=== PATIENT | female | born 1950 | race Caucasian/White ===

== ENCOUNTER → 2021-01-26 16:16 | Outpatient (CLI) | payer BC, SELFPAY ==
[2021-01-26 17:53] LABS: Anion Gap 6 (5-15); BUN 22 mg/dL (7-18); Calcium,Total 8.7 mg/dL (8.5-10.1); Chloride 110 mmol/L (98-107); Creatinine, Serum 1.05 mg/dL (0.55-1.02); EST Glomerular Filtration Rate 55 mL/min (>60); Est Glom Filt Rate - Afr Amer 66 mL/min (>60); Glucose 95 mg/dL (74-106); Potassium 3.5 mmol/L (3.5-5.1); Sodium Level 143 mmol/L (136-145)
== END ==
DX: I11.0 Hypertensive heart disease with heart failure (principal); F41.3 Other mixed anxiety disorders
CPT/HCPCS: 36415; 80048

== ENCOUNTER 2023-03-02 18:08 | Emergency (ER) | payer MEDICARE, SELFPAY ==
[2023-03-02] VITALS (7 sets, daily range): BP systolic 208–236; BP diastolic 89–117; PULSE 54–80; RESP 15–18; TEMP 36.1; O2SAT 95–97; BMI 28.7
--- NOTE | 2023-03-02 19:00 | EKG12_ITS ---
Test Reason : DYSRHYTHMIA Blood Pressure : / mmHG Vent. Rate : 056 BPM Atrial Rate : 056 BPM P-R Int : 186 ms QRS Dur : 150 ms QT Int : 522 ms P-R-T Axes : 076 095 -13 degrees QTc Int : 503 ms Sinus bradycardia Right bundle branch block T wave abnormality, consider inferior ischemia Abnormal ECG Confirmed by SHANDRA MCGILL, JERE ([id number]), graphics editor RONNA RUBIO ([id number]) on 03/04/2023 9:47:47 AM Referred By: EMMA Confirmed By:JERE DEVI MD
--- NOTE | 2023-03-02 19:01 | EDS_ITS ---
HPI History of Present Illness Chief Complaint: Anxiety Narrative Narrative: 72-year-old female presenting with lightheadedness. Patient states that the day before yesterday she started B12 and her doctor told her to put a sublingual leads absorb faster. She notes that today she woke up with some lightheadedness as well as yesterday. She states when she sits up. Standing up does not make it worse. She denies vertiginous symptoms. No chest pain but does occasionally feel short of breath. Patient states she went to the pharmacist who wrote her medications because there was a piece of paper with side effects on it and said dizziness and lightheadedness could be caused by her Lasix. Patient is on Lasix chronically and she states she also takes Klor-Con. Patient states the pharmacist told her to go to the emergency room. She had been trying to follow- up with cardiology but it is the weekend and the pharmacist wanted her to be evaluated. Patient denies chest pain. No fevers or chills. She is not feeling weak. He does have a little bit of anxiety over her symptoms. States that her blood pressures been running a little bit high but a couple of days ago she had a checked and it was 140/80. PFSH PFSH Allergy/AdvReac Type Severity Reaction Status Date / Time No Known Allergies Allergy Verified 03/02/23 18:14 Social History Smoking Status: Never smoker ROS ROS ED ROS Narrative Lightheadedness Constitutional Constitutional ED: Denies chills, fever(s) or sweats Eyes Eyes: Denies blurry vision or change in vision ENT ENT ED: Denies ear pain or sore throat Cardiovascular Cardiovascular: Denies chest pain, palpitations or racing heartbeat Respiratory/Chest Respiratory/Chest: Denies cough, dyspnea or sputum Gastrointestinal Gastrointestinal: Denies abdominal pain, constipation, diarrhea, nausea or vomiting Genitourinary Genitourinary ED: Denies dysuria, hematuria or urinary frequency Musculoskeletal Musculoskeletal: Denies arthralgias, myalgias or neck pain Integumentary Denies abscess, Abrasions or rash Neurologic Neurologic: Denies headache(s), paresthesias or weakness Psychiatric Psychiatric: Reports anxiety; Denies depression, suicidal ideation or suicidal thoughts Endocrine Endocrinology: Denies polydipsia or polyuria EXAM Physical Exam Const Vital Signs: 12/02/23 18:09 03/02/23 19:15 03/02/23 19:16 Temperature 97.0 F L Temperature Source Temporal Pulse Rate 65 Respiratory Rate 16 Respiratory Effort Normal Respiratory Pattern Normal Blood Pressure 231/115 H Blood Pressure Mean 153 Pulse Ox 95 Oxygen Delivery Method Room Air Room Air 03/02/23 19:23 03/02/23 20:12 03/02/23 21:23 Temperature Temperature Source Pulse Rate 59 L Respiratory Rate 15 Respiratory Effort Respiratory Pattern Blood Pressure 236/117 H 212/89 H 210/109 H Blood Pressure Mean 156 130 142 Pulse Ox 96 Oxygen Delivery Method Room Air 03/02/23 21:26 03/02/23 21:35 Temperature Temperature Source Pulse Rate 54 L Respiratory Rate Respiratory Effort Respiratory Pattern Blood Pressure 208/108 H 220/98 H Blood Pressure Mean 141 138 Pulse Ox Oxygen Delivery Method Positive well nourished General Appearance ED: NAD; Negative for pallor HEENT Reports moist mucous membranes Eyes PERRL and EOMs intact bilaterally Neck no lymphadenopathy Chest Wall inspection of chest normal and palpation of chest normal Resp normal respiratory effort and clear to auscultation bilaterally Auscultation: Negative for rales, rhonchi or wheezes Cardio regular rate and regular rhythm GI normal to inspection, nondistended, normoactive bowel sounds Extremity normal to inspection Neuro oriented x3 and CN's II-XII intact bilaterally Sensorium / Orientation: alert Psych mental status grossly normal Skin no rashes or lesions noted General Skin Exam: Negative for jaundice or pallor MDM MDM MDM Narrative Medical decision making narrative: Presenting with lightheadedness. Negative Eminence-Hallpike on exam. Patient concerned that it is due to her Lasix. She does occasionally feel short of breath. Differential includes pneumonia, ACS, CHF, dehydration, electrolyte abnormalities. CBC to assess white blood cell count, hemoglobin, platelets. BMP to assess renal function electrolytes. High-sensitivity troponin EKG to assess for cardiac ischemia/dysrhythmia. BNP to assess for CHF. Patient's blood pressure will be rechecked as her initial blood pressure was high at 221/115. Chest x-ray will be obtained to rule out pneumonia or CHF. CBC shows normal white blood cell count 6.0. 11.10 hemoglobin. Platelets are normal. BNP slightly elevated at 314. Renal function electrolytes unremarkable. Chest x-ray on my interpretation shows a mild initial prominence however the patient does not have any hypoxia, dyspnea currently. Lungs are clear. High- sensitivity troponin within normal limits. EKG sinus rhythm with a ventricular rate of 56 bpm without sign ischemic change or ectopy on my interpretation. Blood pressure still remained high and she was given 5 hydralazine. I had a discussion with her about what her blood pressure medications are she states she cannot recall them. She remembers all of her medications except for her blood pressure medicines and she states she takes metoprolol and 2 other medications for her blood pressure. I gave a list of blood pressure medicines that did not jog her memory. Given that her work-up is ultimately normal I counseled her that she should go home and take her nightly blood pressure medicines and recheck her blood pressure in the morning. I went over this several times. Patient acknowledges understanding of this. She will be discharged home. Impression: 1. Hypertension 2. Atypical chest pain 3. Dyspnea Lab Data Attestation: I reviewed the patient's lab results. Labs: Laboratory Results - last 24 hr 03/02/23 19:10 WBC 6.0 RBC 3.64 L Hgb 11.1 L Hct 34.0 L MCV 93.4 MCH 30.5 MCHC 32.6 RDW Std Deviation 45.1 H RDW Coeff of Lisa 13.2 Plt Count 106 L MPV 11.2 Immature Gran % (Auto) 0.300 Neut % (Auto) 63.8 Lymph % (Auto) 25.3 Story % (Auto) 7.2 Eos % (Auto) 2.7 Baso % (Auto) 0.7 Absolute Neuts (auto) 3.8 Absolute Lymphs (auto) 1.51 Nucleated RBC % 0 Sodium 144 Potassium 3.4 L Chloride 113 H Carbon Dioxide 28.0 Anion Gap 3 L BUN 24 H Creatinine 0.92 Estim Creat Clear Calc 54.94 Est GFR (MDRD) Af Amer 77 Est GFR (MDRD) Non-Af 63 BUN/Creatinine Ratio 26.1 H Glucose 106 Calcium 9.0 Troponin I High Sens 14 B-Natriuretic Peptide 314.0 H Radiography Diagnostic Testing: Clinical Impression(s) from Imaging Studies Chest X-Ray 03/02/23 19:30 IMPRESSION: Mild interstitial prominence. Consider vascular congestion. Abnormal lobulated appearance of the right hemidiaphragm as above. Lateral view could be useful. Right basilar lung lesion not excluded. Electronically Signed: Robert Morrissey MD at 20:05 EST , Discharge Plan Triage Chief Complaint: Anxiety Other Complaint: General Illness ED Provider: Carlton Cui Dx/Rx/DC Orders Instructions: ED Chest Pain, Uncertain Cause, ED Dyspnea, ED Hypertension, Established Primary Care Provider: Wilfrido Card,Out of Referrals: Wilfrido Card,Out of [Primary Care Provider] - Activity Restrictions/Additional Instructions: Take your blood pressure medicine when you get home. Check your blood pressure in the morning and keep a diary. Take your regularly scheduled blood pressure meds tomorrow morning as well. Follow-up with your PCP or diagnostic radiologic technologist. Disposition Disposition: Home, Self Care
[2023-03-02 19:20] LABS: Absolute Lymphocyte Count 1.51 X10^3/uL (0.83-4.51); Absolute Neutrophil Count 3.8 X10^3/uL (2.0-7.7); Basophil# 0.04 X10^3/uL; Basophil% 0.7 % (0-1); Eosinophil# 0.16 X10^3/uL; Eosinophils% 2.7 % (0-5); Hemoglobin 11.1 g/dL (12.0-15.0); Lymphocyte # 1.51 X10^3/ul (0.83-4.51); Lymphocyte % 25.3 % (19-41); Mean Corp Hgb Conc 32.6 g/dL (32-36); Mean Corpuscular Hgb 30.5 pg (27.0-32.0); Mean Corpuscular Volume 93.4 fL (81-99); Mean Platelet Vol. 11.2 fl (6.2-12.0); Monocyte# 0.43 X10^3/uL; Monocyte% 7.2 % (0-10); NRBC Flagged by Analyzer 0 % (0-5); Neutrophil % 63.8 % (47-70); Platelet Count 106 K/mm3 (150-450); RBC Distribution Width CV 13.2 % (11.6-14.6); RBC Distribution Width SD 45.1 fl (35.1-43.9); Red Blood Count 3.64 M/mm3 (4.2-5.4)
--- NOTE | 2023-03-02 19:30 | RAD_ITS ---
INDICATION: chest pain EXAMINATION/TECHNIQUE: X-RAY - XR Chest 1 View COMPARISON: None. FINDINGS: Cardiac silhouette is within normal limits regarding size. Lung volumes are low. Lobulated appearing right hemidiaphragm noted which could reflect eventration or hernia. The interstitium is mildly prominent however this could reflect low volumes. No pneumothorax. No subdiaphragmatic free air. Degenerative changes of the spine are present. RAD/Chest 1 View (Portable) IMPRESSION: Mild interstitial prominence. Consider vascular congestion. Abnormal lobulated appearance of the right hemidiaphragm as above. Lateral view could be useful. Right basilar lung lesion not excluded. Electronically Signed: Robert Morrissey MD at 20:05 EST ,
[2023-03-02 19:39] LABS: Anion Gap 3 (5-15); BUN 24 mg/dL (7-18); BUN/Creat Ratio 26.1 RATIO (10-20); Chloride 113 mmol/L (98-107); Creatinine, Serum 0.92 mg/dL (0.55-1.02); EST Glomerular Filtration Rate 63 mL/min (>60); Est Glom Filt Rate - Afr Amer 77 mL/min (>60); Estimated Creatinine Clearance 54.94 ml/min; Glucose 106 mg/dL (74-106); Potassium 3.4 mmol/L (3.5-5.1); Sodium Level 144 mmol/L (136-145); Troponin-I HS 14 pg/mL (3.0-54.0)
[2023-03-02] MEDS: hydrALAZINE 20 MG/ML Vial 5 MG IV (20:41)
--- NOTE | 2023-03-02 21:38 | ED.RN ---
Dr. Cui aware of pt bp still running in the 220s. stating he will be in to talk to pt.
== END 2023-03-02 22:09 | disposition home or self-care (01) ==
PROVIDERS: Emergency Provider Student in an Organized Health Care Education/Training Program; Visit Provider Student in an Organized Health Care Education/Training Program
DX: I10 Essential (primary) hypertension (principal); R07.89 Other chest pain; R06.00 Dyspnea, unspecified; F41.9 Anxiety disorder, unspecified
CPT/HCPCS: 71045; 80048; 83880; 84484; 85025; 93005; 96374; 99285; A4216

== ENCOUNTER 2023-04-09 09:03 | Emergency (ER) | payer MEDICARE, SELFPAY ==
[2023-04-09 09:04] VITALS: BP 269/107; PULSE 64; RESP 14; TEMP 36.8; O2SAT 100; BMI 28.5
--- NOTE | 2023-04-09 09:29 | CT_ITS ---
EXAM: CT HEAD WITHOUT INTRAVENOUS CONTRAST CLINICAL INDICATION: head injury TECHNIQUE: Multiple axial images were obtained of the head without intravenous contrast. This CT exam was performed using one or more of the following dose reduction techniques: automated exposure control, adjustment of the mA and/or kV according to patient size, and/or use of iterative reconstruction technique. COMPARISON: No relevant prior studies available. FINDINGS: BRAIN AND EXTRA-AXIAL SPACES: No hemorrhage or mass effect. No acute ischemia. Areas of diminished white matter density noted within both cerebral hemispheres suggestive of chronic microvascular change. Prominence of the cortical sulci and ventricles related to volume loss change. BONES/JOINTS: No suspicious lytic or blastic abnormality. SINUSES: No acute sinusitis. MASTOID AIR CELLS: Normal. Clear. CT/Brain/Head without Contrast IMPRESSION: 1. No acute intracranial abnormality. 2. Senescent changes. Electronically Signed: Paul Sullivan MD at 10:18 EST ,
--- NOTE | 2023-04-09 09:31 | EX.ED.GENINJ ---
HPI History of Present Illness Chief Complaint: Laceration Informant: patient Narrative Narrative: Fall out of bed overnight. Patient reports bleeding to the scalp. No anticoagulants. Tetanus unknown. She had previous falls out of bed prior. She had a hospital bed at 1 time with rails. Currently change beds due to back issues. Denies headache neck pain back pain. Denies chest pains. Denies extremity pain. Presents by private vehicle. She moved back to the area last 2 years, her doctors were over at [place]. Reports issues with blood pressure seen her PCP yesterday states her medications were adjusted. No chest or abdominal pain. No dyspnea. Tetanus Immunization: Unknown Prior similar symptoms: Yes PFSH PFSH Allergy/AdvReac Type Severity Reaction Status Date / Time No Known Allergies Allergy Verified 04/09/23 09:04 Social History Smoking Status: Never smoker ROS ROS ED Constitutional Constitutional ED: Denies chills, fever(s) or sweats Eyes Eyes: Denies change in vision ENT ENT ED: Denies dysphagia or sore throat Cardiovascular Cardiovascular: Denies chest pain, leg edema, palpitations or racing heartbeat Respiratory/Chest Respiratory/Chest: Denies cough, dyspnea or dyspnea on exertion Gastrointestinal Gastrointestinal: Denies abdominal pain, diarrhea, nausea or vomiting Genitourinary Genitourinary ED: Denies dysuria, hematuria or urinary frequency Musculoskeletal Musculoskeletal: Denies back pain, extremity pain or neck pain Integumentary Reports wounds; Denies rash Neurologic Neurologic: Denies headache(s), paresthesias or weakness EXAM Physical Exam Const Vital Signs: 04/09/23 09:04 04/09/23 11:03 04/09/23 12:09 Temperature 98.3 F 97.9 F Temperature Source Temporal Pulse Rate 64 64 Respiratory Rate 14 14 Blood Pressure 269/107 H 192/84 H 189/78 H Blood Pressure Mean 161 120 115 Pulse Ox 100 99 Oxygen Delivery Method Room Air Positive well nourished and well developed Constitutional Narrative: GCS 15. General Appearance ED: well developed and NAD HEENT Reports moist mucous membranes HEENT Narrative: Abrasion upper frontal scalp on the posterior left side with dried blood. There is no lacerations. normocephalic Eyes PERRL, EOMs intact bilaterally and conjunctivae normal General Eye ED: Yes normal appearance of both eyes Neck no lymphadenopathy and supple General: Negative for tenderness Chest Wall inspection of chest normal and palpation of chest normal Chest: Negative for tenderness Resp normal respiratory effort and normal air movement Effort and Inspection: symmetric chest movement; Negative for respiratory distress Cardio regular rate, regular rhythm and no murmurs Peripheral Pulses: pulses 2+ throughout GI normal to inspection, nondistended, normoactive bowel sounds and non-tender Palpation: Negative for guarding or rebound tenderness present Back/Spine no CVA tenderness and no thoracic nor lumbar tenderness Extremity normal to inspection General Extremety ED: Negative for edema or tenderness General Extremity: Negative for edema Neuro oriented x3, CN's II-XII intact bilaterally and no sensory deficits noted Sensorium / Orientation: awake and alert Skin no rashes or lesions noted and no wounds MDM MDM MDM Narrative Medical decision making narrative: Interventions / MDM: Differential diagnosis: Closed head injury, scalp abrasion Diagnosis considered but do not suspect: Intracranial hemorrhage however CT negative. No clinical hypertensive emergency symptoms. My EKG interpretation: N/A Imaging independently reviewed and interpreted by myself: CT brain: No intracranial hemorrhage also read by radiologist. External documents reviewed: N/A Test considered but not ordered:N/A ED course: Patient fall out of bed head injury. Abrasion seen on exam that is currently not actively bleeding. She is concerned therefore Dermabond was placed. CT head ordered for further evaluation. Blood pressure 269/107 on arrival however clinically had no symptoms. She took her home medications provided by her mat maker started yesterday. She was monitored. Tetanus was updated. CT brain negative. Blood pressure rechecked down to 189/78. Still elevated have more reasonable number. She discharged outpatient follow-up with her cardiology team to continue management of her blood pressure. Return precautions. All questions were answered. Re-evaluation: stable Disposition discussed with patient/family/significant other: Patient Case discussed with consulting clinician: N/A This note was generated with [employer] dictation software. It may contain incorrect words, spelling, and punctuation that were not noted in checking the note before signing. Radiography Diagnostic Testing: Clinical Impression(s) from Imaging Studies Brain CT 04/09/23 09:29 IMPRESSION: 1. No acute intracranial abnormality. 2. Senescent changes. Electronically Signed: Paul Sullivan MD at 10:18 EST , Discharge Plan Triage Chief Complaint: Laceration ED Provider: Prabhakar Curtis Dx/Rx/DC Orders Clinical Impression: Abrasion of scalp, CHI (closed head injury), Hypertension Instructions: ED Abrasion, ED Head Injury (Adult), ED High Blood Pressure Hypertension Primary Care Provider: CARLA CABRERA Referrals: [facility] Doctor,Out of [Non-Staff] - 1 Week Activity Restrictions/Additional Instructions: CT brain negative. Abrasion nonbleeding, Dermabond was placed to your scalp. Your blood pressure elevated in the emergency department. You saw your mat maker yesterday for blood pressure medicine adjustment. Follow-up with your mat maker for continued blood pressure treatment and control. Disposition Disposition: Home, Self Care Discharge Date/Time: 04/09/23 12:11
[2023-04-09] MEDS: Diphth,Pertuss(Acell),Tet Vac 0.5 ML Vial IM (09:34)
[2023-04-09 11:03] VITALS: BP 192/84
[2023-04-09 12:09] VITALS: BP 189/78; PULSE 64; RESP 14; TEMP 36.6; O2SAT 99
== END 2023-04-09 12:11 | disposition home or self-care (01) ==
PROVIDERS: Emergency Provider Emergency Medicine; Visit Provider Emergency Medicine
DX: S00.01XA Abrasion of scalp, initial encounter (principal); W06.XXXA Fall from bed, initial encounter; I10 Essential (primary) hypertension; Z79.899 Other long term (current) drug therapy; R29.6 Repeated falls
CPT/HCPCS: 12001; 70450; 90715; 99282

== ENCOUNTER → 2023-05-01 | Outpatient (CLI) | payer MEDICARE, SELFPAY ==
--- OUTSIDE RECORDS SUMMARY | 2023-05-01 07:41 | XMS RPT_ITS | CCD ---
Author Name Unknown Address [address] [place] [address] Organization [facility] Care Team Providers Care Candy Spreader Name Role Phone PROVIDER, UNKNOWN Unavailable Unavailable Sj Sepideh Unavailable Unavailable Alexandra Lenz Unavailable Unavailable PROVIDER, UNKNOWN Unavailable Unavailable Sj, Sepideh Unavailable Unavailable Sj Sepideh Unavailable Unavailable PROVIDER, UNKNOWN Unavailable Unavailable Gustafson, Sepideh Unavailable Unavailable Ace Sepideh Unavailable Unavailable Kristie Romano Unavailable Unavailable PROVIDER, UNKNOWN Unavailable Unavailable Carla Cabrera Unavailable Unavailable Carla Cabrera Primary Care Provider aCrla Cabrera Primary Care Provider Carla Cabrera Primary Care Provider Carla Cabrera MD Primary Care Provider Maicol Riley II, DO Unavailable Unavailable Carla Cabrera Unavailable Unavailable Carla Cabrera MD Primary Care Provider Carla Cabrera MD Primary Care Provider CARLA CABRERA Referring UnavailCARLA Malone Primary Care UnavailCarla Malone MD Primary Care Provider CARLA CABRERA Primary Care Unavailable CARLA CABRERA Attending Unavailable CARLA CABRERA Admitting Unavailable CARLA CABRERA Admitting Unavailable CARLA CABRERA Primary Care Unavailable CARLA CABRERA Attending Unavailable CARLA CABRERA Primary Care Unavailable LEATHA MCGILL~[id number], LEATHA Cainit shannan Unavailable LEATHA MCGILL~[id number], LEATHA Eastman Atten ding Unavailable Yimi, Dr. Carla Kothari Primary Care Matteo labyanni Cabrera, Dr. Carla Kothari Attending Matteo labyanni Cabrera, Dr. Carla Kothari Referring Unavai labyanni Cabrera, Dr. Carla Kothari Primary Care Matteo Cabrera, Dr. Carla Kothari Attending Matteo labyanni Cabrera, Dr. Carla Kothari Referring Tonyai labyanni Cabrera, Dr. Carla Kothari Primary Care Matteo labyanni Cabrera, Dr. Carla Kothari Attending Matteo labyanni Cabrera, Dr. Carla Kothari Referring Sheilavai labyanni Cabrera, Dr. Carla Kothari Attending Matteo labyanni Cabrera, Dr. Carla Kothari Referring Sheilavai labyanni Cabrera, Dr. Carla Kothari Primary Care Matteo Cabrera, Dr. Carla Kothari Attending Matteo labyanni Cabrera, Dr. Carla Kothari Referring Sheilavai labyanni Cabrera, Dr. Carla Kothari Primary Care Sheilaiarosa labyanni Cabrera, Dr. Carla Kothari Attending Sheilaiarosa labyanni Cabrera, Dr. Carla Kothari Referring Sheilavarosa labyanni Cabrera, Dr. Carla Kothari Primary Care SURAJ Belle Referring Unavailable CARLA CABRERA Primary Care Unavailable Carla Cabrera MD Primary Care Provider [phone] Carla Cabrera MD Unavailable [phone] CARLA CABRERA Attending Unavailable CARLA CABRERA Primary Care Unavailable Allergies Allergy Classification Reported Allergen(s) Allergy Type Date of Onset Reaction(s) Facility Latex (1 source) Latex Substance Allergy 04-22-2017 Itching [facility] (14 sources) Latex Propensity to adverse reactions [facility] [place] Medications Current Medications Medication Drug Class(es) Dates Sig (Normalized) Sig (Original) Acetaminophen (1 source) Start: 11-03-2019 acetaminophen (TYLENOL) tablet 650 mg alendronic acid 70 mg oral tablet (3 sources) Bisphosphonate Start: 05-31-2020 take 1 tablet by mouth every week alendronate (Fosamax) 70 mg tablet 1 tab(s) orally once a week 0 05/31/2020 Active Completed/Discontinued Medications Medication Drug Class(es) Dates Sig (Normalized) Sig (Original) acetaminophen 65 mg/ml / oxyCODONE hydrochloride 1 mg/ml oral solution (2 sources) Opioid Agonist End: 11-03-2019 oxyCODONE-acetamino phen (ROXICET) 5-325 MG/5ML solution Take by mouth every 6 hours. 0 11/03/2019 Discontinued (LIST CLEANUP) ascorbic acid 500 mg oral tablet (2 sources) Vitamin C End: 11-03-2019 take 1 tablet by mouth once daily vitamin C (ASCORBIC ACID) 500 MG tablet Take 500 mg by mouth daily 0 11/03/2019 Discontinued (LIST CLEANUP) busPIRone hydrochloride 7.5 mg oral tablet (20 sources) Start: 05-31-2020 take 1 tablet by mouth three times daily busPIRone (BUSPAR) 7.5 mg tablet Take 7.5 mg by mouth three times daily. 0 05/31/2020 Active Problems Active Problems Problem Classification Problem Date Documented Da te Episodic/Chronic Anxiety disorders (2 sources) Other specified anxiety disorders; Translations: [Other specified anxiety disorders] Onset: 06-03-2017 Chronic Cardiac dysrhythmias (4 sources) Paroxysmal atrial fibrillation; Translations: [Paroxysmal atrial fibrillation] Onset: 04-22-2023 04-22-2023 Chronic Chronic obstructive pulmonary disease and bronchiectasis (4 sources) Centriacinar emphysema; Translations: [Centrilobular emphysema] Onset: 04-22-2023 04-22-2023 Chronic Congestive heart failure; nonhypertensive (20 sources) Heart failure, unspecified; Translations: [Heart failure] Onset: 03-07-2017 11-03-2019 Chronic Diabetes mellitus without complication (3 sources) Hyperglycemia; Translations: [Hyperglycemia, unspecified] Onset: 04-22-2023 04-22-2023 Episodic Disorders of lipid metabolism (20 sources) Mixed hyperlipidemia; Translations: [Hyperlipidemia] Onset: 03-10-2017 11-03-2019 Chronic E Codes: Fall (3 sources) Fall; Translations: [Unspecified fall, subsequent encounter] Onset: 04-22-2023 04-22-2023 Episodic Essential hypertension (3 sources) Essential (primary) hypertension; Translations: [Hypertensive disorder] Onset: 03-10-2017 03-10-2017 Chronic Hypertension with complications and secondary hypertension (20 sources) Hypertensive heart disease with congestive heart failure; Translations: [Hypertensive heart disease with heart failure] Onset: 03-10-2017 11-03-2019 Chronic Immunizations and screening for infectious disease (3 sources) Needs influenza immunization; Translations: [Encounter for immunization] Onset: 04-22-2023 04-22-2023 Episodic Menopausal disorders (1 source) Unspecified menopausal and perimenopausal disorder; Translations: [UNS MENOPAUSAL PERIMENOPAUSAL D/O] Onset: 06-05-2022 Chronic Mood disorders (2 sources) Dysthymic disorder; Translations: [Dysthymic disorder] Onset: 01-09-2018 Chronic Nutritional deficiencies (3 sources) Vitamin D deficiency; Translations: [Vitamin D deficiency, unspecified] Onset: 04-22-2023 04-22-2023 Chronic Occlusion or stenosis of precerebral arteries (1 source) Occlusion and stenosis of bilateral carotid arteries; Translations: [OCCLUSION AND STENOS CHARLEY CAROTID ART] Onset: 06-05-2022 Chronic Other and ill-defined heart disease (2 sources) Takotsubo syndrome; Translations: [Takotsubo syndrome] Onset: 07-29-2017 Chronic Other connective tissue disease (1 source) Pain in fingers of bilateral hands; Translations: [Pain in left finger(s)] 04-22-2023 Episodic Other connective tissue disease (2 sources) Pain in left finger(s); Translations: [Pain in left finger(s)] Onset: 04-22-2023 Episodic Other connective tissue disease (2 sources) Pain in right finger(s); Translations: [Pain in right finger(s)] Onset: 04-22-2023 Episodic Other gastrointestinal disorders (2 sources) Irritable bowel syndrome without diarrhea; Translations: [Irritable bowel syndrome without diarrhea] Onset: 07-29-2017 Chronic Other gastrointestinal disorders (19 sources) Irritable bowel syndrome; Translations: [Irritable bowel syndrome without diarrhea] Onset: 03-10-2017 03-10-2017 Chronic Other lower respiratory disease (2 sources) Dyspnea on exertion; Translations: [Dyspnea, unspecified] Episodic Other nervous system disorders (2 sources) Carpal tunnel syndrome; Translations: [Carpal tunnel syndrome] Chronic Other nervous system disorders (2 sources) Other symptoms and signs involving cognitive functions and awareness; Translations: [Oth symptoms and signs w cognitive functions and awareness] Onset: 01-09-2018 Episodic Other nervous system disorders (4 sources) Ataxia; Translations: [Ataxia, unspecified] Onset: 01-01-2023 07-13-2022 Episodic Other nervous system disorders (1 source) Ataxia, unspecified; Translations: [Ataxia, unspecified] Onset: 01-01-2023 Episodic Other nutritional; endocrine; and metabolic disorders (2 sources) Obese class I; Translations: [Obesity, unspecified] Onset: 06-06-2020 06-06-2020 Chronic Other screening for suspected conditions (not mental disorders or infectious disease) (1 source) Encounter for screening mammogram for malignant neoplasm of breast; Translations: [Encounter for screening mammogram for malignant neoplasm of breast] Onset: 04-30-2022 Episodic Residual codes; unclassified (3 sources) Asymptomatic menopausal state; Translations: [ASYMPTOMATIC MENOPAUSAL STATE] Onset: 06-05-2022 Episodic Residual codes; unclassified (1 source) Menopause present; Translations: [Asymptomatic menopausal state] 04-22-2023 Episodic Skin and subcutaneous tissue infections (1 source) Cellulitis of lower leg; Translations: [Cellulitis of right lower limb] Episodic Skin and subcutaneous tissue infections (1 source) Cellulitis of right lower limb; Translations: [Cellulitis of right lower extremity] Thyroid disorders (20 sources) Acquired hypothyroidism; Translations: [Hypothyroidism, unspecified] Onset: 11-05-2019 11-05-2019 Chronic Unclassified (2 sources) Sleep apnea, unspecified; Translations: [Sleep apnea, unspecified] Onset: 06-03-2017 Unclassified (1 source) Wound finding; Translations: [Encounter for wound re-check] Past or Other Problems Problem Classification Problem Date Documented Da te Episodic/Chronic Abdominal hernia (18 sources) Incisional hernia; Translations: [Incisional hernia without obstruction or gangrene] Onset: 08-30-2016 08-30-2016 Episodic Administrative/social admission (2 sources) Dietary counseling and surveillance; Translations: [Dietary counseling and surveillance] Onset: 07-29-2017 Episodic Other aftercare (2 sources) custodial (current) use of systemic steroids; Translations: [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 OF SYSTEMIC STEROIDS] Onset: 06-05-2022 Episodic Other aftercare (1 source) custodial (current) use of bisphosphonates; Translations: [LNG TERM CURRNT USE BISPHOSPHONATES] Onset: 06-05-2022 Episodic Other bone disease and musculoskeletal deformities (1 source) Other specified disorders of bone density and structure, unspecified site; Translations: [OTH D/O BONE DEN STRUCT UNS SITE] Onset: 06-05-2022 Episodic Other bone disease and musculoskeletal deformities (1 source) Other specified disorders of bone density and structure, multiple sites; Translations: [OTH D/O BONE DENSITY STRUCT MX SITE] Onset: 06-05-2022 Episodic Other connective tissue disease (1 source) Repeated falls; Translations: [REPEATED FALLS] Onset: 06-05-2022 Episodic Other nervous system disorders (1 source) Other abnormalities of gait and mobility; Translations: [OTHER ABNORMALITIES GAIT AND MOBILITY] Onset: 06-05-2022 Episodic Superficial injury; contusion (1 source) Abrasion of lower limb; Translations: [Abrasion of right lower extremity, initial encounter] Episodic Thyroid disorders (20 sources) Disorder of thyroid, unspecified; Translations: [Disorder of thyroid gland] Onset: 03-10-2017 11-03-2019 Episodic Unclassified (1 source) Onset: 04-22-2023 04-22-2023 NEGATED: Highlighted row has not occurred!Residual codes; unclassified (1 source) Disease Episodic Results Test Name Value Interpretation Reference Range Facil ity Vital Signs Date Time Vital Sign Value Performing Clinician Facility 04-22-2023 15:40-0500 Body mass index (BMI) [Ratio] 30.51 kg/m2 Carla Cabrera MD Work Phone: [facility] 04-22-2023 15:40-0500 Body temperature 97.11 [degF] Carla Cabrera MD Work Phone: [facility] 04-22-2023 15:40-0500 Body weight 85.73 kg Carla Cabrera MD Work Phone: [facility] 04-22-2023 15:40-0500 Diastolic blood pressure 80 mm[Hg] Carla Cabrera MD Work Phone: [facility] 04-22-2023 15:40-0500 Heart rate 54 /min Carla Cabrera MD Work Phone: [facility] 04-22-2023 15:40-0500 Respiratory rate 16 /min Carla Cabrera MD Work Phone: [facility] 04-22-2023 15:40-0500 Systolic blood pressure 136 mm[Hg] Carla Cabrera MD Work Phone: [facility] 01-20-2021 17:11-0400 SaO2% (BldA) [Mass fraction] 99 % Eladio Beasley MD Work Phone: [facility] Work Phone: 01-20-2021 17:10-0400 Diastolic blood pressure 80 mm[Hg] Eladio Beasley MD Work Phone: [facility] Work Phone: 01-20-2021 17:10-0400 Heart rate 64 /min Eladio Beasley MD Work Phone: [facility] Work Phone: 01-20-2021 17:10-0400 Respiratory rate 18 /min Eladio Beasley MD Work Phone: [facility] Work Phone: 01-20-2021 17:10-0400 Systolic blood pressure 158 mm[Hg] Eladio Beasley MD Work Phone: [facility] Work Phone: 01-20-2021 14:48-0400 Body height 175.3 cm Eladio Beasley MD Work Phone: [facility] Work Phone: 01-20-2021 14:48-0400 Body mass index (BMI) [Ratio] 29.53 kg/m2 Eladio Beasley MD Work Phone: [facility] Work Phone: 01-20-2021 14:48-0400 Body temperature 98.6 [degF] Eladio Beasley MD Work Phone: [facility] Work Phone: 01-20-2021 14:48-0400 Body weight 90.72 kg Eladio Beasley MD Work Phone: [facility] Work Phone: 10-20-2020 00:54-0400 Body temperature 97.11 [degF] Eladio Weaver MD Work Phone: [facility] Work Phone: 10-20-2020 00:54-0400 Diastolic blood pressure 113 mm[Hg] Eladio Weaver MD Work Phone: [facility] Work Phone: Encounters Encounter Date Encounter Type Care Provider Facility Start: 04-22-2023 End: 04-23-2023 ambulatory CARLA CABRERA [facility] Ambulatory Start: 04-22-2023 End: 04-22-2023 Office outpatient visit 25 minutes Carla Cabrera MD Work Phone: [facility] Procedures Date Procedure Procedure Detail Performing Clinician Start: 04-22-2023 INFLUENZA, HIGH-DOSE SEASONAL. QUADRIVALENT, PRESERVATIVE FREE CARLA CABRERA Start: 01-01-2023 ELECTRONYSTAGMOGRAPHY Suraj Moreland Work Phone: Start: 04-30-2022 End: 04-30-2022 Screening mammography bi 2-view breast inc cad Carla Cabrera MD Work Phone: Start: 04-07-2021 Lipid 1996 panel - Serum or Plasma Carla Cabrera MD Work Phone: Start: 04-07-2021 Thyrotropin [Units/volume] in Serum or Plasma Carla Cabrera MD Work Phone: Start: 01-20-2021 Urnls dip stick/tablet rgnt auto w/o microscopy Eladio Beasley MD Work Phone: Start: 01-20-2021 End: 01-20-2021 Basic metabolic panel calcium total Eladio Beasley MD Work Phone: Start: 01-20-2021 Radiologic exam chest single view Eladio Beasley MD Work Phone: Start: 01-20-2021 Ecg routine ecg w/least 12 lds w/i&r Eladio Beasley MD Work Phone: Start: 12-12-2019 Mammography Mammography Coordinator Start: 11-05-2019 Assay of magnesium Hyacinth Cardenas Work Phone: Start: 11-05-2019 Basic metabolic panel calcium total Hyacinth Cardenas Work Phone: Start: 11-05-2019 Blood count complete automated Hyacinth Cardenas Work Phone: Start: 11-04-2019 Echo tthrc r-t 2d w/wom-mode compl spec&colr d Hyacinth Cardenas Work Phone: Start: 11-04-2019 Assay of magnesium Hyacinth Cardenas Work Phone: Start: 11-04-2019 Basic metabolic panel calcium total Hyacinth Cardenas Work Phone: Start: 11-04-2019 Blood count complete automated Hyacinth Cardenas Work Phone: Start: 11-04-2019 Lipid panel Hyacinth Cardenas Work Phone: Start: 11-04-2019 Lipid 1996 panel - Serum or Plasma [facility] 4 Start: 11-03-2019 Assay of ferritin Hyacinth Cardenas Work Phone: Start: 11-03-2019 Assay of thyroid stimulating hormone tsh Hyacinth Cardenas Work Phone: Start: 11-03-2019 Assay of troponin quantitative Hyacinth Cardenas Work Phone: Start: 11-03-2019 Ct angiography chest w/contrast/noncontrast Daphne Motta Work Phone: Start: 11-03-2019 COVID-19 Daphne Motta Work Phone: Start: 11-03-2019 Dup-scan xtr veins unilateral/limited study Daphne Motta Work Phone: Start: 11-03-2019 Assay of lactate Daphne Motta Work Phone: Start: 11-03-2019 Assay of magnesium Daphne Motta Work Phone: Start: 11-03-2019 Assay of troponin quantitative Daphne Greenfield Ma rshall Work Phone: Start: 11-03-2019 Basic metabolic panel calcium total Daphne Motta Work Phone: Start: 11-03-2019 Blood count complete auto&auto difrntl wbc Daphne Motta Work Phone: Start: 11-03-2019 Fibrin dgradj products d-dimer quantitative Malcom Floyd Work Phone: Start: 11-03-2019 Hepatic function panel Daphne Motta Work Phone: Start: 11-03-2019 Natriuretic peptide Daphne Motta Work Phone: Start: 11-03-2019 Radiologic exam chest single view Daphne Motta Work Phone: Start: 11-03-2019 Ecg routine ecg w/least 12 lds w/i&r Daphne Motta Work Phone: Start: 11-10-2018 Mammography Screen Hosp Plan of Treatment Date Care Activity Detail Author Start: 04-09-2033 DTaP/Tdap/Td Vaccines (3 - Td or Tdap) DTaP/Tdap/Td Vaccines (3 - Td or Tdap) [facility] Start: 10-25-2029 DTaP/Tdap/Td vaccine (2 - Td or Tdap) DTaP/Tdap/Td vaccine (2 - Td or Tdap) [facility] Start: 10-25-2029 DTaP/Tdap/Td vaccine (2 - Td) DTaP/Tdap/Td vaccine (2 - Td) [facility] [place] Start: 10-25-2029 DTaP/Tdap/Td Vaccines (2 - Td or Tdap) DTaP/Tdap/Td Vaccines (2 - Td or Tdap) [facility] Start: 10-25-2029 Urine microalbumin profile DTAP,TDAP,TD (2 - Td or Tdap) [facility] Start: 04-07-2026 Lipid panel Lipid Panel [facility] Start: 11-03-2024 Lipid panel Lipid Panel [facility] Start: 06-01-2024 Screening for osteoporosis Bone Density Scan [facility] Start: 05-18-2023 Medicare Annual Wellness Visit Medicare Annual Wellness Visit (AWV) [facility] Start: 04-30-2023 Mammography MAMMOGRAM [facility] Start: 04-30-2023 Screening for malignant neoplasm of breast Mammogram [facility] Start: 04-22-2023 End: 04-22-2024 25-hydroxyvitamin D3 [Mass/volume] in Serum or Plasma Vitamin D 25-Hydroxy,Total (for eval of Vitamin D levels) Lab Routine Fall, subsequent encounter Acquired hypothyroidism Hypertensive heart disease with acute on chronic diastolic congestive heart failure (CMS/HCC) Menopause Vitamin D deficiency Expected: 04/22/2023 (Approximate), Expires: 04/22/2024 [facility] Work Phone: Immunizations Immunization Date Immunization Notes Care Provider Fa ronan 04-22-2023 Flu vaccine, quadrivalent, high-dose, preservative free, age 65y+ (FLUZONE) Carla Cabrera MD Work Phone: [facility] Work Phone: 04-09-2023 tetanus toxoid, redu tomi diphtheria toxoid, and acellular pertussis vaccine, adsorbed Carla Cabrera MD Work Phone: [facility] Work Phone: 03-14-2022 Pfizer COVID-19 vacc ine, bivalent, age 12 years and older (30 mcg/0.3 mL) Carla Cabrera MD Work Phone: [facility] Work Phone: 12-08-2021 Flu vaccine, quadrivalent, high-dose, preservative free, age 65y+ (FLUZONE) Carla Cabrera MD Work Phone: [facility] Work Phone: 12-08-2021 influenza virus vacc ine, unspecified formulation Suraj Moreland III, DO Work Phone: [facility] 02-09-2021 Flu vaccine, quadrivalent, high-dose, preservative free, age 65y+ (FLUZONE) Carla Cabrera MD Work Phone: [facility] Work Phone: 02-09-2021 influenza, high dose seasonal, preservative-free Carla Cabrera MD Work Phone: [facility] Work Phone: 02-29-2020 pneumococcal polysaccharide vaccine, 23 valent Carla Cabrera MD Work Phone: [facility] Work Phone: 12-28-2019 influenza, high-dose , quadrivalent vaccine (FLUZONE HIGH DOSE QUADRIVALENT) Screen [facility] 10-26-2019 diphtheria, tetanus toxoids and acellular pertussis vaccine, unspecified formulation Carla Cabrera [place] 10-26-2019 tetanus toxoid, redu tomi diphtheria toxoid, and acellular pertussis vaccine, adsorbed Carla Cabrera [facility] 12-18-2018 influenza, high dose seasonal, preservative-free Screen [facility] 01-23-2018 Flu vaccine, quadrivalent, high-dose, preservative free, age 65y+ (FLUZONE) Carla Cabrera MD Work Phone: [facility] Work Phone: 12-20-2016 influenza, seasonal, injectable Screen [facility] 12-28-2015 influenza, high dose seasonal, preservative-free Screen [facility] 01-28-2015 pneumococcal conjuga te vaccine, 13 valent Screen [facility] 01-27-2015 influenza, high dose seasonal, preservative-free Screen [facility] 01-06-2015 pneumococcal conjuga te vaccine, 13 valent Screen [facility] 02-08-2009 novel influenza-H1N1 -09, preservative-free, injectable Screen [facility] Payers Date Payer Category Payer Medicare [id number] 2020 Medicare [id number] 2014 Medicare [id number] 2014 Private Health Insurance [id number] 1959 Medicare [id number] 1950 Unknown [id number] 2.16.8 [id number] 1949 Unknown [id number] 2.16.8 [id number] 1949 Unknown [id number] 2.16.8 [id number] 1949 Unknown [id number] 2.16.8 [id number] 1949 Unknown [id number] 2.16.8 [id number] 1949 Unknown [id number] 2.16.8 [id number] 1949 Unknown [id number] 2.16.8 [id number] 1949 Unknown [id number] 2.16. [id number] 1949 Unknown [id number] 2.16. [id number] 1949 Unknown [id number] 2.16. [id number] 1949 Unknown [id number] 2.16. [id number] 1949 Unknown [id number] 2.16. [id number] 1949 Unknown [id number] 2.16. [id number] 1949 Unknown [id number] 2.16.8 [id number] Private Health Insurance Unknown Social History Date Type Detail Facility Start: 11-03-2019 End: 04-22-2023 Tobacco smoking status NHIS Former smoker [facility] Work Phone: Start: 11-03-2019 End: 04-22-2023 Tobacco use and exposure Never used [place], [place] Start: 11-03-2019 End: 03-20-2022 Alcohol intake Current non-drinker of alcohol (finding) [place] Start: 04-22-2017 Tobacco Comment 8-10 YEARS AGO [place], [place] Start: 1950 Sex Assigned At Not on file [place] Start: 04-12-2023 End: 04-22-2023 Exposure to SARS-CoV-2 (event) Not sure [place] Start: 04-22-2017 Tobacco Comment 8-10 YEARS AGO [facility] Work Phone: End: 04-01-2010 History of tobacco use Current smoker [facility] End: 04-01-2010 History of tobacco use Cigarette Smoker [facility] Start: 06-06-2020 End: 03-20-2022 Cigarettes smoked current (pack per day) - Reported 1 [facility] Start: 12-21-2020 Alcohol intake Ex-drinker (finding) [facility] Start: 03-20-2022 Tobacco use panel [facility] Functional Status Date Assessment Result Facility NEGATED: Highlighted row Functional performance Functional status health issues are not documented [facility] Work Phone: Mental Status Date Assessment Result Facility NEGATED: Highlighted row Cognitive function [Interpretation] Cognitive status health issues are not documented Disease [facility] Work Phone: Clinical Notes 04-14-2020 to 04-22-2023 Carla Cabrera MD - 04/22/2023 3:40 PM ESTPatient InstructionsJeana Lam, AuD - 01/01/2023 9:30 AM Florina Lam, AuD - 01/01/2023 9:30 AM Jacob Mancilla, RT(R) - 04/30/2022 9:15 AM EST Note Date & Type Note Facility 04-22-2023 History of Present illness Narrative Subjective Patient ID: Tatum Jaramillo is a 72 y.o. female who presents for Follow-up (4 mon fu), Hospital Follow-up (High blood pressure ), and Fall (Few weeks ago- injury to head ). Fall PT IS WORKING AT [employer]. Head vs nightstand doi: 04/09/2023: no bedrails. 1--fall and head injury 2 weeks ago: crown of head. May massage the site and pick it off. 2--fall wrist ppx: refer to physical therapy. 3--htn: meds and orthostatic hypotension risks. Went to er for fluctuating bp at home. Rx: furosemide prn bid avapro/irbesartan [address] panda; recently changed: metoprolol tartrate 25 bid. Also Isosorbide 60 mg q noon 4--flu shot done today. 5--tetanus was boostered 04/09/23 [facility] EDUC FOR FALL PPX AND ORTHOSTATIC HYPOTENSION AND BP CONTROLS. 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 Get it USE IT BLACK MOLD AIR FILTER AGING PROCESS [place]AC[place]ON or POSSUM IN THE HOUSE? OTHER CAUSE? AWV DUE 05/17/2023 I REMOVED THE WAD OF DRIED SKIN GLUE ATTACHED ONLY BY HAIRS. SKIN IS INTACT. PT ASKS IF SHE REALLY NEEDS TO SEE THE NEUROLOGIST DR MORELAND: YES PLEASE GO. PT COULD NOT TOLERATE THE BRAIN IMAGING STUDY. Review of Systems Objective Physical Exam Vitals and nursing note reviewed. Constitutional: Appearance: Normal appearance. HENT: Head: Normocephalic. Right Ear: Tympanic membrane, ear canal and external ear normal. Left Ear: Tympanic membrane, ear canal and external ear normal. Nose: Nose normal. Mouth/Throat: Mouth: Mucous membranes are moist. Eyes: Extraocular Movements: Extraocular movements intact. Conjunctiva/sclera: Conjunctivae normal. Cardiovascular: Rate and Rhythm: Normal rate and regular rhythm. Pulses: Normal pulses. Heart sounds: Normal heart sounds. Pulmonary: Effort: Pulmonary effort is normal. Breath sounds: Normal breath sounds. Abdominal: General: Bowel sounds are normal. Palpations: Abdomen is soft. Musculoskeletal: General: Normal range of motion. Cervical back: Normal range of motion and neck supple. Skin: General: Skin is warm and dry. Comments: CALLOUSED HANDS; TACO HESTER SHIRT, PAPERBACK BOOK IN HAND. WALKS ACCELERATED GAIT PULLS UP HALTING AND WEAVING GAIT. Neurological: General: No focal deficit present. Comments: SAYS SHE WALKS REAL FAST LIKE THAT RABBIT SPEEDY YAHIR YEAH HIM... Psychiatric: Mood and Affect: Mood normal. Assessment/Plan Diagnoses and all orders for this visit: Fall, subsequent encounter - Follow Up In Primary Care - Medicare Annual; Future - Referral to Neurology; Future - Lipid Panel; Future - Hemoglobin A1C; Future - Vitamin D 25-Hydroxy,Total (for eval of Vitamin D levels); Future - Urinalysis with Reflex Microscopic; Future - TSH with reflex to Free T4 if abnormal; Future - Comprehensive Metabolic Panel; Future - CBC and Auto Differential; Future - Referral to Falls Clinic; Future - Referral to Physical Therapy; Future Needs flu shot - Flu vaccine, quadrivalent, high-dose, preservative free, age 65y+ (FLUZONE) Acquired hypothyroidism - Lipid Panel; Future - Hemoglobin A1C; Future - Vitamin D 25-Hydroxy,Total (for eval of Vitamin D levels); Future - Urinalysis with Reflex Microscopic; Future - TSH with reflex to Free T4 if abnormal; Future - Comprehensive Metabolic Panel; Future - CBC and Auto Differential; Future - Referral to Falls Clinic; Future - Referral to Physical Therapy; Future Hypertensive heart disease with acute on chronic diastolic congestive heart failure (CMS/HCC) - Lipid Panel; Future - Hemoglobin A1C; Future - Vitamin D 25-Hydroxy,Total (for eval of Vitamin D levels); Future - Urinalysis with Reflex Microscopic; Future - TSH with reflex to Free T4 if abnormal; Future - Comprehensive Metabolic Panel; Future - CBC and Auto Differential; Future - Referral to Falls Clinic; Future - Referral to Physical Therapy; Future Menopause - XR DEXA bone density; Future - Lipid Panel; Future - Hemoglobin A1C; Future - Vitamin D 25-Hydroxy,Total (for eval of Vitamin D levels); Future - Urinalysis with Reflex Microscopic; Future - TSH with reflex to Free T4 if abnormal; Future - Comprehensive Metabolic Panel; Future - CBC and Auto Differential; Future Vitamin D deficiency - Vitamin D 25-Hydroxy,Total (for eval of Vitamin D levels); Future Hyperglycemia - Hemoglobin A1C; Future - Referral to Falls Clinic; Future - Referral to Physical Therapy; Future Centrilobular emphysema (CMS/HCC) Paroxysmal atrial fibrillation (CMS/HCC) .VS Patient was identified as a fall risk. Risk prevention instructions provided. documented in this encounter [facility] Work Phone: 04-22-2023 Instructions Carla Cabrera MD - 04/22/2023 3:40 PM EST AWV DUE 05/17/2023 Ways to Help Prevent Falls at Home Quick Tips ? Ask for help if you need it. Most people want to help! ? Get up slowly after sitting or laying down ? Wear a medical alert device or keep cell phone in your pocket ? Use night lights, especially areas near a bathroom ? Keep the items you use often within reach on a small stool or end table ? Use an assistive device such as walker or cane, as directed by provider/physical therapy ? Use a non-slip mat and grab bars in your bathroom. Look for home health sections for best options Other Areas to Focus On ? Exercise and nutrition: Regular exercise or taking a falls prevention class are great ways improve strength and balance. Don t forget to stay hydrated and bring a snack! ? Medicine side effects: Some medicines can make you sleepy or dizzy, which could cause a fall. Ask your healthcare provider about the side effects your medicines could cause. Be sure to let them know if you take any vitamins or supplements as well. ? Tripping hazards: Remove items you could trip on, such as loose mats, rugs, cords, and clutter. Wear closed toe shoes with rubber soles. ? Health and wellness: Get regular checkups with your healthcare provider, plus routine vision and hearing screenings. Talk with your healthcare provider about: o Your medicines and the possible side effects - bring them in a bag if that is easier! o Problems with balance or feeling dizzy o Ways to promote bone health, such as Vitamin D and calcium supplements o Questions or concerns about falling *Ask your healthcare team if you have questions [facility] 2021 documented in this encounter [facility] Work Phone: 01-01-2023 Note [facility] [address] [place] [id number] Audiology Vestibular Testing ENG/VNG Patient Name: Kita Jaramillo Date: 01/01/23 : 1950 Referring Provider: Aniceto Medical Record: [id number] Commercial Crabber: Rafi Lam NORMAL VESTIBULAR STUDY Patient is negative for baseline nystagmus and or provoked nystagmus that would suggest an underlying peripheral vestibular involvement. Rotary chair is WNL. Her ocularmotor battery for central vestibular involvement is WNL. RECOMMENDATIONS: 1. Neuro to review and follow. HISTORY/CHIEF COMPLAINT (per pt report) 72 y.o. c/o of imbalance, frequent falling, and quick vertigo with position changes. Symptoms have been ongoing for several years but the falling has been increasing over the last several months. She admits she fell in the bath tub last night. She is negative for a stroke. She has musculoskeletal, lower back, and neck c/o. She has bilateral hearing loss with a left sided asymmetry. GAZE: NORMAL and negative for nystagmus. SACCADES: NORMAL for random horizontal deviations. TRACKING: NORMAL for smooth pursuit tracking at increasing speeds. OPTOKINETIC (OKN): NORMAL and symmetric for horizontal stimulation. OPTOKINETIC AFTER- NYSTAGMUS (RAMON): NORMAL negative for prolonged afternystagmus. ROTATION (SVAR): NORMAL WNL for gain, phase and symmetry at all frequencies. FixVOR: NORMAL for gain, phase, and symmetry. SPONTANEOUS: NORMAL negative for spontaneous nystagmus (sitting upright head straight) SITTING NECK TORSION: NORMAL negative for nystagmus and or c/o with neck turned right and left. BOW/LEAN: NORMAL negative for provoked nystagmus. SUBOCCIPITAL VIBRATION: NORMAL negative for provoked nystagmus with bilateral stim. HEAD SHAKE: NORMAL negative for provoked after nystagmus. HALLPIKES: NORMAL negative for nystagmus consistent with posterior and or anterior canal BPPV. BACK 30 Deg/ LATERAL: NORMAL negative for nystagmus and or c/o. HEAD ROLL: NORMAL negative for nystagmus for horizontal/anterior canal BPPV. POSITIONS: NORMAL negative for nystagmus and or c/o in the supine and lateral test positions. [facility] 01-01-2023 Procedure note Associated Ord er(s): ELECTRONYSTAGMOGRAPHY Procedure(s): VESTIBULAR TEST; SINUSOIDAL ROTATIONAL TEST Post-Procedure Diagnose(s): Dizziness [place] [id number] Audiology Vestibular Testing ENG/VNG Patient Name: Kita Jaramillo Date: 01/01/23 : 1950 Referring Provider: Aniceto Medical Record: [id number] Commercial Crabber: Rafi Lam NORMAL VESTIBULAR STUDY Patient is negative for baseline nystagmus and or provoked nystagmus that would suggest an underlying peripheral vestibular involvement. Rotary chair is WNL. Her ocularmotor battery for central vestibular involvement is WNL. RECOMMENDATIONS: 1. Neuro to review and follow. HISTORY/CHIEF COMPLAINT (per pt report) 72 y.o. c/o of imbalance, frequent falling, and quick vertigo with position changes. Symptoms have been ongoing for several years but the falling has been increasing over the last several months. She admits she fell in the bath tub last night. She is negative for a stroke. She has musculoskeletal, lower back, and neck c/o. She has bilateral hearing loss with a left sided asymmetry. GAZE: NORMAL and negative for nystagmus. SACCADES: NORMAL for random horizontal deviations. TRACKING: NORMAL for smooth pursuit tracking at increasing speeds. OPTOKINETIC (OKN): NORMAL and symmetric for horizontal stimulation. OPTOKINETIC AFTER- NYSTAGMUS (RAMON): NORMAL negative for prolonged afternystagmus. ROTATION (SVAR): NORMAL WNL for gain, phase and symmetry at all frequencies. FixVOR: NORMAL for gain, phase, and symmetry. SPONTANEOUS: NORMAL negative for spontaneous nystagmus (sitting upright head straight) SITTING NECK TORSION: NORMAL negative for nystagmus and or c/o with neck turned right and left. BOW/LEAN: NORMAL negative for provoked nystagmus. SUBOCCIPITAL VIBRATION: NORMAL negative for provoked nystagmus with bilateral stim. HEAD SHAKE: NORMAL negative for provoked after nystagmus. HALLPIKES: NORMAL negative for nystagmus consistent with posterior and or anterior canal BPPV. BACK 30 Deg/ LATERAL: NORMAL negative for nystagmus and or c/o. HEAD ROLL: NORMAL negative for nystagmus for horizontal/anterior canal BPPV. POSITIONS: NORMAL negative for nystagmus and or c/o in the supine and lateral test positions. [facility] 01-01-2023 Procedure note Associated Ord er(s): ELECTRONYSTAGMOGRAPHY Procedure(s): VESTIBULAR TEST; SINUSOIDAL ROTATIONAL TEST Post-Procedure Diagnose(s): Dizziness [place] [id number] Audiology Vestibular Testing ENG/VNG Patient Name: Kita Jaramillo Date: 01/01/23 : 1950 Referring Provider: Aniceto Medical Record: [id number] Commercial Crabber: Rafi Lam NORMAL VESTIBULAR STUDY Patient is negative for baseline nystagmus and or provoked nystagmus that would suggest an underlying peripheral vestibular involvement. Rotary chair is WNL. Her ocularmotor battery for central vestibular involvement is WNL. RECOMMENDATIONS: 1. Neuro to review and follow. HISTORY/CHIEF COMPLAINT (per pt report) 72 y.o. c/o of imbalance, frequent falling, and quick vertigo with position changes. Symptoms have been ongoing for several years but the falling has been increasing over the last several months. She admits she fell in the bath tub last night. She is negative for a stroke. She has musculoskeletal, lower back, and neck c/o. She has bilateral hearing loss with a left sided asymmetry. GAZE: NORMAL and negative for nystagmus. SACCADES: NORMAL for random horizontal deviations. TRACKING: NORMAL for smooth pursuit tracking at increasing speeds. OPTOKINETIC (OKN): NORMAL and symmetric for horizontal stimulation. OPTOKINETIC AFTER- NYSTAGMUS (RAMON): NORMAL negative for prolonged afternystagmus. ROTATION (SVAR): NORMAL WNL for gain, phase and symmetry at all frequencies. FixVOR: NORMAL for gain, phase, and symmetry. SPONTANEOUS: NORMAL negative for spontaneous nystagmus (sitting upright head straight) SITTING NECK TORSION: NORMAL negative for nystagmus and or c/o with neck turned right and left. BOW/LEAN: NORMAL negative for provoked nystagmus. SUBOCCIPITAL VIBRATION: NORMAL negative for provoked nystagmus with bilateral stim. HEAD SHAKE: NORMAL negative for provoked after nystagmus. HALLPIKES: NORMAL negative for nystagmus consistent with posterior and or anterior canal BPPV. BACK 30 Deg/ LATERAL: NORMAL negative for nystagmus and or c/o. HEAD ROLL: NORMAL negative for nystagmus for horizontal/anterior canal BPPV. POSITIONS: NORMAL negative for nystagmus and or c/o in the supine and lateral test positions. documented in this encounter [facility] 04-30-2022 Miscellaneous Notes [facility] [address] [place] [id number] May 01, 2022 PID: [id number] Kita Jaramillo [address] [place] [address] [address] [place] [address] Dear Ms. Jaramillo, We are pleased to inform you that the results of your recent breast imaging exam on 04/30/2022 are normal. Early detection of cancer is very important. We also understand recommendations regarding breast cancer screening are controversial. Please discuss with your primary care provider which strategy is best for you and whether a mammogram is right for you. Your imaging studies and report will be kept on file at [facility] as part of your permanent medical record and are available for your continuing care. Thank you for allowing us to help in meeting your health care needs. Sincerely, Dr. Walker Interpreting Radiologist [employer] [place] (Normal over 40) documented in this encounter [facility] 04-30-2022 Note HNO ID: [id number] Author: RT Charu(R) Service: ? Author Type: Technologist Type: Progress Notes Filed: 04/30/2022 11:08 AM Note Text: Radiology Service Progress Note PATIENT NAME: Kita Jaramillo DATE OF SERVICE: April 30, 2022 TIME: 11:04 AM PATIENT IDENTITY VERIFICATION COMPLETED USING TWO (2) IDENTIFIERS: Name and Date of confirmed by patient verbally. FALL SCREENING: Has the patient had 2 falls in the last year or 1 fall with injury or currently using an Ambulatory Assistive Device (Walker, Cane, Wheelchair, Crutches, etc.)? No PATIENT GENDER DATA: Female. status: : No status: NO. PATIENT RELEVANT IMPLANT DATA REVIEWED: Not Applicable RADIOLOGY DEPARTMENT: Mammography PERIPHERAL IV DATA: Not applicable SIGNED BY: RT Charu(R) April 30, 2022 11:04 AM [facility] 04-30-2022 History of Present illness Narrative Radiology Service Progress Note PATIENT NAME: Kita Jaramillo DATE OF SERVICE: April 30, 2022 TIME: 11:04 AM PATIENT IDENTITY VERIFICATION COMPLETED USING TWO (2) IDENTIFIERS: Name and Date of confirmed by patient verbally. FALL SCREENING: Has the patient had 2 falls in the last year or 1 fall with injury or currently using an Ambulatory Assistive Device (Walker, Cane, Wheelchair, Crutches, etc.)? No PATIENT GENDER DATA: Female. status: : No status: NO. PATIENT RELEVANT IMPLANT DATA REVIEWED: Not Applicable RADIOLOGY DEPARTMENT: Mammography PERIPHERAL IV DATA: Not applicable SIGNED BY: RT Charu(R) April 30, 2022 11:04 AM documented in this encounter [facility] 01-20-2021 Hospital Discharge instructions Eladio Beasley MD - 01/20/2021 Take your Lasix and potassium 3 times per day through the weekend until cleared by your doctor to go back to twice daily. Call your doctor on Saturday. Return to the Emergency Room immediately if breathing worsens in any way. The following attachments cannot be sent through Care Everywhere.SOB (Shortness of Breath) (Tunisian)documented in this encounter [facility] Work Phone: 12-21-2020 Note HNO ID: [id number] Author: Chencho Porter MD Service: ? Author Type: Physician Type: Progress Notes Filed: 12/21/2020 3:22 PM Note Text: PATIENT NAME: Kita Jaramillo DATE OF SERVICE: June 06, 2020 PRIMARY CARE PHYSICIAN: Carla Cabrera MD Care Team: Patient Care Team: Carla Cabrera as PCP - General (Family Practice) Date of Last Visit: 06/06/20 Interval History: Patient has been doing well on her CPAP for the past year since she was last seen here on 06/06/20. She was originally diagnosed in 2019 with YOSI after having suffered from excessive daytime somnolence with being overweight and having CHF. Last Wt Reading: Date: Wt: 06/06/2020 91.6 kg (202 lb) SLEEP APNEA: Sleep apnea type: YOSI Date of Test: 2018 Treatment: PAP therapy (13 cm H2O) DME: Medical Services Year that the unit was last replaced: 2018 CMS: No PAP History: Uses CPAP for ~6-7 hours per night, 7 nights per week. Current PAP settin cm H2O There is a perceived benefit by the patient. Observers report abolition of snoring with CPAP use. Mask type: nasal pillow interface Mask issues:None Uses chin strap: No Uses ramp function: No Uses humidity: No Difficulties with PAP: None ----- ALLERGIES No Known Allergies SOCIAL HISTORY: Social History Tobacco Use - Smoking status: Former Smoker Packs/day: 1.00 Years: 20.00 Pack years: 20.00 Types: Cigarettes Quit date: 2010 Years since quittin.7 - Smokeless tobacco: Never Used Vaping Use - Vaping Use: Never used Substance Use Topics - Alcohol use: Not Currently - Drug use: Never CURRENT MEDICATIONS: Current Outpatient Medications Medication Sig Dispense Refill - alendronate (FOSAMAX) 70 mg tablet Take 70 mg by mouth one time a week. As Directed. - furosemide (LASIX) 40 mg tablet Take 40 mg by mouth twice daily. - isosorbide mononitrate (MONOKET) 20 mg tablet Take 20 mg by mouth once daily. - atorvastatin (LIPITOR) 10 mg tablet Take 10 mg by mouth once daily. - metoprolol tartrate, short acting, (LOPRESSOR) 25 mg tablet Take 25 mg by mouth twice daily. - sertraline (ZOLOFT) 50 mg tablet Take 50 mg by mouth once daily. - Irbesartan-hydroCHLOROthiazide 150-12.5 mg per tablet Take 1 tablet by mouth once daily. - potassium chloride ER (K-DUR, KLOR-CON) 10 mEq tablet Take 10 mEq by mouth twice daily. - levothyroxine (SYNTHROID) 125 mcg tablet TAKE ONE TABLET BY MOUTH EVERY DAY on an empty stomach 1/2 hour before any other food or medications - omeprazole (PRILOSEC) 40 mg capsule Take 40 mg by mouth once daily. - aspirin, enteric coated (ASPIRIN, ENTERIC COATED) 81 mg EC tablet Take 81 mg by mouth once daily. - cholecalciferol (VITAMIN D) 1,000 unit tab tablet Take 1,000 Units by mouth once daily. - busPIRone (BUSPAR) 7.5 mg tablet Take 7.5 mg by mouth three times daily. (Patient not taking: Reported on 12/21/2020 ) No current facility-administered medications for this visit. I personally reviewed the patient's past medical history, social history, and medications as gathered by my staff. PHYSICAL EXAM: Vital signs: BP 172/92 Pulse 71 Temp 97.4 Resp 16 Ht 5' 8 (1.73m) Wt 208 lb (94.3kg) SpO2 97[RA]% BMI 31.63 kg/(m2). Neck is supple with no thyromegaly or cervical lymphadenopathy. RRR Clear to auscultation bilaterally. Good bowel sounds, soft, nontender, nondistended, mildly obese. No pedal edema bilaterally. Dry, intact skin with good turgor. Alert and oriented x 3. Appropriate mood and affect. IMPRESSION/PLAN: 1. YOSI on CPAP - ICD9: 327.23, V46.8, ICD10: G47.33, Z99.89 Continue CPAP at 13 cm H2O whenever sleeping. - POSITIVE AIRWAY PRESSURE (PAP) USAGE DOWNLOAD I discussed the pathophysiology of obstructive sleep apnea, the risks/consequences of leaving it untreated (including, but not limited to, an increased risk of heart attack, increased risk of stroke, worsening diabetes, worsening hypertension, worsening heart failure, increased risk of heart rhythm problems, and an increased risk of sudden ), and its treatment in detail with the patient. Compliance with PAP therapy was strongly encouraged and the importance of such for the patient's overall health and especially her cardiovascular and pulmonary health was emphasized. 2. Obesity, Class I, BMI 30-34.9 - ICD9: 278.00, ICD10: E66.9 Patient was counseled to lose weight to ideal body weight or at least as much as possible. Return in about 6 months (around 06/20/2021). and as needed. All questions were answered and concerns addressed. Chencho Porter MD [facility] 10-19-2020 History of Present illness Narrative Pt reports she takes BP meds at home at 2100, she did not take meds this PM. documented in this encounter [facility] Work Phone: 06-06-2020 Note HNO ID: [id number] Author: Chencho Porter Service: ? Author Type: Physician Type: Progress Notes Filed: 06/06/2020 9:47 AM Note Text: PATIENT NAME: Kita Jaramillo DATE OF SERVICE: June 06, 2020 PRIMARY CARE PHYSICIAN: Carla Cabrera MD Care Team: Patient Care Team: Carla Cabrera as PCP - General (Family Practice) Interval History: Patient has been doing well on her CPAP for the past year. She was originally diagnosed in 2019 with YOSI after having suffered from excessive daytime somnolence with being overweight and having CHF. Patient's weight is down (10-12 lbs) over the past year. Last Wt Reading: Date: Wt: 06/06/2020 91.6 kg (202 lb) SLEEP APNEA: Sleep apnea type: YOSI Date of Test: 2019 Treatment: PAP therapy (13 cm H2O) DME: Patient is unsure. Year that the unit was last replaced: 2018 CMS: No PAP History: Uses CPAP for ~5-9 hours per night, 7 nights per week. Current PAP settin cm H2O There is a perceived benefit by the patient. Observers report abolition of snoring with CPAP use. Mask type: nasal pillow interface Mask issues:None Uses chin strap: No Uses ramp function: No Uses humidity: No Difficulties with PAP: None ----- ALLERGIES No Known Allergies SOCIAL HISTORY: Social History Tobacco Use - Smoking status: Former Smoker Packs/day: 1.00 Years: 20.00 Pack years: 20.00 Types: Cigarettes Quit date: 2010 Years since quittin. - Smokeless tobacco: Never Used Substance Use Topics - Alcohol use: Not Currently - Drug use: Never CURRENT MEDICATIONS: Current Outpatient Medications Medication Sig Dispense Refill - alendronate (FOSAMAX) 70 mg tablet Take 70 mg by mouth one time a week. As Directed. - furosemide (LASIX) 40 mg tablet Take 40 mg by mouth twice daily. - isosorbide mononitrate (MONOKET) 20 mg tablet Take 20 mg by mouth once daily. - busPIRone (BUSPAR) 7.5 mg tablet Take 7.5 mg by mouth three times daily. - atorvastatin (LIPITOR) 10 mg tablet Take 10 mg by mouth once daily. - metoprolol tartrate, short acting, (LOPRESSOR) 25 mg tablet Take 25 mg by mouth twice daily. - sertraline (ZOLOFT) 50 mg tablet Take 50 mg by mouth once daily. - Irbesartan-hydroCHLOROthiazide 150-12.5 mg per tablet Take 1 tablet by mouth once daily. - potassium chloride ER (K-DUR, KLOR-CON) 10 mEq tablet Take 10 mEq by mouth twice daily. - levothyroxine (SYNTHROID) 125 mcg tablet TAKE ONE TABLET BY MOUTH EVERY DAY on an empty stomach 1/2 hour before any other food or medications - omeprazole (PRILOSEC) 40 mg capsule Take 40 mg by mouth once daily. - aspirin, enteric coated (ASPIRIN, ENTERIC COATED) 81 mg EC tablet Take 81 mg by mouth once daily. - cholecalciferol (VITAMIN D) 1,000 unit tab tablet Take 1,000 Units by mouth once daily. No current facility-administered medications for this visit. I personally reviewed the patient's past medical history, social history, and medications as gathered by my staff. PHYSICAL EXAM: Vital signs: BP 143/70 Pulse 58 Temp 97 Resp 12 Ht 5' 8 (1.73m) Wt 202 lb (91.6kg) SpO2 98[ra]% BMI 30.72 kg/(m2). Neck is supple with no thyromegaly or cervical lymphadenopathy. RRR Clear to auscultation bilaterally. Good bowel sounds, soft, nontender, nondistended, mildly obese. No pedal edema bilaterally. Dry, intact skin with good turgor. Alert and oriented x 3. Appropriate mood and affect. IMPRESSION/PLAN: 1. YOSI on CPAP - ICD9: 327.23, V46.8, ICD10: G47.33, Z99.89 Continue 13 cm H2O I discussed the pathophysiology of obstructive sleep apnea, the risks/consequences of leaving it untreated (including, but not limited to, an increased risk of heart attack, increased risk of stroke, worsening diabetes, worsening hypertension, worsening heart failure, increased risk of heart rhythm problems, and an increased risk of sudden ), and its treatment in detail with the patient. Compliance with PAP therapy was strongly encouraged and the importance of such for the patient's overall health and especially her cardiovascular and pulmonary health was emphasized. Patient was counseled to lose weight to ideal body weight or at least as much as possible. Return in about 6 months (around 12/07/2020). and as needed. All questions were answered and concerns addressed. Chencho Porter MD [facility] 04-14-2020 Note Reference Documentat ion See scanned note Procedure Note: 04/14/20. Results/Data This is an abnormal study with the following findings: 1. 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 There is active denervation present in left APB muscle. 2. Chronic, bilateral lower cervical radiculopathy (left C8>>C7 and right C8), at least moderate in severity. Please see finalized, scanned, uploaded report in aEMR. Dr Pérez Signatures Electronically signed by : Juan Ramon Pérez MD; Apr 14 2020 2:36PM EST (Author) Touchworks documented in this encounter [facility] Work Phone: Evaluation note* Diagnosis Dyspnea on exertion- Primary Other dyspnea and respiratory abnormality documented in this encounter [facility] Work Phone: Evaluation note* Diagnosis Ataxia, unspecified- Primary [facility]* Diagnosis Ataxia, unspecified documented in [facility] encounter [facility]* Diagnosis Fall, subsequent encounter- Primary Needs flu shot Need for prophylactic vaccination and inoculation against influenza Acquired hypothyroidism Unspecified hypothyroidism Hypertensive heart disease with acute on chronic diastolic congestive heart failure (CMS/HCC) Menopause Symptomatic menopausal or female climacteric states Vitamin D deficiency Hyperglycemia Other abnormal glucose Centrilobular emphysema (CMS/HCC) Paroxysmal atrial fibrillation (CMS/HCC) Atrial fibrillation Pain in finger of both hands documented in this encounter [facility] Work Phone: Hospital Discharge instructions* Attachments The following attachments cannot be sent through Care Everywhere. * Cellul[facility] ([place]) [facility]* Name Dates Details Instructions not documented [facility] Work Phone: Reason for referral (narrative)* Consultation (Routine) - Pending Review Specialty Diagnoses / Procedures Referred By Konstantin costa Referred To Contact Physical Therapy Diagnoses Fall, subsequent encounter Acquired hypothyroidism Hypertensive heart disease with acute on chronic diastolic congestive heart failure (CMS/HCC) Hyperglycemia Carla Cabrera MD [facility] [facility] [place] [address] Referral ID Status Reason Start Date Expiration Date Visits Requested Visits Authorized [id number] Pending Review Specialty Services Required 04/22/2023 04/21/2024 1 1 * Consultation (Routine) - Authorized Specialty Diagnoses / Procedures Referred By Contcory t Referred To Contact Multidisciplinary Diagnoses Fall, subsequent encounter Acquired hypothyroidism Hypertensive heart disease with acute on chronic diastolic congestive heart failure ([facility]/HCC) Hyperglycemia Carla Cabrera MD [address] [place] [address] Referral ID Status Reason Start Date Expiration Date Visits Requested Visits Authorized [id number] Authorized Specialty Services Required 04/22/2023 04/21/2024 1 1 * Imaging (Routine) - Pending Review Specialty Diagnoses / Procedures Referred By Contac t Referred To Contact Radiology Diagnoses Menopause Procedures XR DEXA bone density Carla Cabrera MD [address] [place] [address] Referral ID Status Reason Start Date Expiration Date Visits Requested Visits Authorized [id number] Pending Review Perform Procedure 04/22/2023 04/21/2024 1 1 * Consultation (Routine) - Authorized Specialty Diagnoses / Procedures Referred By Contac t Referred To Contact Neurology Diagnoses Fall, subsequent encounter Carla Cabrera MD [address] [place] [address] Suraj Moreland, DO [address] [place] [address] Referral ID Status Reason Start Date Expiration Date Visits Requested Visits Authorized [id number] Authorized Specialty Services Required 04/22/2023 04/21/2024 1 1 * Consultation (Routine) - Authorized Specialty Diagnoses / Procedures Referred By Contac t Referred To Contact Primary Care Diagnoses Fall, subsequent encounter Procedures Follow Up In Primary Care - Medicare Annual Carla Cabrera MD [address] [place] [address] Referral ID Status Reason Start Date Expiration Date V isits Requested Visits Authorized [id number] Authorized 04/22/2023 04/21/2024 1 1 [facility] Work Phone: Summary Purpose Family History No Family History Records FoundNo Family History Records FoundNo Family History Records FoundNo Family History Records FoundNo Family History Records FoundNo Family History Records FoundNo Family History Records FoundNo Family History Records FoundNo Family History Records FoundNo Family History Records FoundNo Family History Records FoundNo Family History Records Found Advance Directives No Advanced Directives Records FoundDocuments on File Type Date Recorded Patient Software Quality Test Engineer Expl anation Advance Directives and Living Will Power of Manager Field Investigations Latest Code Status on File Code Status Date Activated Date Inactivated Comments Full Code 11/03/2019 7:56 PM Full Code 05/01/2017 5:51 AM 05/01/2017 5:56 PM Full Code 03/08/2017 1:17 AM 03/10/2017 5:35 PM Documents on File Type Date Recorded Patient Software Quality Test Engineer Expl anation ACP-Advance Directive ACP-Power of Manager Field Investigations Latest Code Status on File Code Status Date Activated Date Inactivated Comments Full Code 11/03/2019 7:56 PM 11/05/2019 4:39 PM Latest Code Status on File Code Status Date Activated Date Inactivated Comments Full Code 05/01/2017 5:51 AM 05/01/2017 5:56 PM Discharge Instructions * Discharge Instr - Activity* Muriel Hernandez RN - 11/05/2019 2:04 PM EDT As tolerated * Discharge Instr - Diet* Muriel Hernandez RN - 11/05/2019 2:04 PM EDT ? Good nutrition is important when healing from an illness, injury, or surgery. Follow any nutrition recommendations given to you during your hospital stay. ? If you were given an oral nutrition supplement while in the hospital, continue to take this supplement at home. You can take it with meals, in-between meals, and/or before bedtime. These supplements can be purchased at most local grocery stores, pharmacies, and chain [employer]-stores. ? If you have any questions about your diet or nutrition, call the hospital and ask for the dietitian. As tolerated * Attachments The following attachments cannot be sent through Care Everywhere. * Heart Failure (Tunisian) documented in this encounter* Attachments The following attachments cannot be sent through Care Everywhere. * Cellulitis (Tunisian) documented in this encounter History of Present Illness * Eren Panda MD - 11/05/2019 11:21 AM EDT Kita Jaramillo is a 69 y.o. female patient. Current Facility-Administered Medications Medication Dose Route Frequency Provider Last Rate Last Dose sodium chloride flush 0.9 % injection 10 mL 10 mL Intravenous 2 times per day Hyacinth Cardenas MD 10 mL at 11/04/192054 sodium chloride flush 0.9 % injection 10 mL 10 mL Intravenous PRN Hyacinth Cardenas MD acetaminophen (TYLENOL) tablet 650 mg 650 mg Oral Q6H PRN Hyacinth Cardenas MD Or acetaminophen (TYLENOL) suppository 650 mg 650 mg Rectal Q6H PRN Hyacinth Cardenas MD polyethylene glycol (GLYCOLAX) packet 17 g 17 g Oral Daily PRN Hyacinth Cardenas MD promethazine (PHENERGAN) tablet 12.5 mg 12.5 mg Oral Q6H PRN Hyacinth Cardenas MD Or ondansetron (ZOFRAN) injection 4 mg 4 mg Intravenous Q6H PRN Hyacinth Cardenas MD enoxaparin (LOVENOX) injection 40 mg 40 mg Subcutaneous Daily Hyacinth Cardenas MD 40 mg at 11/04/19919 perflutren lipid microspheres (DEFINITY) injection 1.65 mg 1.5 mL Intravenous ONCE PRN Hyacinth Cardenas MD sodium chloride flush 0.9 % injection 10 mL 10 mL Intravenous PRN Hyacinth Cardenas MD famotidine (PEPCID) tablet 20 mg 20 mg Oral BID Hyacinth Cardenas MD 20 mg at 11/04/192054 furosemide (LASIX) injection 40 mg 40 mg Intravenous BID Hyacinth Cardenas MD 40 mg at 11/04/19 1722 nitroGLYCERIN (NITROSTAT) SL tablet 0.4 mg 0.4 mg Sublingual Q5 Min PRN Hyacinth Cardenas MD aspirin chewable tablet 81 mg 81 mg Oral Daily Frederic Mccormack MD 81 mg at 11/04/19 09 busPIRone (BUSPAR) tablet 10 mg 10 mg Oral TID Frederic Mccormack MD 10 mg at 11/04/192054 isosorbide mononitrate (IMDUR) extended release tablet 30 mg 30 mg Oral Daily Frederic Mccormack MD 30 mg at 11/04/19 09 levothyroxine (SYNTHROID) tablet 125 mcg 125 mcg Oral Daily Frederic Mccormack MD 125 mcg at 11/05/19 042 Allergies Allergen Reactions Latex Itching Labs: Lab Results Component Value Date MG 2.0 11/05/2019 CBC: Recent Labs 11/05/19 0428 11/04/19 0402 11/03/19 1542 WBC 6.8 6.7 7.7 HGB 13.3 11.9 11.3* HCT 39.4 35.6 33.8* MCV 91.0 91.5 91.2 PLT 164 153 165 BMP: Recent Labs 11/04/19 0402 11/05/19 0428 NA 141 137 K 3.6 3.6 CO2 26 23 BUN 23* 25* CREATININE 0.97 0.95 GLUCOSE 134* 109* BNP: No results for input(s): BNP in the last 72 hours. PT/INR: No results for input(s): PROTIME, INR in the last 72 hours. APTT:No results for input(s): APTT in the last 72 hours. CARDIAC ENZYMES: Recent Labs 11/03/19 1542 11/03/192015 TROPONINI <0.012 <0.012 FASTING LIPID PANEL: Lab Results Component Value Date HDL 25 11/04/2019 TRIG 372 11/04/2019 LIVER PROFILE: Recent Labs 11/03/19 1542 AST 50* ALT 73* LABALBU 3.9 Lab Results Component Value Date TSH 14.739 (H) 11/03/2019 Subjective: Symptoms: Stable. Diet: Poor intake. Activity level: Impaired due to weakness. Pain: She reports no pain. Objective: General Appearance: Comfortable and well-appearing. Vital signs: (most recent): Blood pressure (!) 144/82, pulse 59, temperature 96.3 F (35.7 C), temperature source Temporal, resp. rate 18, height 5' 8 (1.727 m), weight 200 lb (90.7 kg), SpO2 94 %. Vital signs are normal. Output: Producing urine. HEENT: Normal HEENT exam. Lungs: Normal effort and normal respiratory rate. Breath sounds clear to auscultation. Heart: Normal rate. Regular rhythm. S1 normal and S2 normal. Positive for murmur. No gallop or friction rub. Abdomen: Abdomen is soft. Bowel sounds are normal. There is no abdominal tenderness. There is no mass. Extremities: Decreased range of motion. Pulses: Distal pulses are intact. Neurological: Patient is alert and oriented to person, place and time. Pupils: Pupils are equal, round, and reactive to light. Skin: Warm and dry. Assessment: Condition: In stable condition. Improving. (Active Problems: Hypertensive heart disease with heart failure with preserved left ventricular function (HFpEF) (HCC) >>>Meds Hyperlipidemia>>Stable Thyroid disease>>Stable). Plan: Discharge home. Start/continue incentive spirometry and continue respiratory treatments. Restricteddiet and advance diet as tolerated. X-rays as ordered. Administer medications as ordered. (Specialty Problems Cardiology Problems Hypertensive heart disease with acute on chronic diastolic congestive heart failure (HCC) >>>Meds Reevaluate F/U in office in 2 weeks). I personally obtained the martines and critical portions of the history and physical exam. I reviewed the labs, imaging studies, and electronic medical record. I reviewed the chart documentation, and discussed the patient with treatment team members. I have edited the note to reflect my clinical findings and my assessment and plan. SIGNATURE: Eren Panda MD; FACC; FHRS; FASNC; CCDS. PATIENT NAME: Ktia Jaramillo DATE: 11/05/2019 PAGER: [phone] Katharina Funez 11/05/2019 * Gage Norwood, SAMIR, LD - 11/04/2019 1:43 PM EDT Comprehensive Nutrition Assessment Type and Reason for Visit: Initial, Consult Nutrition Recommendations/Plan: 1. Continue with 2 g Na diet. 2. Provided pt with education/handouts on her low sodium diet. Provided Low Sodium Nutrition therapy handout and handout on sodium content of foods from the Nutrition Care Manual. Pt states that she doesn't add salt to her foods, but admits that she uses condiments that contain sodium such as bbq sauce. Pt is willing to make changes to her diet. Encouraged sodium free seasonings; explained that 1tsp of salt contains about 2300 mg sodium. Her limit for the whole day is 2000 mg. 3. Please document pt's PO intakes via flowsheet to accurately assess PO intake adequacy. 4. Monitor intakes, wts, and labs. RD will follow. Nutrition Assessment: Pt admit with SOB due to HF. Pt was seen laying flat in bed this afternoon. Reports she is feeling better. 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 Strength: Not Performed Estimated Daily Nutrient Needs: Energy (kcal): 9406-6804 kcals; Weight Used for Energy Requirements: [place] Protein (g): 51-64(0.8-1); Weight Used for Protein Requirements: [place] Fluid (ml/day): per MD; Weight Used for Fluid Requirements: Nutrition Related Findings: +1 RLE edema, BUN 23, GFR 59.1, NT pro BNP 5072, Glucose 134, 102, TG 372, HDL 25, ALT 73, AST 50, hgb 11.9, Hct 35.6, TSH 14.739, albumin 3.9 Wounds: (RLE cellulitis) Current Nutrition Therapies: DIET LOW SODIUM 2 GM; Anthropometric Measures: Height: 5' 8 (172.7 cm) Current Body Weight: 200 lb (90.7 kg) Admission Body Weight: 200 lb (90.7 kg) Usual Body Weight: Pt is unsure of her dry weight. States that she knows she needs to lose weight [place] Body Weight: 140 lbs; % [place] Body Weight 142.9 % BMI: 30.4 Adjusted Body Weight: ; No Adjustment BMI Categories: Obese Class 1 (BMI 30.0-34.9) Nutrition Diagnosis: Altered nutrition-related lab values related to cardiac dysfunction as evidenced by lab values Nutrition Interventions: Food and/or Nutrient Delivery: Continue Current Diet Nutrition Education/Counseling: Education completed, Education needed Coordination of Nutrition Care: Continued Inpatient Monitoring Goals: Labs will trend towards baseline for patient Nutrition Monitoring and Evaluation: Behavioral-Environmental Outcomes: Beliefs and Attitutes Food/Nutrient Intake Outcomes: Food and Nutrient Intake Physical Signs/Symptoms Outcomes: Biochemical Data, GI Status, Constipation, Fluid Status or Edema,Meal Time Behavior, Nutrition Focused Physical Findings, Skin, Weight Discharge Planning: Continue current diet Contact: [phone] * Hyacinth Cardenas MD - 11/04/2019 11:54 AM EDT Hospitalist Progress Note 11/04/2019 11:54 AM Throughout the encounter I wore an N95 MASK, FACE SHIELD [id number]: Please page ks @ [phone] for patient care issues. [phone]: Please page [facility] night Hospitalist for any issues. Subjective: Admit Date: 11/03/2019 PCP: CARLA CABRERA MD No overnight issues. Denies chest pain, cough, sob, abdominal pain, nausea, vomiting, diarrhea, constipation, fevers, or chills. DIET LOW SODIUM 2 GM; Patient Vitals for the past 96 hrs (Last 3 readings): Weight 11/04/19 0446 200 lb (90.7 kg) 11/03/19 1423 200 lb (90.7 kg) Medications: sodium chloride flush 10 mL Intravenous 2 times per day enoxaparin 40 mg Subcutaneous Daily famotidine 20 mg Oral BID furosemide 40 mg Intravenous BID aspirin 81 mg Oral Daily busPIRone 10 mg Oral TID isosorbide mononitrate 30 mg Oral Daily levothyroxine 125 mcg Oral Daily LABS: CBC: Recent Labs 11/03/19 1542 11/04/19 0402 WBC 7.7 6.7 RBC 3.71* 3.89 HGB 11.3* 11.9 HCT 33.8* 35.6 MCV 91.2 91.5 RDW 13.8 14.0 PLT 165 153 BMP: Recent Labs 11/03/19 1542 11/04/19 0402 NA 140 141 K 3.6 3.6 CL 109* 107 CO2 26 26 BUN 23* 23* CREATININE 0.88 0.97 GLUCOSE 102* 134* CALCIUM 8.7 8.7 ANIONGAP 6 8 LIVER PROFILE: Recent Labs 11/03/19 1542 AST 50* ALT 73* BILITOT 0.6 ALKPHOS 117 LABALBU 3.9 PROT 6.4 PT/INR: No results for input(s): PROTIME, INR in the last 72 hours. CARDIAC ENZYMES: Recent Labs 11/03/19 1542 11/03/192015 TROPONINI <0.012 <0.012 Procalcitonin: No results found for: PROCAL Objective: Vitals: BP (!) 124/52 Pulse (!) 32 Temp 98.8 F (37.1 C) (Temporal) Resp 16 Ht 5' 8 (1.727 m) Wt 200 lb (90.7 kg) SpO2 98% BMI 30.41 kg/m Pulse Ox: SpO2 Av.8 % Min: 93 % Max: 98 % Supplemental O2: O2 Flow Rate (L/min): 0 L/min General appearance: No apparent distress, appears stated age and cooperative with exam HEENT: Normal cephalic, atraumatic without obvious deformity. Pupils equal, round, and reactive to light. Extra ocular muscles intact. Conjunctivae/corneas clear. Neck: Supple, with full range of motion. No jugular venous distention. Trachea midline. No lymphadenopathy. Respiratory: Normal respiratory effort. IMPROVED AE Cardiovascular: Regular rate and rhythm with normal S1/S2 without murmurs, rubs or gallops. Abdomen: Soft, non-tender, non-distended with normal bowel sounds. No rebound or guarding. Musculoskeletal: No clubbing, cyanosis or edema bilaterally. Full range of motion without deformity. Skin: right leg skin rash - resolving Neurologic: Neurovascularly intact without any focal sensory/motor deficits. Cranial nerves: II-XIIintact, grossly non-focal. Assessment Acute congestive heart failure exacerbation, echo preserved LVEF, no RWMA Right lower activity cellulitis on home antibiotics, improving Hypertension Class I obesity CKD stage 2 Mild elevated liver enzymes Mild normocytic anemia Hypothyroidism - elevated TSH, on levothyroxine Past Medical History: Diagnosis Date Acid reflux Arrhythmia Depression Hyperlipidemia Hypertension IBS (irritable bowel syndrome) Sleep apnea HAS NOT STARTED USING THE C-PAP YET Thyroid disease Ventral hernia SCHEDULED FOR THE SURGERY ON 05/01/2017 Plan : Rpt ECHO, Diuretics, cards on board, I&O and daily weights. All test and lab results reviewed Consult notes reviewed Am labs, replace lytes prn PT/OT -DVT prophylaxis: [x] Lovenox [] Heparin [] SCDs [x] Encourage ambulation [] Already on Anticoagulation Advance Directive: Full Code Discharge planning: TBD HYACINTH CARDENAS MD, MD Division of Hospitalist Medicine Inpatient Medical Services This report was created using the [employer] voice- activated system. Despiteprompt dictation and careful editorial review, there may be subtle contextual errors in this report, due to misrecognition of the spoken word. * Eren Panda MD - 11/04/2019 9:30 AM EDT Kita Jaramillo is a 69 y.o. female patient. Current Facility-Administered Medications Medication Dose Route Frequency Provider Last Rate Last Dose sodium chloride flush 0.9 % injection 10 mL 10 mL Intravenous 2 times per day Hyacinth Cardenas MD 10 mL at 11/03/192123 sodium chloride flush 0.9 % injection 10 mL 10 mL Intravenous PRN Hyacinth Cardenas MD acetaminophen (TYLENOL) tablet 650 mg 650 mg Oral Q6H PRN Hyacinth Cardenas MD Or acetaminophen (TYLENOL) suppository 650 mg 650 mg Rectal Q6H PRN Hyacinth Cardenas MD polyethylene glycol (GLYCOLAX) packet 17 g 17 g Oral Daily PRN Hyacinth Cardenas MD promethazine (PHENERGAN) tablet 12.5 mg 12.5 mg Oral Q6H PRN Hyacinth Cardenas MD Or ondansetron (ZOFRAN) injection 4 mg 4 mg Intravenous Q6H PRN Hyacinth Cardenas MD enoxaparin (LOVENOX) injection 40 mg 40 mg Subcutaneous Daily Hyacinth Cardenas MD 40 mg at 11/03/192124 perflutren lipid microspheres (DEFINITY) injection 1.65 mg 1.5 mL Intravenous ONCE PRN Hyacinth Cardenas MD sodium chloride flush 0.9 % injection 10 mL 10 mL Intravenous PRN Hyacinth Cardenas MD famotidine (PEPCID) tablet 20 mg 20 mg Oral BID Hyacinth Cardenas MD 20 mg at 11/03/192123 furosemide (LASIX) injection 40 mg 40 mg Intravenous BID Hyacinth Cardenas MD nitroGLYCERIN (NITROSTAT) SL tablet 0.4 mg 0.4 mg Sublingual Q5 Min PRN Hyacinth Cardenas MD aspirin chewable tablet 81 mg 81 mg Oral Daily Frederic Mccormack MD busPIRone (BUSPAR) tablet 10 mg 10 mg Oral TID Frederic Mccormack MD 10 mg at 11/03/192123 isosorbide mononitrate (IMDUR) extended release tablet 30 mg 30 mg Oral Daily Frederic Mccormack MD levothyroxine (SYNTHROID) tablet 125 mcg 125 mcg Oral Daily Frederic Mccormack MD 125 mcg at 11/04/19 0627 Allergies Allergen Reactions Latex Itching Date 11/04/19 0000 - 11/04/19 2359 Shift 2183-7260 0265-3151 3276-9225 24 Hour Total INTAKE Shift Total(mL/kg) OUTPUT Urine(mL/kg/hr) 850(1.2) 800 1650 Shift Total(mL/kg) 850(9.4) 800(8.8) 1650(18.2) Weight (kg) 90.7 90.7 90.7 90.7 Labs: Lab Results Component Value Date MG 2.2 11/04/2019 CBC: Recent Labs 11/04/19 0402 11/03/19 1542 WBC 6.7 7.7 HGB 11.9 11.3* HCT 35.6 33.8* MCV 91.5 91.2 PLT 153 165 BMP: Recent Labs 11/03/19 1542 11/04/19 0402 NA 140 141 K 3.6 3.6 CO2 26 26 BUN 23* 23* CREATININE 0.88 0.97 GLUCOSE 102* 134* BNP: No results for input(s): BNP in the last 72 hours. PT/INR: No results for input(s): PROTIME, INR in the last 72 hours. APTT:No results for input(s): APTT in the last 72 hours. CARDIAC ENZYMES: Recent Labs 11/03/19 1542 11/03/192015 TROPONINI <0.012 <0.012 FASTING LIPID PANEL: Lab Results Component Value Date HDL 25 11/04/2019 TRIG 372 11/04/2019 LIVER PROFILE: Recent Labs 11/03/19 154 AST 50* ALT 73* LABALBU 3.9 Lab Results Component Value Date TSH 14.739 (H) 11/03/2019 Subjective: Symptoms: Stable. Diet: Poor intake. Activity level: Impaired due to weakness. Pain: She reports no pain. Objective: General Appearance: Comfortable and well-appearing. Vital signs: (most recent): Blood pressure (!) 162/74, pulse 59, temperature 96.2 F (35.7 C), temperature source Temporal, resp. rate 20, height 5' 8 (1.727 m), weight 200 lb (90.7 kg), SpO2 98 %. Vital signs are normal. Output: Producing urine. HEENT: Normal HEENT exam. Lungs: Normal effort and normal respiratory rate. Breath sounds clear to auscultation. Heart: Normal rate. Regular rhythm. S1 normal and S2 normal. Positive for murmur. No gallop or friction rub. Abdomen: Abdomen is soft. Bowel sounds are normal. There is no abdominal tenderness. There is no mass. Extremities: Decreased range of motion. Pulses: Distal pulses are intact. Neurological: Patient is alert and oriented to person, place and time. Pupils: Pupils are equal, round, and reactive to light. Skin: Warm and dry. Assessment: Condition: In stable condition. Improving. (Active Problems: Hypertensive heart disease with heart failure with preserved left ventricular function (HFpEF) (HCC) >>>Meds Hyperlipidemia>>Stable Thyroid disease>>Stable). Plan: Start/continue incentive spirometry and continue respiratory treatments. Restricted diet and advance diet as tolerated. X-rays as ordered. Administer medications as ordered. (Specialty Problems Cardiology Problems Hypertensive heart disease with acute on chronic diastolic congestive heart failure (HCC) >>>Meds Reevaluate). I personally obtained the martines and critical portions of the history and physical exam. I reviewed the labs, imaging studies, and electronic medical record. I reviewed the chart documentation, and discussed the patient with treatment team members. I have edited the note to reflect my clinical findings and my assessment and plan. SIGNATURE: Eren Panda MD; FACC; FHRS; FASNC; CCDS. PATIENT NAME: Kita Jaramillo DATE: 11/04/2019 PAGER: [phone] Katharina Funez 11/04/2019 documented in this encounter Assessments Diagnosis Dyspnea on exertion Other dyspnea and respiratory abnormality Systolic congestive heart failure, unspecified HF chronicity (HCC) Heart failure with preserved left ventricular function (HFpEF) (HCC) Hypertensive heart disease with acute on chronic diastolic congestive heart failure (HCC) Hyperlipidemia Other and unspecified hyperlipidemia Thyroid disease Unspecified disorder of thyroid Diagnosis Abrasion of right lower extremity, initial encounter Encounter for wound re-check Encounter for other specified aftercare Cellulitis of right lower extremity Cellulitis and abscess of leg, except foot Procedure Findings Note Service: Orthopaedics Subjec tive Data: TATUM JARAMILLO is a 69 year old Female who is Hospital Day # 1. Objective Data: Objective Information: ORTHOPEDIC OPERATIVE NOTE Name: Tatum Jaramillo : 48 Surgeon: Cyrus Riley DO Facility: [facility] Date of Surgery: 05/10/20 SURGEON: Cyrus Riley DO PRE OP DIAGNOSIS: Carpal Tunnel Syndrome right Wrist POST OP DIAGNOSIS: Same PROCEDURE: Endoscopic Carpal Tunnel Release right Wrist ANESTHESIA:Local with sedation [employer] PROJECT MANAGER: LISANDRA Echeverria COMPLICATIONS: None. CONDITION: Satisfactory to PACU. BLOOD LOSS: Minimal INDICATION FOR PROCEDURE: The patient is a 69-year-old female who has failed nonsurgical management for right carpal tunnel syndrome. The patient was seen in the office, fully informed risks and benefits of the procedure, and elected to undergo the procedure. PROCEDURE IN DETAIL: The patient was seen and consented preoperatively with side and site of surgery appropriately marked. The patient was taken back to the operative suite, p (more content not included)... Reason for Referral Specialty Diagnoses / Procedures Referred By Contac t Referred To Contact Diagnoses Ataxia, unspecified Procedures Electronystagmography Suraj Moreland III, DO [address] [place] [address] Referral ID Status Reason Start Date Expiration Date V isits Requested Visits Authorized [id number] Incomplete 07/13/2022 01/09/2023 1 1 Specialty Diagnoses / Procedures Referred By Konstantin t Referred To Contact Neurology Diagnoses Ataxia, unspecified Procedures Electronystagmography Suraj Moreland III, DO [address] [place] [address] [facility] Neuro [address] [place] [address] Referral ID Status Reason Start Date Expiration Date Visits Re quested Visits Authorized [id number] Closed 07/13/2022 01/09/2023 1 1 Additional Source Comments INFORMATION SOURCE (unrecogn ized section and content) DATE CREATED AUTHOR AUTHOR'S ORGANIZ ATION 02/20/2018 [facility] DATE CREATED AUTHOR AUTHOR'S ORGANIZ ATION 12/14/2019 [facility] DATE CREATED AUTHOR AUTHOR'S ORGANIZ ATION 05/20/2020 [facility] DATE CREATED AUTHOR AUTHOR'S ORGANIZ ATION 04/06/2021 [employer] DATE CREATED AUTHOR AUTHOR'S ORGANIZ ATION 04/29/2021 [facility] DATE CREATED AUTHOR AUTHOR'S ORGANIZ ATION 10/26/2021 [facility] DATE CREATED AUTHOR AUTHOR'S ORGANIZ ATION 05/03/2022 [facility] DATE CREATED AUTHOR AUTHOR'S ORGANIZ ATION 11/16/2022 [facility] DATE CREATED AUTHOR AUTHOR'S ORGANIZ ATION 12/14/2022 [facility] DATE CREATED AUTHOR AUTHOR'S ORGANIZ ATION 01/07/2023 [facility] DATE CREATED AUTHOR AUTHOR'S ORGANIZ ATION 04/28/2023 [facility] Reason for Visit (unrecogniz ed section and content) Reason Comments Leg Injury Reason Comments Cellulitis Reason Comments Shortness of Breath ongoing x1 month or so worse 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 Specialty Diagnoses / Procedures Referred By Konstantin t Referred To Contact Neurology Diagnoses Ataxia, unspecified Procedures Electronystagmography Suraj Moreland III, DO [address] [place] [address] [facility] Neuro [address] [place] [address] Referral ID Status Reason Start Date Expiration Date Visits Re quested Visits Authorized [id number] Closed 07/13/2022 01/09/2023 1 1 Reason Comments Follow-up 4 [facility] Follow-up High blood pressure Fall Few weeks ago- injur y to head Source Comments (unrecognize d section and content) In the event this informatio n is protected by the Federal Confidentiality of Alcohol and Drug Abuse Patient Records regulations: The Federal rules restrict any use of the information to criminally investigate or prosecute any alcohol or drug abuse patient.[facility] the event this information is protected by the Federal Confidentiality of Alcohol and Drug Abuse Patient Records regulations: The Federal rules restrict any use of the information to criminally investigate or prosecute any alcohol or drug abuse patient.[facility] the event this information is protected by the Federal Confidentiality of Alcohol and Drug Abuse Patient Records regulations: The Federal rules restrict any use of the information to criminally investigate or prosecute any alcohol or drug abuse patient.[facility] the event this information is protected by the Federal Confidentiality of Alcohol and Drug Abuse Patient Records regulations: The Federal rules restrict any use of the information to criminally investigate or prosecute any alcohol or drug abuse patient.[facility] Letter - Coordinator, Mammography - 12/14/2019 8:00 AM EDT Miscellaneous Notes (unrecog nized section and content) [facility] [address] [place] [id number] December 14, 2019 PID: [id number] Kita Jaramillo [address] [place] [id number] Dear Ms. Jaramillo, We are pleased to inform you that the results of your recent breast imaging exam on 12/12/2019 are normal. Early detection of cancer is very important. We also understand recommendations regarding breast cancer screening are controversial. Please discuss with your primary care provider which strategy is best for you and whether a mammogram is right for you. Your imaging studies and report will be kept on file at [facility] as part of your permanent medical record and are available for your continuing care. Thank you for allowing us to help in meeting your health care needs. Sincerely, Dr. Walker Interpreting Radiologist [facility] (Normal over 40) documented in this encounter Ordered Prescriptions (unrec ognized section and content) Scheduled Active and Recently Administ ered Medications (unrecognized section and content) Scheduled Medication Order 01/18/2021 01/19/2021 01/20/2021 furosemide (LASIX) injection 40 mg (COMPLETED) 40 mg, IntraVENous, ONCE, On Sat01/20/21 at 1639, For 1 dose 1703 (Given - Provid er: Swathi Chavez RN) Care Teams (unrecognized sec tion and content) Candy Spreader Relationship Specialty Start Date End Date Carla Cabrera MD PCP - General Family Medicine 01/09/18 Candy Spreader Relationship Specialty Start Date End Date Carla Cabrera MD [address] [place], [place] [id number] PCP - General Family Medicine 12/12/19 Candy Spreader Relationship Specialty Start Date End Date Carla Cabrera MD [address] [place], [place] [id number] PCP - General Family Medicine 12/12/19 Candy Spreader Relationship Specialty Start Date End Date Carla Cabrera MD PCP - General 01/09/18 Candy Spreader Relationship Specialty Start Date End Date Carla Cabrera MD PCP - General 01/09/18 Candy Spreader Relationship Specialty Start Date End Date Carla Cabrera MD [address] [place] [place] [address] PCP - General 12/23/18 Carla Cabrera MD [address] [facility] [place] [id number] PCP - tna Medicare Advantage PCP 07/30/21 FOR RECORDS PERTAINING TO PATIENTS WHO ARE OR HAVE BEEN ENROLLED IN A CHEMICAL DEPENDENCY/SUBSTANCEABUSE PROGRAM, SOME INFORMATION MAY BE OMITTED. This clinical summary was aggregated from multiple sources. Caution should be exercised in using it in the provision of clinical care. This summary normalizes information from multiple sources, and as a consequence, information in this document may materially change the coding, format and clinical context of patient data. In addition, data may be omitted in some cases. CLINICAL DECISIONS SHOULD BE BASED ON THE PRIMARY CLINICAL RECORDS. [facility] [employer], [facility]. provides no warranty or guarantee of the accuracy or completeness of information in this document.
[2023-05-01 10:08] LABS: Hematocrit 34.3 % (37-47); Hemoglobin 11.3 g/dL (12.0-15.0); Mean Corp Hgb Conc 32.9 g/dL (32-36); Mean Corpuscular Hgb 31.1 pg (27.0-32.0); Mean Corpuscular Volume 94.5 fL (81-99); Platelet Count 127 K/mm3 (150-450); RBC Distribution Width CV 13.7 % (11.6-14.6); RBC Distribution Width SD 47.5 fl (35.1-43.9); Red Blood Count 3.63 M/mm3 (4.2-5.4); White Blood Count 5.5 K/mm3 (4.4-11.0)
[2023-05-01 10:41] LABS: ALB/GLOB Ratio 1.2 RATIO (0.9-2.4); AST(SGOT) 14 U/L (15-37); Alanine Aminotransfer ALT/SGPT 26 U/L (13-56); Albumin, Serum 3.6 g/dL (3.2-5.0); Alkaline Phosphatase 126 U/L (45-117); Anion Gap 2 (5-15); BUN 23 mg/dL (7-18); BUN/Creat Ratio 27.3 RATIO (10-20); Calcium,Total 8.9 mg/dL (8.5-10.1); Chloride 114 mmol/L (98-107); Cholesterol 110 mg/dL (200); Creatinine, Serum 0.84 mg/dL (0.55-1.02); EST Glomerular Filtration Rate 70 mL/min (>60); Est Glom Filt Rate - Afr Amer 85 mL/min (>60); Globulin 3.1 g/dL (2.2-4.2); Glucose 99 mg/dL (74-106); High Density Lipoprotein 31 mg/dL; Potassium 3.9 mmol/L (3.5-5.1); Protein, Total 6.7 g/dL (6.4-8.2); Sodium Level 141 mmol/L (136-145); Thyroid Stim Hormone (TSH) 2.94 uIU/mL (0.358-3.74); Triglycerides 186 mg/dL; Uric Acid 3.6 mg/dL (2.6-6.0); Very Low Density Lipoprotein 37 mg/dL (5-40)
== END | disposition home or self-care (01) ==
DX: I25.10 Atherosclerotic heart disease of native coronary artery without angina pectoris (principal); E03.8 Other specified hypothyroidism; E78.5 Hyperlipidemia, unspecified; M10.9 Gout, unspecified
CPT/HCPCS: 36415; 80053; 80061; 84443; 84550; 85027

== ENCOUNTER 2024-01-27 13:35 | Emergency (ER) | payer OTHER, MEDICARE, SELFPAY ==
[2024-01-27 13:36] VITALS: BP 143/76; PULSE 65; RESP 20; TEMP 36.2; O2SAT 94; BMI 28.0
--- NOTE | 2024-01-27 16:55 | EX.ED.GENINJ ---
HPI History of Present Illness Chief Complaint: Laceration Informant: patient Narrative Narrative: Patient is a 73-year-old female with history of gout and hypertension presenting with left index finger laceration. Patient was at work at [employer] when she was using scissors and actually sliced/cut her left index finger. She had immediate bleeding. She came to the ER for further evaluation. Denies associated numbness or tingling. Does state the finger feels throbbing. Takes 81 mg aspirin daily but denies any use of blood thinners. No other injuries reported. Is not sure when her last tetanus was but chart review shows she had a tetanus in April of this year. No other injuries reported. No other complaints or concerns at this time. Tetanus Immunization: <5 years [facility] Medical History Hypertension Home Medications ?Medication ?Instructions ?Recorded ?Last Taken ?Type allopurinol 300 mg tablet 300 mg PO DAILY 01/27/24 01/27/24 History atorvastatin 10 mg tablet 10 mg PO DAILY 01/27/24 01/27/24 History atorvastatin 40 mg tablet 40 mg PO DAILY 01/27/24 01/27/24 History furosemide 40 mg tablet 40 mg PO BID 01/27/24 01/27/24 History isosorbide mononitrate 60 mg 60 mg PO DAILY 01/27/24 01/27/24 History tablet,extended release 24 hr metoprolol tartrate 25 mg tablet 25 mg PO BID 01/27/24 01/27/24 History Allergy/AdvReac Type Severity Reaction Status Date / Time No Known Allergies Allergy Verified 01/27/24 13:41 Social History Smoking Status: Never smoker ROS ROS ED Constitutional Constitutional ED: Denies chills or fever(s) Musculoskeletal Musculoskeletal: Reports other Details: Left index finger pain Integumentary Reports other Details: Left index finger laceration Neurologic Neurologic: Denies paresthesias or weakness Psychiatric Psychiatric: Denies anxiety Hematologic/Lymphatic Hematologic/Lymphatic: Denies easy bleeding or easy bruising EXAM Physical Exam Const Vital Signs: 01/27/24 13:36 Temperature 97.1 F L Temperature Source Temporal Pulse Rate 65 Respiratory Rate 20 H Blood Pressure 143/76 H Blood Pressure Mean 98 Pulse Ox 94 Positive well nourished and well developed General Appearance ED: well developed and NAD HEENT atraumatic Chest Wall inspection of chest normal Resp normal respiratory effort and clear to auscultation bilaterally Cardio regular rhythm Rate: regular rate Extremity Extremity Narrative: Mild tenderness palpation over the left index finger at the second phalanges where there is associated laceration. Normal range of motion of the finger. Normal extensor and flexor mechanisms General Extremety ED: Negative for deformity General Extremity: Negative for deformity Neuro oriented x3, moves all extremities, no focal motor deficits and no sensory deficits noted Sensorium / Orientation: alert Psych mental status grossly normal and thought process normal Skin Skin Narrative: 1.8 cm full-thickness laceration along the ulnar/palmar aspect of left second phalanges. No active bleeding at this time. PROC Procedures Lacerations left index finger : Length: 0.71 in Depth: Skin Shape: Linear Prep: Radha-Alexi Laceration repair: Nerve block and Skin sutures Irrigated (ml): 999 Number of Sutures/Juliana: 4 Suture Information: Ethilon, Simple and 4-0 Comment: After nerve block performed wound ring under running water for 2 minutes for further irrigation MDM MDM MDM Narrative Medical decision making narrative: Patient is evaluated for finger laceration. Tetanus is already up-to-date. Low concern for foreign body based on mechanism of injury. I do not think imaging is indicated at this time. See procedure note for laceration repair. Is given wound care precautions. Discharged home in stable condition. Workmen's Compensation paperwork is filed. Discharge Plan Triage Chief Complaint: Laceration ED Provider: Shereen Link Dx/Rx/DC Orders Clinical Impression: Laceration of left index finger Instructions: ED Laceration, Hand: All Closures Prescriptions: No Action furosemide 40 mg tablet 40 mg PO BID atorvastatin 40 mg tablet 40 mg PO DAILY atorvastatin 10 mg tablet 10 mg PO DAILY isosorbide mononitrate 60 mg tablet extended release 24 hr 60 mg PO DAILY allopurinol 300 mg tablet 300 mg PO DAILY metoprolol tartrate 25 mg tablet 25 mg PO BID Stand Alone Forms: Work Status Form Primary Care Provider: CARLA CABRERA Referrals: CARLA CABRERA [Other] Corporate,Care [Group of Physicians] - 10-14 Days suture removal Activity Restrictions/Additional Instructions: Keep sutures covered, clean and dry especially at work. If you would like you can apply either Vaseline or bacitracin ointment over the sutures. They should be removed in 10 to 14 days. Follow-up either with Workmen's Compensation provider or corporate care for suture removal and wound check. You may take Tylenol as needed for pain Print Language: Urdu Disposition Disposition: Home, Self Care Discharge Date/Time: 01/27/24 17:57
== END 2024-01-27 17:57 | disposition home or self-care (01) ==
PROVIDERS: Emergency Provider Emergency Medicine; Visit Provider Emergency Medicine
DX: S61.211A Laceration without foreign body of left index finger without damage to nail, initial encounter (principal); Y99.0 Civilian activity done for income or pay; X58.XXXA Exposure to other specified factors, initial encounter
CPT/HCPCS: 12001; 99283

== ENCOUNTER 2024-02-01 17:33 | Inpatient (IN) | payer MEDICARE, SELFPAY ==
[2024-02-01 17:36] VITALS: BP 182/81; PULSE 66; RESP 16; TEMP 36.1; O2SAT 96; BMI 29.6
[2024-02-01 19:55] LABS: Mucous, Urine 0 SEEN /hpf (<or=2+)
[2024-02-01 19:56] LABS: Color, Urine Yellow (Yellow); Glucose, Dipstick Normal (Normal); Ketone-Dipstick Negative (Negative); Leukocyte Esterase-Dipstick 500 /ul (Negative); Nitrite-Dipstick Positive (Negative); Occult Blood-Urine 50 /ul (Negative); Protein-Dipstick 30 mg/dl (Negative); Specific Gravity, Urine 1.025 (1.002-1.030); Urine Bilirubin Dipstick Negative (Negative); Urine Clarity Sl. Cloudy (Clear); Urine Urobilinogen 1 mg/dl (Normal)
[2024-02-01 20:04] LABS: Bacteria 4+ /hpf (None Seen); Calcium Oxalate Crystals Ur RARE /hpf (<or=2+); Red Blood Cells-Urine 0-5 SEEN /hpf (0-5); Renal Epithelial Cells 0-5 SEEN /hpf (0-5); Squamous Epithelial Cells - UA 0-5 SEEN /hpf (5-10); White Blood Cells 10-25 SEEN /hpf (0-5); White Cell Cast 0-5 SEEN /lpf (None Seen)
[2024-02-01 20:07] LABS: Absolute Lymphocyte Count 1.39 X10^3/uL (0.83-4.51); Absolute Neutrophil Count 4.9 X10^3/uL (2.0-7.7); Basophil# 0.03 X10^3/uL; Basophil% 0.4 % (0-1); Eosinophil# 0.21 X10^3/uL; Eosinophils% 2.9 % (0-5); Hematocrit 29.8 % (37-47); Lymphocyte # 1.39 X10^3/ul (0.83-4.51); Lymphocyte % 19.3 % (19-41); Mean Corp Hgb Conc 33.6 g/dL (32-36); Mean Corpuscular Hgb 31.1 pg (27.0-32.0); Mean Corpuscular Volume 92.5 fL (81-99); Mean Platelet Vol. 10.9 fl (6.2-12.0); Monocyte# 0.63 X10^3/uL; Monocyte% 8.7 % (0-10); NRBC Flagged by Analyzer 0 % (0-5); Neutrophil # 4.93 X10^3/uL (2.7-7.7); Neutrophil % 68.3 % (47-70); Platelet Count 143 K/mm3 (150-450); RBC Distribution Width SD 44.3 fl (35.1-43.9); Red Blood Count 3.22 M/mm3 (4.2-5.4); White Blood Count 7.2 K/mm3 (4.4-11.0)
[2024-02-01 20:10] LABS: Amphetamine Urine VISTA NEGATIVE (<1000 ng/mL); Barbiturate Urine VISTA NEGATIVE (< 200 ng/mL); Benzodiazepine Urine VISTA NEGATIVE (< 200 ng/mL); Cocaine Urine VISTA NEGATIVE (< 300 ng/mL); Ecstacy Urine VISTA NEGATIVE (< 500 ng/mL); Methadone Urine VISTA NEGATIVE (< 300 ng/mL); PCP Urine VISTA NEGATIVE (< 25 ng/mL); THC Urine VISTA NEGATIVE (< 50 ng/mL); Vista UDS pH Range 5
[2024-02-01 20:19] LABS: Alcohol, Blood (Medical)-Serum < 3.0 mg/dL
[2024-02-01 20:26] LABS: ALB/GLOB Ratio 0.9 RATIO (0.9-2.4); AST(SGOT) 16 U/L (15-37); Alanine Aminotransfer ALT/SGPT 27 U/L (13-56); Albumin, Serum 3.1 g/dL (3.2-5.0); Alkaline Phosphatase 122 U/L (45-117); Anion Gap 6 (5-15); BUN 16 mg/dL (7-18); BUN/Creat Ratio 17.6 RATIO (10-20); Calcium,Total 8.9 mg/dL (8.5-10.1); Chloride 112 mmol/L (98-107); Creatinine, Serum 0.91 mg/dL (0.55-1.02); EST Glomerular Filtration Rate 64 mL/min (>60); Est Glom Filt Rate - Afr Amer 78 mL/min (>60); Estimated Creatinine Clearance 63.14 ml/min; Globulin 3.3 g/dL (2.2-4.2); Glucose 126 mg/dL (74-106); Potassium 3.3 mmol/L (3.5-5.1); Protein, Total 6.4 g/dL (6.4-8.2); Sodium Level 144 mmol/L (136-145); Troponin-I HS 10 pg/mL (3.0-54.0)
[2024-02-01 21:36] VITALS: BP 183/83; PULSE 65; RESP 20
[2024-02-01 23:14] VITALS: BP 178/82; PULSE 91; RESP 20; TEMP 37; O2SAT 91
[2024-02-01] MEDS: Isosorbide Mononitrate 60 MG Tablet PO (23:29)
[2024-02-01] MEDS: Ceftriaxone 1 GM/50 ML BAG IV (23:31)
[2024-02-02] VITALS (14 sets, daily range): BP systolic 133–193; BP diastolic 69–101; PULSE 58–105; RESP 18–20; TEMP 36.2–37.2; O2SAT 94–97; BMI 28.0
[2024-02-02 01:28] LABS: Hemoglobin A1c 5.2 % (3.8-5.6)
[2024-02-02] MEDS: Azithromycin 500 MG in Dextrose 5%-Water (250mL Bag) 250 ML 250 MG IV ×2 (02:08→22:18)
[2024-02-02 02:43] LABS: T4 Free Direct 0.96 ng/dL (0.76-1.46)
[2024-02-02] MEDS: Potassium Chloride Oral Tablet 20 MEQ 40 MEQ PO (04:08)
[2024-02-02] MEDS: Aspirin E.C. 325 MG Tablet PO (04:09)
[2024-02-02 05:24] LABS: Absolute Lymphocyte Count 1.05 X10^3/uL (0.83-4.51); Absolute Neutrophil Count 4.4 X10^3/uL (2.0-7.7); Basophil# 0.03 X10^3/uL; Basophil% 0.5 % (0-1); Eosinophil# 0.19 X10^3/uL; Hematocrit 27.6 % (37-47); Hemoglobin 9.1 g/dL (12.0-15.0); Lymphocyte # 1.05 X10^3/ul (0.83-4.51); Lymphocyte % 16.7 % (19-41); Mean Corpuscular Hgb 30.6 pg (27.0-32.0); Mean Corpuscular Volume 92.9 fL (81-99); Mean Platelet Vol. 10.3 fl (6.2-12.0); Monocyte# 0.54 X10^3/uL; Monocyte% 8.6 % (0-10); NRBC Flagged by Analyzer 0 % (0-5); Neutrophil # 4.44 X10^3/uL (2.7-7.7); Neutrophil % 70.9 % (47-70); Platelet Count 116 K/mm3 (150-450); RBC Distribution Width CV 13.1 % (11.6-14.6); RBC Distribution Width SD 44.1 fl (35.1-43.9); Red Blood Count 2.97 M/mm3 (4.2-5.4); White Blood Count 6.3 K/mm3 (4.4-11.0)
[2024-02-02 05:45] LABS: ALB/GLOB Ratio 0.9 RATIO (0.9-2.4); AST(SGOT) 12 U/L (15-37); Alanine Aminotransfer ALT/SGPT 20 U/L (13-56); Albumin, Serum 2.9 g/dL (3.2-5.0); Alkaline Phosphatase 111 U/L (45-117); Anion Gap 3 (5-15); BUN 12 mg/dL (7-18); BUN/Creat Ratio 16.2 RATIO (10-20); Calcium,Total 8.5 mg/dL (8.5-10.1); Chloride 113 mmol/L (98-107); Creatinine, Serum 0.74 mg/dL (0.55-1.02); EST Glomerular Filtration Rate 82 mL/min (>60); Est Glom Filt Rate - Afr Amer 99 mL/min (>60); Estimated Creatinine Clearance 69.91 ml/min; Globulin 3.1 g/dL (2.2-4.2); Glucose 111 mg/dL (74-106); Magnesium 2.1 mg/dL (1.6-2.6); Phosphorus 3.1 mg/dL (2.5-4.9); Potassium 3.5 mmol/L (3.5-5.1); Sodium Level 143 mmol/L (136-145)
[2024-02-02] MEDS: busPIRone 15 MG TABLET 7.5 MG PO ×3 (05:58→21:34)
[2024-02-02] MEDS: Levothyroxine 125 MCG Tablet PO (05:58)
[2024-02-02 06:30] LABS: Cholesterol 81 mg/dL (200); High Density Lipoprotein 31 mg/dL; Triglycerides 89 mg/dL; Very Low Density Lipoprotein 18 mg/dL (5-40)
[2024-02-02] MEDS: Ascorbic Acid 500 MG Tablet 1000 MG PO ×2 (07:56→16:40)
[2024-02-02] MEDS: Isosorbide Mononitrate 60 MG Tablet PO (07:56)
[2024-02-02] MEDS: Metoprolol Tartrate 25 MG Tablet PO ×2 (07:57→21:33)
[2024-02-02] MEDS: Zinc Sulfate 50 mg zinc (220 mg) ORAL capsule PO (07:57)
[2024-02-02] MEDS: Cholecalciferol (Vit D3) 125 MCG CAPSULE (5,000 UNITS) PO (07:57)
[2024-02-02] MEDS: Potassium Chloride Oral Tablet 10 MEQ PO ×2 (07:57→21:33)
[2024-02-02] MEDS: guaiFENesin 600 MG Tablet PO ×2 (07:58→21:33)
[2024-02-02] MEDS: Lactobacillis Acidophilus 1 CAP PO ×4 (07:58→21:33)
[2024-02-02] MEDS: Sertraline 100 MG Tablet PO (07:59)
[2024-02-02] MEDS: Allopurinol 300 MG Tablet PO (07:59)
[2024-02-02] MEDS: Aspirin E.C. 81 MG Tablet PO (08:03)
[2024-02-02] MEDS: Enoxaparin 40 MG/0.4 ML Syringe SC (09:59)
[2024-02-02 10:54] LABS: Ferritin 115 ng/mL (8-252); Iron 28 ug/dL (50-170); Iron Binding Capacity,Total 219 ug/dL (250-450); PERCENT IRON SATURATION 12.8 % (15.0-55.0)
[2024-02-02] MEDS: 0.9% Saline Lock 10 ML Syringe IV ×2 (14:14→21:34)
[2024-02-02] MEDS: hydrALAZINE 20 MG/ML Vial 10 MG IV (14:14)
[2024-02-02] MEDS: Ferrous Sulfate 325 MG Tablet PO (16:39)
[2024-02-02] MEDS: Atorvastatin Calcium 40 MG Tablet PO (21:33)
[2024-02-02] MEDS: Ceftriaxone 1 GM/50 ML BAG IV (21:34)
[2024-02-03] VITALS (9 sets, daily range): BP systolic 154–181; BP diastolic 83–98; PULSE 57–72; RESP 16–20; TEMP 36.7–36.9; O2SAT 94–97; BMI 28.2
[2024-02-03] MEDS: hydrALAZINE 20 MG/ML Vial 10 MG IV ×2 (02:43→10:42)
[2024-02-03] MEDS: 0.9% Saline Lock 10 ML Syringe IV ×2 (02:43→10:42)
[2024-02-03] MEDS: Levothyroxine 125 MCG Tablet PO (04:53)
[2024-02-03] MEDS: busPIRone 15 MG TABLET 7.5 MG PO ×2 (04:53→13:28)
[2024-02-03 06:46] LABS: Magnesium 2.3 mg/dL (1.6-2.6); Phosphorus 3.8 mg/dL (2.5-4.9)
[2024-02-03 08:01] LABS: Vitamin B12 523 pg/mL (211-911)
[2024-02-03] MEDS: Isosorbide Mononitrate 60 MG Tablet PO (08:36)
[2024-02-03] MEDS: Cholecalciferol (Vit D3) 125 MCG CAPSULE (5,000 UNITS) PO (08:36)
[2024-02-03] MEDS: Lactobacillis Acidophilus 1 CAP PO (08:36)
[2024-02-03] MEDS: guaiFENesin 600 MG Tablet PO (08:36)
[2024-02-03] MEDS: Ascorbic Acid 500 MG Tablet 1000 MG PO (08:36)
[2024-02-03] MEDS: Potassium Chloride Oral Tablet 10 MEQ PO (08:37)
[2024-02-03] MEDS: Metoprolol Tartrate 25 MG Tablet PO (08:37)
[2024-02-03] MEDS: Sertraline 100 MG Tablet PO (08:37)
[2024-02-03] MEDS: Allopurinol 300 MG Tablet PO (08:38)
[2024-02-03] MEDS: Aspirin E.C. 81 MG Tablet PO (08:38)
[2024-02-03] MEDS: Enoxaparin 40 MG/0.4 ML Syringe SC (08:38)
[2024-02-03] MEDS: Furosemide 40 MG Tablet PO (11:06)
[2024-02-03] MEDS: Ferrous Sulfate 325 MG Tablet PO (11:06)
[2024-02-03] MEDS: Losartan Potassium 50 MG Tablet PO (13:27)
== END 2024-02-03 15:12 | disposition home health service (06) | DRG 689 ==
LOC: ED 20:19 → PCU 02-02 00:02
PROVIDERS: Internal Medicine; Admitting Provider Internal Medicine; Emergency Provider Emergency Medicine; Visit Provider Internal Medicine
DX: N30.00 Acute cystitis without hematuria (principal); J18.9 Pneumonia, unspecified organism; G92.8 Other toxic encephalopathy; G93.41 Metabolic encephalopathy; D69.6 Thrombocytopenia, unspecified; D63.8 Anemia in other chronic diseases classified elsewhere; E86.0 Dehydration; E03.9 Hypothyroidism, unspecified; I10 Essential (primary) hypertension; F32.A Depression, unspecified; E87.6 Hypokalemia; M10.9 Gout, unspecified; E78.5 Hyperlipidemia, unspecified; J01.90 Acute sinusitis, unspecified; G47.33 Obstructive sleep apnea (adult) (pediatric); F41.9 Anxiety disorder, unspecified; Z79.890 Hormone replacement therapy; V47.9XXA Unspecified car occupant injured in collision with fixed or stationary object in traffic accident, initial encounter; B96.20 Unspecified Escherichia coli [E. coli] as the cause of diseases classified elsewhere
CPT/HCPCS: 36415; 70450; 70551; 71046; 71250; 80053; 80061; 80307; 81001; 82077; 82607; 82728; 82746; 83036; 83540; 83550; 83735; 84100; 84439; 84443; 84484; 85025; 87086; 87088; 87186; 87633; 87635; 93005; 93306; 97162; 97166; 97530; 97535; 99285; J7040; Q9957; A4216

== ENCOUNTER 2024-02-05 12:50 | Emergency (ER) | payer MEDICARE, SELFPAY ==
[2024-02-05 12:51] VITALS: BP 131/67; PULSE 67; RESP 16; TEMP 36.7; O2SAT 97; BMI 26.4
[2024-02-05 13:59] LABS: Absolute Lymphocyte Count 1.37 X10^3/uL (0.83-4.51); Absolute Neutrophil Count 5.5 X10^3/uL (2.0-7.7); Basophil# 0.04 X10^3/uL; Basophil% 0.5 % (0-1); Eosinophil# 0.15 X10^3/uL; Hematocrit 32.9 % (37-47); Hemoglobin 10.8 g/dL (12.0-15.0); Lymphocyte # 1.37 X10^3/ul (0.83-4.51); Lymphocyte % 18.2 % (19-41); Mean Corp Hgb Conc 32.8 g/dL (32-36); Mean Corpuscular Hgb 31.1 pg (27.0-32.0); Mean Corpuscular Volume 94.8 fL (81-99); Mean Platelet Vol. 10.6 fl (6.2-12.0); Monocyte# 0.43 X10^3/uL; Monocyte% 5.7 % (0-10); NRBC Flagged by Analyzer 0 % (0-5); Neutrophil # 5.46 X10^3/uL (2.7-7.7); Neutrophil % 72.8 % (47-70); Platelet Count 184 K/mm3 (150-450); RBC Distribution Width CV 13.3 % (11.6-14.6); RBC Distribution Width SD 45.5 fl (35.1-43.9); Red Blood Count 3.47 M/mm3 (4.2-5.4); White Blood Count 7.5 K/mm3 (4.4-11.0)
[2024-02-05 14:17] LABS: ALB/GLOB Ratio 1.1 RATIO (0.9-2.4); AST(SGOT) 17 U/L (15-37); Alanine Aminotransfer ALT/SGPT 24 U/L (13-56); Albumin, Serum 3.5 g/dL (3.2-5.0); Alkaline Phosphatase 126 U/L (45-117); Anion Gap 3 (5-15); BUN 18 mg/dL (7-18); BUN/Creat Ratio 17.6 RATIO (10-20); Chloride 112 mmol/L (98-107); Creatinine, Serum 1.02 mg/dL (0.55-1.02); EST Glomerular Filtration Rate 56 mL/min (>60); Est Glom Filt Rate - Afr Amer 68 mL/min (>60); Globulin 3.3 g/dL (2.2-4.2); Glucose 127 mg/dL (74-106); Potassium 3.7 mmol/L (3.5-5.1); Protein, Total 6.8 g/dL (6.4-8.2); Sodium Level 144 mmol/L (136-145); Troponin-I HS 8 pg/mL (3.0-54.0)
[2024-02-05 14:31] LABS: Red Blood Cells-Urine 0 SEEN /hpf (0-5); Squamous Epithelial Cells - UA 0 SEEN /hpf (5-10)
[2024-02-05 14:35] LABS: Color, Urine Yellow (Yellow); Glucose, Dipstick Normal (Normal); Ketone-Dipstick Negative (Negative); Leukocyte Esterase-Dipstick 25 /ul (Negative); Nitrite-Dipstick Negative (Negative); Occult Blood-Urine Negative /ul (Negative); Protein-Dipstick 15 mg/dl (Negative); Urine Bilirubin Dipstick Negative (Negative); Urine Clarity Sl. Cloudy (Clear); Urine Urobilinogen Normal (Normal)
[2024-02-05 14:42] LABS: Hyaline Cast 0-5 SEEN /lpf (0-5); Mucous, Urine 1+ /hpf (<or=2+); White Blood Cells 0-5 SEEN /hpf (0-5)
[2024-02-05 14:43] LABS: Bacteria 1+ /hpf (None Seen)
[2024-02-05 14:51] VITALS: BP 142/71; PULSE 58; RESP 20; O2SAT 94
[2024-02-05 16:00] VITALS: BP 174/75; PULSE 57; RESP 16; O2SAT 94
[2024-02-05 16:19] VITALS: BP 174/75; PULSE 55; RESP 18; TEMP 36.3; O2SAT 95
== END 2024-02-05 16:24 | disposition home or self-care (01) ==
PROVIDERS: Emergency Provider Emergency Medicine; Visit Provider Emergency Medicine
DX: Z00.00 Encounter for general adult medical examination without abnormal findings (principal); G47.33 Obstructive sleep apnea (adult) (pediatric)
CPT/HCPCS: 70450; 80053; 81001; 84484; 85025; 87086; 93005; 99285; A4216

== ENCOUNTER 2024-06-13 09:58 | Emergency (ER) | payer MEDICARE, SELFPAY ==
[2024-06-13 10:02] VITALS: BP 138/87; PULSE 72; RESP 18; TEMP 36.7; O2SAT 92; BMI 28.1
--- NOTE | 2024-06-13 10:08 | CT_ITS ---
EXAM: BRAIN/HEAD WITHOUT CONTRAST CLINICAL HISTORY: MENTAL STATUS CHANGE COMPARISON: 02/05/2024 TECHNIQUE: Multiple contiguous axial images of the brain were obtained without the administration of intravenous contrast. Two-dimensional coronal and sagittal reformatted images were reconstructed. Low-dose imaging technique was utilized. FINDINGS: No evidence of acute intracranial hemorrhage, midline shift or mass effect. No definite CT evidence of acute territorial cortical infarction. No hydrocephalus. Generalized cerebral atrophy and chronic small-vessel ischemic changes. No depressed calvarial fracture. Paranasal sinuses and mastoid air cells are clear. CT/Brain/Head without Contrast IMPRESSION: No acute intracranial abnormality. Mild atrophy and chronic small-vessel ische adriana changes. Reading Location: [facility]
--- NOTE | 2024-06-13 10:10 | RAD_ITS ---
PROCEDURE: Chest radiograph REASON FOR EXAM: Chest pain TECHNIQUE: Frontal view of the chest. COMPARISON: 02/01/2024 FINDINGS: Mild cardiomegaly. No focal consolidation, sizeable pleural effusion or pneumothorax. RAD/Chest 1 View (Portable) IMPRESSION: Cardiomegaly without focal airspace consolidation. Reading Location: [facility]
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
[2024-06-13] MEDS: 0.9% Normal Saline (1000mL) 1,000 ML 1000 ML IV (10:19)
[2024-06-13 10:28] LABS: Absolute Lymphocyte Count 0.62 X10^3/uL (0.83-4.51); Absolute Neutrophil Count 2.2 X10^3/uL (2.0-7.7); Basophil# 0.02 X10^3/uL; Basophil% 0.6 % (0-1); Hematocrit 34.4 % (37-47); Hemoglobin 11.3 g/dL (12.0-15.0); Lymphocyte # 0.62 X10^3/ul (0.83-4.51); Lymphocyte % 19.9 % (19-41); Mean Corp Hgb Conc 32.8 g/dL (32-36); Mean Corpuscular Hgb 31.3 pg (27.0-32.0); Mean Corpuscular Volume 95.3 fL (81-99); Mean Platelet Vol. 12.2 fl (6.2-12.0); Monocyte# 0.28 X10^3/uL; NRBC Flagged by Analyzer 0 % (0-5); Neutrophil # 2.18 X10^3/uL (2.7-7.7); Neutrophil % 70.2 % (47-70); POSITIVE COUNT YES; Platelet Count 75 K/mm3 (150-450); RBC Distribution Width CV 13.8 % (11.6-14.6); RBC Distribution Width SD 48.8 fl (35.1-43.9); Red Blood Count 3.61 M/mm3 (4.2-5.4); White Blood Count 3.1 K/mm3 (4.4-11.0)
[2024-06-13 10:33] LABS: Differential Indicated SCAN CRITERIA MET
[2024-06-13 10:41] LABS: Mucous, Urine 0 SEEN /hpf (<or=2+)
[2024-06-13 10:43] LABS: Color, Urine Yellow (Yellow); Glucose, Dipstick Normal (Normal); Ketone-Dipstick Negative (Negative); Leukocyte Esterase-Dipstick 25 /ul (Negative); Nitrite-Dipstick Positive (Negative); Occult Blood-Urine 25 /ul (Negative); Protein-Dipstick 30 mg/dl (Negative); Specific Gravity, Urine 1.025 (1.002-1.030); Urine Bilirubin Dipstick Negative (Negative); Urine Clarity Clear (Clear); Urine Urobilinogen Normal (Normal)
[2024-06-13 10:57] LABS: White Blood Cells 5-10 SEEN /hpf (0-5)
[2024-06-13 10:58] LABS: Red Blood Cells-Urine 0-5 SEEN /hpf (0-5)
[2024-06-13 10:58] LABS: ALB/GLOB Ratio 1.5 RATIO (0.9-2.4); AST(SGOT) 33 U/L (<=31); Alanine Aminotransfer ALT/SGPT 19 U/L (<=34); Albumin, Serum 4.2 g/dL (3.4-4.8); Alkaline Phosphatase 88 U/L (35-104); Anion Gap 14 (5-15); BUN 23 mg/dL (4-19); BUN/Creat Ratio 20.6 RATIO (10-20); Calcium,Total 8.8 mg/dL (7.6-11.0); Carbon Dioxide 19.7 mmol/L (21.0-32.0); Chloride 104 mmol/L (98-108); Creatinine, Serum 1.13 mg/dL (0.70-1.20); EST Glomerular Filtration Rate 51 (>60); Globulin 2.8 g/dL (2.2-4.2); Glucose 97 mg/dL (70-99); Potassium 4.2 mmol/L (3.3-5.1); Sodium Level 137 mmol/L (133-145); Total Bilirubin 0.65 mg/dL (0.00-1.30)
[2024-06-13 10:59] VITALS: O2SAT 88
[2024-06-13 10:59] LABS: Transitional Epithelial - Ur 0-5 SEEN /hpf (0-5)
[2024-06-13 11:00] VITALS: O2SAT 95
[2024-06-13 11:00] LABS: Bacteria 4+ /hpf (None Seen); Renal Epithelial Cells 0-5 SEEN /hpf (0-5); Squamous Epithelial Cells - UA 0-5 SEEN /hpf (5-10)
[2024-06-13 11:02] LABS: Fine Granular Cast- Urine 0-5 SEEN /lpf (0-5); Hyaline Cast 10-25 SEEN /lpf (0-5)
[2024-06-13 11:03] LABS: White Cell Cast 0-5 SEEN /lpf (None Seen)
[2024-06-13 11:11] LABS: Waxy Cast-Urine 0-5 SEEN /lpf (None Seen)
[2024-06-13 11:17] LABS: Ammonia < 10.0 umol/L (11-51)
[2024-06-13 11:20] LABS: Platelet Estimate MOD DEC (ADEQ)
[2024-06-13] MEDS: Cephalexin 250 MG Capsule 500 MG PO (11:36)
[2024-06-13 12:45] VITALS: BP 141/62; PULSE 64; RESP 19
[2024-06-13 13:45] VITALS: BP 154/87; O2SAT 94
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
--- NOTE | 2024-06-13 16:11 | ED.RN ---
This RN went into room to get pt ready for discharge as her brother had arrived to transport her. Pt found sitting in chair in which she believed was the toilet. Pt had stool on her hands and down her legs. Pt was unsteady on her feet and unable to ambulate without 2 person assist. Pt states she has been having having difficulty with her balance. Pt admitted to living alone and without any in home care or visits from care givers. JL Lebron notified of concerns for pt safety to discharge home alone.
--- NOTE | 2024-06-13 16:20 | ED.RN ---
Pt opens the door frequently with odd questions including are you making Zoey cookies and when do we get paid? as well as asking for someone by the name of Kelly. SW informed.
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
--- NOTE | 2024-06-14 11:19 | CM.ED ---
[employer] made a referral to APS in order to ensure that patient is safe to be living on her own. APS to follow up accordingly. Tavia Amaya, DRUM OPERATOR, PRESSROOM SUPERVISOR
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
== END 2024-06-13 16:49 | disposition home or self-care (01) ==
PROVIDERS: Emergency Provider Emergency Medicine; Visit Provider Emergency Medicine
DX: R41.0 Disorientation, unspecified (principal); N39.0 Urinary tract infection, site not specified; D70.9 Neutropenia, unspecified; G47.30 Sleep apnea, unspecified
CPT/HCPCS: 70450; 71045; 80053; 81001; 82140; 85025; 87086; 87088; 87186; 87631; 96360; 96361; 99285; A4216

== ENCOUNTER 2024-06-14 17:40 | Observation (INO) | payer MEDICARE, SELFPAY ==
[2024-06-14] VITALS (9 sets, daily range): BP systolic 137–161; BP diastolic 78–92; PULSE 62–94; RESP 17–26; TEMP 36.8–37.2; O2SAT 87–97; BMI 27.5; BMI 26.4
--- NOTE | 2024-06-14 17:59 | ED.RN ---
Pt has multiple areas of bruising in different stages of healing. Pt states that she falls alot. Both buttocks are red and excoriated. There is a long abrasion/red indra going up her back. Pt was covered in stool from her hands down to her feet. Pt was in the same clothes on that she had on yesterday.
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
[2024-06-14] MEDS: Ceftriaxone 1 GM/50 ML BAG IV (18:19)
--- NOTE | 2024-06-14 18:21 | ED.RN ---
EMS brought in pts car keys and martines ring, keys placed in a biohazard bag labeled and placed in pts personal belonging bag
[2024-06-14 18:22] LABS: Absolute Lymphocyte Count 0.68 X10^3/uL (0.83-4.51); Absolute Neutrophil Count 3.7 X10^3/uL (2.0-7.7); Hematocrit 33.1 % (37-47); Hemoglobin 11.3 g/dL (12.0-15.0); Lymphocyte # 0.68 X10^3/ul (0.83-4.51); Lymphocyte % 14.4 % (19-41); Mean Corp Hgb Conc 34.1 g/dL (32-36); Mean Corpuscular Hgb 31.7 pg (27.0-32.0); Mean Platelet Vol. 11.4 fl (6.2-12.0); Monocyte# 0.31 X10^3/uL; Monocyte% 6.6 % (0-10); NRBC Flagged by Analyzer 0 % (0-5); Neutrophil # 3.71 X10^3/uL (2.7-7.7); Neutrophil % 78.8 % (47-70); POSITIVE COUNT YES; Platelet Count 87 K/mm3 (150-450); RBC Distribution Width CV 13.6 % (11.6-14.6); RBC Distribution Width SD 46.8 fl (35.1-43.9); Red Blood Count 3.56 M/mm3 (4.2-5.4); White Blood Count 4.7 K/mm3 (4.4-11.0)
[2024-06-14 19:02] LABS: ALB/GLOB Ratio 1.5 RATIO (0.9-2.4); AST(SGOT) 53 U/L (<=31); Alanine Aminotransfer ALT/SGPT 24 U/L (<=34); Albumin, Serum 3.9 g/dL (3.4-4.8); Alkaline Phosphatase 77 U/L (35-104); Anion Gap 13 (5-15); BUN 22 mg/dL (4-19); BUN/Creat Ratio 21.1 RATIO (10-20); Calcium,Total 8.6 mg/dL (7.6-11.0); Carbon Dioxide 19.7 mmol/L (21.0-32.0); Chloride 107 mmol/L (98-108); Creatinine, Serum 1.04 mg/dL (0.70-1.20); EST Glomerular Filtration Rate 56 (>60); Estimated Creatinine Clearance 54.09 ml/min (50-250); Globulin 2.6 g/dL (2.2-4.2); Glucose 112 mg/dL (70-99); Potassium 3.8 mmol/L (3.3-5.1); Protein, Total 6.4 g/dL (5.9-8.4); Sodium Level 140 mmol/L (133-145)
[2024-06-14 19:13] LABS: Differential Indicated SCAN CRITERIA MET
[2024-06-14 19:15] LABS: Anisocytosis RARE; Differential Comment SEECOMMENT; Macrocytosis RARE; Platelet Estimate MOD DEC (ADEQ)
[2024-06-14] MEDS: Ipratropium/Albuterol Sulfate 3 ML AMPUL.NEB INHALATION (20:35)
[2024-06-14] MEDS: Menthol/Lanolin/Calamine/Znox 113 GM Tube 1 APPLIC TOPICAL (23:30)
[2024-06-14] MEDS: Potassium Chloride Oral Tablet 10 MEQ PO (23:31)
[2024-06-14] MEDS: busPIRone 15 MG TABLET 7.5 MG PO (23:31)
[2024-06-14] MEDS: Metoprolol Tartrate 25 MG Tablet PO (23:31)
[2024-06-15] VITALS (9 sets, daily range): BP systolic 109–147; BP diastolic 49–81; PULSE 59–78; RESP 18–20; TEMP 36.5–36.9; O2SAT 91–98
[2024-06-15] MEDS: Menthol/Lanolin/Calamine/Znox 113 GM Tube 1 APPLIC TOPICAL ×3 (06:25→22:37)
[2024-06-15 06:35] LABS: Absolute Lymphocyte Count 0.87 X10^3/uL (0.83-4.51); Absolute Neutrophil Count 2.8 X10^3/uL (2.0-7.7); Basophil# 0.01 X10^3/uL; Basophil% 0.3 % (0-1); Hematocrit 32.2 % (37-47); Hemoglobin 10.8 g/dL (12.0-15.0); Lymphocyte # 0.87 X10^3/ul (0.83-4.51); Mean Corp Hgb Conc 33.5 g/dL (32-36); Mean Corpuscular Hgb 31.1 pg (27.0-32.0); Mean Corpuscular Volume 92.8 fL (81-99); Mean Platelet Vol. 11.9 fl (6.2-12.0); Monocyte# 0.25 X10^3/uL; Monocyte% 6.3 % (0-10); NRBC Flagged by Analyzer 0 % (0-5); Neutrophil # 2.81 X10^3/uL (2.7-7.7); Neutrophil % 71.1 % (47-70); POSITIVE COUNT YES; Platelet Count 84 K/mm3 (150-450); RBC Distribution Width CV 13.7 % (11.6-14.6); RBC Distribution Width SD 46.6 fl (35.1-43.9); Red Blood Count 3.47 M/mm3 (4.2-5.4)
[2024-06-15] MEDS: Ipratropium/Albuterol Sulfate 3 ML AMPUL.NEB INHALATION ×3 (07:58→19:15)
[2024-06-15] MEDS: Ensure Plus High Protein 120 ML LIQUID PO ×3 (09:17→17:41)
[2024-06-15] MEDS: Enoxaparin 40 MG/0.4 ML Syringe SC (09:20)
[2024-06-15] MEDS: Metoprolol Tartrate 25 MG Tablet PO ×2 (09:21→22:38)
[2024-06-15] MEDS: Isosorbide Mononitrate 60 MG Tablet PO (09:22)
[2024-06-15] MEDS: Sertraline 100 MG Tablet PO (09:22)
[2024-06-15] MEDS: Allopurinol 300 MG Tablet PO (09:23)
[2024-06-15] MEDS: Atorvastatin Calcium 40 MG Tablet PO (09:23)
[2024-06-15] MEDS: Furosemide 40 MG Tablet PO ×2 (09:23→17:41)
[2024-06-15] MEDS: Potassium Chloride Oral Tablet 10 MEQ PO ×2 (09:23→22:38)
[2024-06-15] MEDS: Losartan Potassium 100 MG Tablet PO (09:23)
--- NOTE | 2024-06-15 11:11 | CASEMGMT ---
Discharge Planning A list of?SNF providers including quality and resource use data and consistent with the patient's preferred geographic region, medical needs, and insurance network was created in [facility] Guide.? This list was provided to the SW. Jeana Weir Discharge Planning Asst.
[2024-06-15] MEDS: Acetaminophen 325 MG Tablet 650 MG PO (12:24)
--- NOTE | 2024-06-15 12:44 | CM.ED ---
Social Work This technical report writer, along with DAVID Ashley, spoke with Enrique from [facility]PS today. Chart reviewed. Enrique updated to patient's admission. Enrique asks to be contacted when patient is released [phone]. Patient was initially seen in the ED on 06.13.2024 by social work ([phone] for details of interactions). Family was to assist patient to home, as well as help to facilitate patient getting to PCP follow up. On 06.14.2024 ED JL Squires did make follow up calls for well check of patient by the police and there was difficulty in reaching the patient at home. Noted in record patient was sent in by crisis on 06.14.2024, with collateral information from [facility] staff, patient's family and landlord. From Crisis assessment it is shared that patient has been exhibiting psychosis symptoms for the last 4-6 months. Crisis was unable to seek merline-psych placement due to patient needing medically treated for UTI and a Respiratory decline. [facility] recommends a crisis re-eval once medically stable, to determine if need is still present for an inpatinet merline-psychiatric admission. Handoff to MON[facility] Young on [facility], where patient is admitted observation status, to follow for discharge planning needs including consideration of crisis re-eval and notification to APS at discharge. -QUANG Murray
[2024-06-15 13:32] LABS: Anion Gap 10 (5-15); BUN 21 mg/dL (4-19); Calcium,Total 8.4 mg/dL (7.6-11.0); Carbon Dioxide 19.7 mmol/L (21.0-32.0); Chloride 111 mmol/L (98-108); Creatinine, Serum 1.02 mg/dL (0.70-1.20); EST Glomerular Filtration Rate 58 (>60); Estimated Creatinine Clearance 55.15 ml/min (50-250); Glucose 94 mg/dL (70-99); Potassium 3.9 mmol/L (3.3-5.1); Sodium Level 140 mmol/L (133-145)
--- NOTE | 2024-06-15 13:56 | PCM.PROGNOTE ---
Subjective Subjective Patient seen and examined. She had no active complaints. She denied any fever, chills, cough, chest pain, palpitations, dizziness, nausea, vomiting or any other symptoms. She is confused adn thinks she is [place]. She is alert and oriented to self and time. Objective Data Objective Data Vital Signs: Vital Signs Temp Pulse Resp BP Pulse Ox O2 Del Method O2 Flow Rate 98.1 F 68 18 134/64 H 94 Nasal Cannula 2 06/15/24 09:28 06/15/24 09:28 06/15/24 09:28 06/15/24 09:28 06/15/24 09:28 06/15/24 09:29 06/15/24 12:02 Oxygen Flow Rate (L/min) 2 Oxygen Delivery Method Nasal Cannula Weight: 179 lb Body Mass Index (BMI) 26.4 Intake & Output: Intake and Output for Last 24 Hours 06/13/24 06/14/24 06/15/24 23:59 23:59 23:59 Intake Total 50 / 200 750 / 750 Output Total 250 / 250 Balance 50 / 200 500 / 500 Lab / Micro Data 06/15/24 06:21 06/15/24 06:21 Labs: Laboratory Results - last 24 hr 06/14/24 18:10: WBC 4.7, RBC 3.56 L, Hgb 11.3 L, Hct 33.1 L, MCV 93.0, MCH 31.7, MCHC 34.1, RDW Std Deviation 46.8 H, RDW Coeff of Lisa 13.6, Plt Count 87 L, MPV 11.4, Immature Gran % (Auto) 0.200, Neut % (Auto) 78.8 H, Lymph % (Auto) 14.4 L, [place] % (Auto) 6.6, Eos % (Auto) 0.0, Baso % (Auto) 0.0, Absolute Neuts (auto) 3.7, Absolute Lymphs (auto) 0.68 L, Nucleated RBC % 0, Differential Comment SEECOMMENT, Platelet Estimate MOD DEC, Anisocytosis RARE, Macrocytosis RARE, Sodium 140, Potassium 3.8, Chloride 107, Carbon Dioxide 19.7 L, Anion Gap 13, BUN 22 H, Creatinine 1.04, Estim Creat Clear Calc 54.09, Est GFR (MDRD) Non-Af 56 L, BUN/Creatinine Ratio 21.1 H, Glucose 112 H, Calcium 8.6, Total Bilirubin 0.60, AST 53 H, ALT 24, Alkaline Phosphatase 77, Total Protein 6.4, Albumin 3.9, Globulin 2.6, Albumin/Globulin Ratio 1.5, TSH 4.300 H 06/15/24 06:21: WBC 4.0 L, RBC 3.47 L, Hgb 10.8 L, Hct 32.2 L, MCV 92.8, MCH 31.1, MCHC 33.5, RDW Std Deviation 46.6 H, RDW Coeff of Lisa 13.7, Plt Count 84 L, MPV 11.9, Immature Gran % (Auto) 0.300, Neut % (Auto) 71.1 H, Lymph % (Auto) 22.0, [place] % (Auto) 6.3, Eos % (Auto) 0.0, Baso % (Auto) 0.3, Absolute Neuts (auto) 2.8, Absolute Lymphs (auto) 0.87, Nucleated RBC % 0, Sodium 140, Potassium 3.9, Chloride 111 H, Carbon Dioxide 19.7 L, Anion Gap 10, BUN 21 H, Creatinine 1.02, Estim Creat Clear Calc 55.15, Est GFR (MDRD) Non-Af 58 L, BUN/Creatinine Ratio 21.0 H, Glucose 94, Calcium 8.4 Physical Exam Const alert, no apparent distress and well nourished Constitutional Narrative: oriented to self and time, not place General Appearance: cooperative HEENT normocephalic, head/scalp atraumatic and moist oral mucous membranes Eyes PERRL and EOMs intact bilaterally Neck no lymphadenopathy and supple Lymph Lymphatic: no lymphadenopathy noted and no lymphedema noted Resp normal respiratory effort, normal air movement and clear to auscultation bilaterally Cardio regular rate, regular rhythm, S1 normal heart sound, S2 normal heart sound and no murmurs GI normal to inspection, nondistended, normoactive bowel sounds, soft to palpation, non-tender and non-distended Extremity normal capillary refill, no clubbing, cyanosis or edema and no calf tenderness General Extremity: no tenderness to palpation of joints or extremities Skin General Skin Exam: no breakdown Neuro CN's II-XII intact bilaterally, no focal motor deficits and no sensory deficits noted Coordination / Balance: [id number] test normal Motor Exam: strength 5/5 throughout and general weakness Psych Appearance: appropriate Assessment & Plan Assessment/Plan (1) Acute UTI: (2) Adult failure to thrive: PLAN: Plan #Acute encephalopathy due to UTI urinalysis showed evidence of UTI urine culture growing E coli. Speciation pending. on IV ceftriaxone. #Hypothyroidism: on synthroid #Hypertension: on metoprolol and irbesartan. #Depression: on sertraline and buspirone #Hyperlipidemia: on statin DVT prophylaxis: lovenox Charges/Coding Visit Charges Inpatient E&M: 42462 Subs Hosp L2
[2024-06-15] MEDS: busPIRone 15 MG TABLET 7.5 MG PO ×2 (14:19→22:36)
--- NOTE | 2024-06-15 16:21 | CASEMGMT ---
Met with patient to complete ANDREWS form. ANDREWS form explained to patient who voiced understanding and signed form. Original form placed in pt?s chart and copy provided to patient. Jeana Weir, Discharge Planning Asst
--- NOTE | 2024-06-15 16:24 | CHAPLAIN ---
Type of Pastoral Visit _x__ Initial Visit ___ Follow-up Visit ___ On-call Visit ___ General Patient Visit ___ Spiritual Assessment ___ Family Conference ___ Bereavement ___ Rapid Response ___ Code Blue ___ Other (describe below) Pastoral Care Referral From _x__ Patient ___ Family ___ Nurse ___ Physician ___ Paint Formulator ___ Marketing Project Coordinator ___ Other (describe below) Sacrament/Intervention _x__ Active listening ___ Anointing ___ Restorationism ___ Bereavement ___ Communion ___ Malena exploration ___ ___ Life review _x__ Prayer ___ Reconciliation ___ Sacrament of Sick _x__ Supportive presence ___ Wedding ___ Other (describe below) Pastoral Comments patient is welcoming and appreciative about the visit but has some difficulty knowing details about why she is in the hospital and what her situation is at this time; pt identifies self as a Religious and welcomes a prayer to be said; pt appears to be content with watching TV and says she has no worries; pt has limited family in the area if her answers are correct on that question
[2024-06-15] MEDS: Ceftriaxone 1 GM/50 ML BAG IV (22:30)
[2024-06-16] VITALS (12 sets, daily range): BP systolic 107–151; BP diastolic 60–76; PULSE 59–69; RESP 16–20; TEMP 36.5–36.7; O2SAT 90–94
[2024-06-16] MEDS: 0.9% Saline Lock 10 ML Syringe IV (05:48)
[2024-06-16] MEDS: busPIRone 15 MG TABLET 7.5 MG PO ×3 (05:48→21:51)
[2024-06-16] MEDS: Levothyroxine 125 MCG Tablet PO (05:48)
[2024-06-16] MEDS: Menthol/Lanolin/Calamine/Znox 113 GM Tube 1 APPLIC TOPICAL ×3 (05:51→21:55)
[2024-06-16 06:30] LABS: Absolute Lymphocyte Count 1.02 X10^3/uL (0.83-4.51); Absolute Neutrophil Count 2.3 X10^3/uL (2.0-7.7); Basophil# 0.01 X10^3/uL; Basophil% 0.3 % (0-1); Eosinophil# 0.03 X10^3/uL; Eosinophils% 0.8 % (0-5); Hematocrit 30.1 % (37-47); Lymphocyte # 1.02 X10^3/ul (0.83-4.51); Lymphocyte % 28.3 % (19-41); Mean Corp Hgb Conc 33.2 g/dL (32-36); Mean Corpuscular Volume 93.2 fL (81-99); Mean Platelet Vol. 11.4 fl (6.2-12.0); Monocyte# 0.23 X10^3/uL; Monocyte% 6.4 % (0-10); NRBC Flagged by Analyzer 0 % (0-5); Neutrophil % 63.6 % (47-70); POSITIVE COUNT YES; Platelet Count 80 K/mm3 (150-450); RBC Distribution Width CV 13.5 % (11.6-14.6); RBC Distribution Width SD 46.6 fl (35.1-43.9); Red Blood Count 3.23 M/mm3 (4.2-5.4); White Blood Count 3.6 K/mm3 (4.4-11.0)
[2024-06-16 06:54] LABS: Anion Gap 11 (5-15); BUN 26 mg/dL (4-19); BUN/Creat Ratio 26.5 RATIO (10-20); Calcium,Total 8.6 mg/dL (7.6-11.0); Chloride 109 mmol/L (98-108); Creatinine, Serum 0.98 mg/dL (0.70-1.20); EST Glomerular Filtration Rate 60 (>60); Glucose 104 mg/dL (70-99); Potassium 3.8 mmol/L (3.3-5.1); Sodium Level 139 mmol/L (133-145)
[2024-06-16] MEDS: Ipratropium/Albuterol Sulfate 3 ML AMPUL.NEB INHALATION ×4 (07:44→19:27)
[2024-06-16] MEDS: Ensure Plus High Protein 120 ML LIQUID PO ×3 (08:28→17:34)
[2024-06-16] MEDS: Metoprolol Tartrate 25 MG Tablet PO ×2 (08:29→22:00)
[2024-06-16] MEDS: Allopurinol 300 MG Tablet PO (08:29)
[2024-06-16] MEDS: Isosorbide Mononitrate 60 MG Tablet PO (08:29)
[2024-06-16] MEDS: Sertraline 100 MG Tablet PO (08:31)
[2024-06-16] MEDS: Atorvastatin Calcium 40 MG Tablet PO (08:31)
[2024-06-16] MEDS: Losartan Potassium 100 MG Tablet PO (08:31)
[2024-06-16] MEDS: Potassium Chloride Oral Tablet 10 MEQ PO ×2 (08:31→21:54)
[2024-06-16] MEDS: Furosemide 40 MG Tablet PO ×2 (08:31→17:29)
--- NOTE | 2024-06-16 10:20 | PN_ITS ---
Subjective Subjective Patient seen and examined. She has no active complaints. She is alert and oriented x 3. Review of systems is otherwise negative. Objective Data Objective Data Vital Signs: Vital Signs Temp Pulse Resp BP Pulse Ox O2 Del Method O2 Flow Rate 97.8 F 66 18 147/71 H 92 Room Air 2 06/16/24 08:13 06/16/24 08:29 06/16/24 08:13 06/16/24 08:29 06/16/24 08:13 06/16/24 08:17 06/16/24 07:55 Oxygen Flow Rate (L/min) 2 Oxygen Delivery Method Room Air Weight: 179 lb Body Mass Index (BMI) 26.4 Intake & Output: Intake and Output for Last 24 Hours 06/14/24 06/15/24 06/16/24 23:59 23:59 23:59 Intake Total 50 / 200 1750 / 1750 Output Total 250 / 250 Balance 50 / 200 1500 / 1500 Lab / Micro Data 06/16/24 06:08 06/16/24 06:08 Labs: Laboratory Results - last 24 hr 06/15/24 06:21: Sodium 140, Potassium 3.9, Chloride 111 H, Carbon Dioxide 19.7 L , Anion Gap 10, BUN 21 H, Creatinine 1.02, Estim Creat Clear Calc 55.15, Est GFR (MDRD) Non-Af 58 L, BUN/Creatinine Ratio 21.0 H, Glucose 94, Calcium 8.4 06/16/24 06:08: WBC 3.6 L, RBC 3.23 L, Hgb 10.0 L, Hct 30.1 L, MCV 93.2, MCH 31.0, MCHC 33.2, RDW Std Deviation 46.6 H, RDW Coeff of Lisa 13.5, Plt Count 80 L , MPV 11.4, Immature Gran % (Auto) 0.600, Neut % (Auto) 63.6, Lymph % (Auto) 28.3, [place] % (Auto) 6.4, Eos % (Auto) 0.8, Baso % (Auto) 0.3, Absolute Neuts (auto) 2.3, Absolute Lymphs (auto) 1.02, Nucleated RBC % 0, Sodium 139, Potassium 3.8, Chloride 109 H, Carbon Dioxide 19.0 L, Anion Gap 11, BUN 26 H, Creatinine 0.98, Estim Creat Clear Calc 57.40, Est GFR (MDRD) Non-Af 60, B UN/Creatinine Ratio 26.5 H, Glucose 104 H, Calcium 8.6 Physical Exam Const alert, oriented x3, no apparent distress and well nourished General Appearance: cooperative HEENT normocephalic, head/scalp atraumatic and moist oral mucous membranes Eyes PERRL and EOMs intact bilaterally Neck no lymphadenopathy and supple Lymph Lymphatic: no lymphadenopathy noted and no lymphedema noted Resp normal respiratory effort, normal air movement and clear to auscultation bilaterally Cardio regular rate, regular rhythm, S1 normal heart sound, S2 normal heart sound and no murmurs GI normal to inspection, nondistended, normoactive bowel sounds, soft to palpation, non-tender and non-distended Extremity normal capillary refill, no clubbing, cyanosis or edema and no calf tenderness General Extremity: no tenderness to palpation of joints or extremities Skin General Skin Exam: no breakdown Neuro CN's II-XII intact bilaterally, no focal motor deficits and no sensory deficits noted Coordination / Balance: [id number] test normal Motor Exam: strength 5/5 throughout and general weakness Psych thought process normal and cooperative Appearance: appropriate Assessment & Plan Assessment/Plan (1) Acute UTI: (2) Adult failure to thrive: PLAN: Plan #Acute encephalopathy due to UTI * urinalysis showed evidence of UTI * urine culture growing E coli which is pansensitive * on IV ceftriaxone. WIll switch to PO cefdinir. * patient to be evaluated by mental health crises today. * #Hypothyroidism: on synthroid #Hypertension: on metoprolol and irbesartan. #Depression: on sertraline and buspirone #Hyperlipidemia: on statin DVT prophylaxis: lovenox Charges/Coding Visit Charges Inpatient E&M: 02532 Subs Hosp L2
--- NOTE | 2024-06-16 11:11 | CASEMGMT ---
Addendum entered by Hannah Pardo 06/16/24 17:31: JL received notice that referrals sent to [place] by crisis. Referrals pending. MONICA Braswell Addendum entered by Hannah Pardo 06/16/24 15:47: Social Work- JL spoke with Bettie, [facility] crisis, who reports that she feels [facility] due to neuro-cognitive state. Bettie will begin referral process. JL updated physician. JL remains available to follow. MONICA Braswell Original Note: Social Work- JL faxed clinical documentation to [facility], as physician feels that pt is medically stable for re-evaluation. JL called and spoke with Nina who reports that she will reach out to Bettie who did previous evaluation. JL remains available to follow. MONICA Braswell
--- NOTE | 2024-06-16 16:14 | NURSING ---
D[facility] from [facility] called and spoke with this RN and notified that there are two places that she made referrals to one being [facility] and 2nd one being [facility].
--- NOTE | 2024-06-16 16:38 | NURSING ---
This RN called Officer Giovanni Sexton to see if he could locate the patients car since Ms. Jaramillo's brother Jarad is unaware of where the car is and pt is confused. Officer Darshan will attempt to locate and call this RN back.
--- NOTE | 2024-06-16 17:23 | NURSING ---
Bed Exit alarm alarming. Pt confused. Wants to go to the bathroom. This RN assisted pt to bathroom and waited for pt to get down. New attends on. Pt started walking fast without her walker. Instructed pt to slow down and grab and use her walker. Pt followed directions. She took a few steps and stopped in front of the sink facing the door. Pt looked toward the door. This RN asked pt if she wanted to go for a walk. No I dont want to do that. pt then turned toward sink and started to wash hands. This RN standing next to pt while washing hands. PT getting agitated. This RN asked if she wanted to go back to bed, or sit in the chair for dinner. PT did not want to do anything. When pt turned around fast and started walking without her walker, this RN told her to slow down. Pt raised her voice and took a few steps without walking hurridely and lost her balance. This RN attempted to catch her but was unable to and pt fell on her butt facing up. C/o that her arm hurt. Pt stated she did not want to see this RN anymore. Ijeoma, Primary RN came into room and assisted this RN to assist pt to sitting position and stand up. Ijeoma Perla RN in with pt talking softly and slowly to pt and pt responding. This RN left the room.
--- NOTE | 2024-06-16 17:53 | NURSING ---
pt fell while she was trying to be helped from bathroom- Sonali Rn was in the room and tring to redirect pt to the bed or chair and pt jerked her walker away as I walked in the room and Sonali actually was helping to lower pt to the floor and Sonali also lost her balance and they both went down. talked with Dr Ellington and let her know and talk to her about Pt's aggravation and ordered Serquel for hs. no other new orders a pt deneis pain and didn't hit her head. fall occurred at 1710
[2024-06-16] MEDS: Cefdinir 300 MG Capsule PO (21:51)
[2024-06-16] MEDS: QUEtiapine 25 MG Tablet PO (21:52)
--- NOTE | 2024-06-16 22:35 | EKG12_ITS ---
[place] Reason : [facility] [place] Pressure : */* mmHG Vent. Rate : 69 BPM Atrial Rate : 69 BPM P-R Int : 166 ms QRS Dur : 136 ms QT Int : 494 ms P-R-T Axes : 70 89 4 degrees QTcB Int : 529 ms Normal sinus rhythm Right bundle branch block T wave abnormality, consider lateral ischemia Abnormal ECG When compared with ECG of 05-Feb-2024 13:56, No significant change was found Confirmed by SHANDRA MCGILL, JERE ([id number]), scientific editor RENE VELAZQUEZ ([id number]) on 06/17/2024 9:04:08 AM Referred By: QING Confirmed By: JERE DEVI MD
[2024-06-17] VITALS (7 sets, daily range): BP systolic 111–121; BP diastolic 63–70; PULSE 54–62; RESP 16–17; TEMP 36.5–36.7; O2SAT 92–94
[2024-06-17] MEDS: Menthol/Lanolin/Calamine/Znox 113 GM Tube 1 APPLIC TOPICAL ×2 (06:30→13:16)
[2024-06-17] MEDS: Levothyroxine 125 MCG Tablet PO (06:31)
[2024-06-17] MEDS: busPIRone 15 MG TABLET 7.5 MG PO ×2 (06:34→13:15)
[2024-06-17 07:22] LABS: Absolute Lymphocyte Count 1.19 X10^3/uL (0.83-4.51); Absolute Neutrophil Count 1.8 X10^3/uL (2.0-7.7); Basophil# 0.01 X10^3/uL; Basophil% 0.3 % (0-1); Eosinophil# 0.06 X10^3/uL; Eosinophils% 1.8 % (0-5); Hemoglobin 9.8 g/dL (12.0-15.0); Lymphocyte # 1.19 X10^3/ul (0.83-4.51); Lymphocyte % 35.8 % (19-41); Mean Corp Hgb Conc 33.8 g/dL (32-36); Mean Corpuscular Hgb 31.1 pg (27.0-32.0); Mean Corpuscular Volume 92.1 fL (81-99); Mean Platelet Vol. 11.6 fl (6.2-12.0); Monocyte# 0.26 X10^3/uL; Monocyte% 7.8 % (0-10); NRBC Flagged by Analyzer 0 % (0-5); Neutrophil % 54.3 % (47-70); Platelet Count 112 K/mm3 (150-450); RBC Distribution Width CV 13.6 % (11.6-14.6); RBC Distribution Width SD 46.2 fl (35.1-43.9); Red Blood Count 3.15 M/mm3 (4.2-5.4); White Blood Count 3.3 K/mm3 (4.4-11.0)
[2024-06-17 07:33] LABS: Anion Gap 12 (5-15); BUN 23 mg/dL (4-19); BUN/Creat Ratio 27.2 RATIO (10-20); Calcium,Total 8.6 mg/dL (7.6-11.0); Carbon Dioxide 18.8 mmol/L (21.0-32.0); Chloride 110 mmol/L (98-108); Creatinine, Serum 0.85 mg/dL (0.70-1.20); EST Glomerular Filtration Rate 72 (>60); Estimated Creatinine Clearance 66.18 ml/min (50-250); Glucose 91 mg/dL (70-99); Potassium 3.9 mmol/L (3.3-5.1); Sodium Level 141 mmol/L (133-145)
[2024-06-17] MEDS: Furosemide 40 MG Tablet PO (09:07)
[2024-06-17] MEDS: Ensure Plus High Protein 120 ML LIQUID PO ×2 (09:07→12:19)
[2024-06-17] MEDS: Cefdinir 300 MG Capsule PO (09:07)
[2024-06-17] MEDS: Sertraline 100 MG Tablet PO (09:08)
[2024-06-17] MEDS: Potassium Chloride Oral Tablet 10 MEQ PO (09:08)
[2024-06-17] MEDS: Allopurinol 300 MG Tablet PO (09:08)
[2024-06-17] MEDS: Metoprolol Tartrate 25 MG Tablet PO (09:08)
[2024-06-17] MEDS: Losartan Potassium 100 MG Tablet PO (09:08)
[2024-06-17] MEDS: Isosorbide Mononitrate 60 MG Tablet PO (09:09)
[2024-06-17] MEDS: Atorvastatin Calcium 40 MG Tablet PO (09:09)
[2024-06-17] MEDS: Enoxaparin 40 MG/0.4 ML Syringe SC (09:11)
[2024-06-17] MEDS: Ipratropium/Albuterol Sulfate 3 ML AMPUL.NEB INHALATION (10:18)
--- NOTE | 2024-06-17 10:49 | PCM.PROGNOTE ---
Subjective Subjective Patient seen and examined. She had no complaints. Review of systems otherwise negative. She is awaiting placement in a [facility] facility. Objective Data Objective Data Vital Signs: Vital Signs Temp Pulse Resp BP Pulse Ox O2 Del Method O2 Flow Rate 97.7 F L 62 17 121/70 H 94 Nasal Cannula 3 06/17/24 08:19 06/17/24 10:34 06/17/24 10:34 06/17/24 08:19 06/17/24 08:19 06/17/24 08:19 06/17/24 08:19 Oxygen Flow Rate (L/min) 3 Oxygen Delivery Method Nasal Cannula Weight: 179 lb Body Mass Index (BMI) 26.4 Intake & Output: Intake and Output for Last 24 Hours 06/15/24 06/16/24 06/17/24 23:59 23:59 23:59 Intake Total 1750 / 1750 800 / 800 Output Total 250 / 250 Balance 1500 / 1500 800 / 800 Lab / Micro Data 06/17/24 06:50 06/17/24 06:50 Labs: Laboratory Results - last 24 hr 06/17/24 06:50: WBC 3.3 L, RBC 3.15 L, Hgb 9.8 L, Hct 29.0 L, MCV 92.1, MCH 31.1, MCHC 33.8, RDW Std Deviation 46.2 H, RDW Coeff of Lisa 13.6, Plt Count 112 L, MPV 11.6, Immature Gran % (Auto) 0.000, Neut % (Auto) 54.3, Lymph % (Auto) 35.8, [facility] % (Auto) 7.8, Eos % (Auto) 1.8, Baso % (Auto) 0.3, Absolute Neuts (auto) 1.8 L, Absolute Lymphs (auto) 1.19, Nucleated RBC % 0, Sodium 141, Potassium 3.9, Chloride 110 H, Carbon Dioxide 18.8 L, Anion Gap 12, BUN 23 H, Creatinine 0.85, Estim Creat Clear Calc 66.18, Est GFR (MDRD) Non-Af 72, BUN/Creatinine Ratio 27.2 H, Glucose 91, Calcium 8.6 Physical Exam Const alert, no apparent distress and well nourished Constitutional Narrative: oriented to self and time, not place General Appearance: cooperative HEENT normocephalic, head/scalp atraumatic and moist oral mucous membranes Eyes PERRL and EOMs intact bilaterally Neck no lymphadenopathy and supple Lymph Lymphatic: no lymphadenopathy noted and no lymphedema noted Resp normal respiratory effort, normal air movement and clear to auscultation bilaterally Cardio regular rate, regular rhythm, S1 normal heart sound, S2 normal heart sound and no murmurs GI normal to inspection, nondistended, normoactive bowel sounds, soft to palpation, non-tender and non-distended Extremity normal capillary refill, no clubbing, cyanosis or edema and no calf tenderness General Extremity: no tenderness to palpation of joints or extremities Skin General Skin Exam: no breakdown Neuro CN's II-XII intact bilaterally, no focal motor deficits and no sensory deficits noted Coordination / Balance: [id number] test normal Motor Exam: strength 5/5 throughout and general weakness Psych thought process normal and cooperative Appearance: appropriate Assessment & Plan Assessment/Plan (1) Acute UTI: (2) Adult failure to thrive: PLAN: Plan #Acute encephalopathy due to UTI urinalysis showed evidence of UTI urine culture growing E coli which is pansensitive On PO cefdinir now. #Hypothyroidism: on synthroid #Hypertension: on metoprolol and irbesartan. #Depression: on sertraline and buspirone #Hyperlipidemia: on statin DVT prophylaxis: lovenox Disposition: awaiting dc to [facility] pending acceptance. Charges/Coding Visit Charges Inpatient E&M: 67443 Subs Hosp L2
--- NOTE | 2024-06-17 11:26 | CASEMGMT ---
Social Work Per nursing, counseling center called and pt has been accepted for merline psych placement at [facility] with Dr. Hubbard accepting. Report is to be called by RN to facility. SW notified physician of acceptance. MONICA Musa
--- NOTE | 2024-06-17 11:30 | DCINST_ITS ---
Discharge Instructions Diet Discharge Diet: Low fat / Low cholesterol DC O2, CPAP, BIPAP needs Home O2 Discharge instructions: No Dressing / Incision Discharge Activity: Return to Normal Activity Weight Bearing Status: Weight bearing as tolerated Dressing / Incision Call your doctor if you observe: Fever of 101 or Higher, Shortness of breath, Dizziness, Swelling in the ankles and Chest pain Follow Up Care Test Results: Test results from this visit will be discussed in further detail at your follow- up appointment, if applicable. Discharge Plan Admission Admit Date/Time: 06/14/24 18:13 Primary Reason for Your Visit: acute encephalopathy, UTI Attending Provider: Bhumika Ellington Primary Care Provider: Justyna Sexton Primary Consulting Providers: Pb Haq Instructions Patient Instructions: ED UTI Fem Ch Discharge Orders/Prescriptions Prescriptions: New cefdinir 300 mg Capsule 300 mg PO Q12 Qty: 8 0RF Continued levothyroxine 125 mcg tablet 125 mcg PO DAILY buspirone 7.5 mg tablet 7.5 mg PO TID sertraline 50 mg tablet 100 mg PO DAILY potassium chloride [Klor-Con M10] 10 mEq tablet,ER particles/crystals 10 meq PO BID ferrous sulfate [FeroSul] 325 mg (65 mg iron) Tablet 325 mg PO 1200,1700 Qty: 60 0RF Rx Instructions: Take with orange juice irbesartan 300 mg tablet 300 mg PO DAILY furosemide 40 mg tablet 40 mg PO BID atorvastatin 40 mg tablet 40 mg PO DAILY isosorbide mononitrate 60 mg tablet extended release 24 hr 60 mg PO DAILY allopurinol 300 mg tablet 300 mg PO DAILY metoprolol tartrate 25 mg tablet 25 mg PO BID Referrals / Follow Up: Care Physician,No Primary [Primary Care Provider] - Disposition Disposition (needs filled in before D/C Order can be placed): Psychiatric Hospital or Unit
--- NOTE | 2024-06-17 11:44 | DS.PCM_ITS ---
Providers Date of Admission: 06/14/24 Date of Discharge: 06/17/24 Primary Care Physician: No Primary Care Phys Reason For Visit: CONFUSION WITH UTI Diagnosis Discharge Diagnosis (1) Acute UTI: Status: Acute Code(s): N39.0 - Urinary tract infection, site not specified (2) Adult failure to thrive: Status: Acute Code(s): R62.7 - Adult failure to thrive Plan #Acute encephalopathy due to UTI * urinalysis showed evidence of UTI * urine culture growing E coli which is pansensitive * On PO cefdinir now. * #Hypothyroidism: on synthroid #Hypertension: on metoprolol and irbesartan. #Depression: on sertraline and buspirone #Hyperlipidemia: on statin DVT prophylaxis: lovenox Disposition: awaiting dc to [facility] pending acceptance. Medications at Discharge Home Medications allopurinol 300 mg tablet 300 mg PO DAILY gout 01/27/24 atorvastatin 40 mg tablet 40 mg PO DAILY cholesterol 01/27/24 furosemide 40 mg tablet 40 mg PO BID diuretic 01/27/24 isosorbide mononitrate 60 mg tablet,extended release 24 hr 60 mg PO DAILY heart 01/27/24 metoprolol tartrate 25 mg tablet 25 mg PO BID blood pressure 01/27/24 buspirone 7.5 mg tablet 7.5 mg PO TID mental health 02/01/24 levothyroxine 125 mcg tablet 125 mcg PO DAILY thyroid 02/01/24 potassium chloride 10 mEq tablet,extended release(part/cryst) (Klor-Con M) 10 meq PO BID supplement 02/01/24 sertraline 50 mg tablet 100 mg PO DAILY mental health 02/01/24 ferrous sulfate 325 mg (65 mg iron) tablet (FeroSul) 325 mg PO 1200,1700 #60 tabs 02/03/24 irbesartan 300 mg tablet 300 mg PO DAILY HTN 02/03/24 cefdinir 300 mg capsule 300 mg PO Q12 #8 caps 06/17/24 Hospital Course Operations None Procedures None Summary of Care Provided Minutes Spent on Discharge: 47 Hospital Course: Patient is a 73-year-old female with past medical history as outlined was admitted through the ED on 06/14/2024 with a complaint of confusion. She was found confused and defecated on her self in the side of her bed. She had been in the ED the day before admission but was subsequently sent home. Urinalysis at that time showed no evidence of UTI. Patient was still confused at home so she was brought into the ED which could not contribute much to the history due to her confusion. Urinalysis showed evidence of UTI so she was started on IV ceftriaxone. Urine cultures grew E coli which was pansensitive. She was switched to PO cefdinir. She was evaluated by crisis team and was deemed as needing [facility] placement. She was pink slipped and [facility]24. She was discharged on a 4 day course of PO cefdinir 300mg bid to complete a 5 day course of oral antibiotics. She is to follow up with her PCP within 1-2 weeks. Patient was seen and examined prior to discharge. She had no active complaints. She does still remain confused. Review of systems otherwise negative. Labs and vitals reviewed. Home meds reviewed and reconciled. Physical Exam Const alert, no apparent distress and well nourished Constitutional Narrative: oriented to self and time, not place General Appearance: cooperative and comfortable Orientation / Consciousness: awake Exam Limitations: no limitations HEENT normocephalic, head/scalp atraumatic, hearing grossly normal bilaterally, moist oral mucous membranes and oropharynx normal Mouth: oral and palatal mucosa normal Eyes PERRL, EOMs intact bilaterally and conjunctivae normal Neck no lymphadenopathy and supple Lymph Lymphatic: no lymphadenopathy noted and no lymphedema noted Resp normal respiratory effort, normal air movement and clear to auscultation bilaterally Cardio regular rate, regular rhythm, S1 normal heart sound, S2 normal heart sound and no murmurs GI normal to inspection, nondistended, normoactive bowel sounds, soft to palpation, non-tender and non-distended Extremity normal to inspection, full ROM, normal capillary refill, no clubbing, cyanosis or edema and no calf tenderness General Extremity: no tenderness to palpation of joints or extremities Skin no rashes or lesions noted General Skin Exam: no breakdown Neuro CN's II-XII intact bilaterally, moves all extremities, no focal motor deficits and no sensory deficits noted Coordination / Balance: [id number] test normal Motor Exam: strength 5/5 throughout and general weakness Psych thought process normal and cooperative Appearance: appropriate Weight / BMI Weight Weight: 179 lb Body Mass Index (BMI) 26.4 ABG / Lab / Microbiology Data 06/17/24 06:50 06/17/24 06:50 Laboratory: Laboratory Results - last 24 hr 06/17/24 06:50: WBC 3.3 L, RBC 3.15 L, Hgb 9.8 L, Hct 29.0 L, MCV 92.1, MCH 31.1, MCHC 33.8, RDW Std Deviation 46.2 H, RDW Coeff of Lisa 13.6, Plt Count 112 L, MPV 11.6, Immature Gran % (Auto) 0.000, Neut % (Auto) 54.3, Lymph % (Auto) 35.8, [place] % (Auto) 7.8, Eos % (Auto) 1.8, Baso % (Auto) 0.3, Absolute Neuts (auto) 1.8 L, Absolute Lymphs (auto) 1.19, Nucleated RBC % 0, Sodium 141, Potassium 3.9, Chloride 110 H, Carbon Dioxide 18.8 L, Anion Gap 12, BUN 23 H, Creatinine 0.85, Estim Creat Clear Calc 66.18, Est GFR (MDRD) Non-Af 72, B UN/Creatinine Ratio 27.2 H, Glucose 91, Calcium 8.6 D/C Instructions Discharge Diet: Low fat / Low cholesterol Discharge Activity: Return to Normal Activity Weight Bearing Status: Weight bearing as tolerated Call your doctor if you observe: Fever of 101 or Higher, Shortness of breath, Dizziness, Swelling in the ankles and Chest pain DC O2, CPAP, BIPAP Needs Home O2 Discharge instructions: No DC home with Oxygen: No Meaningful Use Info Meaningful Use Meaningful Use Diagnoses (Choose all that apply): None applicable Ischemic Stroke Statin Dosing Therapy Reference: STATIN DOSE THERAPY REFERENCE: * Patients > 75 years receive moderate or high dose statin therapy. * Patients 75 years or YOUNGER should receive HIGH intensity statin dose unless contraindicated. You will be required to document reason for non-treatment if statin daily dose does not meet guidelines. HIGH DOSE STATIN THERAPY DAILY Atorvastatin > than or = to 40 mg Rosuvastatin > than or = to 20 mg Amlodipine + Atorvastatin > than or = to 2.5/40 mg Ezetimibe + Simvastatin 10/80 mg Simvastatin 80mg Discharge Plan Admission Admit Date/Time: 06/14/24 18:13 Primary Reason for Your Visit: acute encephalopathy, UTI Attending Provider: Bhumika Ellington Primary Care Provider: Care Physician,No Primary Consulting Providers: Pb Haq Instructions Patient Instructions: ED UTI Fem Ch Discharge Orders/Prescriptions Prescriptions: New cefdinir 300 mg Capsule 300 mg PO Q12 Qty: 8 0RF Continued levothyroxine 125 mcg tablet 125 mcg PO DAILY buspirone 7.5 mg tablet 7.5 mg PO TID sertraline 50 mg tablet 100 mg PO DAILY potassium chloride [Klor-Con M10] 10 mEq tablet,ER particles/crystals 10 meq PO BID ferrous sulfate [FeroSul] 325 mg (65 mg iron) Tablet 325 mg PO 1200,1700 Qty: 60 0RF Rx Instructions: Take with orange juice irbesartan 300 mg tablet 300 mg PO DAILY furosemide 40 mg tablet 40 mg PO BID atorvastatin 40 mg tablet 40 mg PO DAILY isosorbide mononitrate 60 mg tablet extended release 24 hr 60 mg PO DAILY allopurinol 300 mg tablet 300 mg PO DAILY metoprolol tartrate 25 mg tablet 25 mg PO BID Referrals / Follow Up: Care Physician,No Primary [Primary Care Provider] - Disposition Disposition (needs filled in before D/C Order can be placed): Psychiatric Hospital or Unit Charges/Coding Visit Charges Inpatient E&M: 92833 Disch Hosp >30min
--- NOTE | 2024-06-17 11:48 | PHA.DC.MR.R ---
Pharmacy [place] Med Reconciliation Pharmacy Service has performed discharge medication reconciliation for this patient. The patient's discharge medication list was reviewed for discrepancies and discrepancies were resolved. Medications at Discharge Home Medications allopurinol 300 mg tablet 300 mg PO DAILY gout 01/27/24 atorvastatin 40 mg tablet 40 mg PO DAILY cholesterol 01/27/24 furosemide 40 mg tablet 40 mg PO BID diuretic 01/27/24 isosorbide mononitrate 60 mg tablet,extended release 24 hr 60 mg PO DAILY heart 01/27/24 metoprolol tartrate 25 mg tablet 25 mg PO BID blood pressure 01/27/24 buspirone 7.5 mg tablet 7.5 mg PO TID mental health 02/01/24 levothyroxine 125 mcg tablet 125 mcg PO DAILY thyroid 02/01/24 potassium chloride 10 mEq tablet,extended release(part/cryst) (Klor-Con M) 10 meq PO BID supplement 02/01/24 sertraline 50 mg tablet 100 mg PO DAILY mental health 02/01/24 ferrous sulfate 325 mg (65 mg iron) tablet (FeroSul) 325 mg PO 1200,1700 #60 tabs 02/03/24 irbesartan 300 mg tablet 300 mg PO DAILY HTN 02/03/24 cefdinir 300 mg capsule 300 mg PO Q12 #8 caps 06/17/24
[2024-06-17] MEDS: Ferrous Sulfate 325 MG Tablet PO (12:19)
--- NOTE | 2024-06-17 12:41 | NURSING ---
left message with brother to bring cpap to pt.
--- NOTE | 2024-06-17 15:28 | CASEMGMT ---
Social Work SW spoke with pt's brother Jarad Jaramillo and provided update on pt and that pt will be transferred to [facility] today. Jarad in understanding and agreeable to this. Jarad is inquiring about pt's car. When pt left the ED on Saturday night, pt car was in the [facility] parking lot. Pt was agreeable to give her car keys to her brother Jarad. Pt did give Jarad keys, but Jarad now states it was a house martines, not a car martines. Per nursing, car keys are with pt's belongings. Jarad is requesting to obtain keys but cannot come and pick them up. Jarad states nijavi Pastora Grimes may be able to get car keys. Phone call to Pastora and she is agreeable to come to the hospital and pear picker car keys. Pastora to bring in photo ID to collect pt keys. JL did collaborate with SW director Huong regarding this issue. MONICA Musa
--- NOTE | 2024-06-17 16:31 | NURSING ---
All documentation by nursing unit manager Fannie Angel reviewed by nursing unit manager Tavia LANGFORD, RN.
== END 2024-06-17 15:19 ==
LOC: ED 18:16 → MS3 18:24
PROVIDERS: Admitting Provider Family Medicine; Emergency Provider Emergency Medicine; Visit Provider Student in an Organized Health Care Education/Training Program
DX: G93.49 Other encephalopathy (principal); I48.91 Unspecified atrial fibrillation; N39.0 Urinary tract infection, site not specified; I10 Essential (primary) hypertension; R09.02 Hypoxemia; R62.7 Adult failure to thrive; B96.20 Unspecified Escherichia coli [E. coli] as the cause of diseases classified elsewhere; E78.5 Hyperlipidemia, unspecified; E03.9 Hypothyroidism, unspecified; M10.9 Gout, unspecified; F41.0 Panic disorder [episodic paroxysmal anxiety]; F32.A Depression, unspecified; D50.9 Iron deficiency anemia, unspecified; G47.30 Sleep apnea, unspecified; Z79.899 Other long term (current) drug therapy; Z79.890 Hormone replacement therapy
CPT/HCPCS: 36415; 80048; 80053; 84443; 85025; 93005; 94640; 96365; 96366; 96372; 97162; 97166; 97530; 97535; 97802; 99221; 99285; A4216; G0378

== ENCOUNTER 2024-09-05 19:53 | Inpatient (IN) | payer MEDICARE, SELFPAY ==
[2024-09-05] VITALS (7 sets, daily range): BP systolic 182–218; BP diastolic 87–97; PULSE 53–62; RESP 16–18; TEMP 36.9–37.2; O2SAT 96–98; BMI 26.7
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
--- NOTE | 2024-09-05 20:20 | CT_ITS ---
EXAM: BRAIN/HEAD WITHOUT CONTRAST CLINICAL HISTORY: 73 y/o F with AMS. COMPARISON: CT head 06/13/2024. TECHNIQUE: Routine CT imaging of the head without IV contrast. Additional multiplanar reformats were obtained. Dose reduction techniques were used including intermediate exposure control (AEC),iterative reconstruction technique, and/or mA and/or KV dose adjustments based on patient's size. FINDINGS: Mild generalized cerebral and cerebellar volume loss with concordant prominence of the ventricles and subarachnoid spaces. Mild patchy supratentorial white matter hypodensities. Tiny lacunar type infarct within the right basal ganglia. Small chronic infarcts within the left centrum semiovale. The zavala-white matter interfaces are otherwise maintained. No acute intracranial hemorrhage or herniation. Prior ocular lens replacements. The visualized paranasal sinuses and mastoids are unremarkable. No acute calvarial fracture or scalp hematoma. CT/Brain/Head without Contrast IMPRESSION: No acute intracranial finding. Findings of chronic microvascular ischemic murphy ges and age-related changes. Reading Location: [id number]
--- NOTE | 2024-09-05 20:20 | RAD_ITS ---
PROCEDURE: CHEST 1 VIEW (PORTABLE) 09/05/2024 REASON FOR EXAM: COUGH TECHNIQUE: Frontal view of the chest. COMPARISON: Chest radiograph 06/13/2024. FINDINGS: Hardware: None. Heart: Stable mild cardiomegaly and pulmonary vascular congestion. Lungs: No focal consolidation, pleural effusion or pneumothorax. Bibasilar atelectasis. Bones: Degenerative changes are identified within the thoracic spine. RAD/Chest 1 View (Portable) IMPRESSION: No Acute Findings. Stable mild cardiomegaly. Reading Location: [id number]
--- NOTE | 2024-09-05 20:21 | EKG12_ITS ---
Test Reason : Blood Pressure : */* mmHG Vent. Rate : 58 BPM Atrial Rate : 58 BPM P-R Int : 194 ms QRS Dur : 148 ms QT Int : 500 ms P-R-T Axes : 81 96 -9 degrees QTcB Int : 490 ms Sinus bradycardia with frequent Premature ventricular complexes Right bundle branch block T wave abnormality, consider inferior ischemia Abnormal ECG Confirmed by Zion Ibrahim ([id number]), food editor RONNA RUBIO ([id number]) on 09/07/2024 9:34:31 AM Referred By: Confirmed By: Zion Ibrahim
[2024-09-05 21:02] LABS: Absolute Lymphocyte Count 1.64 X10^3/uL (0.83-4.51); Absolute Neutrophil Count 2.9 X10^3/uL (2.0-7.7); Basophil# 0.03 X10^3/uL; Basophil% 0.6 % (0-1); Eosinophil# 0.14 X10^3/uL; Eosinophils% 2.8 % (0-5); Hematocrit 31.8 % (37-47); Hemoglobin 10.7 g/dL (12.0-15.0); Lymphocyte # 1.64 X10^3/ul (0.83-4.51); Lymphocyte % 32.2 % (19-41); Mean Corp Hgb Conc 33.6 g/dL (32-36); Mean Corpuscular Hgb 31.8 pg (27.0-32.0); Mean Corpuscular Volume 94.4 fL (81-99); Mean Platelet Vol. 11.3 fl (6.2-12.0); Monocyte# 0.42 X10^3/uL; Monocyte% 8.3 % (0-10); NRBC Flagged by Analyzer 0 % (0-5); Neutrophil # 2.85 X10^3/uL (2.7-7.7); Neutrophil % 55.9 % (47-70); Platelet Count 101 K/mm3 (150-450); RBC Distribution Width CV 13.7 % (11.6-14.6); RBC Distribution Width SD 47.1 fl (35.1-43.9); Red Blood Count 3.37 M/mm3 (4.2-5.4); White Blood Count 5.1 K/mm3 (4.4-11.0)
[2024-09-05 21:19] LABS: Amphetamine Urine NEGATIVE (<1000 ng/mL); Barbiturate Urine NEGATIVE (< 200 ng/mL); Benzodiazepine Urine NEGATIVE (< 200 ng/mL); Buprenorphine Urine NEGATIVE (< 200 ng/mL); Cocaine Urine NEGATIVE (< 300 ng/mL); Fentanyl, Urine NEGATIVE; Methadone Urine NEGATIVE (< 300 ng/mL); Opiates Urine NEGATIVE (< 300 ng/mL); Oxycodone, Urine NEGATIVE (< 100 ng/mL); PCP Urine NEGATIVE (< 25 ng/mL); THC Urine NEGATIVE (< 50 ng/mL)
[2024-09-05 21:20] LABS: ALB/GLOB Ratio 1.7 RATIO (0.9-2.4); AST(SGOT) 17 U/L (<=31); Alanine Aminotransfer ALT/SGPT 10 U/L (<=34); Albumin, Serum 4.2 g/dL (3.4-4.8); Alkaline Phosphatase 90 U/L (35-104); Anion Gap 10 (5-15); BUN 14 mg/dL (4-19); BUN/Creat Ratio 18.7 RATIO (10-20); Calcium,Total 9.5 mg/dL (7.6-11.0); Carbon Dioxide 23.8 mmol/L (21.0-32.0); Chloride 108 mmol/L (98-108); Creatinine, Serum 0.76 mg/dL (0.70-1.20); EST Glomerular Filtration Rate 83 (>60); Estimated Creatinine Clearance 70.67 ml/min (50-250); Globulin 2.4 g/dL (2.2-4.2); Glucose 110 mg/dL (70-99); Potassium 3.9 mmol/L (3.3-5.1); Protein, Total 6.7 g/dL (5.9-8.4); Sodium Level 141 mmol/L (133-145); Total Bilirubin 0.58 mg/dL (0.00-1.30)
[2024-09-05 21:25] LABS: Troponin T High Sensitivity 24 ng/L (<=14)
[2024-09-05 21:29] LABS: Mucous, Urine 0 SEEN /hpf (<or=2+)
[2024-09-05 21:30] LABS: Color, Urine Straw (Yellow); Glucose, Dipstick Normal (Normal); Ketone-Dipstick Negative (Negative); Leukocyte Esterase-Dipstick 100 /ul (Negative); Nitrite-Dipstick Positive (Negative); Occult Blood-Urine 25 /ul (Negative); Protein-Dipstick 30 mg/dl (Negative); Urine Bilirubin Dipstick Negative (Negative); Urine Clarity Cloudy (Clear); Urine Urobilinogen Normal (Normal)
[2024-09-05 21:32] LABS: White Blood Cells 10-25 SEEN /hpf (0-5)
[2024-09-05 21:33] LABS: Bacteria 4+ /hpf (None Seen); Red Blood Cells-Urine 0-5 SEEN /hpf (0-5); Squamous Epithelial Cells - UA 0-5 SEEN /hpf (5-10)
[2024-09-05 21:35] LABS: Alcohol, Blood (Medical)-Serum < 10.1 mg/dL (<=10.0)
[2024-09-05 21:37] LABS: ERROR FUNCTION FLAG YES; ERROR RESULT FLAG YES
[2024-09-05 21:38] LABS: Anisocytosis 1+; Platelet Estimate MOD DEC (ADEQ); Red Cell Morphology N CHROM NORMAL (NORM C&C)
[2024-09-05] MEDS: Ceftriaxone 1 GM/50 ML BAG IV (21:51)
[2024-09-05] MEDS: Isosorbide Mononitrate 60 MG Tablet PO (21:51)
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
[2024-09-05] MEDS: hydrALAZINE 20 MG/ML Vial 10 MG IV (23:08)
[2024-09-06] VITALS (15 sets, daily range): BP systolic 151–182; BP diastolic 81–98; PULSE 51–66; RESP 16–20; TEMP 36.2–36.9; O2SAT 95–99; BMI 27.6
[2024-09-06] MEDS: 0.9% Saline Lock 10 ML Syringe IV (00:53)
[2024-09-06] MEDS: Metoprolol Tartrate 25 MG Tablet PO ×3 (00:53→22:34)
[2024-09-06] MEDS: 0.9% Normal Saline (1000mL) 1,000 ML 100 ML IV (00:53)
[2024-09-06 05:43] LABS: Absolute Lymphocyte Count 1.53 X10^3/uL (0.83-4.51); Absolute Neutrophil Count 2.9 X10^3/uL (2.0-7.7); Basophil# 0.03 X10^3/uL; Basophil% 0.6 % (0-1); Eosinophil# 0.16 X10^3/uL; Eosinophils% 3.1 % (0-5); Hematocrit 27.7 % (37-47); Hemoglobin 9.7 g/dL (12.0-15.0); Lymphocyte # 1.53 X10^3/ul (0.83-4.51); Lymphocyte % 30.1 % (19-41); Mean Corpuscular Hgb 32.8 pg (27.0-32.0); Mean Corpuscular Volume 93.6 fL (81-99); Mean Platelet Vol. 11.7 fl (6.2-12.0); Monocyte# 0.49 X10^3/uL; Monocyte% 9.6 % (0-10); NRBC Flagged by Analyzer 0 % (0-5); Neutrophil # 2.86 X10^3/uL (2.7-7.7); Neutrophil % 56.4 % (47-70); POSITIVE COUNT YES; Platelet Count 99 K/mm3 (150-450); RBC Distribution Width CV 13.6 % (11.6-14.6); RBC Distribution Width SD 46.4 fl (35.1-43.9); Red Blood Count 2.96 M/mm3 (4.2-5.4); White Blood Count 5.1 K/mm3 (4.4-11.0)
[2024-09-06 05:49] LABS: Differential Indicated SCAN CRITERIA MET
[2024-09-06] MEDS: Levothyroxine 125 MCG Tablet PO (06:02)
[2024-09-06] MEDS: busPIRone 15 MG TABLET 7.5 MG PO ×3 (06:02→22:33)
[2024-09-06 06:11] LABS: ALB/GLOB Ratio 1.8 RATIO (0.9-2.4); AST(SGOT) 14 U/L (<=31); Alanine Aminotransfer ALT/SGPT 8 U/L (<=34); Albumin, Serum 3.7 g/dL (3.4-4.8); Alkaline Phosphatase 79 U/L (35-104); Anion Gap 9 (5-15); BUN 13 mg/dL (4-19); BUN/Creat Ratio 19.9 RATIO (10-20); Chloride 110 mmol/L (98-108); Creatinine, Serum 0.66 mg/dL (0.70-1.20); EST Glomerular Filtration Rate 92 (>60); Estimated Creatinine Clearance 67.13 ml/min (50-250); Globulin 2.1 g/dL (2.2-4.2); Glucose 93 mg/dL (70-99); Potassium 3.5 mmol/L (3.3-5.1); Protein, Total 5.8 g/dL (5.9-8.4); Sodium Level 142 mmol/L (133-145); Total Bilirubin 0.44 mg/dL (0.00-1.30)
[2024-09-06 06:27] LABS: Platelet Estimate SLT DEC (ADEQ)
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
[2024-09-06] MEDS: Enoxaparin 40 MG/0.4 ML Syringe SC (08:41)
[2024-09-06] MEDS: Allopurinol 300 MG Tablet PO (08:42)
[2024-09-06] MEDS: Isosorbide Mononitrate 60 MG Tablet PO (08:43)
[2024-09-06] MEDS: Sertraline 100 MG Tablet PO (08:43)
[2024-09-06] MEDS: Losartan Potassium 100 MG Tablet PO (08:43)
[2024-09-06] MEDS: Furosemide 40 MG Tablet PO ×2 (08:44→17:02)
[2024-09-06] MEDS: Ferrous Sulfate 325 MG Tablet PO ×2 (11:00→17:02)
[2024-09-06] MEDS: hydrALAZINE 20 MG/ML Vial 10 MG IV (15:05)
[2024-09-06] MEDS: Ceftriaxone 1 GM/50 ML BAG IV (22:31)
[2024-09-06] MEDS: Atorvastatin Calcium 40 MG Tablet PO (22:33)
[2024-09-06] MEDS: MELATONIN 3 MG TABLET PO (22:39)
[2024-09-07] VITALS (11 sets, daily range): BP systolic 136–169; BP diastolic 75–89; PULSE 50–65; RESP 16–18; TEMP 36.8–37.1; O2SAT 93–99; BMI 27.6
--- NOTE | 2024-09-07 01:16 | PCM.HOSP.N ---
Hospitalist Note Patient significantly agitated, yelling and hitting at staff, will administer Haldol and reassess.
[2024-09-07] MEDS: Haloperidol Lactate 5 MG/ML Vial 2 MG IV (01:29)
--- NOTE | 2024-09-07 01:37 | NURSING ---
Pt was trying to get out of bed and set off bed exit. Nurse went in to room and assisted patient to the bathroom. When patient returned from bathroom, she didn't want to get back into bed. Patient got agitated and wanted to go on a walk. Patient walked into the hallway with assistance. Came back and was agitated about finding her underwear. Wanted to be left alone but patient was unsteady and nurses reminded patient that it wasn't safe for her to be alone standing up. Patient got aggressive and more agitated. Walked in hallway with patient and then reached out to the MD. Ordered haldol for patient.
[2024-09-07] MEDS: hydrALAZINE 20 MG/ML Vial 10 MG IV (04:00)
[2024-09-07] MEDS: Levothyroxine 125 MCG Tablet PO (06:44)
[2024-09-07] MEDS: busPIRone 15 MG TABLET 7.5 MG PO ×3 (06:44→21:04)
[2024-09-07] MEDS: Losartan Potassium 100 MG Tablet PO (08:57)
[2024-09-07] MEDS: Furosemide 40 MG Tablet PO ×2 (08:57→17:06)
[2024-09-07] MEDS: Isosorbide Mononitrate 60 MG Tablet PO (08:57)
[2024-09-07] MEDS: Allopurinol 300 MG Tablet PO (08:57)
[2024-09-07] MEDS: Sertraline 100 MG Tablet PO (08:58)
[2024-09-07] MEDS: Enoxaparin 40 MG/0.4 ML Syringe SC (08:58)
[2024-09-07] MEDS: Metoprolol Tartrate 25 MG Tablet PO ×2 (08:58→21:04)
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
[2024-09-07] MEDS: Ferrous Sulfate 325 MG Tablet PO ×2 (12:13→17:06)
--- NOTE | 2024-09-07 12:50 | CASEMGMT ---
Addendum entered by Jeana Weir 09/07/24 14:07: Note sent to [facility] via [employer] requesting that precert be submitted. Jeana Weir DC Planning Asst. Original Note: Discharge Planning Referral sent to [facility] for snf with possible transition to AL. CC has accepted. SW updated. Jeana Weir DC Planning Asst.
--- NOTE | 2024-09-07 13:11 | PN.HOSP_ITS ---
Reason for Visit Reason for Visit: Diagnoses Hypothyroidism, unspecified (09/05/24) Encephalopathy, unspecified (09/05/24) Essential (primary) hypertension (09/05/24) Acute cystitis without hematuria (09/05/24) Urinary tract infection, site not specified (09/05/24) Subjective Subjective Agitation overnight requiring haloperidol. Objective Data Objective Data Vital Signs: Vital Signs Temp Pulse Resp BP Pulse Ox O2 Del Method 36.8 C 65 16 136/75 H 97 Room Air 09/07/24 09:12 09/07/24 09:12 09/07/24 09:12 09/07/24 09:12 09/07/24 09:12 09/07/24 09:12 Oxygen Delivery Method Room Air Weight: 79.9 kg Body Mass Index (BMI) 27.6 Intake & Output: Intake and Output for Last 24 Hours 09/05/24 09/06/24 09/07/24 23:59 23:59 23:59 Intake Total 50 / 50 1900 / 2100 200 / 200 Balance 50 / 50 1900 / 2100 200 / 200 Lab / Micro Data 09/06/24 05:00 09/06/24 05:00 Micro: Microbiology 09/05/24 20:40 Urine, Clean Catch Urine Culture - Preliminary GNR lactose metal sprayer production Physical Exam Const alert and no apparent distress HEENT head/scalp atraumatic and moist oral mucous membranes Resp normal respiratory effort, no retractions, no use of accessory muscles and clear to auscultation bilaterally Cardio regular rate, regular rhythm, S1 normal heart sound and S2 normal heart sound Assessment & Plan Assessment/Plan (1) Encephalopathy: PLAN: metabolic. possible UTI. Hypothyroidism Avoid potentiating medications. Concern for underlying dementia. Will require formal geriatric testing as outpt. (2) Acute UTI: PLAN: UCx showing GNR. Further ID and sensitivities pending. Continue CTX. (3) Hypothyroidism: PLAN: Elevated TSH and low FT4. Noncompliant w levothyroxine, since restarted at 125 mcg/d PLAN: Plan Chronic conditions: * gout: allopurinol * HLP: atorvastatin VTE prophylaxis: LMWH. Charges/Coding Visit Charges Inpatient E&M: 50044 Subs Hosp L2
--- NOTE | 2024-09-07 15:49 | CHAPLAIN ---
Type of Pastoral Visit _x__ Initial Visit ___ Follow-up Visit ___ On-call Visit ___ General Patient Visit ___ Spiritual Assessment ___ Family Conference ___ Bereavement ___ Rapid Response ___ Code Blue ___ Other (describe below) Pastoral Care Referral From _x__ Patient ___ Family ___ Nurse ___ Physician _x__ Gummed Tape Press Operator ___ Criminalist Technician ___ Other (describe below) Sacrament/Intervention _x__ Active listening ___ Anointing ___ Denominational ___ Bereavement ___ Communion _x__ Malena exploration ___ ___ Life review _x__ Prayer ___ Reconciliation ___ Sacrament of Sick _x__ Supportive presence ___ Wedding ___ Other (describe below) Pastoral Comments patient had requested a visit from the hims manager; pt was asking some questions about decisions she is facing; pt has talked with the SW and found that helpful as well; 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
[2024-09-07] MEDS: Ceftriaxone 1 GM/50 ML BAG IV (21:03)
[2024-09-07] MEDS: 0.9% Saline Lock 10 ML Syringe IV (21:04)
[2024-09-07] MEDS: Atorvastatin Calcium 40 MG Tablet PO (21:04)
[2024-09-08] VITALS (8 sets, daily range): BP systolic 148–165; BP diastolic 77–89; PULSE 47–58; RESP 16–17; TEMP 36.4–36.8; O2SAT 94–98; BMI 27.7
[2024-09-08] MEDS: Levothyroxine 125 MCG Tablet PO (05:36)
[2024-09-08] MEDS: busPIRone 15 MG TABLET 7.5 MG PO ×3 (05:36→21:56)
--- NOTE | 2024-09-08 07:34 | PCM.PN.HOSP ---
Reason for Visit Reason for Visit: Diagnoses Hypothyroidism, unspecified (09/05/24) Encephalopathy, unspecified (09/05/24) Essential (primary) hypertension (09/05/24) Acute cystitis without hematuria (09/05/24) Urinary tract infection, site not specified (09/05/24) Subjective Subjective Talking about a doctor's appointment she has . 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 interactive with good eye contact. HEENT head/scalp atraumatic and moist oral mucous membranes Neuro Sensorium / Orientation: awake and alert Assessment & Plan Assessment/Plan (1) Encephalopathy: PLAN: metabolic. possible UTI. Hypothyroidism Avoid potentiating medications. Concern for underlying dementia. Will require formal geriatric testing as outpt. (2) Acute UTI: PLAN: UCx showing E. coli. Currently on CTX, change to nitrofurantoin upon discharge and treat through 09/11 (3) Hypothyroidism: PLAN: Elevated TSH and low FT4. Noncompliant w levothyroxine, since restarted at 125 mcg/d PLAN: Plan Chronic conditions: gout: allopurinol HLP: atorvastatin VTE prophylaxis: LMWH. Debility: will require SNF. Charges/Coding Visit Charges Inpatient E&M: 22273 Subs Hosp L1
--- NOTE | 2024-09-08 08:07 | CASEMGMT ---
Discharge Planning Updates sent to [facility]. Jeana Weir DC Planning Asst.
[2024-09-08] MEDS: Allopurinol 300 MG Tablet PO (08:28)
[2024-09-08] MEDS: Enoxaparin 40 MG/0.4 ML Syringe SC (10:07)
[2024-09-08] MEDS: Losartan Potassium 100 MG Tablet PO (10:08)
[2024-09-08] MEDS: Furosemide 40 MG Tablet PO ×2 (10:09→17:32)
[2024-09-08] MEDS: Sertraline 100 MG Tablet PO (10:09)
[2024-09-08] MEDS: Isosorbide Mononitrate 60 MG Tablet PO (10:09)
[2024-09-08] MEDS: Ferrous Sulfate 325 MG Tablet PO ×2 (11:56→17:32)
--- NOTE | 2024-09-08 12:07 | CASEMGMT ---
Social Work- SW met with pt to discuss discharge planning and complete calls pt requested. SW attempted to call [facility] with pt. No accounts could be found for pt using address, name, or phone number. Pt does not have account information. SW inquired as to if family could bring a bill in. Pt reports that an aide called pt brother to feed cat, but pt does not believe that brother would bring a bill in or call with an account number. Pt preoccupied with cardiology appointment 09/10. SW provided education that pt could not discharge for appointment then return to hospital or to SNF. SW provided encouragement that if pt discharges to SNF that staff can assist with appointment scheduling/transportation. Pt expressed difficulty with understanding; SW continued to provide reassurance. Hopsitalist arrived to round with pt; SW will follow up with SNF approval determination when available. Plan: JL; skilled level of care pending precert MONICA Braswell
--- NOTE | 2024-09-08 15:27 | CASEMGMT ---
Discharge Planning [facility] has obtained auth to admit. Auth is good for today only (09/08/24). SW updated. Jeana Weir DC Planning Asst.
--- NOTE | 2024-09-08 15:51 | PCM.TXEXTCAR ---
Diet Diet Order/Speech Therapy: INPATIENT Hospital Diet / Speech Therapy Order(s) 09/06/24 00:19 Diet: Cardiac - Heart Healthy Food consistency:: Regular Liquid Consistency:: Regular/Thin DC O2, CPAP, BIPAP needs Home O2 Discharge instructions: No Therapies Weight Bearing: Full weight bearing Physical Therapy: Eval and Treat Occupational Therapy: Eval and Treat Problem/Diagnosis (1) Encephalopathy: Status: Acute Code(s): G93.40 - Encephalopathy, unspecified Plan: metabolic. possible UTI. Hypothyroidism Avoid potentiating medications. Concern for underlying dementia. Will require formal geriatric testing as outpt. (2) Acute UTI: Status: Inactive Code(s): N39.0 - Urinary tract infection, site not specified Plan: UCx showing E. coli. Currently on CTX, change to nitrofurantoin upon discharge and treat through 09/11 (3) Hypothyroidism: Status: Acute Code(s): E03.9 - Hypothyroidism, unspecified Plan: Elevated TSH and low FT4. Noncompliant w levothyroxine, since restarted at 125 mcg/d Plan Chronic conditions: gout: allopurinol HLP: atorvastatin VTE prophylaxis: LMWH. Debility: will require SNF. Allergies/Procedures Done in Hospital Allergies No Known Allergies Allergy (Verified 09/05/24 19:54) Procedures: None Type of Care/Length of Stay Estimated LOS: Convalescent Care Less Than 30 days Type of Care Needed: Skilled Rehab Potential: Fair Prognosis: Good Additional Orders/Day of Discharge Day of Discharge: 09/08/24 Discharge Plan Admission Admit Date/Time: 09/05/24 22:56 Primary Reason for Your Visit: UTI. Attending Provider: Cornelius Farr Primary Care Provider: Kristi Fontenot Consulting Providers: Cathleen Vernon Discharge Orders/Prescriptions Prescriptions: New ferrous sulfate [FeroSul] 325 mg (65 mg iron) Tablet 325 mg PO 1200,1700 Qty: 0 0RF furosemide 40 mg Tablet 40 mg PO BIDLX Qty: 0 0RF nitrofurantoin macrocrystal 100 mg capsule 100 mg PO BID 3 Days Qty: 6 0RF Rx Instructions: must administer with a meal/food Continued levothyroxine 125 mcg tablet 125 mcg PO DAILY buspirone 7.5 mg tablet 7.5 mg PO TID sertraline 50 mg tablet 50 mg PO DAILY potassium chloride [Klor-Con M10] 10 mEq tablet,ER particles/crystals 10 meq PO BID irbesartan 300 mg tablet 300 mg PO DAILY atorvastatin 40 mg tablet 40 mg PO DAILY isosorbide mononitrate 60 mg tablet extended release 24 hr 60 mg PO DAILY allopurinol 300 mg tablet 300 mg PO DAILY metoprolol tartrate 25 mg tablet 25 mg PO BID Referrals / Follow Up: Kristi Fontenot MD [Primary Care Provider] - Care Physician,No Primary [Non-Staff] - Disposition Disposition (needs filled in before D/C Order can be placed): Home, Self Care
--- NOTE | 2024-09-08 15:57 | DS.PCM_ITS ---
Providers Date of Admission: 09/05/24 Primary Care Physician: Dr. Kristi Fontenot MD Reason For Visit: ECEPHALOPATHY, UTI Diagnosis Discharge Diagnosis (1) Encephalopathy: Status: Acute Code(s): G93.40 - Encephalopathy, unspecified Plan: metabolic. possible UTI. Hypothyroidism Avoid potentiating medications. Concern for underlying dementia. Will require formal geriatric testing as outpt. (2) Acute UTI: Status: Inactive Code(s): N39.0 - Urinary tract infection, site not specified Plan: UCx showing E. coli. Currently on CTX, change to nitrofurantoin upon discharge and treat through 09/11 (3) Hypothyroidism: Status: Acute Code(s): E03.9 - Hypothyroidism, unspecified Plan: Elevated TSH and low FT4. Noncompliant w levothyroxine, since restarted at 125 mcg/d Plan Chronic conditions: * gout: allopurinol * HLP: atorvastatin VTE prophylaxis: LMWH. Debility: will require SNF. Medications at Discharge Home Medications allopurinol 300 mg tablet 300 mg PO DAILY gout 01/27/24 atorvastatin 40 mg tablet 40 mg PO DAILY cholesterol 01/27/24 isosorbide mononitrate 60 mg tablet,extended release 24 hr 60 mg PO DAILY heart 01/27/24 metoprolol tartrate 25 mg tablet 25 mg PO BID blood pressure 01/27/24 buspirone 7.5 mg tablet 7.5 mg PO TID mental health 02/01/24 levothyroxine 125 mcg tablet 125 mcg PO DAILY thyroid 02/01/24 potassium chloride 10 mEq tablet,extended release(part/cryst) (Klor-Con M) 10 meq PO BID supplement 02/01/24 sertraline 50 mg tablet 50 mg PO DAILY mental health 02/01/24 irbesartan 300 mg tablet 300 mg PO DAILY HTN 02/03/24 ferrous sulfate 325 mg (65 mg iron) tablet (FeroSul) 325 mg PO 1200,1700 #0 tabs 09/08/24 furosemide 40 mg tablet 40 mg PO BIDLX #0 tabs 09/08/24 nitrofurantoin macrocrystal 100 mg capsule 100 mg PO BID 3 days #6 caps 09/08/24 Hospital Course Operations None Procedures None Summary of Care Provided Minutes Spent on Discharge: 35 Hospital Course: 73-year-old female that was hallucinating home brought into the hospital and was found to have UTI. Started on ceftriaxone. Patient remained confused and did have some agitation overnight but overall has remained pleasantly confused during the remainder of her hospitalization. Urine culture grew out E. coli sensitive to nitrofurantoin which she will be discharged with. Patient has not been formally diagnosed with dementia but is very concerned that she does so and should follow-up with a technical illustrations map inker or neurology for a formal dementia evaluation. Weight / BMI Weight Weight: 80.3 kg Body Mass Index (BMI) 27.7 ABG / Lab / Microbiology Data 09/06/24 05:00 09/06/24 05:00 Microbiology: Microbiology 09/05/24 20:40 Urine, Clean Catch Urine Culture - Final Escherichia coli D/C Instructions Discharge Diet: No restrictions DC O2, CPAP, BIPAP Needs Home O2 Discharge instructions: No Meaningful Use Info Meaningful Use Meaningful Use Diagnoses (Choose all that apply): None applicable Ischemic Stroke Statin Dosing Therapy Reference: STATIN DOSE THERAPY REFERENCE: * Patients > 75 years receive moderate or high dose statin therapy. * Patients 75 years or YOUNGER should receive HIGH intensity statin dose unless contraindicated. You will be required to document reason for non-treatment if statin daily dose does not meet guidelines. HIGH DOSE STATIN THERAPY DAILY Atorvastatin > than or = to 40 mg Rosuvastatin > than or = to 20 mg Amlodipine + Atorvastatin > than or = to 2.5/40 mg Ezetimibe + Simvastatin 10/80 mg Simvastatin 80mg Discharge Plan Admission Admit Date/Time: 09/05/24 22:56 Primary Reason for Your Visit: UTI. Attending Provider: Cornelius Farr Primary Care Provider: Kristi Fontenot Consulting Providers: Cathleen Vernon Discharge Orders/Prescriptions Prescriptions: New ferrous sulfate [FeroSul] 325 mg (65 mg iron) Tablet 325 mg PO 1200,1700 Qty: 0 0RF furosemide 40 mg Tablet 40 mg PO BIDLX Qty: 0 0RF nitrofurantoin macrocrystal 100 mg capsule 100 mg PO BID 3 Days Qty: 6 0RF Rx Instructions: must administer with a meal/food Continued levothyroxine 125 mcg tablet 125 mcg PO DAILY buspirone 7.5 mg tablet 7.5 mg PO TID sertraline 50 mg tablet 50 mg PO DAILY potassium chloride [Klor-Con M10] 10 mEq tablet,ER particles/crystals 10 meq PO BID irbesartan 300 mg tablet 300 mg PO DAILY atorvastatin 40 mg tablet 40 mg PO DAILY isosorbide mononitrate 60 mg tablet extended release 24 hr 60 mg PO DAILY allopurinol 300 mg tablet 300 mg PO DAILY metoprolol tartrate 25 mg tablet 25 mg PO BID Referrals / Follow Up: Kristi Fontenot MD [Primary Care Provider] - Within 2 Weeks Care Physician,No Primary [Non-Staff] - Disposition Disposition (needs filled in before D/C Order can be placed): Home, Self Care Charges/Coding Visit Charges Inpatient E&M: 22984 Disch Hosp >30min
--- NOTE | 2024-09-08 16:05 | CASEMGMT ---
Social Work- Precert has been obtained.? Physician updated and pt is ready for discharge today.? 7000 convalescent form completed in [facility]. SW met with pt and they are agreeable to discharge plan as stated above.? DCA and bedside nurse notified of discharge. DCA notified to make all final arrangements and notifications. Plan: [facility]; skilled level of care MONICA Braswell
--- NOTE | 2024-09-08 16:14 | CASEMGMT ---
Discharge Planning Discharge orders, signed med list, and transport time sent to [facility]. Physicians will transport pt by wheelchair at 5:30. Nursing, SW, pt, and her brother (Jarad) updated. Jeana Weir DC Planning Asst
--- NOTE | 2024-09-08 16:50 | CASEMGMT ---
Discharge Planning Notified by [facility] that [employer] issued auth in error. SW updated. Transport cancelled. Jeana Weir DC Planning Asst.
[2024-09-08] MEDS: Atorvastatin Calcium 40 MG Tablet PO (21:57)
[2024-09-08] MEDS: 0.9% Saline Lock 10 ML Syringe IV (22:01)
[2024-09-08] MEDS: Ceftriaxone 1 GM/50 ML BAG IV (22:01)
[2024-09-09 02:00] VITALS: PULSE 52
[2024-09-09 03:25] VITALS: BP 144/81; PULSE 53; RESP 16; TEMP 36.9; O2SAT 96
[2024-09-09 04:05] VITALS: BMI 27.6
[2024-09-09] MEDS: Levothyroxine 125 MCG Tablet PO (05:12)
[2024-09-09] MEDS: busPIRone 15 MG TABLET 7.5 MG PO ×2 (05:12→14:41)
--- NOTE | 2024-09-09 07:57 | PN.HOSP_ITS ---
Reason for Visit Reason for Visit: Diagnoses Hypothyroidism, unspecified (09/05/24) Encephalopathy, unspecified (09/05/24) Essential (primary) hypertension (09/05/24) Acute cystitis without hematuria (09/05/24) Urinary tract infection, site not specified (09/05/24) Subjective Subjective Feeling well. Ready to be discharged. Objective Data Objective Data Vital Signs: Vital Signs Temp Pulse Resp BP Pulse Ox O2 Del Method 36.9 C 53 L 16 144/81 H 96 Room Air 09/09/24 03:25 09/09/24 03:25 09/09/24 03:25 09/09/24 03:25 09/09/24 03:25 09/09/24 03:25 Oxygen Delivery Method Room Air Weight: 79.9 kg Body Mass Index (BMI) 27.6 Intake & Output: Intake and Output for Last 24 Hours 09/07/24 09/08/24 09/09/24 23:59 23:59 23:59 Intake Total 590 / 590 110 / 110 Balance 590 / 590 110 / 110 Lab / Micro Data 09/06/24 05:00 09/06/24 05:00 Micro: Microbiology 09/05/24 20:40 Urine, Clean Catch Urine Culture - Final Escherichia coli Physical Exam Const alert and no apparent distress Constitutional Narrative: Lying in bed. Nontoxic. No respiratory distress. No conversational dyspnea. HEENT head/scalp atraumatic and moist oral mucous membranes Assessment & Plan Assessment/Plan (1) Encephalopathy: PLAN: metabolic. possible UTI. Hypothyroidism Avoid potentiating medications. Concern for underlying dementia. Will require formal geriatric testing as outpt. (2) Acute UTI: PLAN: UCx showing E. coli. Currently on CTX, change to nitrofurantoin upon discharge and treat through 09/11 (3) Hypothyroidism: PLAN: Elevated TSH and low FT4. Noncompliant w levothyroxine, since restarted at 125 mcg/d PLAN: Plan Chronic conditions: * gout: allopurinol * HLP: atorvastatin VTE prophylaxis: LMWH. Debility: will require SNF. Informed by social work that patient could be discharged within the very near window on the but that was an accurate and was not informed shortly thereafter completing the discharge paperwork that the patient would not be able to go on the . Charges/Coding Visit Charges Inpatient E&M: 17337 Subs Hosp L1
[2024-09-09 08:37] VITALS: BP 159/83; PULSE 63; RESP 16; TEMP 36.8; O2SAT 97
[2024-09-09] MEDS: Allopurinol 300 MG Tablet PO (08:51)
[2024-09-09 09:33] VITALS: PULSE 63
[2024-09-09] MEDS: Losartan Potassium 100 MG Tablet PO (09:33)
[2024-09-09] MEDS: Isosorbide Mononitrate 60 MG Tablet PO (09:33)
[2024-09-09] MEDS: Metoprolol Tartrate 25 MG Tablet PO (09:33)
[2024-09-09] MEDS: Furosemide 40 MG Tablet PO (09:33)
[2024-09-09] MEDS: Sertraline 100 MG Tablet PO (09:34)
[2024-09-09] MEDS: Enoxaparin 40 MG/0.4 ML Syringe SC (09:34)
[2024-09-09] MEDS: Ferrous Sulfate 325 MG Tablet PO (11:54)
--- NOTE | 2024-09-09 13:15 | CASEMGMT ---
Addendum entered by Marielos Mccallum 09/09/24 15:25: Social Work BIMS cognitive assessment completed during SW meeting with pt. Pt score of 15/15. MONICA Musa Original Note: Social Work Pt requesting to speak with SW. JL met with pt and introduced self. Pt is aware that plan is for pt to go to [facility]. SW explained that insurance precert is still pending. Pt then asking if she can take her cat to [facility] with her. JL clarified with [facility], and at the SNF and AL, pt's pet can visit but cannot reside with pt. JL updated pt of this. Pt states she will not go anywhere without her cat. Extensive conversation with pt discussing discharge plan. Options of going to SNF for short time without cat, going to AL, and returning home with home health discussed. Pt is agreeable that she would benefit from assisted living, however she wants to be able to take her cat. JL educated pt that [facility] does allow pets and pt is agreeable to go to this facility. Pt also wants to take her car. Phone call to [facility] and spoke with Mick. There are no available rooms at this time and 7 people on the waiting list. Pt would be able to bring her cat and her car. Pricing provided to this SW and if pt cannot afford to pay for AL, she would need to be established with the Assisted Living Waiver Program through [facility] prior to admitting into the AL. JL informed pt of this information. Pt states she cannot afford to pay for AL. Pt states that [facility] had made a referral to [facility] but pt has not connected with them yet. Pt does not want to go to SNF without her cat and SW is unaware of any SNF that will allow a pet to reside with pt. After much discussion about options. Pt choosing to return home and is agreeable to home health services. Pt utilized [facility] in the past states she would like to use them again and does not need a list of providers. Referral made to [facility] for nursing home, PT and social work. Phone call placed to [facility] who confirms that a referral was made to for pt, but the Agency was unable to make contact and therefore referral was cancelled. JL made a new referral and requested pt be assessed for the Assisted Living Waiver program. JL completed assessment at this time as pt is now planning to return home. PCP: Concepción Fontenot, Pt states that she has an appointment for a new pt visit at the end of August. Old PCP was in [place] Specialists: Dr. sHieh body straightener, Dr. Shyam SYKES Preferred Pharmacy: [facility] Lorenza Insurance: [employer] Medicare Prescription Benefit:?yes Living Will/HPOA:? No, pt would like to complete but does not know who she would like to appoint LNOK: brother Jarad Jaramillo Living Arrangements: Pt lives alone in a one story apartment with 7 steps in. Pt states she is independent with ADLs and IADLs. But does admit to having difficulty with medication management and handling finances Transportation: Pt states she drives self and is aware that she has to be very careful.? DME: ? cantiffanie peng, cpap HHC/SNF: [facility] previous PLAN: Pt plans to return home with home health services and referral to [facility] for the Medicaid Assisted Living Waiver program or home services through [employer]. MONICA Musa
[2024-09-09 14:36] VITALS: BP 140/75; PULSE 61; RESP 16; TEMP 36.6; O2SAT 94
--- NOTE | 2024-09-09 14:55 | CASEMGMT ---
Social Work Pt was denied authorization for SNF placement by insurance. Pt was accepted by [facility] for PT/SN/SW with start of care on . This SW provided warm handoff to [facility] SW. VM left with [facility] to update on pt discharge plan. SW met with pt and confirmed final discharge plan. Pt is agreeable with plan for return home with home health. Pt states she does not have a ride home. RNCM called hospital van and they do not have availability. SW called pt's brother Jarad and VM left. With pt permission, phone call to pt joel Guillory who states she will try to find someone to come and pick the pt up. Physician notified of discharge plan. MONICA Musa
--- NOTE | 2024-09-09 14:56 | CASEMGMT ---
TC to [facility] van to check availability for pt for transport home, they do not have availability.
--- NOTE | 2024-09-09 16:15 | CASEMGMT ---
Social Work Return call from pt's brother Jarad who states that he has his own problems and is not able to assist pt in any way. Pt niece is working. Phone call to [employer] for transport and company closes at 4pm and cannot transport. RN states pt is now stating she has a ride home with her cash manager. MONICA Musa
--- NOTE | 2024-09-11 12:19 | CASEMGMT ---
TC to [facility], spoke with Jason, they are not accepting pts for 2wks. No referral made as pt will have PCP appt by this time.
--- NOTE | 2024-09-11 17:05 | CASEMGMT ---
Social Work [id number] JL spoke with Kelly at [facility] stating that Dr. Fontenot has established with pt for new pt start of care. Appt is 09/24 therefore C cannot see pt. Kelly will reach out to pt's basketball assembler to see if he can follow. Kelly provided SW with an updated phone number for pt. JL updated number in [employer]. [id number] JL spoke with Nasreen at [facility] and Nasreen suggesting referral be made for [facility] while we wait for [facility] to start. RNCM made referral to [facility] and they are unable to accept new pts. 1300 phone call pt's previous PCP Hunter Geller, Internal Medicine [phone] and VM left requesting they follow pt until pt sees new PCP on 09/24. No return call from this physicians office. MONICA Chacko
--- NOTE | 2024-09-18 09:45 | CASEMGMT ---
Social Work- SW received a phone call from pt regarding assisted living. Pt reports that she is interested in assisted living still and was wondering what the status of her assisted living arrangements are. Pt reports that it remains difficult for her to manage medication and pt does feel due to her forgetfulness that she would benefit from AL. Pt reports that Enrique from [facility] has not visited. Pt does report that Lauryn from [facility] visited, but that she did not have a contact to follow up with Lauryn. SW provided contact. Pt gave permission for SW to follow up with Lauryn. Pt reports that she has not received a call from [facility]. SW offered to reach out to place referral; pt agreeable. Pt reports that she has an appointment with new PCP A Corie Thursday 09/21. SW encouraged pt to discuss AL desire with PCP as well. Pt appreciative of help; repeatedly asking SW if SW could help pt ongoing. SW explained parameters of ability to assist now that pt is discharged, but offered to make calls to [facility], [facility], and [facility] to follow-up. Pt agreeable and will also make calls for connection to community supports. MONICA Braswell
--- NOTE | 2024-09-22 10:11 | CASEMGMT ---
Social Work- SW called Enrique at [facility] and left a voicemail updating Enrique stone and concrete washer from pt and requesting that Enrique call and/or visit pt to follow-up. JL called [facility] and completed an on-line referral to follow-up on AL waiver program. JL called Lauryn at [facility] and left a voicemail requesting follow-up with pt. MONICA Braswell
--- NOTE | 2024-09-25 14:33 | CASEMGMT ---
Social Work- SW spoke with pt to follow up on dr stewart that was scheduled for 09/24. Pt reports that she was [address] Fontenot refused to see her and pt was not able to be rescheduled until 03/22. SW shared that [facility] often has more immediate availability. Pt confused and began talking about a $25 application fee and housing. SW explained that it is a PCP office; pt agreeable to taking contact and calling. Pt reports that she is eating; pt confirmed two or more times per day. Pt reports that she had pot pies for lunch, then reports that it was [employer] steak and mashed potatoes that she thought was a pot pie. Pt reports that she is taking her medications, but then reports that she has not been taking the medication that the nurse gave me for her heart. Pt reports she had a cardiology appointment last week, but did not mention it. SW encouraged pt to call and follow up with pole tester. Pt reports that Enrique/[facility], Lauryn/Jacob Corley, and [facility] have not called pt. Pt confirmed that she does have the numbers and read them back to SW; SW encouraged pt to call agencies. Pt requesting SW call next week. SW agreeable to follow up on dr stewart scheduling. MONICA Braswell
== END 2024-09-09 16:41 | disposition home or self-care (01) | DRG 689 ==
LOC: ED 20:26 → MS3 23:02
PROVIDERS: Admitting Provider Family Medicine; Emergency Provider Emergency Medicine; PCP Internal Medicine
DX: N39.0 Urinary tract infection, site not specified (principal); G93.41 Metabolic encephalopathy; R44.3 Hallucinations, unspecified; D50.9 Iron deficiency anemia, unspecified; I12.9 Hypertensive chronic kidney disease with stage 1 through stage 4 chronic kidney disease, or unspecified chronic kidney disease; E03.9 Hypothyroidism, unspecified; F32.A Depression, unspecified; D69.6 Thrombocytopenia, unspecified; I48.0 Paroxysmal atrial fibrillation; E78.5 Hyperlipidemia, unspecified; N18.2 Chronic kidney disease, stage 2 (mild); G47.33 Obstructive sleep apnea (adult) (pediatric); M10.9 Gout, unspecified; F41.9 Anxiety disorder, unspecified; R00.1 Bradycardia, unspecified; Z87.891 Personal history of nicotine dependence; Z79.890 Hormone replacement therapy; B96.20 Unspecified Escherichia coli [E. coli] as the cause of diseases classified elsewhere; R53.81 Other malaise; Z79.899 Other long term (current) drug therapy; Z79.02 Long term (current) use of antithrombotics/antiplatelets
CPT/HCPCS: 36415; 70450; 71045; 80053; 80307; 81001; 82077; 84439; 84443; 84484; 85025; 87077; 87086; 87088; 87186; 93005; 94668; 97116; 97161; 97165; 97530; 97535; 99285; A4216

== ENCOUNTER 2024-09-26 17:57 | Inpatient (IN) | payer MEDICARE, SELFPAY ==
[2024-09-26] VITALS (7 sets, daily range): BP systolic 155–163; BP diastolic 71–83; PULSE 51–78; RESP 16–18; TEMP 36.6–37.5; O2SAT 95–100; BMI 26.7; BMI 26.8
--- NOTE | 2024-09-26 18:52 | RAD_ITS ---
PROCEDURE: HIP, UNI W/ PELVIS 2-3 VIEWS 09/26/2024 REASON FOR EXAM: FALL TECHNIQUE: HIP, UNI W/ PELVIS 2-3 VIEWS COMPARISON: None. FINDINGS: Bones: Acute comminuted and impacted intertrochanteric fracture of the left femur, with foreshortening. Diffuse bone demineralization. Joints: No obvious intra-articular extension of the fracture. Normal alignment. Mild degenerative changes. Soft tissues: Soft tissue swelling. RAD/HIP, UNI W/ Pelvis 2-3 Views IMPRESSION: Acute intertrochanteric fracture of the left femur. Reading Location: [id number]
--- NOTE | 2024-09-26 18:52 | RAD_ITS ---
PROCEDURE: HIP, UNI W/ PELVIS 2-3 VIEWS 09/26/2024 REASON FOR EXAM: FALL TECHNIQUE: HIP, UNI W/ PELVIS 2-3 VIEWS COMPARISON: None. FINDINGS: Bones: Acute comminuted and impacted intertrochanteric fracture of the left femur, with foreshortening. Diffuse bone demineralization. Joints: No obvious intra-articular extension of the fracture. Normal alignment. Mild degenerative changes. Soft tissues: Soft tissue swelling. RAD/HIP, UNI W/ Pelvis 2-3 Views IMPRESSION: Acute intertrochanteric fracture of the left femur. Reading Location: [id number]
--- NOTE | 2024-09-26 19:18 | EKG12_ITS ---
Test Reason : DYSRHYTHMIA Blood Pressure : */* mmHG Vent. Rate : 55 BPM Atrial Rate : 55 BPM P-R Int : 192 ms QRS Dur : 128 ms QT Int : 516 ms P-R-T Axes : 83 91 1 degrees QTcB Int : 493 ms Sinus bradycardia Right bundle branch block Abnormal ECG Confirmed by JERE DEVI MD ([id number]), supervising editor news reel RONNA RUBIO ([id number]) on 09/29/2024 6:41:36 AM Referred By: Confirmed By: JERE DEVI MD
--- NOTE | 2024-09-26 19:18 | EKG12_ITS ---
Test Reason : DYSRHYTHMIA Blood Pressure : */* mmHG Vent. Rate : 55 BPM Atrial Rate : 55 BPM P-R Int : 192 ms QRS Dur : 128 ms QT Int : 516 ms P-R-T Axes : 83 91 1 degrees QTcB Int : 493 ms Sinus bradycardia Right bundle branch block Abnormal ECG Confirmed by JERE DEVI MD ([id number]), website/blog editor RONNA RUBIO ([id number]) on 09/29/2024 6:41:36 AM Referred By: Confirmed By: JERE DEVI MD
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
[2024-09-26] MEDS: 0.9% Normal Saline (1000mL) 1,000 ML 999 ML IV (19:45)
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
[2024-09-26 20:19] LABS: Hematocrit 33.2 % (37-47); Hemoglobin 11.4 g/dL (12.0-15.0); Immature Granulocytes Count 0.030 X10^3/uL (0.0-0.0); Mean Corp Hgb Conc 34.3 g/dL (32-36); Mean Corpuscular Volume 92.5 fL (81-99); Mean Platelet Vol. 11.4 fl (6.2-12.0); NRBC Flagged by Analyzer 0 % (0-5); Platelet Count 112 K/mm3 (150-450); RBC Distribution Width CV 13.2 % (11.6-14.6); RBC Distribution Width SD 45.1 fl (35.1-43.9); Red Blood Count 3.59 M/mm3 (4.2-5.4); White Blood Count 7.5 K/mm3 (4.4-11.0)
--- NOTE | 2024-09-26 20:41 | CM.ED ---
Social Work Date of referral: 09/26/24 Reason for referral: Discharge Planning Referred by: ED Physician Patient provided consent to Social Work visit. Patient worried about her cat, asked Lead Web Application Developer to call Pastora and ask Pastora to open her kitchen window and to take care of cat while she is in the hospital. Lead Web Application Developer agreed to call Pastora. (20:17 cafe worker made phone contact with Pastora who stated both she and Jarad are already aware of what is going on with patient and assured social work administrator that she will open window for cat and make sure patient's cat has water and food and will take care of patient's cat while patient is in the hospital. Tavia Amaya, SPORTS MEDIA, NURSING EDUCATION SPECIALIST (end: 20:42)
--- NOTE | 2024-09-26 20:41 | CM.ED ---
Social Work Date of referral: 09/26/24 Reason for referral: Discharge Planning Referred by: ED Physician Patient provided consent to Social Work visit. Patient worried about her cat, asked Boom Stick Man to call Pastora and ask Pastora to open her kitchen window and to take care of cat while she is in the hospital. Boom Stick Man agreed to call Pastora. (20:17 glass processing worker made phone contact with Pastora who stated both she and Jarad are already aware of what is going on with patient and assured social service assistant that she will open window for cat and make sure patient's cat has water and food and will take care of patient's cat while patient is in the hospital. Tavia Amaya, MARKETING COMMUNICATIONS ASSISTANT, WOOL BRUSHER (end: 20:42)
[2024-09-26 20:43] LABS: AST(SGOT) 18 U/L (<=31); Alanine Aminotransfer ALT/SGPT 9 U/L (<=34); Albumin, Serum 4.1 g/dL (3.4-4.8); Alkaline Phosphatase 88 U/L (35-104); Anion Gap 14 (5-15); BUN 22 mg/dL (4-19); BUN/Creat Ratio 24.7 RATIO (10-20); Calcium,Total 9.0 mg/dL (7.6-11.0); Carbon Dioxide 21.9 mmol/L (21.0-32.0); Chloride 105 mmol/L (98-108); Estimated Creatinine Clearance 58.18 ml/min (50-250); Globulin 2.5 g/dL (2.2-4.2); Glucose 128 mg/dL (70-99); Potassium 3.2 mmol/L (3.3-5.1)
[2024-09-26 20:56] LABS: Magnesium 2.2 mg/dL (1.5-2.2)
[2024-09-26 21:09] LABS: Pro- Brain NATRIURETIC PEPTIDE 245 pg/mL (<=900)
[2024-09-26] MEDS: Senna/Docusate Sodium 1 Tablet 2 TABLET PO (22:17)
[2024-09-26] MEDS: Potassium Chloride Oral Tablet 10 MEQ PO (22:17)
[2024-09-26] MEDS: Potassium Chloride Oral Tablet 20 MEQ 40 MEQ PO (22:25)
--- NOTE | 2024-09-26 22:44 | CPS ---
discussed with pt about home cpap machine-has not been using hers at home. pt states not working right. does not know settings. is fine with 2 l/m via nc for callieight
[2024-09-27] VITALS (9 sets, daily range): BP systolic 136–157; BP diastolic 68–100; PULSE 58–75; RESP 16; TEMP 36.4–37.1; O2SAT 93–97; BMI 26.9
[2024-09-27] MEDS: 0.9% Normal Saline (1000mL) 1,000 ML 100 ML IV (00:02)
[2024-09-27] MEDS: 0.9% Saline Lock 10 ML Syringe IV (00:07)
[2024-09-27 04:56] LABS: Hematocrit 29.5 % (37-47); Hemoglobin 9.9 g/dL (12.0-15.0); Immature Granulocytes Count 0.040 X10^3/uL (0.0-0.0); Mean Corp Hgb Conc 33.6 g/dL (32-36); Mean Corpuscular Volume 94.2 fL (81-99); Mean Platelet Vol. 11.8 fl (6.2-12.0); NRBC Flagged by Analyzer 0 % (0-5); Platelet Count 106 K/mm3 (150-450); RBC Distribution Width CV 13.4 % (11.6-14.6); RBC Distribution Width SD 45.5 fl (35.1-43.9); Red Blood Count 3.13 M/mm3 (4.2-5.4); White Blood Count 8.7 K/mm3 (4.4-11.0)
[2024-09-27 05:02] LABS: Prothrombin Time (Protime)PT. 15.6 SECONDS (11.7-14.9)
[2024-09-27 05:03] LABS: Partial Thromboplast Time 27.4 Seconds (24.1-36.2)
[2024-09-27 05:38] LABS: AST(SGOT) 17 U/L (<=31); Alanine Aminotransfer ALT/SGPT 10 U/L (<=34); Albumin, Serum 3.9 g/dL (3.4-4.8); Alkaline Phosphatase 77 U/L (35-104); Anion Gap 10 (5-15); BUN 21 mg/dL (4-19); BUN/Creat Ratio 22.8 RATIO (10-20); Calcium,Total 8.6 mg/dL (7.6-11.0); Carbon Dioxide 23.7 mmol/L (21.0-32.0); Chloride 110 mmol/L (98-108); Estimated Creatinine Clearance 56.40 ml/min (50-250); Globulin 2.2 g/dL (2.2-4.2); Glucose 149 mg/dL (70-99); Potassium 3.6 mmol/L (3.3-5.1)
--- NOTE | 2024-09-27 08:38 | NURSING ---
TEXT MESSAGE SENT TO DR DAVIES LETTING HIM KNOW, PT IS CONFUSED AND CANNOT SIGN CONSENT. NIECE IS UNWILLING TO GIVE CONSENT AND MESSAGE HAS BEEN LEFT W/PTS BROTHER TO CALL US BACK BUT WE HAVE NOT HEARD FROM HIM YET
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
[2024-09-27] MEDS: Potassium Chloride Oral Tablet 10 MEQ PO ×2 (11:12→20:09)
[2024-09-27] MEDS: Senna/Docusate Sodium 1 Tablet 2 TABLET PO ×2 (11:12→20:10)
--- NOTE | 2024-09-27 13:15 | CPS ---
Pt says she wears a CPAP at home but doesn't know settings so she declined our machine.
--- NOTE | 2024-09-27 13:15 | CPS ---
Pt says she wears a CPAP at home but doesn't know settings so she declined our machine.
--- NOTE | 2024-09-27 16:51 | PCM.PN.HOSP ---
Reason for Visit Reason for Visit: Diagnoses Hyperlipidemia, unspecified (09/26/24) Essential (primary) hypertension (09/26/24) Disorientation, unspecified (09/26/24) Abnormal electrocardiogram [ECG] [EKG] (09/26/24) Fracture of unspecified part of neck of left femur, initial encounter for closed fracture (09/26/24) Encounter for preprocedural cardiovascular examination (09/26/24) Subjective Subjective Patient was seen and examined today, she is confused and I believe she has dementia. At times she is lucid, but most the time she is confused. I tried contacting her brother and her niece whose numbers were in her medical record but there was no answer at either number. She went down for repair of her hip fracture today and anesthesia declined to do the case due to concerns of a possible cardiac issue. I had cardiology see the patient and they said that they were unable to assess the patient for risk stratification for surgery due to the fact she was confused and they were unable to obtain any information from the patient. I think it is likely that the patient is on no medications at this time. Her primary care physician is in [place]. Patient's hemoglobin today was 9.9. Objective Data Objective Data Vital Signs: Vital Signs Temp Pulse Resp BP Pulse Ox O2 Del Method 97.6 F L 75 16 147/100 H 97 Room Air 09/27/24 15:52 09/27/24 15:52 09/27/24 15:52 09/27/24 15:52 09/27/24 15:52 09/27/24 15:52 Oxygen Delivery Method Room Air Weight: 77.7 kg Body Mass Index (BMI) 26.9 Intake & Output: Intake and Output for Last 24 Hours 09/25/24 09/26/24 09/27/24 23:59 23:59 23:59 Intake Total 1100 / 1100 1750 / 1750 Output Total 150 / 150 935 / 935 Balance 950 / 950 815 / 815 Lab / Micro Data 09/27/24 04:36 09/27/24 04:36 Labs: Laboratory Results - last 24 hr 09/26/24 19:42: WBC 7.5, RBC 3.59 L, Hgb 11.4 L, Hct 33.2 L, MCV 92.5, MCH 31.8, MCHC 34.3, RDW Std Deviation 45.1 H, RDW Coeff of Lisa 13.2, Plt Count 112 L, MPV 11.4, Immature Gran % (Auto) 0.400, Neut % (Auto) 77.3 H, Lymph % (Auto) 15.4 L, [place] % (Auto) 4.8, Eos % (Auto) 1.6, Baso % (Auto) 0.5, Absolute Neuts (auto) 5.8, Absolute Lymphs (auto) 1.15, Nucleated RBC % 0, Sodium 141, Potassium 3.2 L, Chloride 105, Carbon Dioxide 21.9, Anion Gap 14, BUN 22 H, Creatinine 0.91, Estim Creat Clear Calc 58.18, Est GFR (MDRD) Non-Af 66, BUN/Creatinine Ratio 24.7 H, Glucose 128 H, Calcium 9.0, Magnesium 2.2, Total Bilirubin 0.58, AST 18, ALT 9, Alkaline Phosphatase 88, NT pro BNP II 245, Total Protein 6.6, Albumin 4.1, Globulin 2.5, Albumin/Globulin Ratio 1.6 09/27/24 04:36: WBC 8.7, RBC 3.13 L, Hgb 9.9 L, Hct 29.5 L, MCV 94.2, MCH 31.6, MCHC 33.6, RDW Std Deviation 45.5 H, RDW Coeff of Lisa 13.4, Plt Count 106 L, MPV 11.8, Immature Gran % (Auto) 0.500, Neut % (Auto) 82.8 H, Lymph % (Auto) 11.4 L, [place] % (Auto) 5.0, Eos % (Auto) 0.1, Baso % (Auto) 0.2, Absolute Neuts (auto) 7.2, Absolute Lymphs (auto) 0.99, Nucleated RBC % 0, PT 15.6 H, INR 1.2, APTT 27.4, Sodium 144, Potassium 3.6, Chloride 110 H, Carbon Dioxide 23.7, Anion Gap 10, BUN 21 H, Creatinine 0.94, Estim Creat Clear Calc 56.40, Est GFR (MDRD) Non-Af 64, BUN/Creatinine Ratio 22.8 H, Glucose 149 H, Calcium 8.6, Total Bilirubin 0.60, AST 17, ALT 10, Alkaline Phosphatase 77, Total Protein 6.1, Albumin 3.9, Globulin 2.2, Albumin/Globulin Ratio 1.8, Blood Type A POSITIVE, Antibody Screen NEGATIVE Radiography Diagnostic Testing: Radiology Impression Hip/Pelvis X-Ray 09/26/24 18:52 IMPRESSION: Acute intertrochanteric fracture of the left femur. Reading Location: [facility] Rhythm Strip Rhythm Strip: Sinus Rhythm Physical Exam Const alert and no apparent distress Constitutional Narrative: Patient is confused General Appearance: cooperative, well kempt and well developed Orientation / Consciousness: awake and oriented to person HEENT normocephalic, head/scalp atraumatic and moist oral mucous membranes Eyes PERRL, EOMs intact bilaterally and conjunctivae normal Neck supple, no JVD, thyroid normal and no carotid bruits General: trachea midline Resp normal respiratory effort, no retractions, no use of accessory muscles and clear to auscultation bilaterally Auscultation: Negative for rales, rhonchi or wheezes Cardio regular rate, regular rhythm, S1 normal heart sound, S2 normal heart sound, no murmurs, no rub and no gallops GI normal to inspection, nondistended, normoactive bowel sounds, soft to palpation, non-tender and non-distended Extremity no clubbing, cyanosis or edema Skin no rashes or lesions noted General Skin Exam: no breakdown Neuro oriented x3, CN's II-XII intact bilaterally, moves all extremities, no focal motor deficits and no sensory deficits noted Sensorium / Orientation: awake and alert Speech: speech normal Psych affect normal Assessment & Plan Assessment/Plan (1) Closed left hip fracture: PLAN: Plan 1. Intertrochanteric left hip fracture secondary to osteoporosis-I will have cardiology see the patient tomorrow for a consultation again, I will obtain an echocardiogram, hopefully she will be cleared for surgery here #2 essential hypertension-patient remains on what we think is her home medications, blood pressure medications may need to be adjusted. #3 dementia-this examiner feels the patient has dementia, she has been in the hospital multiple times here with encephalopathy-I think it is likely she has dementia. #4 acute blood loss anemia secondary to left hip fracture-CBC will be monitored Patient appears medically stable at this time. Total clinical time spent by myself addressing patient's medical issues, reviewing all of her data, and collaborating with patient's care team: 35-minutes Charges/Coding Visit Charges Inpatient E&M: 89484 Subs Hosp L2
--- NOTE | 2024-09-27 17:12 | ECHOD_ITS ---
Reason For Study Reason For Study: Pre OP Procedure This was a 2D Doppler, Color Flow transthoracic echocardiogram. Patient scanned supine due to left hip fracture. Exam performed portable in patient room. Left Ventricle Mild concentric left ventricular hypertrophy. The global longitudinal strain = - 19.9 % (normal). The estimated ejection fraction is 65-70 %. Right Ventricle Normal right ventricle. Normal systolic function. Atria The left atrium is severely enlarged. Mitral Valve There is mild mitral annular calcification. Trivial mitral valve insufficiency. Tricuspid Valve Normal tricuspid valve. No tricuspid valve insufficiency. Aortic Valve Trisinus/trileaflet aortic valve. Pulmonic Valve The pulmonic valve is not well visualized. Great Vessels The aortic root is not well visualized. Pericardium/Pleural No pericardial effusion. MMode/2D Measurements & Calculations LVIDd: 5.8 cm IVSd: 1.1 cm Ao root diam: 4.0 cm LVIDs: 2.8 cm LVPWd: 1.0 cm RVDd: 4.6 cm FS: 51.3 % LAV(MOD-bp): 211.3 ml LVAd ap4: 27.3 cm2 SV(MOD-sp4): 61.4 ml LAV(MOD-bp) Indexed: 111.7 ml/m2 LVLd ap4: 7.3 cm SI(MOD-sp4): 32.4 ml/m2 LAV(MOD-sp2): 205.7 ml EDV(MOD-sp4): 87.0 ml LAV(MOD-sp4): 219.7 ml EDV(sp4-el): 86.5 ml LVAs ap4: 12.0 cm2 LVLs ap4: 5.7 cm ESV(MOD-sp4): 25.7 ml ESV(sp4-el): 21.4 ml EF(MOD-sp4): 70.5 % EF(sp4-el): 75.2 % SV(sp4-el): 65.0 ml LA A4 area: 47.6 cm2 LA dimension(2D): 5.5 cm RA A4 area: 20.2 cm2 TAPSE: 1.9 cm Time Measurements MV dec time: 0.24 sec Doppler Measurements & Calculations MV E max aníbal: 82.8 cm/sec Lat Peak E' Aníbal: 14.5 cm/sec Med Peak E' Aníbal: 8.7 cm/sec MV A max aníbal: 70.7 cm/sec E/E' lat: 5.7 E/E' med: 9.5 MV E/A: 1.2 MV V2 max: 87.4 cm/sec MV P1/2t max aníbal: 90.6 cm/sec Ao V2 max: 190.0 cm/sec MV max P.1 mmHg MV P1/2t: 76.9 msec Ao max P.4 mmHg MV V2 mean: 47.6 cm/sec Ao V2 mean: 125.9 cm/sec MV mean P.1 mmHg MV dec slope: 345.2 cm/sec2 Ao mean P.3 mmHg MV V2 VTI: 26.9 cm MVA(P1/2t): 2.9 cm2 Ao V2 VTI: 38.5 cm AV (velocity ratio): 0.85 LV V1 max: 171.1 cm/sec PA V2 max: 126.4 cm/sec LV V1 max P.7 mmHg PA V2 mean: 86.9 cm/sec LV V1 mean P.5 mmHg LV V1 mean: 109.6 cm/sec LV V1 VTI: 32.7 cm ECHO/Echo Complete Interpretation Summary The estimated ejection fraction is 65-70 %. Normal LV systolic function Mild concentric left ventricular hypertrophy Comparison to previous echocardiogram no significant change noted. Ordering Physician: Demond Sutherland Performed By: Demetrius Harding RCS
[2024-09-28] VITALS (17 sets, daily range): BP systolic 122–155; BP diastolic 47–93; PULSE 58–75; RESP 14–18; TEMP 36.1–37.3; O2SAT 88–99
--- NOTE | 2024-09-28 00:53 | CPS ---
Patient declines cpap need during her stay
--- NOTE | 2024-09-28 00:53 | CPS ---
Patient declines cpap need during her stay
[2024-09-28 06:04] LABS: Hematocrit 27.8 % (37-47); Hemoglobin 9.3 g/dL (12.0-15.0); Immature Granulocytes Count 0.020 X10^3/uL (0.0-0.0); Mean Corp Hgb Conc 33.5 g/dL (32-36); Mean Corpuscular Volume 95.5 fL (81-99); Mean Platelet Vol. 11.8 fl (6.2-12.0); NRBC Flagged by Analyzer 0 % (0-5); POSITIVE COUNT YES; Platelet Count 84 K/mm3 (150-450); RBC Distribution Width CV 13.3 % (11.6-14.6); RBC Distribution Width SD 46.6 fl (35.1-43.9); Red Blood Count 2.91 M/mm3 (4.2-5.4); White Blood Count 8.5 K/mm3 (4.4-11.0)
[2024-09-28 06:15] LABS: Differential Indicated SCAN CRITERIA MET
[2024-09-28 06:42] LABS: Differential Comment SCANNED
--- NOTE | 2024-09-28 11:16 | NURSING ---
call placed to Dr Hunter Geller pcp in [facility] [phone] requested home med list
--- NOTE | 2024-09-28 11:16 | NURSING ---
call placed to Dr Hunter Geller pcp in [facility] [phone] requested home med list
[2024-09-28] MEDS: Cefazolin 2 GM in 0.9% Normal Saline (100mL Bag) 100 ML IV (12:15)
[2024-09-28] MEDS: Lactated Ringers 1,000 ML 15 ML IV (12:47)
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
--- NOTE | 2024-09-28 14:30 | RAD_ITS ---
PROCEDURE: HIP MIN 2 VIEWS (PORTABLE); O.R. FLUORO FOR C-ARM 09/28/2024 REASON FOR EXAM: FX; HIP FX TECHNIQUE: HIP MIN 2 VIEWS (PORTABLE); O.R. FLUORO FOR C-ARM Fluoroscopy time: 59.9 seconds. Dose: 15.18 mGy. RAD/O.R. Fluoro for C-Arm IMPRESSION: Intraoperative fluoroscopy was performed 4 fracture fixation of the proximal le ft femoral fracture site. 6 fluoroscopic images were obtained. Reading Location: [place] [id number]
--- NOTE | 2024-09-28 14:30 | RAD_ITS ---
PROCEDURE: HIP MIN 2 VIEWS (PORTABLE); O.R. FLUORO FOR C-ARM 09/28/2024 REASON FOR EXAM: FX; HIP FX TECHNIQUE: HIP MIN 2 VIEWS (PORTABLE); O.R. FLUORO FOR C-ARM Fluoroscopy time: 59.9 seconds. Dose: 15.18 mGy. RAD/O.R. Fluoro for C-Arm IMPRESSION: Intraoperative fluoroscopy was performed 4 fracture fixation of the proximal le ft femoral fracture site. 6 fluoroscopic images were obtained. Reading Location: [place] [address]
--- NOTE | 2024-09-28 14:30 | RAD_ITS ---
PROCEDURE: HIP MIN 2 VIEWS (PORTABLE); O.R. FLUORO FOR C-ARM 09/28/2024 REASON FOR EXAM: FX; HIP FX TECHNIQUE: HIP MIN 2 VIEWS (PORTABLE); O.R. FLUORO FOR C-ARM Fluoroscopy time: 59.9 seconds. Dose: 15.18 mGy. RAD/Hip Min 2 Views (Portable) IMPRESSION: Intraoperative fluoroscopy was performed 4 fracture fixation of the proximal le ft femoral fracture site. 6 fluoroscopic images were obtained. Reading Location: [place] [address]
--- NOTE | 2024-09-28 14:30 | RAD_ITS ---
PROCEDURE: HIP MIN 2 VIEWS (PORTABLE); O.R. FLUORO FOR C-ARM 09/28/2024 REASON FOR EXAM: FX; HIP FX TECHNIQUE: HIP MIN 2 VIEWS (PORTABLE); O.R. FLUORO FOR C-ARM Fluoroscopy time: 59.9 seconds. Dose: 15.18 mGy. RAD/Hip Min 2 Views (Portable) IMPRESSION: Intraoperative fluoroscopy was performed 4 fracture fixation of the proximal le ft femoral fracture site. 6 fluoroscopic images were obtained. Reading Location: [place] [address]
[2024-09-28] MEDS: Bupiv/Epi 0.25% 30 ML Vial (14:56)
--- NOTE | 2024-09-28 15:19 | PCM.POST.ANE ---
Anesthesia: Postop Eval I Current Vital Signs Temperature: 99.2 F Pulse Rate: 72 Blood Pressure: 143/63 Respiratory Rate: 18 Pulse Ox: 93 Assessment Airway patent: Yes Spontaneous unlabored respirations: No nausea: No Vomiting: No Anesthesia Complication: No Fluid Hydration Crystalloid volume administer (ml): 1,000 Total IV fluid infused: 1,000 Progress Note Anesthesia document: Postop Eval 1 completed: Yes
--- NOTE | 2024-09-28 15:33 | OP.PCM_ITS ---
Operative Report (Standard) Operative Information Date of Procedure: 09/28/24 Pre-Operative Diagnosis: Left intertrochanteric femur fracture Post-Operative Diagnosis: Left intertrochanteric femur fracture Surgery/Procedure Performed: Left femur cephalomedullary nailing shotblaster: Yes Security Officer: Devika Gaffney Tasks completed by respiratory care assistant: Opening & closing, Implanting device and Hemostasis: Electrocautery Additional child welfare assistant?: No Type of Anesthesia: General RN Documented Start/Stop Times: Operation Date: 09/28/24 13:45 Case Time Into Pre-Op 09/28/24 12:30 Out of Pre-Op 09/28/24 14:07 Anesthesia Start 09/28/24 14:11 Into Room 09/28/24 14:11 Procedure Start 09/28/24 14:36 Procedure End 09/28/24 15:11 Anesthesia End 09/28/24 15:15 Out of Room 09/28/24 15:15 Into Recovery 09/28/24 15:18 Procedure Start Time: 14:36 Procedure Stop Time: 15:11 Select all DRAINS/GRAFTS/IMPLANTS that apply: Implanted device Implanted device details: [employer] gamma 3 left cephalomedullary nail 180 mm x 11 mm 125 degrees, lag screw 10.5 x 95 mm, interlocking screw 5 x 35 mm Estimated Blood Loss: 150 cc Specimen collected: No Description of surgery: Patient was seen in preoperative holding area. She was identified by name, medical record number, date of . The operative extremity was marked with a surgical marker. We confirmed informed consent with the patient and questions were answered to her satisfaction. Patient was brought to the operative suite, and general anesthesia was induced on her hospital bed. Endotracheal tube was secured. After adequate anesthesia, patient was transferred to a fracture table with all bony prominences being well-padded. A perineal post was placed to secure the patient on the table. We then applied a ski boot which was well-padded to the operative extremity. The well leg was dropped into extension and secured to the axial post of the fracture table with a pillow and Coban. The left arm was brought across patient's chest with a blanket on her chest. We then performed a closed reduction maneuver with external rotation, traction, internal rotation and adduction. Fluoroscopic images were obtained. Fracture appeared to be acceptably reduced following closed reduction. We then prepped and draped the left lower extremity in normal, sterile orthopedic fashion. A timeout was performed with all parties in attendance in agreement with the side, site, and operation be performed. 2 g Ancef was administered prior to incision. No concerns were voiced and we elected to proceed. I first used fluoroscopy to indra the level of the fracture and planned incision for insertion of the cephalomedullary nail device. In line with the long axis of the femur, 4 fingerbreadths proximal to the tip of the greater trochanter, a full-thickness skin incision was planned.. Skin was sharply incised with 10 blade scalpel, carried into the subcutaneous tissues. The IT band was encountered and split and planned trajectory of the nail placement. The greater trochanter was then able to be palpated digitally. I then placed a guidewire just medial to the tip of the greater trochanter and in the anterior third of it on the lateral. Opening reamer was then placed over top of the guidewire after placement was confirmed on C arm. A ball-tipped guidewire then was passed into the intramedullary canal after reamer was removed. We used C arm to confirm our placement within the bone. We selected her nail to be 18 cm x 11 mm diameter. Reamers were removed. Nail was assembled on the back table. We placed it over the ball-tipped guidewire and impacted to an appropriate depth. Rotation was confirmed on the lateral. Drill sleeve was placed through the targeting guide. We drilled the pin for the lag screw at an appropriate position and depth, tip to apex distance less than 25 mm on AP and lateral combined. Depth gauge was used to measure the length of the screw, 95 mm. We then used the cannulated drill to drill to an appropriate depth. Drill was removed, drill pin left in place. Lag screw was placed over top of the drill pin and tightened to an appropriate depth. Setscrew was then placed and tightened, and then turned back a quarter turn to allow the lag screw to slide. I then drilled for a static interlocking screw in the distal portion of the screw utilizing the outrigger. Skin was incised full-thickness down the level of the IT band which was also split in line with the skin incision. I drilled bicortically through the distal interlocking slot of the nail. I measured for a 35 mm interlocking screw which was placed by hand with excellent purchase. Instruments were removed as well as the outrigger for the nail. Final fluoroscopic images were obtained at the hip. Final fluoroscopic images were obtained. We irrigated the wounds copiously with normal saline solution. Hemostasis was excellent at this point. We then closed the deeper layers, IT band with 0 Vicryl. Intradermal buried stitches of 2-0 Vicryl were utilized and skin finally reapproximated with skin silvia. Sterile compression dressing of Xeroform, 4 x 4's, and Tegaderm was applied. Patient tolerated procedure well without complication. She was transferred back to her hospital bed and subsequently to PACU in stable condition. Need for skilled child welfare assistant: Devika Gaffney PA-C was critical to the outcome of the case. During the course of the procedure the physician child welfare assistant played a vital role. Her intimate knowledge of my steps in the procedure aided in safe and expedient completion of the procedure. The PA played a vital role in positioning particularly in obtaining the appropriate positioning. The PA was also vital in the retraction of soft tissues during the exposure and protecting vital structures. The PA was also vital and obtaining fracture reduction and assisting with hardware placement. She also played a vital role in closure and dressing application with my direct supervision. Intraoperative medications: 2 g Ancef IV Post Operative Plan: Weightbearing: Weightbearing as tolerated left lower extremity with a walker Antibiotics: Ancef 2 g x 3 doses postoperatively, 1 dose given preoperatively DVT Prophylaxis: Lovenox to start tomorrow morning Trevino: None Dressing: Dry sterile dressing changes daily and as needed for saturation X-Rays: 2 weeks postop in the office Follow-up: 2 weeks post-operatively at [facility] Surgical Findings: Left comminuted intertrochanteric femur fracture. Stable following fixation. Complications Complications: No Admit VTE Documentation VTE Present on Admission: No VTE Mechan Device Prophylaxis: SCD's and Knee High NATHAN Hose VTE Pharm Prophylaxis ordered?: Yes
--- NOTE | 2024-09-28 15:33 | OP.PCM_ITS ---
Operative Report (Standard) Operative Information Date of Procedure: 09/28/24 Pre-Operative Diagnosis: Left intertrochanteric femur fracture Post-Operative Diagnosis: Left intertrochanteric femur fracture Surgery/Procedure Performed: Left femur cephalomedullary nailing lithographic photographer: Yes Heel Compressor: Devika Gaffney Tasks completed by first aid trainer: Opening & closing, Implanting device and Hemostasis: Electrocautery Additional tiler's assistant?: No Type of Anesthesia: General RN Documented Start/Stop Times: Operation Date: 09/28/24 13:45 Case Time Into Pre-Op 09/28/24 12:30 Out of Pre-Op 09/28/24 14:07 Anesthesia Start 09/28/24 14:11 Into Room 09/28/24 14:11 Procedure Start 09/28/24 14:36 Procedure End 09/28/24 15:11 Anesthesia End 09/28/24 15:15 Out of Room 09/28/24 15:15 Into Recovery 09/28/24 15:18 Procedure Start Time: 14:36 Procedure Stop Time: 15:11 Select all DRAINS/GRAFTS/IMPLANTS that apply: Implanted device Implanted device details: [employer] gamma 3 left cephalomedullary nail 180 mm x 11 mm 125 degrees, lag screw 10.5 x 95 mm, interlocking screw 5 x 35 mm Estimated Blood Loss: 150 cc Specimen collected: No Description of surgery: Patient was seen in preoperative holding area. She was identified by name, medical record number, date of . The operative extremity was marked with a surgical marker. We confirmed informed consent with the patient and questions were answered to her satisfaction. Patient was brought to the operative suite, and general anesthesia was induced on her hospital bed. Endotracheal tube was secured. After adequate anesthesia, patient was transferred to a fracture table with all bony prominences being well-padded. A perineal post was placed to secure the patient on the table. We then applied a ski boot which was well-padded to the operative extremity. The well leg was dropped into extension and secured to the axial post of the fracture table with a pillow and Coban. The left arm was brought across patient's chest with a blanket on her chest. We then performed a closed reduction maneuver with external rotation, traction, internal rotation and adduction. Fluoroscopic images were obtained. Fracture appeared to be acceptably reduced following closed reduction. We then prepped and draped the left lower extremity in normal, sterile orthopedic fashion. A timeout was performed with all parties in attendance in agreement with the side, site, and operation be performed. 2 g Ancef was administered prior to incision. No concerns were voiced and we elected to proceed. I first used fluoroscopy to indra the level of the fracture and planned incision for insertion of the cephalomedullary nail device. In line with the long axis of the femur, 4 fingerbreadths proximal to the tip of the greater trochanter, a full-thickness skin incision was planned.. Skin was sharply incised with 10 blade scalpel, carried into the subcutaneous tissues. The IT band was encountered and split and planned trajectory of the nail placement. The greater trochanter was then able to be palpated digitally. I then placed a guidewire just medial to the tip of the greater trochanter and in the anterior third of it on the lateral. Opening reamer was then placed over top of the guidewire after placement was confirmed on C arm. A ball-tipped guidewire then was passed into the intramedullary canal after reamer was removed. We used C arm to confirm our placement within the bone. We selected her nail to be 18 cm x 11 mm diameter. Reamers were removed. Nail was assembled on the back table. We placed it over the ball-tipped guidewire and impacted to an appropriate depth. Rotation was confirmed on the lateral. Drill sleeve was placed through the targeting guide. We drilled the pin for the lag screw at an appropriate position and depth, tip to apex distance less than 25 mm on AP and lateral combined. Depth gauge was used to measure the length of the screw, 95 mm. We then used the cannulated drill to drill to an appropriate depth. Drill was removed, drill pin left in place. Lag screw was placed over top of the drill pin and tightened to an appropriate depth. Setscrew was then placed and tightened, and then turned back a quarter turn to allow the lag screw to slide. I then drilled for a static interlocking screw in the distal portion of the screw utilizing the outrigger. Skin was incised full-thickness down the level of the IT band which was also split in line with the skin incision. I drilled bicortically through the distal interlocking slot of the nail. I measured for a 35 mm interlocking screw which was placed by hand with excellent purchase. Instruments were removed as well as the outrigger for the nail. Final fluoroscopic images were obtained at the hip. Final fluoroscopic images were obtained. We irrigated the wounds copiously with normal saline solution. Hemostasis was excellent at this point. We then closed the deeper layers, IT band with 0 Vicryl. Intradermal buried stitches of 2-0 Vicryl were utilized and skin finally reapproximated with skin silvia. Sterile compression dressing of Xeroform, 4 x 4's, and Tegaderm was applied. Patient tolerated procedure well without complication. She was transferred back to her hospital bed and subsequently to PACU in stable condition. Need for skilled tiler's assistant: Devika Gaffney PA-C was critical to the outcome of the case. During the course of the procedure the physician tiler's assistant played a vital role. Her intimate knowledge of my steps in the procedure aided in safe and expedient completion of the procedure. The PA played a vital role in positioning particularly in obtaining the appropriate positioning. The PA was also vital in the retraction of soft tissues during the exposure and protecting vital structures. The PA was also vital and obtaining fracture reduction and assisting with hardware placement. She also played a vital role in closure and dressing application with my direct supervision. Intraoperative medications: 2 g Ancef IV Post Operative Plan: Weightbearing: Weightbearing as tolerated left lower extremity with a walker Antibiotics: Ancef 2 g x 3 doses postoperatively, 1 dose given preoperatively DVT Prophylaxis: Lovenox to start tomorrow morning Trevino: None Dressing: Dry sterile dressing changes daily and as needed for saturation X-Rays: 2 weeks postop in the office Follow-up: 2 weeks post-operatively at [facility] Surgical Findings: Left comminuted intertrochanteric femur fracture. Stable following fixation. Complications Complications: No Admit VTE Documentation VTE Present on Admission: No VTE Mechan Device Prophylaxis: SCD's and Knee High NATHAN Hose VTE Pharm Prophylaxis ordered?: Yes
--- NOTE | 2024-09-28 16:42 | PN.CARD_ITS ---
Subjective Subjective Patient has echocardiogram and is scheduled for left comminuted intertrochanteric femur fracture surgery. Objective Data Vital Signs: Vital Signs Temp Pulse Resp BP Pulse Ox O2 Del Method O2 Flow Rate 98.6 F 71 16 131/77 H 99 Nasal Cannula 2 09/28/24 16:30 09/28/24 16:30 09/28/24 16:30 09/28/24 16:30 09/28/24 16:30 09/28/24 16:30 09/28/24 16:30 Oxygen Flow Rate (L/min) 2 Oxygen Delivery Method Nasal Cannula Weight: 171 lb 4.787 oz Body Mass Index (BMI) 26.9 Intake & Output: Intake and Output for Last 24 Hours 09/26/24 09/27/24 09/28/24 23:59 23:59 23:59 Intake Total 1100 / 1100 2350 / 2350 1155.25 / 1155.25 Output Total 150 / 150 1635 / 1885 650 / 650 Balance 950 / 950 715 / 465 505.25 / 505.25 Lab / Micro Data 09/28/24 05:36 09/27/24 04:36 Labs: Laboratory Results - last 24 hr 09/28/24 05:36: WBC 8.5, RBC 2.91 L, Hgb 9.3 L, Hct 27.8 L, MCV 95.5, MCH 32.0, MCHC 33.5, RDW Std Deviation 46.6 H, RDW Coeff of Lisa 13.3, Plt Count 84 L, MPV 11.8, Immature Gran % (Auto) 0.200, Neut % (Auto) 73.3 H, Lymph % (Auto) 16.5 L, [place] % (Auto) 9.2, Eos % (Auto) 0.6, Baso % (Auto) 0.2, Absolute Neuts (auto) 6.2, Absolute Lymphs (auto) 1.41, Nucleated RBC % 0, Differential Comment SCANNED, Platelet Estimate MOD DEC Rhythm Strip Rhythm Strip: Sinus Rhythm Cardiology Labs/Tests 09/28/24 05:36: WBC 8.5, RBC 2.91 L, Hgb 9.3 L, Hct 27.8 L, MCV 95.5, MCH 32.0, MCHC 33.5, Plt Count 84 L, MPV 11.8, Immature Gran % (Auto) 0.200, Neut % (Auto) 73.3 H, Lymph % (Auto) 16.5 L, [place] % (Auto) 9.2, Eos % (Auto) 0.6, Baso % (Auto) 0.2, Absolute Neuts (auto) 6.2, Nucleated RBC % 0 Rhythm: EKG: ECHO: Stress Test: Cardiac Cath: PCI: CT Surgery: Holter monitor: EPS: PPM: CXR: Chest CT Scan: Radiography Diagnostic Testing: Radiology Impression Echocardiogram 09/27/24 17:12 Interpretation Summary The estimated ejection fraction is 65-70 %. Normal LV systolic function Mild concentric left ventricular hypertrophy Comparison to previous echocardiogram no significant change noted. Ordering Physician: Demond Sutherland Performed By: Demetrius Harding [facility] C-Arm Fluoroscopy 09/28/24 14:30 IMPRESSION: Intraoperative fluoroscopy was performed 4 fracture fixation of the proximal left femoral fracture site. 6 fluoroscopic images were obtained. Reading Location: [place] [address] Hip X-Ray 09/28/24 14:30 IMPRESSION: Intraoperative fluoroscopy was performed 4 fracture fixation of the proximal left femoral fracture site. 6 fluoroscopic images were obtained. Reading Location: [place] [address] Assessment & Plan Assessment/Plan (1) Preoperative cardiovascular examination: (2) Closed left hip fracture: (3) Hypertension: (4) HLD (hyperlipidemia): PLAN: Cardiac care plan recommendation 73-year-old patient with history of a fall and sustained left comminuted intertrochanteric femur fracture Patient had a history of hypertension Hyperlipidemia And has an EKG which showed PVCs with some T wave inversion in the anterior lateral. Patient was confused which make it difficult to proper assess For preop evaluation and risk stratification I reviewed all the current evaluation here including the EKG current lab result as well as the recent echocardiogram Which showed LV function preserved with no wall motion abnormality and no significant valve abnormality Further I discussed with the anesthesiologist From cardiac standpoint send moderate risk for left intertrochanteric comminuted femur fracture surgery Patient is cleared From cardiac standpoint we will be available if further cardiac needs arise Beny Napoles MD,[facility]
--- NOTE | 2024-09-28 16:42 | PN.CARD_ITS ---
Subjective Subjective Patient has echocardiogram and is scheduled for left comminuted intertrochanteric femur fracture surgery. Objective Data Vital Signs: Vital Signs Temp Pulse Resp BP Pulse Ox O2 Del Method O2 Flow Rate 98.6 F 71 16 131/77 H 99 Nasal Cannula 2 09/28/24 16:30 09/28/24 16:30 09/28/24 16:30 09/28/24 16:30 09/28/24 16:30 09/28/24 16:30 09/28/24 16:30 Oxygen Flow Rate (L/min) 2 Oxygen Delivery Method Nasal Cannula Weight: 171 lb 4.787 oz Body Mass Index (BMI) 26.9 Intake & Output: Intake and Output for Last 24 Hours 09/26/24 09/27/24 09/28/24 23:59 23:59 23:59 Intake Total 1100 / 1100 2350 / 2350 1155.25 / 1155.25 Output Total 150 / 150 1635 / 1885 650 / 650 Balance 950 / 950 715 / 465 505.25 / 505.25 Lab / Micro Data 09/28/24 05:36 09/27/24 04:36 Labs: Laboratory Results - last 24 hr 09/28/24 05:36: WBC 8.5, RBC 2.91 L, Hgb 9.3 L, Hct 27.8 L, MCV 95.5, MCH 32.0, MCHC 33.5, RDW Std Deviation 46.6 H, RDW Coeff of Lisa 13.3, Plt Count 84 L, MPV 11.8, Immature Gran % (Auto) 0.200, Neut % (Auto) 73.3 H, Lymph % (Auto) 16.5 L, [place] % (Auto) 9.2, Eos % (Auto) 0.6, Baso % (Auto) 0.2, Absolute Neuts (auto) 6.2, Absolute Lymphs (auto) 1.41, Nucleated RBC % 0, Differential Comment SCANNED, Platelet Estimate MOD DEC Rhythm Strip Rhythm Strip: Sinus Rhythm Cardiology Labs/Tests 09/28/24 05:36: WBC 8.5, RBC 2.91 L, Hgb 9.3 L, Hct 27.8 L, MCV 95.5, MCH 32.0, MCHC 33.5, Plt Count 84 L, MPV 11.8, Immature Gran % (Auto) 0.200, Neut % (Auto) 73.3 H, Lymph % (Auto) 16.5 L, [place] % (Auto) 9.2, Eos % (Auto) 0.6, Baso % (Auto) 0.2, Absolute Neuts (auto) 6.2, Nucleated RBC % 0 Rhythm: EKG: ECHO: Stress Test: Cardiac Cath: PCI: CT Surgery: Holter monitor: EPS: PPM: CXR: Chest CT Scan: Radiography Diagnostic Testing: Radiology Impression Echocardiogram 09/27/24 17:12 Interpretation Summary The estimated ejection fraction is 65-70 %. Normal LV systolic function Mild concentric left ventricular hypertrophy Comparison to previous echocardiogram no significant change noted. Ordering Physician: Demond Sutherland Performed By: Demetrius Harding [facility] C-Arm Fluoroscopy 09/28/24 14:30 IMPRESSION: Intraoperative fluoroscopy was performed 4 fracture fixation of the proximal left femoral fracture site. 6 fluoroscopic images were obtained. Reading Location: [place] [address] Hip X-Ray 09/28/24 14:30 IMPRESSION: Intraoperative fluoroscopy was performed 4 fracture fixation of the proximal left femoral fracture site. 6 fluoroscopic images were obtained. Reading Location: [place] [address] Assessment & Plan Assessment/Plan (1) Preoperative cardiovascular examination: (2) Closed left hip fracture: (3) Hypertension: (4) HLD (hyperlipidemia): PLAN: Cardiac care plan recommendation 73-year-old patient with history of a fall and sustained left comminuted intertrochanteric femur fracture Patient had a history of hypertension Hyperlipidemia And has an EKG which showed PVCs with some T wave inversion in the anterior lateral. Patient was confused which make it difficult to proper assess For preop evaluation and risk stratification I reviewed all the current evaluation here including the EKG current lab result as well as the recent echocardiogram Which showed LV function preserved with no wall motion abnormality and no significant valve abnormality Further I discussed with the anesthesiologist From cardiac standpoint send moderate risk for left intertrochanteric comminuted femur fracture surgery Patient is cleared From cardiac standpoint we will be available if further cardiac needs arise Beny Napoles MD,[facility]
--- NOTE | 2024-09-28 16:48 | POSTOPAN2_ITS ---
Anesthesia Postop Eval I Sum Postop Eval Completion status Anesthesia document: Postop Eval 1 completed: Yes Anesthesia Postop Eval I Summary Anesthesia Postop Eval I Summary: Anesthesia Postop Eval I: Assessment Summary Airway patent Yes 09/28/24 15:19 GASKET WINDER.CSIR Spontaneous unlabored No 09/28/24 15:19 GASKET WINDER.CSIR respirations Mental status nausea No 09/28/24 15:19 GASKET WINDER.CSIR Vomiting No 09/28/24 15:19 GASKET WINDER.CSIR Anesthesia Postop Eval I: Fluid Summary Crystalloid volume administer 1,000 09/28/24 15:19 GASKET WINDER.CSIR (ml) Colloids volume administered ( ml) Blood Product volume administered (ml) Total IV fluid infused 1,000 09/28/24 15:19 GASKET WINDER.CSIR Anesthesia Postop Eval I: Summary Notes Anesthesia Complication No 09/28/24 15:19 GASKET WINDER.CSIR Anesthesia Complication Comment: Post-operative progress note Anesthesia: Postop Eval II Evaluation Mental status: Awake Pain Level: 2 nausea: No Vomiting: No
--- NOTE | 2024-09-28 16:48 | POSTOPAN2_ITS ---
Anesthesia Postop Eval I Sum Postop Eval Completion status Anesthesia document: Postop Eval 1 completed: Yes Anesthesia Postop Eval I Summary Anesthesia Postop Eval I Summary: Anesthesia Postop Eval I: Assessment Summary Airway patent Yes 09/28/24 15:19 EDUCATIONAL PROGRAM DIRECTOR.CSIR Spontaneous unlabored No 09/28/24 15:19 EDUCATIONAL PROGRAM DIRECTOR.CSIR respirations Mental status nausea No 09/28/24 15:19 EDUCATIONAL PROGRAM DIRECTOR.CSIR Vomiting No 09/28/24 15:19 EDUCATIONAL PROGRAM DIRECTOR.CSIR Anesthesia Postop Eval I: Fluid Summary Crystalloid volume administer 1,000 09/28/24 15:19 EDUCATIONAL PROGRAM DIRECTOR.CSIR (ml) Colloids volume administered ( ml) Blood Product volume administered (ml) Total IV fluid infused 1,000 09/28/24 15:19 EDUCATIONAL PROGRAM DIRECTOR.CSIR Anesthesia Postop Eval I: Summary Notes Anesthesia Complication No 09/28/24 15:19 EDUCATIONAL PROGRAM DIRECTOR.CSIR Anesthesia Complication Comment: Post-operative progress note Anesthesia: Postop Eval II Evaluation Mental status: Awake Pain Level: 2 nausea: No Vomiting: No
--- NOTE | 2024-09-28 16:48 | PCM.POSTANE2 ---
Anesthesia Postop Eval I Sum Postop Eval Completion status Anesthesia document: Postop Eval 1 completed: Yes Anesthesia Postop Eval I Summary Anesthesia Postop Eval I Summary: Anesthesia Postop Eval I: Assessment Summary Airway patent Yes 09/28/24 15:19 PROPERTY CUSTODIAN.CSIR Spontaneous unlabored No 09/28/24 15:19 PROPERTY CUSTODIAN.CSIR respirations Mental status nausea No 09/28/24 15:19 PROPERTY CUSTODIAN.CSIR Vomiting No 09/28/24 15:19 PROPERTY CUSTODIAN.CSIR Anesthesia Postop Eval I: Fluid Summary Crystalloid volume administer 1,000 09/28/24 15:19 PROPERTY CUSTODIAN.CSIR (ml) Colloids volume administered ( ml) Blood Product volume administered (ml) Total IV fluid infused 1,000 09/28/24 15:19 PROPERTY CUSTODIAN.CSIR Anesthesia Postop Eval I: Summary Notes Anesthesia Complication No 09/28/24 15:19 PROPERTY CUSTODIAN.CSIR Anesthesia Complication Comment: Post-operative progress note Anesthesia: Postop Eval II Evaluation Mental status: Awake Pain Level: 2 nausea: No Vomiting: No
--- NOTE | 2024-09-28 16:48 | PCM.POSTANE2 ---
Anesthesia Postop Eval I Sum Postop Eval Completion status Anesthesia document: Postop Eval 1 completed: Yes Anesthesia Postop Eval I Summary Anesthesia Postop Eval I Summary: Anesthesia Postop Eval I: Assessment Summary Airway patent Yes 09/28/24 15:19 INDUSTRIAL ELECTRICAL TECHNICIAN.CSIR Spontaneous unlabored No 09/28/24 15:19 INDUSTRIAL ELECTRICAL TECHNICIAN.CSIR respirations Mental status nausea No 09/28/24 15:19 INDUSTRIAL ELECTRICAL TECHNICIAN.CSIR Vomiting No 09/28/24 15:19 INDUSTRIAL ELECTRICAL TECHNICIAN.CSIR Anesthesia Postop Eval I: Fluid Summary Crystalloid volume administer 1,000 09/28/24 15:19 INDUSTRIAL ELECTRICAL TECHNICIAN.CSIR (ml) Colloids volume administered ( ml) Blood Product volume administered (ml) Total IV fluid infused 1,000 09/28/24 15:19 INDUSTRIAL ELECTRICAL TECHNICIAN.CSIR Anesthesia Postop Eval I: Summary Notes Anesthesia Complication No 09/28/24 15:19 INDUSTRIAL ELECTRICAL TECHNICIAN.CSIR Anesthesia Complication Comment: Post-operative progress note Anesthesia: Postop Eval II Evaluation Mental status: Awake Pain Level: 2 nausea: No Vomiting: No
--- NOTE | 2024-09-28 17:15 | PN.HOSP_ITS ---
Reason for Visit Reason for Visit: Diagnoses Hyperlipidemia, unspecified (09/26/24) Essential (primary) hypertension (09/26/24) Disorientation, unspecified (09/26/24) Abnormal electrocardiogram [ECG] [EKG] (09/26/24) Fracture of unspecified part of neck of left femur, initial encounter for closed fracture (09/26/24) Encounter for preprocedural cardiovascular examination (09/26/24) Subjective Subjective Patient was seen and examined today she still exhibits some confusion, cardiology saw her today and stated she was stable to undergo left hip fracture repair. Objective Data Objective Data Vital Signs: Vital Signs Temp Pulse Resp BP Pulse Ox O2 Del Method O2 Flow Rate 97.7 F L 70 18 131/62 H 95 Room Air 2 09/28/24 16:53 09/28/24 16:53 09/28/24 16:53 09/28/24 16:53 09/28/24 16:53 09/28/24 16:53 09/28/24 16:30 Oxygen Flow Rate (L/min) 2 Oxygen Delivery Method Room Air Weight: 77.7 kg Body Mass Index (BMI) 26.9 Intake & Output: Intake and Output for Last 24 Hours 09/26/24 09/27/24 09/28/24 23:59 23:59 23:59 Intake Total 1100 / 1100 2350 / 2350 1155.25 / 1155.25 Output Total 150 / 150 1635 / 1885 650 / 650 Balance 950 / 950 715 / 465 505.25 / 505.25 Lab / Micro Data 09/28/24 05:36 09/27/24 04:36 Labs: Laboratory Results - last 24 hr 09/28/24 05:36: WBC 8.5, RBC 2.91 L, Hgb 9.3 L, Hct 27.8 L, MCV 95.5, MCH 32.0, MCHC 33.5, RDW Std Deviation 46.6 H, RDW Coeff of Lisa 13.3, Plt Count 84 L, MPV 11.8, Immature Gran % (Auto) 0.200, Neut % (Auto) 73.3 H, Lymph % (Auto) 16.5 L, [place] % (Auto) 9.2, Eos % (Auto) 0.6, Baso % (Auto) 0.2, Absolute Neuts (auto) 6.2, Absolute Lymphs (auto) 1.41, Nucleated RBC % 0, Differential Comment SCANNED, Platelet Estimate MOD DEC Radiography Diagnostic Testing: Radiology Impression Echocardiogram 09/27/24 17:12 Interpretation Summary The estimated ejection fraction is 65-70 %. Normal LV systolic function Mild concentric left ventricular hypertrophy Comparison to previous echocardiogram no significant change noted. Ordering Physician: Demond Sutherland Performed By: Demetrius Harding RCS C-Arm Fluoroscopy 09/28/24 14:30 IMPRESSION: Intraoperative fluoroscopy was performed 4 fracture fixation of the proximal left femoral fracture site. 6 fluoroscopic images were obtained. Reading Location: [place] [address] Hip X-Ray 09/28/24 14:30 IMPRESSION: Intraoperative fluoroscopy was performed 4 fracture fixation of the proximal left femoral fracture site. 6 fluoroscopic images were obtained. Reading Location: [place] [address] Rhythm Strip Rhythm Strip: Sinus Rhythm Physical Exam Narrative alert and no apparent distress Constitutional Narrative: Patient is confused General Appearance: cooperative, well kempt and well developed Orientation / Consciousness: awake and oriented to person HEENT normocephalic, head/scalp atraumatic and moist oral mucous membranes Eyes PERRL, EOMs intact bilaterally and conjunctivae normal Neck supple, no JVD, thyroid normal and no carotid bruits General: trachea midline Resp normal respiratory effort, no retractions, no use of accessory muscles and clear to auscultation bilaterally Auscultation: Negative for rales, rhonchi or wheezes Cardio regular rate, regular rhythm, S1 normal heart sound, S2 normal heart sound, no murmurs, no rub and no gallops GI normal to inspection, nondistended, normoactive bowel sounds, soft to palpation, non-tender and non-distended Extremity no clubbing, cyanosis or edema Skin no rashes or lesions noted General Skin Exam: no breakdown Neuro oriented x3, CN's II-XII intact bilaterally, moves all extremities, no focal motor deficits and no sensory deficits noted Sensorium / Orientation: awake and alert Speech: speech normal Psych affect normal Assessment & Plan Assessment/Plan (1) Closed left hip fracture: PLAN: Plan 1. Intertrochanteric left hip fracture secondary to osteoporosis-status post left femur cephalomedullary nailing postop day 0-patient will be seen by PT and OT, she will need to go to a detention facility for skilled services when she is discharged from hospital #2 essential hypertension-patient remains on what we think is her home medications, blood pressure medications may need to be adjusted. #3 dementia-this examiner feels the patient has dementia, she has been in the hospital multiple times here with encephalopathy-I think it is likely she has dementia. #4 acute blood loss anemia secondary to left hip fracture-CBC will be monitored Patient appears medically stable at this time. Total clinical time spent by myself addressing patient's medical issues, reviewing all of her data, and collaborating with patient's care team: 35- minutes Charges/Coding Visit Charges Inpatient E&M: 39737 Subs Hosp L2
[2024-09-28] MEDS: 0.9% Saline Lock 10 ML Syringe IV (19:47)
[2024-09-28] MEDS: Cefazolin 1 GM/50 ML BAG IV (19:48)
[2024-09-29] VITALS (8 sets, daily range): BP systolic 111–139; BP diastolic 56–88; PULSE 69–89; RESP 16–18; TEMP 36.4–37.2; O2SAT 93–96; BMI 25.8
[2024-09-29] MEDS: MELATONIN 3 MG TABLET PO ×2 (00:02→22:16)
[2024-09-29] MEDS: Potassium Chloride Oral Tablet 10 MEQ PO ×3 (00:02→21:32)
[2024-09-29] MEDS: Senna/Docusate Sodium 1 Tablet 2 TABLET PO ×3 (00:02→21:33)
[2024-09-29] MEDS: Cefazolin 1 GM/50 ML BAG IV ×2 (05:12→11:41)
[2024-09-29 07:18] LABS: Hematocrit 25.4 % (37-47); Hemoglobin 8.4 g/dL (12.0-15.0); Mean Corp Hgb Conc 33.1 g/dL (32-36); Mean Corpuscular Volume 96.2 fL (81-99); Mean Platelet Vol. 11.9 fl (6.2-12.0); POSITIVE COUNT YES; Platelet Count 91 K/mm3 (150-450); RBC Distribution Width CV 13.5 % (11.6-14.6); RBC Distribution Width SD 47.7 fl (35.1-43.9); Red Blood Count 2.64 M/mm3 (4.2-5.4); White Blood Count 11.8 K/mm3 (4.4-11.0)
[2024-09-29 07:51] LABS: Anion Gap 10 (5-15); BUN 18 mg/dL (4-19); BUN/Creat Ratio 18.4 RATIO (10-20); Calcium,Total 8.6 mg/dL (7.6-11.0); Carbon Dioxide 24.4 mmol/L (21.0-32.0); Chloride 106 mmol/L (98-108); Estimated Creatinine Clearance 54.22 ml/min (50-250); Glucose 156 mg/dL (70-99); Potassium 3.5 mmol/L (3.3-5.1)
--- NOTE | 2024-09-29 08:37 | PCM.PN.ORT ---
Subjective Subjective Patient seen and examined. Reports soreness in her left hip. Denies fevers, chills, nausea vomiting, chest pain or shortness of breath. Objective Data Objective Data Vital Signs: Vital Signs Temp Pulse Resp BP Pulse Ox O2 Del Method O2 Flow Rate 98 F 89 16 111/57 L 95 Nasal Cannula 2 09/29/24 04:53 09/29/24 07:47 09/29/24 04:53 09/29/24 04:53 09/29/24 04:53 09/29/24 07:48 09/29/24 07:48 Oxygen Flow Rate (L/min) 2 Oxygen Delivery Method Nasal Cannula Weight: 164 lb 7.437 oz Body Mass Index (BMI) 25.8 Intake & Output: Intake and Output for Last 24 Hours 09/27/24 09/28/24 09/29/24 23:59 23:59 23:59 Intake Total 2350 / 2350 1205.25 / 1205.25 50 / 50 Output Total 1635 / 1885 850 / 850 250 / 250 Balance 715 / 465 355.25 / 355.25 -200 / -200 Lab / Micro Data 09/29/24 07:05 09/29/24 06:00 Labs: Laboratory Results - last 24 hr 09/29/24 06:00: Sodium 140, Potassium 3.5, Chloride 106, Carbon Dioxide 24.4, Anion Gap 10, BUN 18, Creatinine 0.96, Estim Creat Clear Calc 54.22, Est GFR (MDRD) Non-Af 62, BUN/Creatinine Ratio 18.4, Glucose 156 H, Calcium 8.6 09/29/24 07:05: WBC 11.8 H, RBC 2.64 L, Hgb 8.4 L, Hct 25.4 L, MCV 96.2, MCH 31.8, MCHC 33.1, RDW Std Deviation 47.7 H, RDW Coeff of Lisa 13.5, Plt Count 91 L, MPV 11.9 Radiography Diagnostic Testing: Radiology Impression Echocardiogram 09/27/24 17:12 Interpretation Summary The estimated ejection fraction is 65-70 %. Normal LV systolic function Mild concentric left ventricular hypertrophy Comparison to previous echocardiogram no significant change noted. Ordering Physician: Demond Sutherland Performed By: Demetrius Harding RCS C-Arm Fluoroscopy 09/28/24 14:30 IMPRESSION: Intraoperative fluoroscopy was performed 4 fracture fixation of the proximal left femoral fracture site. 6 fluoroscopic images were obtained. Reading Location: [facility]- Hip X-Ray 09/28/24 14:30 IMPRESSION: Intraoperative fluoroscopy was performed 4 fracture fixation of the proximal left femoral fracture site. 6 fluoroscopic images were obtained. Reading Location: [place] [address] Rhythm Strip Rhythm Strip: Sinus Rhythm Physical Exam Narrative General - A&Ox3, NAD. VSS/AF Left lower extremity -incisional dressings C/D/I. SILT Sural, Saphenous, SPN, DPN, Tibial N. distributions. DP, PT 2+. BCR. DF, PF, EHL 5/5. No calf TTP. Assessment & Plan Assessment/Plan (1) Closed left hip fracture: QUALIFIERS: Encounter type: initial encounter Qualified Code(s): S72.002A - Fracture of unspecified part of neck of left femur, initial encounter for closed fracture PLAN: POD# 1 s/p left femur CMN -Patient doing well from my standpoint today. Expected decrease in hemoglobin from 9.3 to 8.4 likely multifactorial secondary to acute blood loss from surgery, dilution in the setting of chronic anemia. Hemodynamically stable. No indication for transfusion from my standpoint. Recommend repeat H&H tomorrow. - Pain control - Medicine following for medical management - PT/OT -weightbearing as tolerated left lower extremity - DVT PPX -Multimodal with SCDs, NATHAN anguiano, early mobilization, Lovenox x 20 days postoperatively - Case management - D/C planning. Anticipate need for halfway. Patient doing well from my standpoint. I will sign off today. Please do not hesitate to call if any questions or concerns arise. Discharge instructions: Weightbearing as tolerated left lower extremity. Continue PT/OT upon discharge. Maintain surgical dressings until postoperative day #5 then okay to leave open to air. She may shower if no drainage after that time. Dry sterile dressing changes as needed if saturation occurs. Continue dry sterile dressing changes if drainage persists. Follow-up at [facility] in 2 weeks. We will obtain x-rays at that time and remove surgical silvia. Continue anticoagulant for 28 days postoperatively.
--- NOTE | 2024-09-29 08:37 | PCM.PN.ORT ---
Subjective Subjective Patient seen and examined. Reports soreness in her left hip. Denies fevers, chills, nausea vomiting, chest pain or shortness of breath. Objective Data Objective Data Vital Signs: Vital Signs Temp Pulse Resp BP Pulse Ox O2 Del Method O2 Flow Rate 98 F 89 16 111/57 L 95 Nasal Cannula 2 09/29/24 04:53 09/29/24 07:47 09/29/24 04:53 09/29/24 04:53 09/29/24 04:53 09/29/24 07:48 09/29/24 07:48 Oxygen Flow Rate (L/min) 2 Oxygen Delivery Method Nasal Cannula Weight: 164 lb 7.437 oz Body Mass Index (BMI) 25.8 Intake & Output: Intake and Output for Last 24 Hours 09/27/24 09/28/24 09/29/24 23:59 23:59 23:59 Intake Total 2350 / 2350 1205.25 / 1205.25 50 / 50 Output Total 1635 / 1885 850 / 850 250 / 250 Balance 715 / 465 355.25 / 355.25 -200 / -200 Lab / Micro Data 09/29/24 07:05 09/29/24 06:00 Labs: Laboratory Results - last 24 hr 09/29/24 06:00: Sodium 140, Potassium 3.5, Chloride 106, Carbon Dioxide 24.4, Anion Gap 10, BUN 18, Creatinine 0.96, Estim Creat Clear Calc 54.22, Est GFR (MDRD) Non-Af 62, BUN/Creatinine Ratio 18.4, Glucose 156 H, Calcium 8.6 09/29/24 07:05: WBC 11.8 H, RBC 2.64 L, Hgb 8.4 L, Hct 25.4 L, MCV 96.2, MCH 31.8, MCHC 33.1, RDW Std Deviation 47.7 H, RDW Coeff of Lisa 13.5, Plt Count 91 L, MPV 11.9 Radiography Diagnostic Testing: Radiology Impression Echocardiogram 09/27/24 17:12 Interpretation Summary The estimated ejection fraction is 65-70 %. Normal LV systolic function Mild concentric left ventricular hypertrophy Comparison to previous echocardiogram no significant change noted. Ordering Physician: Demond Sutherland Performed By: Demetrius Harding RCS C-Arm Fluoroscopy 09/28/24 14:30 IMPRESSION: Intraoperative fluoroscopy was performed 4 fracture fixation of the proximal left femoral fracture site. 6 fluoroscopic images were obtained. Reading Location: [facility]- Hip X-Ray 09/28/24 14:30 IMPRESSION: Intraoperative fluoroscopy was performed 4 fracture fixation of the proximal left femoral fracture site. 6 fluoroscopic images were obtained. Reading Location: [place] [address] Rhythm Strip Rhythm Strip: Sinus Rhythm Physical Exam Narrative General - A&Ox3, NAD. VSS/AF Left lower extremity -incisional dressings C/D/I. SILT Sural, Saphenous, SPN, DPN, Tibial N. distributions. DP, PT 2+. BCR. DF, PF, EHL 5/5. No calf TTP. Assessment & Plan Assessment/Plan (1) Closed left hip fracture: QUALIFIERS: Encounter type: initial encounter Qualified Code(s): S72.002A - Fracture of unspecified part of neck of left femur, initial encounter for closed fracture PLAN: POD# 1 s/p left femur CMN -Patient doing well from my standpoint today. Expected decrease in hemoglobin from 9.3 to 8.4 likely multifactorial secondary to acute blood loss from surgery, dilution in the setting of chronic anemia. Hemodynamically stable. No indication for transfusion from my standpoint. Recommend repeat H&H tomorrow. - Pain control - Medicine following for medical management - PT/OT -weightbearing as tolerated left lower extremity - DVT PPX -Multimodal with SCDs, NATHAN anguiano, early mobilization, Lovenox x 20 days postoperatively - Case management - D/C planning. Anticipate need for nursing home. Patient doing well from my standpoint. I will sign off today. Please do not hesitate to call if any questions or concerns arise. Discharge instructions: Weightbearing as tolerated left lower extremity. Continue PT/OT upon discharge. Maintain surgical dressings until postoperative day #5 then okay to leave open to air. She may shower if no drainage after that time. Dry sterile dressing changes as needed if saturation occurs. Continue dry sterile dressing changes if drainage persists. Follow-up at [facility] in 2 weeks. We will obtain x-rays at that time and remove surgical silvia. Continue anticoagulant for 28 days postoperatively.
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
--- NOTE | 2024-09-29 12:04 | PN.HOSP_ITS ---
Reason for Visit Reason for Visit: Diagnoses Hyperlipidemia, unspecified (09/26/24) Essential (primary) hypertension (09/26/24) Disorientation, unspecified (09/26/24) Abnormal electrocardiogram [ECG] [EKG] (09/26/24) Fracture of unspecified part of neck of left femur, initial encounter for closed fracture (09/26/24) Encounter for preprocedural cardiovascular examination (09/26/24) Subjective Subjective Patient is a 73-year-old lady who presented with left hip pain following a fall, imaging studies on admission demonstrated acute intertrochanteric fracture involving the left femur. Admitted to regular nursing floor for further management Objective Data Objective Data Vital Signs: Vital Signs Temp Pulse Resp BP Pulse Ox O2 Del Method O2 Flow Rate 99 F 69 18 125/67 H 94 Room Air 2 09/29/24 08:56 09/29/24 08:56 09/29/24 08:56 09/29/24 08:56 09/29/24 08:56 09/29/24 08:56 09/29/24 07:48 Oxygen Flow Rate (L/min) 2 Oxygen Delivery Method Room Air Weight: 74.6 kg Body Mass Index (BMI) 25.8 Intake & Output: Intake and Output for Last 24 Hours 09/27/24 09/28/24 09/29/24 23:59 23:59 23:59 Intake Total 2350 / 2350 1205.25 / 1205.25 50 / 50 Output Total 1635 / 1885 850 / 850 250 / 250 Balance 715 / 465 355.25 / 355.25 -200 / -200 Lab / Micro Data 09/29/24 07:05 09/29/24 06:00 Labs: Laboratory Results - last 24 hr 09/29/24 06:00: Sodium 140, Potassium 3.5, Chloride 106, Carbon Dioxide 24.4, Anion Gap 10, BUN 18, Creatinine 0.96, Estim Creat Clear Calc 54.22, Est GFR (MDRD) Non-Af 62, BUN/Creatinine Ratio 18.4, Glucose 156 H, Calcium 8.6 09/29/24 07:05: WBC 11.8 H, RBC 2.64 L, Hgb 8.4 L, Hct 25.4 L, MCV 96.2, MCH 31.8, MCHC 33.1, RDW Std Deviation 47.7 H, RDW Coeff of Lisa 13.5, Plt Count 91 L , MPV 11.9 Radiography Diagnostic Testing: Radiology Impression Echocardiogram 09/27/24 17:12 Interpretation Summary The estimated ejection fraction is 65-70 %. Normal LV systolic function Mild concentric left ventricular hypertrophy Comparison to previous echocardiogram no significant change noted. Ordering Physician: Demond Sutherland Performed By: Demetrius Harding RCS C-Arm Fluoroscopy 09/28/24 14:30 IMPRESSION: Intraoperative fluoroscopy was performed 4 fracture fixation of the proximal left femoral fracture site. 6 fluoroscopic images were obtained. Reading Location: [facility]- Hip X-Ray 09/28/24 14:30 IMPRESSION: Intraoperative fluoroscopy was performed 4 fracture fixation of the proximal left femoral fracture site. 6 fluoroscopic images were obtained. Reading Location: [facility]- Rhythm Strip Rhythm Strip: Sinus Rhythm Physical Exam Narrative GENERAL: cooperative HEENT: Atraumatic; normocephalic EYES; Anicteric, Normal Conjunctiva NECK; supple, normal thyroid, RESPIRATORY: Diminished to auscultation CARDIOVASCULAR: Regular S1 S2, GI: soft, normoactive bowel sounds, : No Renal angle tenderness; EXTREMITIES: Incision site CDI MUSCULOSKELETAL: no muscle wasting NEURO: Awake; no lateralizing signs. SKIN: No Rash PSYCH; Flat affect Assessment & Plan Assessment/Plan (1) Closed left hip fracture: QUALIFIERS: Encounter type: initial encounter Qualified Code(s): S72.002A - Fracture of unspecified part of neck of left femur, initial encounter for closed fracture PLAN: Plan Patient is a 73-year-old lady who presented with left hip pain following a fall, imaging studies on admission demonstrated acute intertrochanteric fracture involving the left femur. Admitted to regular nursing floor for further management 1. Acute intertrochanteric fracture involving the left femur following a fall ? Patient underwent Left femur cephalomedullary nailing by Dr. Jacobs on 09/28/2024. Subsequently ordered PT/OT in addition to pain management 2. Physical deconditioning secondary to above ? Requested for PT OT eval and social services counselor to assist with discharge planning 3. Anemia ? Secondary to acute blood loss anemia superimposed chronic disorder monitoring H&H and transfuse if patient becomes symptomatic or hemoglobin falls below 7. Patient was started on iron supplement 4. Hypertension ? Blood pressure controlled, home medications continued with dose adjustment as needed 5. Gout ? Patient is on allopurinol 6. Dyslipidemia ?Patient is on statin therapy, continued at home dose 7. Hypothyroidism ? Patient is on levothyroxine home dose continued 8. GERD ? Patient was on propranolol 9. Depression with anxiety ? Patient is on sertraline No. 10. Osteoporosis ? Patient is on alendronate 70 mg q. weekly plan is to resume on discharge 11. DVT prophylaxis ? On enoxaparin Time spent in the patient's overall evaluation,decision-making process, review of diagnostic data, adjustment of management, discussion with other providers, nursing nursing and ancillary staff involved in patient's care documentation, 50 Minutes Charges/Coding Visit Charges Inpatient E&M: 70176 [place] [id number]
--- NOTE | 2024-09-29 12:13 | CASEMGMT ---
Addendum entered by Jeana Weir 09/29/24 13:27: [facility] has accepted and will submit for precert. Jeana Weir DC Planning Asst. Original Note: Discharge Planning Referral sent to [facility]. Jeana Weir DC Planning Asst.
--- NOTE | 2024-09-29 12:13 | CASEMGMT ---
Addendum entered by Jeana Weir 09/29/24 13:27: [facility] has accepted and will submit for precert. Jeana Weir DC Planning Asst. Original Note: Discharge Planning Referral sent to [facility]. Jeana Weir DC Planning Asst.
--- NOTE | 2024-09-29 17:13 | NURSING ---
Noticed when pt tries to walk she has been unable to move the rt side and her leg is rotated inward and she drags it. Talked with Dr. Goldsmith to see if he has noticed this prior to pt lt hip sx yesterday. Also noticed that pt has not had a head CT and was wondering if we should get one? His response was that he did not and we should ask Dr. Saldana and see if he wants this. Dr. Saldana called and said yes order a CT of brain without contrast and also order a CT of the Rt hip to make sure that she did not fracture this one as well when she had her fall. Scans ordered await results.
--- NOTE | 2024-09-29 17:45 | CT_ITS ---
PROCEDURE: EXTREMITY LOWER WITHOUT CONTRA 09/29/2024 REASON FOR EXAM: WEAKNESS/ FALL TECHNIQUE: EXTREMITY LOWER WITHOUT CONTRA Coronal and Sagittal reconstruction series were provided. One or more dose reduction techniques were used (e.g., Automated exposure control, adjustment of the mA and/or kV according to patient size, use of iterative reconstruction technique. RADIATION DOSE SUMMARY: CTDlvol: 45 mGy DLP: 1840 mGycm COMPARISON: Pelvic radiographs 09/26/2024 FINDINGS: Postoperative changes from open reduction internal fixation of the left proximal femur and right forearm on the state inspector view. No displaced fracture of the right hip or right hemipelvis. Sclerotic foci in the right iliac wing and right sacrum, likely bone islands. Xuqy-st-viztlzwg joint space narrowing and osteophyte formation in the right hip. Degenerative changes of the lower lumbar spine and sacroiliac joints are partially imaged. There is a trace amount of air present within the urinary bladder. Prominent loops of air-filled small bowel measuring up to 3.5 cm in diameter. Visualized pelvic contents are otherwise unremarkable. There is a focus of subcutaneous emphysema in the lower right abdominal wall. CT/Extremity Lower without Contra IMPRESSION: 1. No displaced fracture of the right hip or hemipelvis. Consider MRI if ther e is persistent clinical concern for nondisplaced fracture. 2. Trace intraluminal air in the urinary bladder. Correlate for recent instru mentation, otherwise consider emphysematous cystitis. 3. Mildly dilated loops of small bowel in the pelvis, possibly the result of i leus. Consider dedicated imaging if there is concern for bowel obstruction. 4. Focus of subcutaneous emphysema in the right lower abdominal wall. Correla te for history of subcutaneous injection in this location. Reading Location: [id number]
--- NOTE | 2024-09-29 17:45 | CT_ITS ---
PROCEDURE: BRAIN/HEAD WITHOUT CONTRAST 09/29/2024 REASON FOR EXAM: RT LOWER SIDE WEAKNESS TECHNIQUE: BRAIN/HEAD WITHOUT CONTRAST Coronal and Sagittal reconstruction series were provided. One or more dose reduction techniques were used (e.g., Automated exposure control, adjustment of the mA and/or kV according to patient size, use of iterative reconstruction technique. RADIATION DOSE SUMMARY: CTDlvol: 44.99+ 27.07 mGy DLP: 1840.23 mGycm COMPARISON: None. FINDINGS: Mild global parenchymal atrophy. Periventricular white matter hypodensity likely representing chronic microvascular ischemia. No evidence of acute hemorrhage or infarction. No extra-axial blood or fluid collections. The paranasal sinuses and mastoid air cells are clear. The calvarial vault and skull base are intact. CT/Brain/Head without Contrast IMPRESSION: No acute intracranial abnormality. Reading Location: [place] [id number]
--- NOTE | 2024-09-29 17:45 | CT_ITS ---
PROCEDURE: EXTREMITY LOWER WITHOUT CONTRA 09/29/2024 REASON FOR EXAM: WEAKNESS/ FALL TECHNIQUE: EXTREMITY LOWER WITHOUT CONTRA Coronal and Sagittal reconstruction series were provided. One or more dose reduction techniques were used (e.g., Automated exposure control, adjustment of the mA and/or kV according to patient size, use of iterative reconstruction technique. RADIATION DOSE SUMMARY: CTDlvol: 45 mGy DLP: 1840 mGycm COMPARISON: Pelvic radiographs 09/26/2024 FINDINGS: Postoperative changes from open reduction internal fixation of the left proximal femur and right forearm on the inspector quality assurance view. No displaced fracture of the right hip or right hemipelvis. Sclerotic foci in the right iliac wing and right sacrum, likely bone islands. Gfhw-my-styyndgw joint space narrowing and osteophyte formation in the right hip. Degenerative changes of the lower lumbar spine and sacroiliac joints are partially imaged. There is a trace amount of air present within the urinary bladder. Prominent loops of air-filled small bowel measuring up to 3.5 cm in diameter. Visualized pelvic contents are otherwise unremarkable. There is a focus of subcutaneous emphysema in the lower right abdominal wall. CT/Extremity Lower without Contra IMPRESSION: 1. No displaced fracture of the right hip or hemipelvis. Consider MRI if ther e is persistent clinical concern for nondisplaced fracture. 2. Trace intraluminal air in the urinary bladder. Correlate for recent instru mentation, otherwise consider emphysematous cystitis. 3. Mildly dilated loops of small bowel in the pelvis, possibly the result of i leus. Consider dedicated imaging if there is concern for bowel obstruction. 4. Focus of subcutaneous emphysema in the right lower abdominal wall. Correla te for history of subcutaneous injection in this location. Reading Location: [id number]
--- NOTE | 2024-09-29 17:45 | CT_ITS ---
PROCEDURE: BRAIN/HEAD WITHOUT CONTRAST 09/29/2024 REASON FOR EXAM: RT LOWER SIDE WEAKNESS TECHNIQUE: BRAIN/HEAD WITHOUT CONTRAST Coronal and Sagittal reconstruction series were provided. One or more dose reduction techniques were used (e.g., Automated exposure control, adjustment of the mA and/or kV according to patient size, use of iterative reconstruction technique. RADIATION DOSE SUMMARY: CTDlvol: 44.99+ 27.07 mGy DLP: 1840.23 mGycm COMPARISON: None. FINDINGS: Mild global parenchymal atrophy. Periventricular white matter hypodensity likely representing chronic microvascular ischemia. No evidence of acute hemorrhage or infarction. No extra-axial blood or fluid collections. The paranasal sinuses and mastoid air cells are clear. The calvarial vault and skull base are intact. CT/Brain/Head without Contrast IMPRESSION: No acute intracranial abnormality. Reading Location: [place] [id number]
[2024-09-30] VITALS (9 sets, daily range): BP systolic 81–110; BP diastolic 42–70; PULSE 65–95; RESP 16–18; TEMP 36.2–36.8; O2SAT 93–97; BMI 26.6
[2024-09-30 06:18] LABS: Hematocrit 25.2 % (37-47); Hemoglobin 8.4 g/dL (12.0-15.0); Mean Corp Hgb Conc 33.3 g/dL (32-36); Mean Corpuscular Volume 94.4 fL (81-99); Mean Platelet Vol. 12.4 fl (6.2-12.0); Platelet Count 113 K/mm3 (150-450); RBC Distribution Width CV 13.6 % (11.6-14.6); RBC Distribution Width SD 46.5 fl (35.1-43.9); Red Blood Count 2.67 M/mm3 (4.2-5.4); White Blood Count 11.4 K/mm3 (4.4-11.0)
--- NOTE | 2024-09-30 07:24 | PCM.PN.HOSP ---
Reason for Visit Reason for Visit: Diagnoses Hyperlipidemia, unspecified (09/26/24) Essential (primary) hypertension (09/26/24) Disorientation, unspecified (09/26/24) Abnormal electrocardiogram [ECG] [EKG] (09/26/24) Fracture of unspecified part of neck of left femur, initial encounter for closed fracture (09/26/24) Encounter for preprocedural cardiovascular examination (09/26/24) Subjective Subjective Patient was noted to have subjective weakness involving the right lower extremity the day prior. Subsequent imaging studies with head CT and CT of the pelvis did not reveal any acute stroke nor fracture. Plan is to continue with therapy Objective Data Objective Data Vital Signs: Vital Signs Temp Pulse Resp BP Pulse Ox O2 Del Method O2 Flow Rate 97.8 F 74 18 128/88 H 96 Nasal Cannula 2 09/29/24 21:31 09/29/24 21:32 09/29/24 21:31 09/29/24 21:32 09/30/24 07:08 09/30/24 07:08 09/30/24 07:08 Oxygen Flow Rate (L/min) 2 Oxygen Delivery Method Nasal Cannula Weight: 76.9 kg Body Mass Index (BMI) 26.6 Intake & Output: Intake and Output for Last 24 Hours 09/28/24 09/29/24 09/30/24 23:59 23:59 23:59 Intake Total 1205.25 / 1205.25 150 / 150 Output Total 850 / 850 550 / 550 Balance 355.25 / 355.25 -400 / -400 Lab / Micro Data 09/30/24 05:35 09/30/24 05:35 Labs: Laboratory Results - last 24 hr 09/29/24 06:00: Sodium 140, Potassium 3.5, Chloride 106, Carbon Dioxide 24.4, Anion Gap 10, BUN 18, Creatinine 0.96, Estim Creat Clear Calc 54.22, Est GFR (MDRD) Non-Af 62, BUN/Creatinine Ratio 18.4, Glucose 156 H, Calcium 8.6 09/29/24 07:05: WBC 11.8 H, RBC 2.64 L, Hgb 8.4 L, Hct 25.4 L, MCV 96.2, MCH 31.8, MCHC 33.1, RDW Std Deviation 47.7 H, RDW Coeff of Lisa 13.5, Plt Count 91 L, MPV 11.9 09/30/24 05:35: WBC 11.4 H, RBC 2.67 L, Hgb 8.4 L, Hct 25.2 L, MCV 94.4, MCH 31.5, MCHC 33.3, RDW Std Deviation 46.5 H, RDW Coeff of Lisa 13.6, Plt Count 113 L, MPV 12.4 H Radiography Diagnostic Testing: Radiology Impression Brain CT 09/29/24 17:45 IMPRESSION: No acute intracranial abnormality. Reading Location: [id number] Lower Extremity CT 09/29/24 17:45 IMPRESSION: 1. No displaced fracture of the right hip or hemipelvis. Consider MRI if there is persistent clinical concern for nondisplaced fracture. 2. Trace intraluminal air in the urinary bladder. Correlate for recent instrumentation, otherwise consider emphysematous cystitis. 3. Mildly dilated loops of small bowel in the pelvis, possibly the result of ileus. Consider dedicated imaging if there is concern for bowel obstruction. 4. Focus of subcutaneous emphysema in the right lower abdominal wall. Correlate for history of subcutaneous injection in this location. Reading Location: [id number] Rhythm Strip Rhythm Strip: Sinus Rhythm Physical Exam Narrative GENERAL: cooperative HEENT: Atraumatic; normocephalic EYES; Anicteric, Normal Conjunctiva NECK; supple, normal thyroid, RESPIRATORY: Diminished to auscultation CARDIOVASCULAR: Regular S1 S2, GI: soft, normoactive bowel sounds, : No Renal angle tenderness; EXTREMITIES: Incision site CDI MUSCULOSKELETAL: no muscle wasting NEURO: Awake; no lateralizing signs. SKIN: No Rash PSYCH; Flat affect Assessment & Plan Assessment/Plan (1) Closed left hip fracture: QUALIFIERS: Encounter type: initial encounter Qualified Code(s): S72.002A - Fracture of unspecified part of neck of left femur, initial encounter for closed fracture PLAN: Plan Patient is a 73-year-old lady who presented with left hip pain following a fall, imaging studies on admission demonstrated acute intertrochanteric fracture involving the left femur. Admitted to regular nursing floor for further management 1. Acute intertrochanteric fracture involving the left femur following a fall ? Patient underwent Left femur cephalomedullary nailing by Dr. Jacobs on 09/28/2024. Subsequently ordered PT/OT in addition to pain management ? 09/30/2024;Patient was noted to have subjective weakness involving the right lower extremity the day prior. Subsequent imaging studies with head CT and CT of the pelvis did not reveal any acute stroke nor fracture. Plan is to continue with therapy 2. Physical deconditioning secondary to above ? Requested for PT OT eval and psychiatric social worker supervisor to assist with discharge planning 3. Anemia ? Secondary to acute blood loss anemia superimposed chronic disorder monitoring H&H and transfuse if patient becomes symptomatic or hemoglobin falls below 7. Patient was started on iron supplement ? 09/30/2024; patient hemoglobin still remains low at 8.4. Had been started on p.o. iron the day prior. Will continue with monitoring 4. Hypertension ? Blood pressure controlled, home medications continued with dose adjustment as needed 5. Gout ? Patient is on allopurinol 6. Dyslipidemia ?Patient is on statin therapy, continued at home dose 7. Hypothyroidism ? Patient is on levothyroxine home dose continued 8. GERD ? Patient was on propranolol 9. Depression with anxiety ? Patient is on sertraline No. 10. Osteoporosis ? Patient is on alendronate 70 mg q. weekly plan is to resume on discharge 11. DVT prophylaxis ? On enoxaparin Time spent in the patient's overall evaluation,decision-making process, review of diagnostic data, adjustment of management, discussion with other providers, nursing nursing and ancillary staff involved in patient's care documentation, 36 minutes Charges/Coding Visit Charges Inpatient E&M: 38986 Subs Hosp L2
[2024-09-30 08:15] LABS: Anion Gap 11 (5-15); BUN 23 mg/dL (4-19); BUN/Creat Ratio 22.0 RATIO (10-20); Calcium,Total 9.0 mg/dL (7.6-11.0); Carbon Dioxide 23.8 mmol/L (21.0-32.0); Chloride 106 mmol/L (98-108); Estimated Creatinine Clearance 51.23 ml/min (50-250); Glucose 138 mg/dL (70-99); Magnesium 2.1 mg/dL (1.5-2.2); Potassium 3.2 mmol/L (3.3-5.1)
[2024-09-30] MEDS: Potassium Chloride Oral Tablet 10 MEQ PO ×2 (10:08→21:29)
[2024-09-30] MEDS: Senna/Docusate Sodium 1 Tablet 2 TABLET PO ×2 (10:08→21:29)
[2024-09-30 11:33] LABS: Color, Urine Yellow (Yellow); Glucose, Dipstick Normal (Normal); Ketone-Dipstick Negative (Negative); Leukocyte Esterase-Dipstick 25 /ul (Negative); Nitrite-Dipstick Negative (Negative); Occult Blood-Urine Negative /ul (Negative); Protein-Dipstick 15 mg/dl (Negative); Specific Gravity, Urine 1.015 (1.002-1.030); Urine Bilirubin Dipstick Negative (Negative)
[2024-09-30 11:46] LABS: Red Blood Cells-Urine 0-5 SEEN /hpf (0-5)
[2024-09-30 11:48] LABS: Mucous, Urine 1+ /hpf (<or=2+)
[2024-09-30 11:50] LABS: Squamous Epithelial Cells - UA 0-5 SEEN /hpf (5-10)
[2024-09-30] MEDS: Potassium Chloride Oral Tablet 20 MEQ 40 MEQ PO (11:56)
[2024-09-30] MEDS: 0.9% Normal Saline (500mL Bag) 500 ML 999 ML IV ×2 (13:06→13:40)
[2024-09-30] MEDS: 0.9% Saline Lock 10 ML Syringe IV (13:07)
[2024-09-30] MEDS: MELATONIN 3 MG TABLET PO (21:29)
[2024-10-01] VITALS (10 sets, daily range): BP systolic 94–132; BP diastolic 61–96; PULSE 72–148; RESP 16–20; TEMP 36.6–36.7; O2SAT 93–98; BMI 29.1
[2024-10-01 05:36] LABS: Hematocrit 25.6 % (37-47); Hemoglobin 8.4 g/dL (12.0-15.0); Mean Corp Hgb Conc 32.8 g/dL (32-36); Mean Corpuscular Volume 96.6 fL (81-99); Mean Platelet Vol. 12.1 fl (6.2-12.0); Platelet Count 129 K/mm3 (150-450); RBC Distribution Width CV 13.3 % (11.6-14.6); RBC Distribution Width SD 46.8 fl (35.1-43.9); Red Blood Count 2.65 M/mm3 (4.2-5.4); White Blood Count 9.3 K/mm3 (4.4-11.0)
[2024-10-01 06:07] LABS: Anion Gap 9 (5-15); BUN 26 mg/dL (4-19); BUN/Creat Ratio 26.6 RATIO (10-20); Calcium,Total 8.9 mg/dL (7.6-11.0); Carbon Dioxide 21.8 mmol/L (21.0-32.0); Chloride 108 mmol/L (98-108); Estimated Creatinine Clearance 56.53 ml/min (50-250); Glucose 139 mg/dL (70-99); Potassium 3.6 mmol/L (3.3-5.1)
--- NOTE | 2024-10-01 08:13 | CASEMGMT ---
Discharge Planning [facility] has obtained auth to admit. SW updated. Jeana Weir DC Planning Asst.
--- NOTE | 2024-10-01 08:13 | CASEMGMT ---
Discharge Planning [facility] obtained auth to admit. SW updated. Jeana Weir DC Planning Asst.
[2024-10-01] MEDS: Potassium Chloride Oral Tablet 10 MEQ PO ×2 (08:59→20:00)
[2024-10-01] MEDS: Senna/Docusate Sodium 1 Tablet 2 TABLET PO (08:59)
--- NOTE | 2024-10-01 09:20 | DS.PCM_ITS ---
Providers Date of Admission: 09/26/24 Date of Discharge: 10/01/24 Primary Care Physician: Justyna Primary Care Phys Consultations 09/27/24 07:20 Consult: Orthopedics Routine Consulting Provider: [facility] Reason for Consult: hip fx EMERGENT Consult: No Notified: Yes Date Notified: 09/27/24 Time Notified: 07:21 Method of Notification: Verbal 09/27/24 09:00 Consult: Cardiology Routine Consulting Provider: Kathrin Lynn Reason for Consult: surgical clearance EMERGENT Consult: No Notified: Yes Date Notified: 09/27/24 Time Notified: 09:00 Method of Notification: Verbal Reason For Visit: FALL, L HIP FRACTURE Diagnosis Discharge Diagnosis (1) Closed left hip fracture: Status: Acute Code(s): S72.002A - Fracture of unspecified part of neck of left femur, initial encounter for closed fracture Qualifiers: Encounter type: initial encounter Qualified Code(s): S72.002A - Fracture of unspecified part of neck of left femur, initial encounter for closed fracture Plan Patient is a 73-year-old lady who presented with left hip pain following a fall, imaging studies on admission demonstrated acute intertrochanteric fracture involving the left femur. Admitted to regular nursing floor for further management 1. Acute intertrochanteric fracture involving the left femur following a fall ? Patient underwent Left femur cephalomedullary nailing by Dr. Jacobs on 09/28/2024. Subsequently ordered PT/OT in addition to pain management ? 09/30/2024;Patient was noted to have subjective weakness involving the right lower extremity the day prior. Subsequent imaging studies with head CT and CT of the pelvis did not reveal any acute stroke nor fracture. Plan is to continue with therapy 2. Physical deconditioning secondary to above ? Requested for PT OT eval and social work manager to assist with discharge planning 3. Anemia ? Secondary to acute blood loss anemia superimposed chronic disorder monitoring H&H and transfuse if patient becomes symptomatic or hemoglobin falls below 7. Patient was started on iron supplement ? 09/30/2024; patient hemoglobin still remains low at 8.4. Had been started on p.o. iron the day prior. Will continue with monitoring 4. Hypertension ? Blood pressure controlled, home medications continued with dose adjustment as needed ? 10/28/2024; patient blood pressure has remained relatively low adjustment were made to her antihypertensive regimen with discontinuation of irbesartan. Did decrease dose of metoprolol furosemide and Imdur. 5. Gout ? Patient is on allopurinol 6. Dyslipidemia ?Patient is on statin therapy, continued at home dose 7. Hypothyroidism ? Patient is on levothyroxine home dose continued 8. GERD ? Patient was on propranolol 9. Depression with anxiety ? Patient is on sertraline No. 10. Osteoporosis ? Patient is on alendronate 70 mg q. weekly plan is to resume on discharge 11. DVT prophylaxis ? On enoxaparin Time spent in the patient's overall evaluation,decision-making process, review of diagnostic data, adjustment of management, discussion with other providers, nursing nursing and ancillary staff involved in patient's care documentation, 35 minutes Medications at Discharge Home Medications allopurinol 300 mg tablet 300 mg PO DAILY gout 01/27/24 atorvastatin 40 mg tablet 40 mg PO DAILY cholesterol 01/27/24 buspirone 7.5 mg tablet 7.5 mg PO TID mental health 02/01/24 levothyroxine 125 mcg tablet 125 mcg PO DAILY thyroid 02/01/24 potassium chloride 10 mEq tablet,extended release(part/cryst) (Klor-Con M) 10 meq PO BID supplement 02/01/24 sertraline 50 mg tablet 50 mg PO DAILY mental health 02/01/24 ferrous sulfate 325 mg (65 mg iron) tablet (FeroSul) 325 mg PO 1200,1700 #0 tabs 09/08/24 alendronate 70 mg tablet 70 mg PO .Q week osteoprosis 09/28/24 omeprazole 40 mg capsule,delayed release 40 mg PO DAILY gerd 09/28/24 acetaminophen 325 mg tablet 650 mg (2 x 325 mg) PO Q4H PRN PRN Fever, pain - 01/08 #0 tabs 10/01/24 enoxaparin 40 mg/0.4 mL subcutaneous syringe 40 mg (0.4 mL) subcut DAILY@0600 30 days #12 mL 10/01/24 furosemide 40 mg tablet 20 mg (1/2 x 40 mg) PO DAILY #30 tabs 10/01/24 isosorbide mononitrate 60 mg tablet,extended release 24 hr 30 mg (1/2 x 60 mg) PO DAILY heart #30 tabs 10/01/24 melatonin 3 mg tablet 3 mg PO QHS PRN PRN Insomnia #0 tabs 10/01/24 metoprolol tartrate 25 mg tablet 12.5 mg (1/2 x 25 mg) PO BID blood pressure #30 tabs 10/01/24 oxycodone 5 mg tablet 5 mg PO Q4H PRN PRN Pain Score 4-10 3 days #14 tabs 10/01/24 Physical Exam Narrative GENERAL: cooperative HEENT: Atraumatic; normocephalic EYES; Anicteric, Normal Conjunctiva NECK; supple, normal thyroid, RESPIRATORY: Diminished to auscultation CARDIOVASCULAR: Regular S1 S2, GI: soft, normoactive bowel sounds, : No Renal angle tenderness; EXTREMITIES: Incision site CDI MUSCULOSKELETAL: no muscle wasting NEURO: Awake; no lateralizing signs. SKIN: No Rash PSYCH; Flat affect Weight / BMI Weight Weight: 84.4 kg Body Mass Index (BMI) 29.1 ABG / Lab / Microbiology Data 10/01/24 05:21 10/01/24 05:21 Laboratory: Laboratory Results - last 24 hr 09/26/24 11:08: Urine Color Yellow, Urine Clarity Clear, Urine pH 6.0, Ur Specific [place] 1.015, Urine Protein 15 H, Urine Glucose (UA) Normal, Urine Ketones Negative, Urine Occult Blood Negative, Urine Nitrite Negative, Urine Bilirubin Negative, Urine Urobilinogen Normal, Ur Leukocyte Esterase 25 H, Urine RBC 0-5 SEEN, Urine WBC 0-5 SEEN, Ur Squamous Epith Cells 0-5 SEEN, Urine Bacteria RARE, Hyaline Casts >100 SEEN, Urine Mucus 1+ 10/01/24 05:21: WBC 9.3, RBC 2.65 L, Hgb 8.4 L, Hct 25.6 L, MCV 96.6, MCH 31.7, MCHC 32.8, RDW Std Deviation 46.8 H, RDW Coeff of Lisa 13.3, Plt Count 129 L, MPV 12.1 H, Sodium 139, Potassium 3.6, Chloride 108, Carbon Dioxide 21.8, Anion Gap 9, BUN 26 H, Creatinine 0.96, Estim Creat Clear Calc 56.53, Est GFR (MDRD) Non- Af 62, BUN/Creatinine Ratio 26.6 H, Glucose 139 H, Calcium 8.9 D/C Instructions Discharge Diet: No restrictions Discharge Activity: Return to Normal Activity Call your doctor if you observe: Fever of 101 or Higher, Shortness of breath, Fainting spells and Chest pain DC O2, CPAP, BIPAP Needs Home O2 Discharge instructions: No Meaningful Use Info Meaningful Use Meaningful Use Diagnoses (Choose all that apply): None applicable Ischemic Stroke Statin Dosing Therapy Reference: STATIN DOSE THERAPY REFERENCE: * Patients > 75 years receive moderate or high dose statin therapy. * Patients 75 years or YOUNGER should receive HIGH intensity statin dose unless contraindicated. You will be required to document reason for non-treatment if statin daily dose does not meet guidelines. HIGH DOSE STATIN THERAPY DAILY Atorvastatin > than or = to 40 mg Rosuvastatin > than or = to 20 mg Amlodipine + Atorvastatin > than or = to 2.5/40 mg Ezetimibe + Simvastatin 10/80 mg Simvastatin 80mg Discharge Plan Admission Admit Date/Time: 09/26/24 20:05 Attending Provider: Ealdio Danielle Primary Care Provider: Care Physician,No Primary Consulting Providers: Cathleen Vernon; Kathrin Lynn; Demond Sutherland Discharge Orders/Prescriptions Prescriptions: New acetaminophen 325 mg Tablet 650 mg PO Q4H PRN PRN (Reason: Fever, pain 1-10/10) Qty: 0 0RF enoxaparin 40 mg/0.4 mL Syringe 40 mg subcut DAILY@0600 30 Days Qty: 12 0RF melatonin 3 mg Tablet 3 mg PO QHS PRN PRN (Reason: Insomnia) Qty: 0 0RF oxycodone 5 mg Tablet 5 mg PO Q4H PRN PRN (Reason: Pain Score 4-10) 3 Days Qty: 14 0RF Continued levothyroxine 125 mcg tablet 125 mcg PO DAILY buspirone 7.5 mg tablet 7.5 mg PO TID sertraline 50 mg tablet 50 mg PO DAILY potassium chloride [Klor-Con M10] 10 mEq tablet,ER particles/crystals 10 meq PO BID atorvastatin 40 mg tablet 40 mg PO DAILY allopurinol 300 mg tablet 300 mg PO DAILY ferrous sulfate [FeroSul] 325 mg (65 mg iron) Tablet 325 mg PO 1200,1700 Qty: 0 0RF alendronate 70 mg tablet 70 mg PO .Q week omeprazole 40 mg capsule,delayed release(DR/EC) 40 mg PO DAILY Changed furosemide 40 mg Tablet 20 mg PO DAILY Qty: 30 0RF isosorbide mononitrate 60 mg tablet extended release 24 hr 30 mg PO DAILY Qty: 30 0RF metoprolol tartrate 25 mg tablet 12.5 mg PO BID Qty: 30 0RF Discontinued irbesartan 300 mg tablet 300 mg PO DAILY Referrals / Follow Up: Care Physician,No Primary [Primary Care Provider] - Disposition Disposition (needs filled in before D/C Order can be placed): [facility] Facility Charges/Coding Visit Charges Inpatient E&M: 59325 Disch Hosp >30min
--- NOTE | 2024-10-01 09:32 | TREXTCAR_ITS ---
Diet Diet Order/Speech Therapy: INPATIENT Hospital Diet / Speech Therapy Order(s) 09/30/24 15:17 Diet: Cardiac - Heart Healthy Food consistency:: Regular Liquid Consistency:: Regular/Thin Routine Orders/Code Status Code Status: Full Code DC O2, CPAP, BIPAP needs Home O2 Discharge instructions: No Wound(s) left hip: Wound Type: Surgical Incision Therapies Physical Therapy: Eval and Treat Occupational Therapy: Eval and Treat Problem/Diagnosis (1) Closed left hip fracture: Status: Acute Code(s): S72.002A - Fracture of unspecified part of neck of left femur, initial encounter for closed fracture Plan Patient is a 73-year-old lady who presented with left hip pain following a fall, imaging studies on admission demonstrated acute intertrochanteric fracture involving the left femur. Admitted to regular nursing floor for further management 1. Acute intertrochanteric fracture involving the left femur following a fall ? Patient underwent Left femur cephalomedullary nailing by Dr. Jacobs on 09/28/2024. Subsequently ordered PT/OT in addition to pain management ? 09/30/2024;Patient was noted to have subjective weakness involving the right lower extremity the day prior. Subsequent imaging studies with head CT and CT of the pelvis did not reveal any acute stroke nor fracture. Plan is to continue with therapy 2. Physical deconditioning secondary to above ? Requested for PT OT eval and social work program coordinator to assist with discharge planning 3. Anemia ? Secondary to acute blood loss anemia superimposed chronic disorder monitoring H&H and transfuse if patient becomes symptomatic or hemoglobin falls below 7. Patient was started on iron supplement ? 09/30/2024; patient hemoglobin still remains low at 8.4. Had been started on p.o. iron the day prior. Will continue with monitoring 4. Hypertension ? Blood pressure controlled, home medications continued with dose adjustment as needed ? 10/28/2024; patient blood pressure has remained relatively low adjustment were made to her antihypertensive regimen with discontinuation of irbesartan. Did decrease dose of metoprolol furosemide and Imdur. 5. Gout ? Patient is on allopurinol 6. Dyslipidemia ?Patient is on statin therapy, continued at home dose 7. Hypothyroidism ? Patient is on levothyroxine home dose continued 8. GERD ? Patient was on propranolol 9. Depression with anxiety ? Patient is on sertraline No. 10. Osteoporosis ? Patient is on alendronate 70 mg q. weekly plan is to resume on discharge 11. DVT prophylaxis ? On enoxaparin Time spent in the patient's overall evaluation,decision-making process, review of diagnostic data, adjustment of management, discussion with other providers, nursing nursing and ancillary staff involved in patient's care documentation, 35 minutes Allergies/Procedures Done in Hospital Allergies No Known Allergies Allergy (Verified 09/05/24 19:54) Type of Care/Length of Stay Estimated LOS: Convalescent Care Less Than 30 days Type of Care Needed: Skilled Rehab Potential: Good Prognosis: Good Additional Orders/Day of Discharge Day of Discharge: 10/01/24 Discharge Plan Admission Admit Date/Time: 09/26/24 20:05 Attending Provider: Eladio Danielle Primary Care Provider: Care Physician,Justyna Primary Consulting Providers: Cathleen Vernon; Kathrin Lynn; Demond Sutherland Discharge Orders/Prescriptions Prescriptions: New acetaminophen 325 mg Tablet 650 mg PO Q4H PRN PRN (Reason: Fever, pain 1-10/10) Qty: 0 0RF enoxaparin 40 mg/0.4 mL Syringe 40 mg subcut DAILY@0600 30 Days Qty: 12 0RF melatonin 3 mg Tablet 3 mg PO QHS PRN PRN (Reason: Insomnia) Qty: 0 0RF oxycodone 5 mg Tablet 5 mg PO Q4H PRN PRN (Reason: Pain Score 4-10) 3 Days Qty: 14 0RF Continued levothyroxine 125 mcg tablet 125 mcg PO DAILY buspirone 7.5 mg tablet 7.5 mg PO TID sertraline 50 mg tablet 50 mg PO DAILY potassium chloride [Klor-Con M10] 10 mEq tablet,ER particles/crystals 10 meq PO BID atorvastatin 40 mg tablet 40 mg PO DAILY allopurinol 300 mg tablet 300 mg PO DAILY ferrous sulfate [FeroSul] 325 mg (65 mg iron) Tablet 325 mg PO 1200,1700 Qty: 0 0RF alendronate 70 mg tablet 70 mg PO .Q week omeprazole 40 mg capsule,delayed release(DR/EC) 40 mg PO DAILY Changed furosemide 40 mg Tablet 20 mg PO DAILY Qty: 30 0RF isosorbide mononitrate 60 mg tablet extended release 24 hr 30 mg PO DAILY Qty: 30 0RF metoprolol tartrate 25 mg tablet 12.5 mg PO BID Qty: 30 0RF Discontinued irbesartan 300 mg tablet 300 mg PO DAILY Referrals / Follow Up: Care Physician,No Primary [Primary Care Provider] - Pb Goldsmith DO [Med Staff - Active Staff] - Within 2 Weeks Disposition Disposition (needs filled in before D/C Order can be placed): [facility] (1) Closed left hip fracture Qualifiers: Encounter type: initial encounter Qualified Code(s): S72.002A - Fracture of unspecified part of neck of left femur, initial encounter for closed fracture
--- NOTE | 2024-10-01 10:12 | RAD.NOTE ---
Trevino removed per Dr Danielle's verbal order.
--- NOTE | 2024-10-01 10:12 | RAD.NOTE ---
Trevino removed per Dr Danielle's verbal order.
--- NOTE | 2024-10-01 10:12 | CASEMGMT ---
Social Work- Precert has been obtained.? Physician updated and pt is ready for discharge today.? 7000 convalescent form completed in [facility]ENS. SW met with pt and they are agreeable to discharge plan as stated above.? DCA and bedside nurse notified of discharge; DCA to complete all final arrangements and notifications.. Disposition:[facility], skilled level of care MONICA Braswell
--- NOTE | 2024-10-01 11:34 | CASEMGMT ---
Discharge Planning Discharge orders, signed med list, and transport time sent to [facility]. Physicians will transport pt by wheelchair at 1p. Nursing, SW, and pt updated. left for pt niece (Pastora). Jeana Weir DC Planning Asst.
--- NOTE | 2024-10-01 11:34 | CASEMGMT ---
Discharge Planning Discharge orders, signed med list, and transport time sent to [facility]. Physicians will transport pt by wheelchair at 1p. Nursing, SW, and pt updated. left for pt niece (Pastora). Jeana Weir DC Planning Asst.
--- NOTE | 2024-10-01 15:21 | PN.HOSP_ITS ---
Reason for Visit Reason for Visit: Diagnoses Hyperlipidemia, unspecified (09/26/24) Essential (primary) hypertension (09/26/24) Disorientation, unspecified (09/26/24) Abnormal electrocardiogram [ECG] [EKG] (09/26/24) Fracture of unspecified part of neck of left femur, initial encounter for closed fracture (09/26/24) Encounter for preprocedural cardiovascular examination (09/26/24) Subjective Subjective Plan was for patient to have been discharged to [facility]. Patient however was noted to be tachycardic prior to being picked up by the squad. Monitoring demonstrated A-fib with RVR with heart rate in the 130s. Patient is on metoprolol which had been held earlier given her relatively low blood pressure. Patient discharge plans subsequently discontinue Objective Data Objective Data Vital Signs: Vital Signs Temp Pulse Resp BP Pulse Ox O2 Del Method O2 Flow Rate 98 F 88 18 132/94 H 95 Room Air 2 10/01/24 10:43 10/01/24 10:43 10/01/24 10:43 10/01/24 10:43 10/01/24 10:43 10/01/24 10:43 10/01/24 03:00 Oxygen Flow Rate (L/min) 2 Oxygen Delivery Method Room Air Weight: 84.4 kg Body Mass Index (BMI) 29.1 Intake & Output: Intake and Output for Last 24 Hours 09/29/24 09/30/24 10/01/24 23:59 23:59 23:59 Intake Total 150 / 150 1120 / 1120 Output Total 550 / 550 1050 / 1050 400 / 400 Balance -400 / -400 70 / 70 -400 / -400 Lab / Micro Data 10/01/24 05:21 10/01/24 05:21 Labs: Laboratory Results - last 24 hr 10/01/24 05:21: WBC 9.3, RBC 2.65 L, Hgb 8.4 L, Hct 25.6 L, MCV 96.6, MCH 31.7, MCHC 32.8, RDW Std Deviation 46.8 H, RDW Coeff of Lisa 13.3, Plt Count 129 L, MPV 12.1 H, Sodium 139, Potassium 3.6, Chloride 108, Carbon Dioxide 21.8, Anion Gap 9, BUN 26 H, Creatinine 0.96, Estim Creat Clear Calc 56.53, Est GFR (MDRD) Non- Af 62, BUN/Creatinine Ratio 26.6 H, Glucose 139 H, Calcium 8.9 Rhythm Strip Rhythm Strip: Sinus Rhythm Physical Exam Narrative GENERAL: cooperative HEENT: Atraumatic; normocephalic EYES; Anicteric, Normal Conjunctiva NECK; supple, normal thyroid, RESPIRATORY: Diminished to auscultation CARDIOVASCULAR: Regular S1 S2, GI: soft, normoactive bowel sounds, : No Renal angle tenderness; EXTREMITIES: Incision site CDI MUSCULOSKELETAL: no muscle wasting NEURO: Awake; no lateralizing signs. SKIN: No Rash PSYCH; Flat affect Const alert and no apparent distress Constitutional Narrative: Patient is confused General Appearance: cooperative, well kempt and well developed Orientation / Consciousness: awake and oriented to person HEENT normocephalic, head/scalp atraumatic and moist oral mucous membranes Eyes PERRL, EOMs intact bilaterally and conjunctivae normal Neck supple, no JVD, thyroid normal and no carotid bruits General: trachea midline Resp normal respiratory effort, no retractions, no use of accessory muscles and clear to auscultation bilaterally Auscultation: Negative for rales, rhonchi or wheezes Cardio regular rate, regular rhythm, S1 normal heart sound, S2 normal heart sound, no murmurs, no rub and no gallops GI normal to inspection, nondistended, normoactive bowel sounds, soft to palpation, non-tender and non-distended Extremity no clubbing, cyanosis or edema Skin no rashes or lesions noted General Skin Exam: no breakdown Neuro oriented x3, CN's II-XII intact bilaterally, moves all extremities, no focal motor deficits and no sensory deficits noted Sensorium / Orientation: awake and alert Speech: speech normal Psych affect normal Assessment & Plan Assessment/Plan (1) Closed left hip fracture: QUALIFIERS: Encounter type: initial encounter Qualified Code(s): S72.002A - Fracture of unspecified part of neck of left femur, initial encounter for closed fracture PLAN: Plan Patient is a 73-year-old lady who presented with left hip pain following a fall, imaging studies on admission demonstrated acute intertrochanteric fracture involving the left femur. Admitted to regular nursing floor for further management 1. Acute intertrochanteric fracture involving the left femur following a fall ? Patient underwent Left femur cephalomedullary nailing by Dr. Jacobs on 09/28/2024. Subsequently ordered PT/OT in addition to pain management ? 09/30/2024;Patient was noted to have subjective weakness involving the right lower extremity the day prior. Subsequent imaging studies with head CT and CT of the pelvis did not reveal any acute stroke nor fracture. Plan is to continue with therapy 2. Physical deconditioning secondary to above ? Requested for PT OT eval and nephrology social worker to assist with discharge planning 3. Anemia ? Secondary to acute blood loss anemia superimposed chronic disorder monitoring H&H and transfuse if patient becomes symptomatic or hemoglobin falls below 7. Patient was started on iron supplement ? 09/30/2024; patient hemoglobin still remains low at 8.4. Had been started on p.o. iron the day prior. Will continue with monitoring 4. Hypertension ? Blood pressure controlled, home medications continued with dose adjustment as needed ? 10/28/2024; patient blood pressure has remained relatively low adjustment were made to her antihypertensive regimen with discontinuation of irbesartan. Did decrease dose of metoprolol furosemide and Imdur. 5. Gout ? Patient is on allopurinol 6. Dyslipidemia ?Patient is on statin therapy, continued at home dose 7. Hypothyroidism ? Patient is on levothyroxine home dose continued 8. GERD ? Patient was on propranolol 9. Depression with anxiety ? Patient is on sertraline No. 10. Osteoporosis ? Patient is on alendronate 70 mg q. weekly plan is to resume on discharge 11. DVT prophylaxis ? On enoxaparin 11. New onset A-fib ? Patient does not have any any previous history of A-fib. Was noted to be in A-fib with RVR prior to being discharged. Patient discharged subsequently discontinued placed on continuous telemetry monitoring. As part of her evaluation ordered 2D echo as well as TSH. Patient beta-blockers resumed. Time spent in the patient's overall evaluation,decision-making process, review of diagnostic data, adjustment of management, discussion with other providers, nursing nursing and ancillary staff involved in patient's care documentation, 40 minutes Charges/Coding Visit Charges Inpatient E&M: 13665 Subs Hosp L2
--- NOTE | 2024-10-01 15:56 | NURSING ---
When physicians ambulance arrived to take pt to [facility], pt's heart rate was noted to be elevated in the 150s. Dr Danielle was notified and ordered cancellation of transfer. MS(tele) status ordered. Pt transferred back to MS bed. PO metoprolol ordered by Dr Danielle- metoprolol given. EKG ordered. Pt resting in bed. Will continue to monitor.
--- NOTE | 2024-10-01 15:56 | NURSING ---
When physicians ambulance arrived to take pt to [facility], pt's heart rate was noted to be elevated in the 150s. Dr Danielle was notified and ordered cancellation of transfer. MS(tele) status ordered. Pt transferred back to MS bed. PO metoprolol ordered by Dr Danielle- metoprolol given. EKG ordered. Pt resting in bed. Will continue to monitor.
--- NOTE | 2024-10-01 17:36 | RAD_ITS ---
PROCEDURE: CHEST PA AND LATERAL 10/01/2024 REASON FOR EXAM: ELEVATED HEART RATE TECHNIQUE: CHEST PA AND LATERAL COMPARISON: 10/01/2049 FINDINGS: Normal mediastinum. Lungs and pleural spaces are clear. RAD/Chest PA and Lateral IMPRESSION: No acute abnormality Reading [facility]
--- NOTE | 2024-10-01 17:36 | RAD_ITS ---
PROCEDURE: CHEST PA AND LATERAL 10/01/2024 REASON FOR EXAM: ELEVATED HEART RATE TECHNIQUE: CHEST PA AND LATERAL COMPARISON: 10/01/2049 FINDINGS: Normal mediastinum. Lungs and pleural spaces are clear. RAD/Chest PA and Lateral IMPRESSION: No acute abnormality Reading Location[facility]
[2024-10-01 17:44] LABS: Pro- Brain NATRIURETIC PEPTIDE 10095 pg/mL (<=1800)
[2024-10-01] MEDS: 0.9% Saline Lock 10 ML Syringe IV ×2 (19:05→22:42)
[2024-10-01] MEDS: 0.9% Normal Saline (500mL Bag) 500 ML 999 ML IV (19:05)
[2024-10-01] MEDS: MELATONIN 3 MG TABLET PO (20:00)
[2024-10-01 21:30] LABS: D-Dimer Quantitative (DVT/PE) 4.24 FEU/ug/m (0.27-0.49)
--- NOTE | 2024-10-01 22:07 | CT_ITS ---
PROCEDURE: CTA CHEST W/WO CONTRAST 10/01/2024 REASON FOR EXAM: ELEVATED D DIMER TECHNIQUE: CTA CHEST W/WO CONTRAST Multiplanar Sagittal and Coronal images were obtained. CONTRAST: Isovue 370 VOLUME: 100 mL One or more dose reduction techniques were used (e.g., Automated exposure control, adjustment of the mA and/or kV according to patient size, use of iterative reconstruction technique). RADIATION DOSE SUMMARY: CTDlvol: 25 mGy DLP: 496 mGycm COMPARISON: CT 02/01/2024 FINDINGS: Mildly enlarged thyroid gland. Unremarkable axilla. Thoracic spine degeneration. Normal esophagus. Mildly enlarged heart. Small pericardial effusion. No aortic dissection. No pulmonary embolism. Central airways are patent. Small left and tiny right-sided effusions. Bibasilar airspace disease favoring atelectasis. No consolidation, or pneumothorax. No acute upper abdominal findings. CT/CTA Chest W/WO Contrast IMPRESSION: No embolism, dissection, or pneumonia. Reading Location: [place] [address]
--- NOTE | 2024-10-01 22:07 | CT_ITS ---
PROCEDURE: CTA CHEST W/WO CONTRAST 10/01/2024 REASON FOR EXAM: ELEVATED D DIMER TECHNIQUE: CTA CHEST W/WO CONTRAST Multiplanar Sagittal and Coronal images were obtained. CONTRAST: Isovue 370 VOLUME: 100 mL One or more dose reduction techniques were used (e.g., Automated exposure control, adjustment of the mA and/or kV according to patient size, use of iterative reconstruction technique). RADIATION DOSE SUMMARY: CTDlvol: 25 mGy DLP: 496 mGycm COMPARISON: CT 02/01/2024 FINDINGS: Mildly enlarged thyroid gland. Unremarkable axilla. Thoracic spine degeneration. Normal esophagus. Mildly enlarged heart. Small pericardial effusion. No aortic dissection. No pulmonary embolism. Central airways are patent. Small left and tiny right-sided effusions. Bibasilar airspace disease favoring atelectasis. No consolidation, or pneumothorax. No acute upper abdominal findings. CT/CTA Chest W/WO Contrast IMPRESSION: No embolism, dissection, or pneumonia. Reading Location: [place] [address]
[2024-10-01] MEDS: Digoxin 250 MCG/ML Ampul 125 MCG IV (22:30)
[2024-10-02] VITALS (26 sets, daily range): BP systolic 91–142; BP diastolic 55–95; PULSE 72–143; RESP 16–23; TEMP 36.6–37.1; O2SAT 93–97; BMI 28.8
--- NOTE | 2024-10-02 01:46 | NURSING ---
Pt had to be transfered to PCU stepdown for a cardizem drip. I tried to call her brother Jarad brown and tell him about the transfer but could not reach him.
[2024-10-02] MEDS: Diltiazem 125 MG in Dextrose 5%-Water (100mL Bag) 100 ML IV (02:55)
[2024-10-02] MEDS: 0.9% Saline Lock 10 ML Syringe IV ×2 (02:58→21:34)
--- NOTE | 2024-10-02 03:37 | PN.HOSP_ITS ---
Hospitalist Note I was called by medical-surgical elastic knitter and informed patient was in atrial fibrillation with rapid ventricular response at ~140 bpm. She was initially treated with digoxin 0.25 mg IV once which transiently slowed her rate but then her RVR returned. She was then transferred to the PCU so she could be started on IV diltiazem in an effort to keep her heart rate less than 100 bpm. Patient was also noted to have an elevated D-dimer of 4.24 with subsequent negative CTA of the chest with IV contrast as noted below. Patient was noted to have an jacqueline vated TSH of 18.2 in spite of being on levothyroxine with free T3 and free T4 pending at this time. Finally, patient was noted to have a significant elevated NT pro-BNP of 10,095 pg/mL consistent with AE CHF with oral furosemide changed to IV with her previous dose of furosemide held due to low blood pressure with no dose given since since September 30, 2024 with recent echocardiogram done on September 27, 2024 which revealed LVEF of ~65-70% with normal RV, normal systolic function and severe enlargement of the Left atrium noted. [facility] [place] Imaging Services [address] [place] [id number] CTA Chest W/WO Contrast MR#: [id number] Acct: [id number] Name: PATO SANCHEZ Rep #: [id number] : 1950 F 74 From: Pelon Nam MD PCP: Care Physician,No Primary Status: ADM IN Study: CTA Chest W/WO Contrast Date of Exam: 10/01/24 Exam# [id number] Ordering Dr: Eladio Moore DO PROCEDURE: CTA CHEST W/WO CONTRAST 10/01/2024 REASON FOR EXAM: ELEVATED D DIMER TECHNIQUE: CTA CHEST W/WO CONTRAST Multiplanar Sagittal and Coronal images were obtained. CONTRAST: Isovue 370 VOLUME: 100 mL One or more dose reduction techniques were used (e.g., Automated exposure control, adjustment of the mA and/or kV according to patient size, use of iterative reconstruction technique). RADIATION DOSE SUMMARY: CTDlvol: 25 mGy DLP: 496 mGycm COMPARISON: CT 02/01/2024 FINDINGS: Mildly enlarged thyroid gland. Unremarkable axilla. Thoracic spine degeneration. Normal esophagus. Mildly enlarged heart. Small pericardial effusion. No aortic dissection. No pulmonary embolism. Central airways are patent. Small left and tiny right-sided effusions. Bibasilar airspace disease favoring atelectasis. No consolidation, or pneumothorax. No acute upper abdominal findings. CT/CTA Chest W/WO Contrast IMPRESSION: No embolism, dissection, or pneumonia. Reading Location: [place] [address] CC: Dr. Eladio Moore DO; No Primary Care Physician ~ Md Ophthalmologist: Signed
--- NOTE | 2024-10-02 03:37 | PN.HOSP_ITS ---
Hospitalist Note I was called by medical-surgical nurse and informed patient was in atrial fibrillation with rapid ventricular response at ~140 bpm. She was initially treated with digoxin 0.25 mg IV once which transiently slowed her rate but then her RVR returned. She was then transferred to the PCU so she could be started on IV diltiazem in an effort to keep her heart rate less than 100 bpm. Patient was also noted to have an elevated D-dimer of 4.24 with subsequent negative CTA of the chest with IV contrast as noted below. Patient was noted to have an jacqueline vated TSH of 18.2 in spite of being on levothyroxine with free T3 and free T4 pending at this time. Finally, patient was noted to have a significant elevated NT pro-BNP of 10,095 pg/mL consistent with AE CHF with oral furosemide changed to IV with her previous dose of furosemide held due to low blood pressure with no dose given since since September 30, 2024 with recent echocardiogram done on September 27, 2024 which revealed LVEF of ~65-70% with normal RV, normal systolic function and severe enlargement of the Left atrium noted. [facility] Imaging Services [address] [place] [id number] CTA Chest W/WO Contrast MR#: [id number] Acct: [id number] Name: PATO SANCHEZ Rep #: [id number] : 1950 F 74 From: Pelon Nam MD PCP: Care Physician,No Primary Status: ADM IN Study: CTA Chest W/WO Contrast Date of Exam: 10/01/24 Exam# [id number] Ordering Dr: Eladio Moore DO PROCEDURE: CTA CHEST W/WO CONTRAST 10/01/2024 REASON FOR EXAM: ELEVATED D DIMER TECHNIQUE: CTA CHEST W/WO CONTRAST Multiplanar Sagittal and Coronal images were obtained. CONTRAST: Isovue 370 VOLUME: 100 mL One or more dose reduction techniques were used (e.g., Automated exposure control, adjustment of the mA and/or kV according to patient size, use of iterative reconstruction technique). RADIATION DOSE SUMMARY: CTDlvol: 25 mGy DLP: 496 mGycm COMPARISON: CT 02/01/2024 FINDINGS: Mildly enlarged thyroid gland. Unremarkable axilla. Thoracic spine degeneration. Normal esophagus. Mildly enlarged heart. Small pericardial effusion. No aortic dissection. No pulmonary embolism. Central airways are patent. Small left and tiny right-sided effusions. Bibasilar airspace disease favoring atelectasis. No consolidation, or pneumothorax. No acute upper abdominal findings. CT/CTA Chest W/WO Contrast IMPRESSION: No embolism, dissection, or pneumonia. Reading Location: [place] [address] CC: Dr. Eladio Moore DO; No Primary Care Physician ~ Tag Marker: Signed
--- NOTE | 2024-10-02 05:55 | EKG12_ITS ---
Test Reason : AFIB RVR Blood Pressure : */* mmHG Vent. Rate : 119 BPM Atrial Rate : * BPM P-R Int : * ms QRS Dur : 146 ms QT Int : 368 ms P-R-T Axes : * 95 -66 degrees QTcB Int : 517 ms Atrial fibrillation with rapid ventricular response Right bundle branch block Cannot rule out Inferior infarct , age undetermined T wave abnormality, consider lateral ischemia Abnormal ECG Confirmed by JERE DEVI MD ([id number]), publishing editor RONNA RUBIO ([id number]) on 10/05/2024 1:20:45 PM Referred By: Confirmed By: JERE DEVI MD
--- NOTE | 2024-10-02 05:55 | EKG12_ITS ---
Test Reason : AFIB RVR Blood Pressure : */* mmHG Vent. Rate : 119 BPM Atrial Rate : * BPM P-R Int : * ms QRS Dur : 146 ms QT Int : 368 ms P-R-T Axes : * 95 -66 degrees QTcB Int : 517 ms Atrial fibrillation with rapid ventricular response Right bundle branch block Cannot rule out Inferior infarct , age undetermined T wave abnormality, consider lateral ischemia Abnormal ECG Confirmed by JERE DEVI MD ([id number]), news video editor RONNA RUBIO ([id number]) on 10/05/2024 1:20:45 PM Referred By: Confirmed By: JERE DEVI MD
[2024-10-02 06:27] LABS: Mucous, Urine 0 SEEN /hpf (<or=2+); Red Blood Cells-Urine 0 SEEN /hpf (0-5)
[2024-10-02 06:30] LABS: Color, Urine Yellow (Yellow); Glucose, Dipstick Normal (Normal); Ketone-Dipstick Negative (Negative); Leukocyte Esterase-Dipstick 25 /ul (Negative); Nitrite-Dipstick Negative (Negative); Occult Blood-Urine 10 /ul (Negative); Protein-Dipstick 30 mg/dl (Negative); Specific Gravity, Urine 1.010 (1.002-1.030); Urine Bilirubin Dipstick Negative (Negative)
[2024-10-02 06:48] LABS: Anion Gap 9 (5-15); BUN 23 mg/dL (4-19); BUN/Creat Ratio 25.6 RATIO (10-20); Calcium,Total 9.0 mg/dL (7.6-11.0); Carbon Dioxide 22.6 mmol/L (21.0-32.0); Chloride 110 mmol/L (98-108); Estimated Creatinine Clearance 61.28 ml/min (50-250); Free T3 1.8 pg/mL (2.18-3.98); Glucose 132 mg/dL (70-99); Potassium 3.8 mmol/L (3.3-5.1)
[2024-10-02 06:50] LABS: Pro- Brain NATRIURETIC PEPTIDE 8660 pg/mL (<=1800); Troponin T High Sensitivity 212 ng/L (<=14)
[2024-10-02 07:40] LABS: Squamous Epithelial Cells - UA 0-5 SEEN /hpf (5-10)
--- NOTE | 2024-10-02 07:40 | PN.HOSP_ITS ---
Reason for Visit Reason for Visit: Diagnoses Hyperlipidemia, unspecified (09/26/24) Essential (primary) hypertension (09/26/24) Disorientation, unspecified (09/26/24) Abnormal electrocardiogram [ECG] [EKG] (09/26/24) Fracture of unspecified part of neck of left femur, initial encounter for closed fracture (09/26/24) Encounter for preprocedural cardiovascular examination (09/26/24) Subjective Subjective Plan was for patient to have been discharged to a assisted facility she was however noted to be tachycardic with heart rates in the 130s prior to being picked up her discharge was subsequently discontinued. Patient was given metoprolol ordered checks x-ray CTA as well as D-dimer. D-dimer came back elevated CTA was negative for PE patient had to be transferred to the progressive care unit due to persistent elevated heart rate?A-fib with RVR. Patient subsequently started on diltiazem drip. Objective Data Objective Data Vital Signs: Vital Signs Temp Pulse Resp BP Pulse Ox O2 Del Method O2 Flow Rate 98.8 F 83 20 H 116/95 H 97 Room Air 2 10/02/24 02:00 10/02/24 06:30 10/02/24 06:30 10/02/24 06:30 10/02/24 06:30 10/02/24 06:30 10/01/24 21:00 Oxygen Flow Rate (L/min) 2 Oxygen Delivery Method Room Air Weight: 83.3 kg Body Mass Index (BMI) 28.8 Intake & Output: Intake and Output for Last 24 Hours 09/30/24 10/01/24 10/02/24 23:59 23:59 23:59 Intake Total 1120 / 1120 500 / 500 230.42 / 230.42 Output Total 1050 / 1050 400 / 400 600 / 600 Balance 70 / 70 100 / 100 -369.58 / -369.58 Lab / Micro Data 10/01/24 05:21 10/02/24 05:40 Labs: Laboratory Results - last 24 hr 10/01/24 16:08: D-Dimer Quant (PE/DVT) 4.24 H*, [place] [address] H, TSH 18.200 H 10/02/24 05:40: Sodium 141, Potassium 3.8, Chloride 110 H, Carbon Dioxide 22.6, Anion Gap 9, BUN 23 H, Creatinine 0.88, Estim Creat Clear Calc 61.28, Est GFR (MDRD) Non-Af 68, BUN/Creatinine Ratio 25.6 H, Glucose 132 H, Calcium 9.0, T roponin T High Sens 212 H* D, NT pro BNP II 8660 H, Free T4 0.80, Free T3 pg/dL 1.8 L 10/02/24 06:15: Urine Color Yellow, Urine Clarity Clear, Urine pH 6.0, Ur Specific [place] 1.010, Urine Protein 30 H, Urine Glucose (UA) Normal, Urine Ketones Negative, Urine Occult Blood 10 H, Urine Nitrite Negative, Urine Bilirubin Negative, Urine Urobilinogen Normal, Ur Leukocyte Esterase 25 H Radiography Diagnostic Testing: Radiology Impression Chest X-Ray 10/01/24 17:36 IMPRESSION: No acute abnormality Reading Location: [facility] Chest CTA 10/01/24 22:07 IMPRESSION: No embolism, dissection, or pneumonia. Reading Location: [place] [address] Rhythm Strip Rhythm Strip: Sinus Rhythm Physical Exam Narrative GENERAL: cooperative HEENT: Atraumatic; normocephalic EYES; Anicteric, Normal Conjunctiva NECK; supple, normal thyroid, RESPIRATORY: Diminished to auscultation CARDIOVASCULAR: Regular S1 S2, GI: soft, normoactive bowel sounds, : No Renal angle tenderness; EXTREMITIES: Incision site CDI MUSCULOSKELETAL: no muscle wasting NEURO: Awake; no lateralizing signs. SKIN: No Rash PSYCH; Flat affect Assessment & Plan Assessment/Plan (1) Closed left hip fracture: QUALIFIERS: Encounter type: initial encounter Qualified Code(s): S72.002A - Fracture of unspecified part of neck of left femur, initial encounter for closed fracture PLAN: Plan Patient is a 73-year-old lady who presented with left hip pain following a fall, imaging studies on admission demonstrated acute intertrochanteric fracture involving the left femur. Admitted to regular nursing floor for further management 1. Acute intertrochanteric fracture involving the left femur following a fall ? Patient underwent Left femur cephalomedullary nailing by Dr. Jacobs on 09/28/2024. Subsequently ordered PT/OT in addition to pain management ? 09/30/2024;Patient was noted to have subjective weakness involving the right lower extremity the day prior. Subsequent imaging studies with head CT and CT of the pelvis did not reveal any acute stroke nor fracture. Plan is to continue with therapy 2. Physical deconditioning secondary to above ? Requested for PT OT eval and social problems specialist to assist with discharge planning 3. Anemia ? Secondary to acute blood loss anemia superimposed chronic disorder monitoring H&H and transfuse if patient becomes symptomatic or hemoglobin falls below 7. Patient was started on iron supplement ? 09/30/2024; patient hemoglobin still remains low at 8.4. Had been started on p.o. iron the day prior. Will continue with monitoring 4. Hypertension ? Blood pressure controlled, home medications continued with dose adjustment as needed ? 10/28/2024; patient blood pressure has remained relatively low adjustment were made to her antihypertensive regimen with discontinuation of irbesartan. Did decrease dose of metoprolol furosemide and Imdur. 5. Gout ? Patient is on allopurinol 6. Dyslipidemia ?Patient is on statin therapy, continued at home dose 7. Hypothyroidism ? Patient is on levothyroxine home dose continued 8. GERD ? Patient was on propranolol 9. Depression with anxiety ? Patient is on sertraline No. 10. Osteoporosis ? Patient is on alendronate 70 mg q. weekly plan is to resume on discharge 11. DVT prophylaxis ? On enoxaparin ? 10/02/2024; now on apixaban 11. New onset A-fib ? Patient does not have any any previous history of A-fib. Was noted to be in A-fib with RVR prior to being discharged. Patient discharged subsequently discontinued placed on continuous telemetry monitoring. As part of her evaluation ordered 2D echo as well as TSH. Patient beta-blockers resumed. ? 10/02/2024; patient had to be transferred to the stepdown unit and subsequently started on Cardizem drip which is currently being titrated to keep heart rate less than 100. 2D echo obtained demonstrated LVEF of 65% with severely enlarged left atrium. Patient was on enoxaparin for DVT prophylaxis this has been discontinued switch to apixaban Time spent in the patient's overall evaluation,decision-making process, review of diagnostic data, adjustment of management, discussion with other providers, nursing nursing and ancillary staff involved in patient's care [id number] minutes Charges/Coding Visit Charges Inpatient E&M: 14377 Subs Hosp L3
--- NOTE | 2024-10-02 07:40 | PN.HOSP_ITS ---
Reason for Visit Reason for Visit: Diagnoses Hyperlipidemia, unspecified (09/26/24) Essential (primary) hypertension (09/26/24) Disorientation, unspecified (09/26/24) Abnormal electrocardiogram [ECG] [EKG] (09/26/24) Fracture of unspecified part of neck of left femur, initial encounter for closed fracture (09/26/24) Encounter for preprocedural cardiovascular examination (09/26/24) Subjective Subjective Plan was for patient to have been discharged to a fdc facility she was however noted to be tachycardic with heart rates in the 130s prior to being picked up her discharge was subsequently discontinued. Patient was given metoprolol ordered checks x-ray CTA as well as D-dimer. D-dimer came back elevated CTA was negative for PE patient had to be transferred to the progressive care unit due to persistent elevated heart rate?A-fib with RVR. Patient subsequently started on diltiazem drip. Objective Data Objective Data Vital Signs: Vital Signs Temp Pulse Resp BP Pulse Ox O2 Del Method O2 Flow Rate 98.8 F 83 20 H 116/95 H 97 Room Air 2 10/02/24 02:00 10/02/24 06:30 10/02/24 06:30 10/02/24 06:30 10/02/24 06:30 10/02/24 06:30 10/01/24 21:00 Oxygen Flow Rate (L/min) 2 Oxygen Delivery Method Room Air Weight: 83.3 kg Body Mass Index (BMI) 28.8 Intake & Output: Intake and Output for Last 24 Hours 09/30/24 10/01/24 10/02/24 23:59 23:59 23:59 Intake Total 1120 / 1120 500 / 500 230.42 / 230.42 Output Total 1050 / 1050 400 / 400 600 / 600 Balance 70 / 70 100 / 100 -369.58 / -369.58 Lab / Micro Data 10/01/24 05:21 10/02/24 05:40 Labs: Laboratory Results - last 24 hr 10/01/24 16:08: D-Dimer Quant (PE/DVT) 4.24 H*, [place] [address] H, TSH 18.200 H 10/02/24 05:40: Sodium 141, Potassium 3.8, Chloride 110 H, Carbon Dioxide 22.6, Anion Gap 9, BUN 23 H, Creatinine 0.88, Estim Creat Clear Calc 61.28, Est GFR (MDRD) Non-Af 68, BUN/Creatinine Ratio 25.6 H, Glucose 132 H, Calcium 9.0, T roponin T High Sens 212 H* D, [place] 8660 H, Free T4 0.80, Free T3 pg/dL 1.8 L 10/02/24 06:15: Urine Color Yellow, Urine Clarity Clear, Urine pH 6.0, Ur Specific [place] 1.010, Urine Protein 30 H, Urine Glucose (UA) Normal, Urine Ketones Negative, Urine Occult Blood 10 H, Urine Nitrite Negative, Urine Bilirubin Negative, Urine Urobilinogen Normal, Ur Leukocyte Esterase 25 H Radiography Diagnostic Testing: Radiology Impression Chest X-Ray 10/01/24 17:36 IMPRESSION: No acute abnormality Reading Location: [facility] Chest CTA 10/01/24 22:07 IMPRESSION: No embolism, dissection, or pneumonia. Reading Location: [place] [address] Rhythm Strip Rhythm Strip: Sinus Rhythm Physical Exam Narrative GENERAL: cooperative HEENT: Atraumatic; normocephalic EYES; Anicteric, Normal Conjunctiva NECK; supple, normal thyroid, RESPIRATORY: Diminished to auscultation CARDIOVASCULAR: Regular S1 S2, GI: soft, normoactive bowel sounds, : No Renal angle tenderness; EXTREMITIES: Incision site CDI MUSCULOSKELETAL: no muscle wasting NEURO: Awake; no lateralizing signs. SKIN: No Rash PSYCH; Flat affect Assessment & Plan Assessment/Plan (1) Closed left hip fracture: QUALIFIERS: Encounter type: initial encounter Qualified Code(s): S72.002A - Fracture of unspecified part of neck of left femur, initial encounter for closed fracture PLAN: Plan Patient is a 73-year-old lady who presented with left hip pain following a fall, imaging studies on admission demonstrated acute intertrochanteric fracture involving the left femur. Admitted to regular nursing floor for further management 1. Acute intertrochanteric fracture involving the left femur following a fall ? Patient underwent Left femur cephalomedullary nailing by Dr. Jacobs on 09/28/2024. Subsequently ordered PT/OT in addition to pain management ? 09/30/2024;Patient was noted to have subjective weakness involving the right lower extremity the day prior. Subsequent imaging studies with head CT and CT of the pelvis did not reveal any acute stroke nor fracture. Plan is to continue with therapy 2. Physical deconditioning secondary to above ? Requested for PT OT eval and social and human services assistant to assist with discharge planning 3. Anemia ? Secondary to acute blood loss anemia superimposed chronic disorder monitoring H&H and transfuse if patient becomes symptomatic or hemoglobin falls below 7. Patient was started on iron supplement ? 09/30/2024; patient hemoglobin still remains low at 8.4. Had been started on p.o. iron the day prior. Will continue with monitoring 4. Hypertension ? Blood pressure controlled, home medications continued with dose adjustment as needed ? 10/28/2024; patient blood pressure has remained relatively low adjustment were made to her antihypertensive regimen with discontinuation of irbesartan. Did decrease dose of metoprolol furosemide and Imdur. 5. Gout ? Patient is on allopurinol 6. Dyslipidemia ?Patient is on statin therapy, continued at home dose 7. Hypothyroidism ? Patient is on levothyroxine home dose continued 8. GERD ? Patient was on propranolol 9. Depression with anxiety ? Patient is on sertraline No. 10. Osteoporosis ? Patient is on alendronate 70 mg q. weekly plan is to resume on discharge 11. DVT prophylaxis ? On enoxaparin ? 10/02/2024; now on apixaban 11. New onset A-fib ? Patient does not have any any previous history of A-fib. Was noted to be in A-fib with RVR prior to being discharged. Patient discharged subsequently discontinued placed on continuous telemetry monitoring. As part of her evaluation ordered 2D echo as well as TSH. Patient beta-blockers resumed. ? 10/02/2024; patient had to be transferred to the stepdown unit and subsequently started on Cardizem drip which is currently being titrated to keep heart rate less than 100. 2D echo obtained demonstrated LVEF of 65% with severely enlarged left atrium. Patient was on enoxaparin for DVT prophylaxis this has been discontinued switch to apixaban Time spent in the patient's overall evaluation,decision-making process, review of diagnostic data, adjustment of management, discussion with other providers, nursing nursing and ancillary staff involved in patient's care [id number] minutes Charges/Coding Visit Charges Inpatient E&M: 24992 Subs Hosp L3
[2024-10-02 07:57] LABS: Troponin T High Sens 2 HR 228 ng/L (<=14)
[2024-10-02] MEDS: Potassium Chloride Oral Tablet 10 MEQ PO ×2 (08:13→21:29)
[2024-10-02] MEDS: Senna/Docusate Sodium 1 Tablet 2 TABLET PO ×2 (08:15→21:28)
[2024-10-02] MEDS: APIXABAN 5 MG TABLET PO (21:33)
[2024-10-02] MEDS: MELATONIN 3 MG TABLET PO (21:38)
[2024-10-03 03:00] VITALS: PULSE 88
[2024-10-03 05:18] VITALS: BP 106/71; PULSE 80; RESP 17; TEMP 36.4; O2SAT 92
--- NOTE | 2024-10-03 07:43 | PN.HOSP_ITS ---
Reason for Visit Reason for Visit: Diagnoses Hyperlipidemia, unspecified (09/26/24) Essential (primary) hypertension (09/26/24) Disorientation, unspecified (09/26/24) Abnormal electrocardiogram [ECG] [EKG] (09/26/24) Fracture of unspecified part of neck of left femur, initial encounter for closed fracture (09/26/24) Encounter for preprocedural cardiovascular examination (09/26/24) Subjective Subjective Patient blood pressure and heart rate stabilized. Plan will be for patient to be discharged to [facility]. The only change made to patient discharge medication is discontinuation of Lovenox and initiation of apixaban given her diagnosis of A- fib and findings of large left atrial enlargement Objective Data Objective Data Vital Signs: Vital Signs Temp Pulse Resp BP Pulse Ox O2 Del Method O2 Flow Rate 97.5 F L 80 17 106/71 92 Nasal Cannula 2 10/03/24 05:18 10/03/24 05:18 10/03/24 05:18 10/03/24 05:18 10/03/24 05:18 10/03/24 05:28 10/03/24 05:28 Oxygen Flow Rate (L/min) 2 Oxygen Delivery Method Nasal Cannula Weight: 83.3 kg Body Mass Index (BMI) 28.8 Intake & Output: Intake and Output for Last 24 Hours 10/01/24 10/02/24 10/03/24 23:59 23:59 23:59 Intake Total 500 / 500 851.67 / 851.67 Output Total 400 / 400 2200 / 2200 475 / 475 Balance 100 / 100 -1348.33 / -1348.33 -475 / -475 Lab / Micro Data 10/01/24 05:21 10/02/24 05:40 Labs: Laboratory Results - last 24 hr 10/02/24 06:15: Urine RBC 0 SEEN, Urine WBC 0 SEEN, Ur Squamous Epith Cells 0-5 SEEN, Urine Bacteria 0 SEEN, Urine Mucus 0 SEEN 10/02/24 07:27: Troponin T Hi Sens 2 Hr 228 H* Micro: Microbiology 09/30/24 11:08 Urine Catheter - Trevino Urine Culture - Final Culture exhibits no growth. Rhythm Strip Rhythm Strip: Sinus Rhythm Physical Exam Narrative GENERAL: cooperative HEENT: Atraumatic; normocephalic EYES; Anicteric, Normal Conjunctiva NECK; supple, normal thyroid, RESPIRATORY: Diminished to auscultation CARDIOVASCULAR: Regular S1 S2, GI: soft, normoactive bowel sounds, : No Renal angle tenderness; EXTREMITIES: Incision site CDI MUSCULOSKELETAL: no muscle wasting NEURO: Awake; no lateralizing signs. SKIN: No Rash PSYCH; Flat affect Assessment & Plan Assessment/Plan (1) Closed left hip fracture: QUALIFIERS: Encounter type: initial encounter Qualified Code(s): S72.002A - Fracture of unspecified part of neck of left femur, initial encounter for closed fracture PLAN: Plan Patient is a 73-year-old lady who presented with left hip pain following a fall, imaging studies on admission demonstrated acute intertrochanteric fracture involving the left femur. Admitted to regular nursing floor for further management 1. Acute intertrochanteric fracture involving the left femur following a fall ? Patient underwent Left femur cephalomedullary nailing by Dr. Jacobs on 09/28/2024. Subsequently ordered PT/OT in addition to pain management ? 09/30/2024;Patient was noted to have subjective weakness involving the right lower extremity the day prior. Subsequent imaging studies with head CT and CT of the pelvis did not reveal any acute stroke nor fracture. Plan is to continue with therapy ? 10/03/2024; Plan will be for patient to be discharged to ECF. The only change made to patient discharge medication is discontinuation of Lovenox and initiation of apixaban given her diagnosis of A-fib 2. Physical deconditioning secondary to above ? Requested for PT OT eval and sexual assault social worker to assist with discharge planning 3. Anemia ? Secondary to acute blood loss anemia superimposed chronic disorder monitoring H&H and transfuse if patient becomes symptomatic or hemoglobin falls below 7. Patient was started on iron supplement ? 09/30/2024; patient hemoglobin still remains low at 8.4. Had been started on p.o. iron the day prior. Will continue with monitoring 4. Hypertension ? Blood pressure controlled, home medications continued with dose adjustment as needed ? 10/28/2024; patient blood pressure has remained relatively low adjustment were made to her antihypertensive regimen with discontinuation of irbesartan. Did decrease dose of metoprolol furosemide and Imdur. 5. Gout ? Patient is on allopurinol 6. Dyslipidemia ?Patient is on statin therapy, continued at home dose 7. Hypothyroidism ? Patient is on levothyroxine home dose continued 8. GERD ? Patient was on propranolol 9. Depression with anxiety ? Patient is on sertraline No. 10. Osteoporosis ? Patient is on alendronate 70 mg q. weekly plan is to resume on discharge 11. DVT prophylaxis ? On enoxaparin ? 10/02/2024; now on apixaban 11. New onset A-fib ? Patient does not have any any previous history of A-fib. Was noted to be in A-fib with RVR prior to being discharged. Patient discharged subsequently discontinued placed on continuous telemetry monitoring. As part of her evaluation ordered 2D echo as well as TSH. Patient beta-blockers resumed. ? 10/02/2024; patient had to be transferred to the stepdown unit and subsequently started on Cardizem drip which is currently being titrated to keep heart rate less than 100. 2D echo obtained demonstrated LVEF of 65% with severely enlarged left atrium. Patient was on enoxaparin for DVT prophylaxis this has been discontinued switch to apixaban
--- NOTE | 2024-10-03 09:24 | PCM.DC.SUM ---
Providers Date of Admission: 09/26/24 Date of Discharge: 10/03/24 Primary Care Physician: Justyna Primary [facility] Phys Consultations 09/27/24 07:20 Consult: Orthopedics Routine Consulting Provider: [facility] Reason for Consult: hip fx EMERGENT Consult: No Notified: Yes Date Notified: 09/27/24 Time Notified: 07:21 Method of Notification: Verbal 09/27/24 09:00 Consult: Cardiology Routine Consulting Provider: Kathrin Lynn Reason for Consult: surgical clearance EMERGENT Consult: No Notified: Yes Date Notified: 09/27/24 Time Notified: 09:00 Method of Notification: Verbal Reason For Visit: FALL, L HIP FRACTURE Diagnosis Discharge Diagnosis (1) Closed left hip fracture: Status: Acute Code(s): S72.002A - Fracture of unspecified part of neck of left femur, initial encounter for closed fracture Qualifiers: Encounter type: initial encounter Qualified Code(s): S72.002A - Fracture of unspecified part of neck of left femur, initial encounter for closed fracture Plan Patient is a 73-year-old lady who presented with left hip pain following a fall, imaging studies on admission demonstrated acute intertrochanteric fracture involving the left femur. Admitted to regular nursing floor for further management 1. Acute intertrochanteric fracture involving the left femur following a fall ? Patient underwent Left femur cephalomedullary nailing by Dr. Jacobs on 09/28/2024. Subsequently ordered PT/OT in addition to pain management ? 09/30/2024;Patient was noted to have subjective weakness involving the right lower extremity the day prior. Subsequent imaging studies with head CT and CT of the pelvis did not reveal any acute stroke nor fracture. Plan is to continue with therapy ? 10/03/2024; Plan will be for patient to be discharged to [facility]. The only change made to patient discharge medication is discontinuation of Lovenox and initiation of apixaban given her diagnosis of A-fib 2. Physical deconditioning secondary to above ? Requested for PT OT eval and social science professor to assist with discharge planning 3. Anemia ? Secondary to acute blood loss anemia superimposed chronic disorder monitoring H&H and transfuse if patient becomes symptomatic or hemoglobin falls below 7. Patient was started on iron supplement ? 09/30/2024; patient hemoglobin still remains low at 8.4. Had been started on p.o. iron the day prior. Will continue with monitoring 4. Hypertension ? Blood pressure controlled, home medications continued with dose adjustment as needed ? 10/28/2024; patient blood pressure has remained relatively low adjustment were made to her antihypertensive regimen with discontinuation of irbesartan. Did decrease dose of metoprolol furosemide and Imdur. 5. Gout ? Patient is on allopurinol 6. Dyslipidemia ?Patient is on statin therapy, continued at home dose 7. Hypothyroidism ? Patient is on levothyroxine home dose continued 8. GERD ? Patient was on propranolol 9. Depression with anxiety ? Patient is on sertraline No. 10. Osteoporosis ? Patient is on alendronate 70 mg q. weekly plan is to resume on discharge 11. DVT prophylaxis ? On enoxaparin ? 10/02/2024; now on apixaban 11. New onset A-fib ? Patient does not have any any previous history of A-fib. Was noted to be in A-fib with RVR prior to being discharged. Patient discharged subsequently discontinued placed on continuous telemetry monitoring. As part of her evaluation ordered 2D echo as well as TSH. Patient beta-blockers resumed. ? 10/02/2024; patient had to be transferred to the stepdown unit and subsequently started on Cardizem drip which is currently being titrated to keep heart rate less than 100. 2D echo obtained demonstrated LVEF of 65% with severely enlarged left atrium. Patient was on enoxaparin for DVT prophylaxis this has been discontinued switch to apixaban Medications at Discharge Home Medications allopurinol 300 mg tablet 300 mg PO DAILY gout 01/27/24 atorvastatin 40 mg tablet 40 mg PO DAILY cholesterol 01/27/24 buspirone 7.5 mg tablet 7.5 mg PO TID mental health 02/01/24 levothyroxine 125 mcg tablet 125 mcg PO DAILY thyroid 02/01/24 potassium chloride 10 mEq tablet,extended release(part/cryst) (Klor-Con M) 10 meq PO BID supplement 02/01/24 sertraline 50 mg tablet 50 mg PO DAILY mental health 02/01/24 ferrous sulfate 325 mg (65 mg iron) tablet (FeroSul) 325 mg PO 1200,1700 #0 tabs 09/08/24 alendronate 70 mg tablet 70 mg PO .Q week osteoprosis 09/28/24 omeprazole 40 mg capsule,delayed release 40 mg PO DAILY gerd 09/28/24 acetaminophen 325 mg tablet 650 mg (2 x 325 mg) PO Q4H PRN PRN Fever, pain 1-01/08 #0 tabs 10/01/24 melatonin 3 mg tablet 3 mg PO QHS PRN PRN Insomnia #0 tabs 10/01/24 metoprolol tartrate 25 mg tablet 12.5 mg (1/2 x 25 mg) PO BID blood pressure #30 tabs 10/01/24 oxycodone 5 mg tablet 5 mg PO Q4H PRN PRN Pain Score 4-10 1 week #40 tabs 10/01/24 apixaban 5 mg tablet (Eliquis) 5 mg PO BID 30 days #60 tabs 10/03/24 calcium carbonate 500 mg (2.5 x 200 mg calcium (500 mg)) PO TIDCM #0 tabs 10/03/24 diltiazem HCl 120 mg capsule,extended release 24 hr 120 mg PO Q12 #0 caps 10/03/24 Hospital Course Summary of Care Provided Minutes Spent on Discharge: 35 Weight / BMI Weight Weight: 83.3 kg Body Mass Index (BMI) 28.8 ABG / Lab / Microbiology Data 10/01/24 05:21 10/02/24 05:40 Microbiology: Microbiology 09/30/24 11:08 Urine Catheter - Trevino Urine Culture - Final Culture exhibits no growth. D/C Instructions Discharge Diet: No restrictions Call your doctor if you observe: Fever of 101 or Higher, Shortness of breath, Fainting spells and Chest pain DC O2, CPAP, BIPAP Needs Home O2 Discharge instructions: No Meaningful Use Info Meaningful Use Meaningful Use Diagnoses (Choose all that apply): None applicable Ischemic Stroke Statin Dosing Therapy Reference: STATIN DOSE THERAPY REFERENCE: * Patients > 75 years receive moderate or high dose statin therapy. * Patients 75 years or YOUNGER should receive HIGH intensity statin dose unless contraindicated. You will be required to document reason for non-treatment if statin daily dose does not meet guidelines. HIGH DOSE STATIN THERAPY DAILY Atorvastatin > than or = to 40 mg Rosuvastatin > than or = to 20 mg Amlodipine + Atorvastatin > than or = to 2.5/40 mg Ezetimibe + Simvastatin 10/80 mg Simvastatin 80mg Discharge Plan Admission Admit Date/Time: 09/26/24 20:05 Attending Provider: Eladio Danielle Primary Care Provider: Care Physician,No Primary Consulting Providers: Cathleen Vernon; Kathrin Lynn; Demond Sutherland Discharge Orders/Prescriptions Prescriptions: New acetaminophen 325 mg Tablet 650 mg PO Q4H PRN PRN (Reason: Fever, pain 1-01/08) Qty: 0 0RF melatonin 3 mg Tablet 3 mg PO QHS PRN PRN (Reason: Insomnia) Qty: 0 0RF Eliquis 5 mg Tablet 5 mg PO BID 30 Days Qty: 60 0RF calcium carbonate 200 mg calcium (500 mg) Tablet,Chewable 500 mg PO TIDCM Qty: 0 0RF diltiazem HCl 120 mg Capsule,Extended Release 24hr 120 mg PO Q12 Qty: 0 0RF Continued levothyroxine 125 mcg tablet 125 mcg PO DAILY buspirone 7.5 mg tablet 7.5 mg PO TID sertraline 50 mg tablet 50 mg PO DAILY potassium chloride [Klor-Con M10] 10 mEq tablet,ER particles/crystals 10 meq PO BID atorvastatin 40 mg tablet 40 mg PO DAILY allopurinol 300 mg tablet 300 mg PO DAILY ferrous sulfate [FeroSul] 325 mg (65 mg iron) Tablet 325 mg PO 1200,1700 Qty: 0 0RF alendronate 70 mg tablet 70 mg PO .Q week omeprazole 40 mg capsule,delayed release(DR/EC) 40 mg PO DAILY Changed metoprolol tartrate 25 mg tablet 12.5 mg PO BID Qty: 30 0RF Discontinued irbesartan 300 mg tablet 300 mg PO DAILY isosorbide mononitrate 60 mg tablet extended release 24 hr 60 mg PO DAILY furosemide 40 mg Tablet 40 mg PO BIDLX Qty: 0 0RF No Action oxycodone 5 mg tablet 5 mg PO Q4H PRN PRN (Reason: Pain Score 4-10) 7 Days Qty: 40 0RF Referrals / Follow Up: Pb Goldsmith DO [Med Staff - Active Staff] - Within 2 Weeks Care Physician,No Primary [Primary Care Provider] - Disposition Disposition (needs filled in before D/C Order can be placed): Shelter Facility Charges/Coding Visit Charges Inpatient E&M: 26618 Disch Hosp >30min
[2024-10-03 09:50] VITALS: BP 119/82; PULSE 73; RESP 16; TEMP 36.8; O2SAT 98
--- NOTE | 2024-10-03 09:54 | CASEMGMT ---
Social Work- Pt did not discharge 10/01 due to medical instability. Pt is now medically stable and physician plans to discharge. SW sent documents via [employer]. manager transplant faxed documents and verified that she will arrange transport and complete final arrangements and notifications. Pt updated on discharge status. Plan: [facility]; skilled level of care [facility] Braswell
--- NOTE | 2024-10-03 09:54 | CASEMGMT ---
Social Work- Pt did not discharge 10/01 due to medical instability. Pt is now medically stable and physician plans to discharge. SW sent documents via [employer]. litigation legal secretary faxed documents and verified that she will arrange transport and complete final arrangements and notifications. Pt updated on discharge status. Plan: [facility]; skilled level of care [facility] Braswell
[2024-10-03 09:55] VITALS: PULSE 73
[2024-10-03] MEDS: Potassium Chloride Oral Tablet 10 MEQ PO (09:55)
[2024-10-03] MEDS: Senna/Docusate Sodium 1 Tablet 2 TABLET PO (09:55)
[2024-10-03] MEDS: APIXABAN 5 MG TABLET PO (09:55)
--- NOTE | 2024-10-03 09:56 | PCA ---
Attempted to call [facility] multiple times this morning to inform them the pt is discharging and there was no answer or voicemail available.
--- NOTE | 2024-10-03 09:56 | PCA ---
Attempted to call [facility] multiple times this morning to inform them the pt is discharging and there was no answer or voicemail available.
--- NOTE | 2024-10-03 11:31 | NURSING ---
Report called to JULI Cody at [facility]. Transport to pick patient up around 1200.
--- NOTE | 2024-10-03 11:31 | NURSING ---
Report called to JULI Cody at [facility]. Transport to pick patient up around 1200.
== END 2024-10-03 12:08 | disposition skilled nursing facility (03) | DRG 481 ==
LOC: ED 20:07 → MS3 20:16 → PCU 10-03 11:57
PROVIDERS: Internal Medicine; Orthopaedic Surgery; Student in an Organized Health Care Education/Training Program; Admitting Provider Family Medicine; Emergency Provider Emergency Medicine; Visit Provider Internal Medicine
PROC: 0QS706Z Reposition Left Upper Femur with Intramedullary Internal Fixation Device, Open Approach (ICD-10-PCS; CPT 27245; principal; 2024-09-28 13:15)
DX: S72.142A Displaced intertrochanteric fracture of left femur, initial encounter for closed fracture (principal); D62 Acute posthemorrhagic anemia; M80.052A Age-related osteoporosis with current pathological fracture, left femur, initial encounter for fracture; F03.90 Unspecified dementia, unspecified severity, without behavioral disturbance, psychotic disturbance, mood disturbance, and anxiety; I12.9 Hypertensive chronic kidney disease with stage 1 through stage 4 chronic kidney disease, or unspecified chronic kidney disease; E03.9 Hypothyroidism, unspecified; F32.A Depression, unspecified; D50.9 Iron deficiency anemia, unspecified; I48.91 Unspecified atrial fibrillation; E78.5 Hyperlipidemia, unspecified; N18.2 Chronic kidney disease, stage 2 (mild); G47.33 Obstructive sleep apnea (adult) (pediatric); M10.9 Gout, unspecified; K21.9 Gastro-esophageal reflux disease without esophagitis; F41.9 Anxiety disorder, unspecified; W19.XXXA Unspecified fall, initial encounter; Z87.891 Personal history of nicotine dependence; Z79.899 Other long term (current) drug therapy
CPT/HCPCS: 36415; 70450; 71046; 71275; 73502; 73700; 76000; 80048; 80053; 81001; 83735; 83880; 84100; 84439; 84443; 84481; 84484; 85025; 85027; 85379; 85610; 85730; 86850; 86900; 86901; 87086; 93005; 93306; 94668; 97110; 97116; 97162; 97167; 97530; 97535; 99285; C1713; C1776; Q9967; A4216; J1938; J2405

== ENCOUNTER 2024-10-07 08:24 | Outpatient (CLI) | payer MEDICARE, SELFPAY ==
[2024-10-07 09:02] VITALS: BP 131/86; PULSE 64; RESP 16; TEMP 36.8; O2SAT 97
[2024-10-07 09:32] VITALS: BP 124/73; PULSE 72; RESP 16; TEMP 36.7; O2SAT 97
[2024-10-07 10:37] VITALS: BP 104/54; PULSE 65; RESP 16; TEMP 36.4; O2SAT 96
[2024-10-07 11:25] VITALS: BP 125/70; PULSE 66; RESP 16; TEMP 36.4; O2SAT 97
== END 2024-10-07 23:59 | disposition home or self-care (01) ==
PROVIDERS: PCP Internal Medicine; Referring Provider Nurse Practitioner Adult Health; Visit Provider Nurse Practitioner Adult Health
DX: D64.9 Anemia, unspecified (principal)
CPT/HCPCS: 36430; 86850; 86900; 86901; P9016; A4216

== ENCOUNTER → 2024-10-26 04:00 | Outpatient (REF) | payer MEDICARE, SELFPAY ==
[2024-10-26 08:24] LABS: Hematocrit 26.5 % (37-47); Hemoglobin 8.3 g/dL (12.0-15.0); Immature Granulocytes Count 0.020 X10^3/uL (0.0-0.0); Mean Corp Hgb Conc 31.3 g/dL (32-36); Mean Corpuscular Volume 102.3 fL (81-99); Mean Platelet Vol. 11.4 fl (6.2-12.0); NRBC Flagged by Analyzer 0 % (0-5); POSITIVE MORPHOLOGY YES; Platelet Count 110 K/mm3 (150-450); RBC Distribution Width CV 18.2 % (11.6-14.6); RBC Distribution Width SD 66.0 fl (35.1-43.9); Red Blood Count 2.59 M/mm3 (4.2-5.4); White Blood Count 5.0 K/mm3 (4.4-11.0)
[2024-10-26 08:28] LABS: Differential Indicated SCAN CRITERIA MET
[2024-10-26 08:31] LABS: Anion Gap 12 (5-15); BUN 16 mg/dL (4-19); BUN/Creat Ratio 22.5 RATIO (10-20); Calcium,Total 8.6 mg/dL (7.6-11.0); Carbon Dioxide 21.4 mmol/L (21.0-32.0); Chloride 111 mmol/L (98-108); Glucose 108 mg/dL (70-99); Potassium 3.7 mmol/L (3.3-5.1)
[2024-10-26 09:32] LABS: Anisocytosis 1+
== END ==
LOC: OLS.WHLTCC 04:00
PROVIDERS: PCP Internal Medicine; Referring Provider Internal Medicine; Visit Provider Internal Medicine
DX: S72.142D Displaced intertrochanteric fracture of left femur, subsequent encounter for closed fracture with routine healing (principal); M62.50 Muscle wasting and atrophy, not elsewhere classified, unspecified site; R48.8 Other symbolic dysfunctions; Z47.89 Encounter for other orthopedic aftercare
CPT/HCPCS: 36415; 80048; 85025

== ENCOUNTER → 2024-10-27 05:40 | Outpatient (REF) | payer MEDICARE, SELFPAY ==
[2024-10-29 11:36] LABS: Color, Urine Yellow (Yellow); Glucose, Dipstick Normal (Normal); Ketone-Dipstick Negative (Negative); Leukocyte Esterase-Dipstick 500 /ul (Negative); Nitrite-Dipstick Negative (Negative); Occult Blood-Urine Negative /ul (Negative); Protein-Dipstick 30 mg/dl (Negative); Specific Gravity, Urine 1.025 (1.002-1.030)
[2024-10-29 11:38] LABS: Urine Bilirubin Dipstick 1 mg/dL (Negative)
== END ==
LOC: OLS.WHLTCC 05:40
PROVIDERS: PCP Internal Medicine; Visit Provider Internal Medicine
DX: R82.90 Unspecified abnormal findings in urine (principal); R41.82 Altered mental status, unspecified
CPT/HCPCS: 81002; 87077; 87086; 87088

== ENCOUNTER → 2024-10-27 | Outpatient (CLI) | payer MEDICARE, SELFPAY ==
[2024-10-27 17:28] LABS: Hematocrit 25.6 % (37-47); Hemoglobin 7.8 g/dL (12.0-15.0); Immature Granulocytes Count 0.020 X10^3/uL (0.0-0.0); Mean Corp Hgb Conc 30.5 g/dL (32-36); Mean Corpuscular Volume 104.5 fL (81-99); Mean Platelet Vol. 11.4 fl (6.2-12.0); NRBC Flagged by Analyzer 0 % (0-5); POSITIVE MORPHOLOGY YES; Platelet Count 122 K/mm3 (150-450); RBC Distribution Width CV 18.4 % (11.6-14.6); RBC Distribution Width SD 68.8 fl (35.1-43.9); Red Blood Count 2.45 M/mm3 (4.2-5.4); White Blood Count 4.9 K/mm3 (4.4-11.0)
[2024-10-27 17:45] LABS: Differential Indicated SCAN CRITERIA MET
[2024-10-27 17:51] LABS: Anion Gap 10 (5-15); BUN 15 mg/dL (4-19); BUN/Creat Ratio 19.5 RATIO (10-20); Calcium,Total 8.7 mg/dL (7.6-11.0); Carbon Dioxide 22.3 mmol/L (21.0-32.0); Chloride 111 mmol/L (98-108); Glucose 101 mg/dL (70-99); Potassium 3.7 mmol/L (3.3-5.1); Pro- Brain NATRIURETIC PEPTIDE 6416 pg/mL (<=1800)
[2024-10-27 19:43] LABS: Differential Comment SCANNED
[2024-10-27 19:47] LABS: Anisocytosis 2+; Polychromasia 1+
== END | disposition home or self-care (01) ==
LOC: LAB 16:30
PROVIDERS: PCP Internal Medicine; Referring Provider Nurse Practitioner Family; Visit Provider Nurse Practitioner Family
DX: R06.09 Other forms of dyspnea (principal); R94.31 Abnormal electrocardiogram [ECG] [EKG]; E78.5 Hyperlipidemia, unspecified; I10 Essential (primary) hypertension
CPT/HCPCS: 36415; 80048; 83880; 85025

== ENCOUNTER → 2024-11-02 05:00 | Outpatient (REF) | payer MEDICARE, SELFPAY ==
[2024-11-02 08:59] LABS: Hematocrit 28.9 % (37-47); Hemoglobin 8.9 g/dL (12.0-15.0); Immature Granulocytes Count 0.030 X10^3/uL (0.0-0.0); Mean Corp Hgb Conc 30.8 g/dL (32-36); Mean Corpuscular Volume 105.1 fL (81-99); Mean Platelet Vol. 10.5 fl (6.2-12.0); NRBC Flagged by Analyzer 0 % (0-5); POSITIVE MORPHOLOGY YES; Platelet Count 135 K/mm3 (150-450); RBC Distribution Width CV 17.6 % (11.6-14.6); RBC Distribution Width SD 67.3 fl (35.1-43.9); Red Blood Count 2.75 M/mm3 (4.2-5.4); White Blood Count 5.1 K/mm3 (4.4-11.0)
[2024-11-02 09:07] LABS: Anion Gap 11 (5-15); BUN 15 mg/dL (4-19); BUN/Creat Ratio 20.3 RATIO (10-20); Calcium,Total 8.9 mg/dL (7.6-11.0); Carbon Dioxide 23.9 mmol/L (21.0-32.0); Chloride 110 mmol/L (98-108); Glucose 121 mg/dL (70-99); Potassium 3.7 mmol/L (3.3-5.1)
[2024-11-02 09:23] LABS: Differential Indicated SCAN CRITERIA MET
[2024-11-02 09:52] LABS: Anisocytosis 1+; Polychromasia 1+
== END ==
LOC: OLS.WHLTCC 05:00
PROVIDERS: PCP Internal Medicine; Visit Provider Internal Medicine
DX: R48.8 Other symbolic dysfunctions (principal); M62.50 Muscle wasting and atrophy, not elsewhere classified, unspecified site
CPT/HCPCS: 36415; 80048; 85025

== ENCOUNTER → 2024-11-09 05:00 | Outpatient (REF) | payer MEDICARE, SELFPAY ==
[2024-11-09 10:02] LABS: Hematocrit 33.5 % (37-47); Hemoglobin 10.4 g/dL (12.0-15.0); Immature Granulocytes Count 0.020 X10^3/uL (0.0-0.0); Mean Corp Hgb Conc 31.0 g/dL (32-36); Mean Corpuscular Volume 104.0 fL (81-99); Mean Platelet Vol. 10.7 fl (6.2-12.0); NRBC Flagged by Analyzer 0 % (0-5); Platelet Count 151 K/mm3 (150-450); RBC Distribution Width CV 16.7 % (11.6-14.6); RBC Distribution Width SD 63.5 fl (35.1-43.9); Red Blood Count 3.22 M/mm3 (4.2-5.4); White Blood Count 7.7 K/mm3 (4.4-11.0)
[2024-11-09 10:18] LABS: Anion Gap 12 (5-15); BUN 17 mg/dL (4-19); BUN/Creat Ratio 20.6 RATIO (10-20); Calcium,Total 9.3 mg/dL (7.6-11.0); Carbon Dioxide 23.5 mmol/L (21.0-32.0); Chloride 109 mmol/L (98-108); Glucose 97 mg/dL (70-99); Potassium 3.9 mmol/L (3.3-5.1)
== END ==
LOC: OLS.WHLTCC 05:00
PROVIDERS: PCP Internal Medicine; Visit Provider Internal Medicine
DX: R48.8 Other symbolic dysfunctions (principal); M62.50 Muscle wasting and atrophy, not elsewhere classified, unspecified site
CPT/HCPCS: 36415; 80048; 85025

== ENCOUNTER 2024-12-30 13:58 | Inpatient (IN) | payer MEDICARE, SELFPAY ==
[2024-12-30] VITALS (29 sets, daily range): BP systolic 104–152; BP diastolic 76–120; PULSE 72–133; RESP 12–28; TEMP 36.3–36.8; O2SAT 83–100; BMI 35.0; BMI 32.4
--- NOTE | 2024-12-30 14:49 | CT_ITS ---
PROCEDURE: CT ABDOMEN/PELVIS W IV CONT ONLY 12/30/2024 REASON FOR EXAM: RIGHT LOWER QUADRANT ABDOMINAL PAIN TECHNIQUE: Procedure Code: [id number] Modality: CT Procedure: ABDOMEN/PELVIS W IV CONT ONLY Coronal and Sagittal reconstruction series were provided. One or more dose reduction techniques were used (e.g., Automated exposure control, adjustment of the mA and/or kV according to patient size, use of iterative reconstruction technique. RADIATION DOSE SUMMARY: DLP: 1313.22 mGycm COMPARISON: None available. FINDINGS: Lung bases: Small-moderate bilateral pleural effusions with adjacent atelectasis. Multiple calcified granulomas in the left lung base. Four-chamber cardiomegaly. Mild coronary artery calcifications. Liver: Unremarkable. Gallbladder: Surgically absent. Spleen: Mildly enlarged. Multiple small calcified granulomas. Pancreas: Generalized fatty atrophy, no ductal dilatation or focal lesion. Adrenals: Unremarkable. Kidneys: Unremarkable, no urolithiasis or hydronephrosis. Bladder: Unremarkable. Reproductive Organs: Grossly unremarkable uterus and adnexae. Bowel: Grossly unremarkable without evidence of obstruction or overt active inflammatory process. Normal appendix identified. Mild distal colonic diverticulosis. Lymph nodes: No suspicious lymph node enlargement. Vasculature: Normal caliber abdominal aorta. Mild atherosclerotic disease. Peritoneum / Retroperitoneum: Small volume abdominal ascites. No free air. Musculoskeletal: Diffuse subcutaneous edema. Partially imaged ORIF of the left proximal femur with subacute-chronic comminuted intertrochanteric fracture deformity. Multilevel degenerative changes of the spine. Diffuse qualitative osteopenia. CT/Abdomen/Pelvis W IV Cont ONLY IMPRESSION: No definite acute or active inflammatory intra-abdominal pathology. Generalized fluid overload/third-spacing with small-moderate bilateral pleural effusions, small volume abdominal ascites, and diffuse subcutaneous edema. Cardiomegaly. Reading Location: [id number]
--- NOTE | 2024-12-30 14:49 | EKG12_ITS ---
Test Reason : PALP Blood Pressure : */* mmHG Vent. Rate : 121 BPM Atrial Rate : * BPM P-R Int : * ms QRS Dur : 128 ms QT Int : 382 ms P-R-T Axes : * 104 269 degrees QTcB Int : 542 ms Atrial fibrillation flutter with rvr Right bundle branch block Abnormal ECG Confirmed by Zion Ibrahim ([id number]), editorial assistant RONNA RUBIO ([id number]) on 01/01/2025 7:18:08 AM Referred By: GLADYS/REY Confirmed By: Zion Ibrahim
--- NOTE | 2024-12-30 14:54 | EX.ED.DYSGE1 ---
HPI History of Present Illness Chief Complaint: Abd Pain Narrative Narrative: Chief complaint and HPI: 74-year-old female with past medical history of dementia, atrial fibrillation, HTN, CKD, depression, YOSI, edema presents from [place] for evaluation of right lower quadrant abdominal pain with hypertension and tachycardia. Per their report patient is alert and oriented x 1 however on my exam patient is alert and oriented x 3. [place] faculty states that the patient was complaining of right lower quadrant abdominal pain today and was hypertensive and tachycardic. They were also worried about swelling in her lower extremities. Patient states she has been having right lower quadrant abdominal pain for several days. Associated symptom is nausea and bloating. She denies any fever, chills, shortness of breath, chest pain, diarrhea, constipation, dysuria. Review of systems: See HPI Medications: As listed on the chart Allergies: As listed on the chart PFSH: Per chart Vital signs: As listed on the chart. Reviewed. Physical exam: Gen: A&O x3 Head: Normocephalic, atraumatic Eyes: No sclera icterus, conjunctiva clear, PERRL ENT: Dry mucous membranes Neck: Trachea midline CV: Tachycardic, irregular irregular rhythm, no murmurs Resp: Lungs CTA BL but diminished in the bases, no w/r/c GI: Abd soft, non-distended, tender to palpation in the right lower quadrant, no rebound or rigidity Musc: Moves all extremities, no deformity Skin: Warm, dry, patchy red discoloration of the skin throughout the body but no clear rash, bilateral peripheral edema of the lower extremities with anasarca throughout the body Neuro: Alert, oriented, grossly intact, sensation intact Psych: Cooperative, appropriate mood and affect [facility] Medical History (Updated 12/30/24 @ 19:[address] Cathleen Vernon MD) (HFpEF) heart failure with preserved ejection fraction Anxiety and depression CKD (chronic kidney disease), stage II Former tobacco use Hypothyroidism HLD (hyperlipidemia) Thrombocytopenia Chronic anemia CKD (chronic kidney disease) Gout Sleep apnea Atrial fibrillation Hypertension Home Medications ?Medication ?Instructions ?Recorded ?Last Taken ?Type allopurinol 300 mg tablet 300 mg PO DAILY gout 01/27/24 12/30/24 History atorvastatin 40 mg tablet 40 mg PO DAILY cholesterol 01/27/24 12/29/24 History buspirone 7.5 mg tablet 10 mg PO TID mental health 02/01/24 12/30/24 History levothyroxine 125 mcg tablet 125 mcg PO DAILY thyroid 02/01/24 12/30/24 History sertraline 50 mg tablet 100 mg PO DAILY mental health 02/01/24 12/30/24 History ferrous sulfate 325 mg (65 mg 325 mg PO 1200,1700 #0 tabs 09/08/24 Unknown Rx iron) tablet (FeroSul) alendronate 70 mg tablet 70 mg PO .Q week osteoprosis 09/28/24 12/28/24 History omeprazole 40 mg capsule,delayed 40 mg PO DAILY gerd 09/28/24 12/30/24 History release calcium carbonate 500 mg (2.5 x 200 mg calcium (500 10/03/24 12/30/24 Rx mg)) PO TIDCM #0 tabs diltiazem HCl 120 mg 120 mg PO Q24H 10/07/24 12/30/24 History capsule,extended release 24 hr isosorbide mononitrate 30 mg 30 mg PO DAILY 10/07/24 12/30/24 History tablet,extended release 24 hr pantoprazole 40 mg tablet,delayed 40 mg PO DAILY 10/07/24 12/30/24 History release melatonin 3 mg tablet 3 mg PO QHS Insomnia 10/27/24 12/29/24 History sennosides 8.6 mg-docusate sodium 1 tab-cap PO QHS 10/27/24 12/29/24 History 50 mg capsule (Senna Plus) furosemide 40 mg tablet 20 mg PO BID 10/28/24 12/30/24 History potassium chloride 10 mEq 10 meq PO BID CKD 10/28/24 Unknown History tablet,extended release(part/cryst) (Klor-Con M) acetaminophen 325 mg tablet 1,000 mg PO TID osteoarthritis 12/30/24 12/30/24 History metoprolol tartrate 25 mg tablet 12.5 mg PO BID blood pressure 12/30/24 12/30/24 History Allergy/AdvReac Type Severity Reaction Status Date / Time No Known Allergies Allergy Verified 10/27/24 15:11 Family History Mother Cancer Diabetes Heart disease Hypertension Father Cancer Diabetes Heart disease Hypertension Surgical History (Updated 12/30/24 @ 19:[address] Cathleen Vernon MD) History of hip surgery History of cholecystectomy Social History (Updated 12/30/24 @ 19:[address] Cathleen Vernon MD) household members: none housing: fdc Smoking Status: Former smoker how long ago did patient quit smoking: Quit ~ 30 years prior. alcohol intake: never substance use type: does not use EXAM Physical Exam Const Vital Signs: 12/30/24 13:59 12/30/24 14:01 12/30/24 14:21 Temperature 97.3 F L 97.3 F L Temperature Source Oral Oral Pulse Rate 131 H 131 H 116 H Respiratory Rate 12 12 18 Respiratory Effort Blood Pressure 146/118 H 146/118 H Blood Pressure Mean 127 127 Pulse Ox 95 95 95 Oxygen Delivery Method Room Air Room Air Oxygen Flow Rate (L/min) 12/30/24 14:25 12/30/24 14:30 12/30/24 14:45 Temperature Temperature Source Pulse Rate 121 H Respiratory Rate 21 H Respiratory Effort Normal Non-Labored Blood Pressure 133/108 H 148/99 H Blood Pressure Mean 117 116 Pulse Ox Oxygen Delivery Method Oxygen Flow Rate (L/min) 12/30/24 15:00 12/30/24 15:01 12/30/24 15:15 Temperature 97.3 F L Temperature Source Oral Pulse Rate 118 H 120 H 125 H Respiratory Rate 18 16 16 Respiratory Effort Blood Pressure 144/114 H 148/99 H 139/93 H Blood Pressure Mean 123 115 106 Pulse Ox 95 Oxygen Delivery Method Room Air Oxygen Flow Rate (L/min) 12/30/24 15:23 12/30/24 15:24 12/30/24 15:30 Temperature Temperature Source Pulse Rate 122 H 123 H Respiratory Rate 18 14 Respiratory Effort Short of Breath Blood Pressure 139/93 H Blood Pressure Mean 108 Pulse Ox 94 83 Oxygen Delivery Method Room Air Room Air Oxygen Flow Rate (L/min) 12/30/24 15:30 12/30/24 15:31 12/30/24 15:32 Temperature Temperature Source Pulse Rate 113 H Respiratory Rate 15 Respiratory Effort Blood Pressure 122/85 H Blood Pressure Mean 96 Pulse Ox 83 90 94 Oxygen Delivery Method Nasal Cannula Nasal Cannula Oxygen Flow Rate (L/min) 2 2 12/30/24 15:45 12/30/24 16:00 12/30/24 16:02 Temperature 97.9 F Temperature Source Oral Pulse Rate 111 H 113 H 133 H Respiratory Rate 27 H 14 13 Respiratory Effort Blood Pressure 117/91 H 130/104 H Blood Pressure Mean 99 112 Pulse Ox 100 Oxygen Delivery Method Nasal Cannula Oxygen Flow Rate (L/min) 2 12/30/24 16:15 12/30/24 16:30 12/30/24 16:30 Temperature 97.9 F Temperature Source Oral Pulse Rate 115 H 123 H 120 H Respiratory Rate 16 21 H 16 Respiratory Effort Blood Pressure 130/104 H 152/120 H Blood Pressure Mean 113 128 Pulse Ox 100 Oxygen Delivery Method Nasal Cannula Oxygen Flow Rate (L/min) 2 12/30/24 16:34 12/30/24 16:45 12/30/24 16:47 Temperature Temperature Source Pulse Rate 128 H 105 H 108 H Respiratory Rate 17 19 H 15 Respiratory Effort Blood Pressure 127/82 H 123/91 H 123/91 H Blood Pressure Mean 98 103 101 Pulse Ox 98 Oxygen Delivery Method Nasal Cannula Oxygen Flow Rate (L/min) 2 12/30/24 17:00 12/30/24 17:00 12/30/24 17:15 Temperature 97.9 F Temperature Source Oral Pulse Rate 113 H 116 H 118 H Respiratory Rate 20 H 28 H 19 H Respiratory Effort Blood Pressure 123/96 H 123/96 H 109/78 Blood Pressure Mean 105 105 89 Pulse Ox 95 98 Oxygen Delivery Method Nasal Cannula Oxygen Flow Rate (L/min) 2 12/30/24 17:30 12/30/24 17:45 12/30/24 18:00 Temperature Temperature Source Pulse Rate 115 H 112 H 103 H Respiratory Rate 18 15 16 Respiratory Effort Blood Pressure 104/76 126/83 H Blood Pressure Mean 86 95 Pulse Ox 95 Oxygen Delivery Method Nasal Cannula Oxygen Flow Rate (L/min) 12/30/24 19:00 12/30/24 19:15 Temperature 98.2 F Temperature Source Pulse Rate 117 H 107 H Respiratory Rate 14 13 Respiratory Effort Blood Pressure 142/106 H 138/100 H Blood Pressure Mean 118 112 Pulse Ox 95 96 Oxygen Delivery Method Nasal Cannula Oxygen Flow Rate (L/min) 2 MDM MDM MDM Narrative Medical decision making narrative: 74-year-old female with past medical history of dementia, atrial fibrillation, HTN, CKD, depression, YOSI, edema presents from [place] for evaluation of right lower quadrant abdominal pain with hypertension and tachycardia. Per their report patient is alert and oriented x 1 however on my exam patient is alert and oriented x 3. [place] faculty states that the patient was complaining of right lower quadrant abdominal pain today and was hypertensive and tachycardic. They were also worried about swelling in her lower extremities. Patient states she has been having right lower quadrant abdominal pain for several days. Associated symptom is nausea and bloating. On presentation, patient is hypertensive and tachycardic. EKG shows atrial fibrillation with RVR. This may be responsive due to abdominal pain. Will hold off on rate limiting medication at this time and instead will treat with pain medicine and only 500CC bolus. Will reassess. Differential diagnosis includes but is not limited to atrial fibrillation with RVR, CHF, electrolyte abnormality, appendicitis, colitis, urolithiasis, UTI, obstruction. Laboratory workup ordered including CT abdomen pelvis and chest x-ray. Patient's oxygenation dropped after morphine. Placed on 2 L nasal cannula. Her heart rate has improved although still remains high into the 120s. Will give diltiazem. Improvement in heart rate with diltiazem. CBC without leukocytosis or anemia. Patient has chronic thrombocytopenia. CMP shows mild ALT elevation. Troponin 31 and 28. BNP elevated at 18,389. Patient in CHF exacerbation. Lipase unremarkable. UA positive for UTI UTI however not the cleanest sample given multiple squamous epithelial cells. Will send for urine culture and give [address] abdomen pelvis shows no intra-abdominal pathology. Ascites with small to moderate bilateral pleural effusions. Cardiomegaly. Lasix ordered. Patient will warrant admission for diuresis for CHF exacerbation. She confirmed understand the plan. I spoke with the hospitalist service who accepted admission. EKG: Interpreted by me/EM physician: EKG shows atrial fibrillation with RVR. Right bundle branch block. Heart rate 121. This is similar compared to previous EKG 10/27/2024 Diagnostic: Interpreted by me/EM physician: Chest x-ray with cardiomegaly and pulmonary edema. No pneumothorax. Bilateral effusions. Radiology in agreement. Impression: 1. CHF exacerbation 2. Abdominal pain 3. Possible UTI 4. A-fib with RVR 5. Acute hypoxia multifactorial including medication side effect and CHF exacerbation Lab Data Labs: Laboratory Results - last 24 hr 12/30/24 12/30/24 12/30/24 14:04 15:10 16:36 WBC 5.7 RBC 3.76 L Hgb 12.1 Hct 37.4 MCV 99.5 H MCH 32.2 H MCHC 32.4 RDW Std Deviation 54.3 H RDW Coeff of Lisa 14.9 H Plt Count 110 L MPV 11.9 Immature Gran % (Auto) 0.400 Neut % (Auto) 62.1 Lymph % (Auto) 27.3 Baker % (Auto) 8.8 Eos % (Auto) 0.7 Baso % (Auto) 0.7 Absolute Neuts (auto) 3.5 Absolute Lymphs (auto) 1.55 Nucleated RBC % 0 Sodium 143 Potassium 3.8 Chloride 110 H Carbon Dioxide 21.4 Anion Gap 12 BUN 16 Creatinine 0.92 Est GFR (MDRD) Non-Af 65 BUN/Creatinine Ratio 17.5 Glucose 123 H Lactic Acid 1.3 Calcium 9.0 Magnesium 2.1 Total Bilirubin 0.82 AST 26 ALT 37 H Alkaline Phosphatase 214 H Troponin T High Sens 31 H D Troponin T Hi Sens 2 Hr 28 [place] [address] H Total Protein 5.8 L Albumin 4.0 Globulin 1.9 L Albumin/Globulin Ratio 2.1 Lipase 13 Urine Color Urine Clarity Urine pH Ur Specific Lowry Urine Protein Urine Glucose (UA) Urine Ketones Urine Occult Blood Urine Nitrite Urine Bilirubin Urine Urobilinogen Ur Leukocyte Esterase Urine RBC Urine WBC Ur Squamous Epith Cells Urine Bacteria Urine Mucus 12/30/24 17:13 WBC RBC Hgb Hct MCV MCH MCHC RDW Std Deviation RDW Coeff of Lisa Plt Count MPV Immature Gran % (Auto) Neut % (Auto) Lymph % (Auto) Baker % (Auto) Eos % (Auto) Baso % (Auto) Absolute Neuts (auto) Absolute Lymphs (auto) Nucleated RBC % Sodium Potassium Chloride Carbon Dioxide Anion Gap BUN Creatinine Est GFR (MDRD) Non-Af BUN/Creatinine Ratio Glucose Lactic Acid Calcium Magnesium Total Bilirubin AST ALT Alkaline Phosphatase Troponin T High Sens Troponin T Hi Sens 2 Hr NT pro BNP II Total Protein Albumin Globulin Albumin/Globulin Ratio Lipase Urine Color Yellow Urine Clarity Sl. Cloudy Urine pH 5.0 Ur Specific Lowry 1.020 Urine Protein 100 H Urine Glucose (UA) Normal Urine Ketones Negative Urine Occult Blood 10 H Urine Nitrite Negative Urine Bilirubin 1 H Urine Urobilinogen 1 H Ur Leukocyte Esterase 25 H Urine RBC 5-10 SEEN Urine WBC 10-25 SEEN Ur Squamous Epith Cells 10-25 SEEN Urine Bacteria 1+ Urine Mucus 3+ Radiography Diagnostic Testing: Clinical Impression(s) from Imaging Studies Abdomen/Pelvis CT 12/30/24 14:49 IMPRESSION: No definite acute or active inflammatory intra-abdominal pathology. Generalized fluid overload/third-spacing with small-moderate bilateral pleural effusions, small volume abdominal ascites, and diffuse subcutaneous edema. Cardiomegaly. Reading Location: [facility] Chest X-Ray 12/30/24 15:58 IMPRESSION: Extensive pulmonary edema. Mild bibasilar pleural effusions. No focal consolidation. No pneumothorax. Reading Location: [facility] Discharge Plan Disposition Disposition: Acute Care Hospital [facility] Discharge Date/Time: 12/30/24 20:30
[2024-12-30 15:10] LABS: Hematocrit 37.4 % (37-47); Hemoglobin 12.1 g/dL (12.0-15.0); Immature Granulocytes Count 0.020 X10^3/uL (0.0-0.0); Mean Corp Hgb Conc 32.4 g/dL (32-36); Mean Corpuscular Volume 99.5 fL (81-99); Mean Platelet Vol. 11.9 fl (6.2-12.0); NRBC Flagged by Analyzer 0 % (0-5); Platelet Count 110 K/mm3 (150-450); RBC Distribution Width CV 14.9 % (11.6-14.6); RBC Distribution Width SD 54.3 fl (35.1-43.9); Red Blood Count 3.76 M/mm3 (4.2-5.4); White Blood Count 5.7 K/mm3 (4.4-11.0)
[2024-12-30] MEDS: 0.9% Normal Saline (1000mL) 1,000 ML 999 ML IV (15:19)
[2024-12-30 15:32] LABS: AST(SGOT) 26 U/L (<=31); Alanine Aminotransfer ALT/SGPT 37 U/L (<=34); Albumin, Serum 4.0 g/dL (3.4-4.8); Alkaline Phosphatase 214 U/L (35-104); Anion Gap 12 (5-15); BUN 16 mg/dL (4-19); BUN/Creat Ratio 17.5 RATIO (10-20); Calcium,Total 9.0 mg/dL (7.6-11.0); Carbon Dioxide 21.4 mmol/L (21.0-32.0); Chloride 110 mmol/L (98-108); Globulin 1.9 g/dL (2.2-4.2); Glucose 123 mg/dL (70-99); Lipase 13 U/L (13-75); Potassium 3.8 mmol/L (3.3-5.1); Pro- Brain NATRIURETIC PEPTIDE 18389 pg/mL (<=1800)
--- NOTE | 2024-12-30 15:37 | ED.RN ---
PROVIDER NOTIFIED OF WHEEZING, DECREASE IN SPO2 AFTER MORPHINE, CLARIFICATION ON NORMAL SALINE ORDER. PROVIDER RESPONSE, ONLY GIVE 500 ML OF NORMAL SALINE 0.9%, IV. I AM ALSO GOING TO GIVE HER CARDIZEM.
--- NOTE | 2024-12-30 15:58 | RAD_ITS ---
PROCEDURE: CHEST PA AND LATERAL 12/30/2024 REASON FOR EXAM: AFIB WITH RVR TECHNIQUE: Procedure Code: RADCXR Modality: DX Procedure: CHEST PA AND LATERAL COMPARISON: 10/01/2024 FINDINGS: Extensive pulmonary edema. Mild bibasilar pleural effusions. No focal consolidation. No pneumothorax. Mild cardiomegaly. No acute fractures. RAD/Chest PA and Lateral IMPRESSION: Extensive pulmonary edema. Mild bibasilar pleural effusions. No focal consolid ation. No pneumothorax. Reading Location: [id number]
[2024-12-30 16:02] LABS: Troponin T High Sensitivity 31 ng/L (<=14)
--- NOTE | 2024-12-30 17:14 | ED.RN ---
PT. FOUND ATTEMPTING TO CRAWL OUT OF THE BED AND YELLING HELP ME, HELP ME. PT. REORIENTED TO PLACE AND CALL LIGHT, AND MOVED BACK UP IN BED.
[2024-12-30 17:26] LABS: Troponin T High Sens 2 HR 28 ng/L (<=14)
--- NOTE | 2024-12-30 17:27 | ED.RN ---
RADIOLOGY CALLED FOR DELAY IN IMAGING RESULTS. RESPONSE BY PARMINDER THEY ARE READING IT RIGHT NOW
[2024-12-30 17:48] LABS: Color, Urine Yellow (Yellow); Glucose, Dipstick Normal (Normal); Ketone-Dipstick Negative (Negative); Leukocyte Esterase-Dipstick 25 /ul (Negative); Nitrite-Dipstick Negative (Negative); Occult Blood-Urine 10 /ul (Negative); Protein-Dipstick 100 mg/dl (Negative); Specific Gravity, Urine 1.020 (1.002-1.030)
[2024-12-30 18:04] LABS: Urine Bilirubin Dipstick 1 mg/dL (Negative)
[2024-12-30 18:14] LABS: Red Blood Cells-Urine 5-10 SEEN /hpf (0-5); Squamous Epithelial Cells - UA 10-25 SEEN /hpf (5-10)
[2024-12-30 18:15] LABS: Mucous, Urine 3+ /hpf (<or=2+)
--- NOTE | 2024-12-30 19:19 | PCM.HP.STD ---
HPI - General General Date of Admission: 12/30/24 Date of Service: 12/30/24 Chief Complaint: Weight gain, LE increased edema, Nausea, Tachycardia. HPI Narrative The patient is a 74 y/o F w/ PMHx: YOSI, Anxiety and Depression, Former tobacco use, HFpEF, HTN, HLD, Chronic thrombocytopenia, Hypothyroidism, Former tobacco use, PAF, OA, Gout, Chronic normocytic anemia/Fe deficiency, CKD stage II per GFR trending, Obesity who presents to the [facility] ED on 12/30/2024 with history of increased weight gain, lower extremity significant edema extending up to the abdomen as well as notable tachycardia in addition to nausea without emesis and significant distention/bloating sensation of her abdomen with no recent fevers or chills nor any marked urinary type symptoms but given ongoing concerns for overload appearance as well as notable tachycardia prompted ED evaluation. Review of weights from previous presentation with last noted 10/27/2024 weight at that time 195 pounds now upon current presentation 12/30/2024 weight 224 pounds and from review of previous weight records since 2022 that is the highest weight she has been yet. Workup in the ED included T97.3, heart rate 131, BP 146/118, respiratory rate 12, 95% on room air with most recent repeat vitals T97.9, heart rate 117, BP 142/106, respiratory rate 14, 85% on 2 L with patient noted to during ED evaluation be hypoxic down to 83% on room air eventually transitioning to 2 L nasal cannula as noted, CBC with WC 5.7, hemoglobin 12.1, MCV 99.5, platelet 110 without marked shift, CMP with chloride 110, BUN/creatinine 16/0.92, GFR 65, glucose 123, lactic acid 1.3, hepatic profile with T. bili 0.82, AST/LT 26/37, alk phos 214, initial troponin 31, repeat delta 2-hour 28, NT proBNPII 18,389, urinalysis noted with cloudy, specific gravity 1.020, protein 100, occult blood 10, negative nitrite, leukocyte esterase 25 with noted urine 10-25 WBCs however 8 squamous epithelial cells 10-25 with 1+ bacteria but again a significantly poor sample and not marked appearing, will request a repeat urinalysis to be obtained via catheterization to see if patient truly does have a potential UTI but at this point does not appear significant, CT abdomen pelvis with general fluid overload/third spacing with small-moderate bilateral pleural effusions, small volume abdominal ascites and diffuse subcutaneous edema, cardiomegaly, chest x-ray with extensive pulmonary edema, mild bibasilar pleural effusions, EKG with atrial fibrillation with RVR with no acute evidence of ischemia, urine culture pending per ED. In the ED initially upon presentation patient administered 1 L normal saline however following further workup administered Lasix 40 mg IV x 1, diltiazem 10 mg IV x 1, morphine 2 mg IV x 1, Zofran 4 mg IV x 1 and given initial concern for possible UTI administered Rocephin 1 g IV x 1. [facility] Medical History (Updated 12/30/24 @ 19:[address] Cathleen Vernon MD) (HFpEF) heart failure with preserved ejection fraction Anxiety and depression CKD (chronic kidney disease), stage II Former tobacco use Hypothyroidism HLD (hyperlipidemia) Thrombocytopenia Chronic anemia CKD (chronic kidney disease) Gout Sleep apnea Atrial fibrillation Hypertension Home Medications ?Medication ?Instructions ?Recorded ?Last Taken ?Type allopurinol 300 mg tablet 300 mg PO DAILY gout 01/27/24 12/30/24 History atorvastatin 40 mg tablet 40 mg PO DAILY cholesterol 01/27/24 12/29/24 History buspirone 7.5 mg tablet 10 mg PO TID mental health 02/01/24 12/30/24 History levothyroxine 125 mcg tablet 125 mcg PO DAILY thyroid 02/01/24 12/30/24 History sertraline 50 mg tablet 100 mg PO DAILY mental health 02/01/24 12/30/24 History ferrous sulfate 325 mg (65 mg 325 mg PO 1200,1700 #0 tabs 09/08/24 Unknown Rx iron) tablet (FeroSul) alendronate 70 mg tablet 70 mg PO .Q week osteoprosis 09/28/24 12/28/24 History omeprazole 40 mg capsule,delayed 40 mg PO DAILY gerd 09/28/24 12/30/24 History release calcium carbonate 500 mg (2.5 x 200 mg calcium (500 10/03/24 12/30/24 Rx mg)) PO TIDCM #0 tabs diltiazem HCl 120 mg 120 mg PO Q24H 10/07/24 12/30/24 History capsule,extended release 24 hr isosorbide mononitrate 30 mg 30 mg PO DAILY 10/07/24 12/30/24 History tablet,extended release 24 hr pantoprazole 40 mg tablet,delayed 40 mg PO DAILY 10/07/24 12/30/24 History release melatonin 3 mg tablet 3 mg PO QHS Insomnia 10/27/24 12/29/24 History sennosides 8.6 mg-docusate sodium 1 tab-cap PO QHS 10/27/24 12/29/24 History 50 mg capsule (Senna Plus) furosemide 40 mg tablet 20 mg PO BID 10/28/24 12/30/24 History potassium chloride 10 mEq 10 meq PO BID CKD 10/28/24 Unknown History tablet,extended release(part/cryst) (Klor-Con M) acetaminophen 325 mg tablet 1,000 mg PO TID osteoarthritis 12/30/24 12/30/24 History metoprolol tartrate 25 mg tablet 12.5 mg PO BID blood pressure 12/30/24 12/30/24 History Allergy/AdvReac Type Severity Reaction Status Date / Time No Known Allergies Allergy Verified 10/27/24 15:11 Family History Mother Cancer Diabetes Heart disease Hypertension Father Cancer Diabetes Heart disease Hypertension Surgical History (Updated 12/30/24 @ 19:[address] Cathleen Vernon MD) History of hip surgery History of cholecystectomy Social History (Updated 12/30/24 @ 19:[address] Cathleen Vernon MD) household members: none housing: [facility] Smoking Status: Former smoker how long ago did patient quit smoking: Quit ~ 30 years prior. alcohol intake: never substance use type: does not use ROS ROS Narrative Admission Review of Systems: CONSTITUTIONAL: No weight loss, fever, chills, + significant weight gain, weakness or fatigue. HEENT: Eyes: No visual loss, blurred vision, double vision or yellow sclerae. Ears, Nose, Throat: No hearing loss, sneezing, congestion, runny nose or sore throat. SKIN: No rash or itching, lesions, wounds except for + occasional stage ecchymoses, abrasion. CARDIOVASCULAR: + Notable orthopnea, increased edema, weight gain, racing heart/palpitation. No chest pain, chest pressure or chest discomfort, syncopal events. RESPIRATORY: + Dyspnea, no marked cough, wheezing, hemoptysis. GASTROINTESTINAL: + Anorexia, nausea without emesis, sensation of fullness to the abdomen. No diarrhea, abdominal pain, melena, BRBPR. GENITOURINARY: No dysuria, frequency, urgency or retention. NEUROLOGICAL: No headache, dizziness, syncope, paralysis, ataxia, numbness or tingling in the extremities, focal weakness, change in bowel or bladder control, seizure. MUSCULOSKELETAL: + muscle, back pain, joint pain or stiffness. HEMATOLOGIC: + Chronic anemia, easy bleeding/bruising. LYMPHATICS: No enlarged nodes. No history of splenectomy. PSYCHIATRIC: + History of anxiety and depression. ENDOCRINOLOGIC: No reports of sweating, cold or heat intolerance. No polyuria or polydipsia. ALLERGIES: No history of asthma, hives, eczema or rhinitis. Vital Signs Vital Signs Vital Signs: 12/30/24 13:59 12/30/24 14:01 12/30/24 14:21 Temperature 97.3 F L 97.3 F L Temperature Source Oral Oral Pulse Rate 131 H 131 H 116 H Respiratory Rate 12 12 18 Respiratory Effort Blood Pressure 146/118 H 146/118 H Blood Pressure Mean 127 127 Pulse Ox 95 95 95 Oxygen Delivery Method Room Air Room Air Oxygen Flow Rate (L/min) 12/30/24 14:25 12/30/24 14:30 12/30/24 14:45 Temperature Temperature Source Pulse Rate 121 H Respiratory Rate 21 H Respiratory Effort Normal Non-Labored Blood Pressure 133/108 H 148/99 H Blood Pressure Mean 117 116 Pulse Ox Oxygen Delivery Method Oxygen Flow Rate (L/min) 12/30/24 15:00 12/30/24 15:01 12/30/24 15:15 Temperature 97.3 F L Temperature Source Oral Pulse Rate 118 H 120 H 125 H Respiratory Rate 18 16 16 Respiratory Effort Blood Pressure 144/114 H 148/99 H 139/93 H Blood Pressure Mean 123 115 106 Pulse Ox 95 Oxygen Delivery Method Room Air Oxygen Flow Rate (L/min) 12/30/24 15:23 12/30/24 15:24 12/30/24 15:30 Temperature Temperature Source Pulse Rate 122 H 123 H Respiratory Rate 18 14 Respiratory Effort Short of Breath Blood Pressure 139/93 H Blood Pressure Mean 108 Pulse Ox 94 83 Oxygen Delivery Method Room Air Room Air Oxygen Flow Rate (L/min) 12/30/24 15:30 12/30/24 15:31 12/30/24 15:32 Temperature Temperature Source Pulse Rate 113 H Respiratory Rate 15 Respiratory Effort Blood Pressure 122/85 H Blood Pressure Mean 96 Pulse Ox 83 90 94 Oxygen Delivery Method Nasal Cannula Nasal Cannula Oxygen Flow Rate (L/min) 2 2 12/30/24 15:45 12/30/24 16:00 12/30/24 16:02 Temperature 97.9 F Temperature Source Oral Pulse Rate 111 H 113 H 133 H Respiratory Rate 27 H 14 13 Respiratory Effort Blood Pressure 117/91 H 130/104 H Blood Pressure Mean 99 112 Pulse Ox 100 Oxygen Delivery Method Nasal Cannula Oxygen Flow Rate (L/min) 2 12/30/24 16:15 12/30/24 16:30 12/30/24 16:30 Temperature 97.9 F Temperature Source Oral Pulse Rate 115 H 123 H 120 H Respiratory Rate 16 21 H 16 Respiratory Effort Blood Pressure 130/104 H 152/120 H Blood Pressure Mean 113 128 Pulse Ox 100 Oxygen Delivery Method Nasal Cannula Oxygen Flow Rate (L/min) 2 12/30/24 16:34 12/30/24 16:45 12/30/24 16:47 Temperature Temperature Source Pulse Rate 128 H 105 H 108 H Respiratory Rate 17 19 H 15 Respiratory Effort Blood Pressure 127/82 H 123/91 H 123/91 H Blood Pressure Mean 98 103 101 Pulse Ox 98 Oxygen Delivery Method Nasal Cannula Oxygen Flow Rate (L/min) 2 12/30/24 17:00 12/30/24 17:00 12/30/24 17:15 Temperature 97.9 F Temperature Source Oral Pulse Rate 113 H 116 H 118 H Respiratory Rate 20 H 28 H 19 H Respiratory Effort Blood Pressure 123/96 H 123/96 H 109/78 Blood Pressure Mean 105 105 89 Pulse Ox 95 98 Oxygen Delivery Method Nasal Cannula Oxygen Flow Rate (L/min) 2 12/30/24 17:30 12/30/24 17:45 12/30/24 18:00 Temperature Temperature Source Pulse Rate 115 H 112 H 103 H Respiratory Rate 18 15 16 Respiratory Effort Blood Pressure 104/76 126/83 H Blood Pressure Mean 86 95 Pulse Ox 95 Oxygen Delivery Method Nasal Cannula Oxygen Flow Rate (L/min) 12/30/24 19:00 12/30/24 19:15 Temperature 98.2 F Temperature Source Pulse Rate 117 H 107 H Respiratory Rate 14 13 Respiratory Effort Blood Pressure 142/106 H 138/100 H Blood Pressure Mean 118 112 Pulse Ox 95 96 Oxygen Delivery Method Nasal Cannula Oxygen Flow Rate (L/min) 2 Weight Weight: 224 lb Body Mass Index (BMI) 35.0 Physical Exam Narrative Physical Examination: General: Awake, alert, oriented to self, place and recent events, is hard of hearing, remains cooperative, laying in ED bed, fatigued Although she does report feeling better than when she initially arrived. Skin: Normal color, normal turgor, no icterus, no cyanosis except for occasional stage ecchymoses, abrasion, bilateral lower extremity venous stasis skin changes. HEENT: AT/NC, EOMI, PERRLA, MMM, no carotid bruits, + JVD noted. Lungs: Diminished, greater bases, mildly increased respiratory rate but no distress, notable rales, no rhonchi or wheezing, supplemental oxygen in place. Heart: Irregular irregular, no gallop, rub audible. Abdomen: Soft, mild generalized discomfort but suspect primarily secondary to significant lower abdominal pitting edema, no severe tense distention, distant BS, difficult to appreciate HSM., Extremities: No cyanosis, no clubbing, significant pedal to lower abdomen 3+ pitting edema bilaterally. Neurological: Patient awake, alert, oriented as noted, cognitive function suspect near baseline intact but again very hard of hearing with slow responses, pupils equally reactive to light and accommodation, cranial nerves grossly normal, moving all 4 extremities, no focal deficits, strength severely globally decreased. Psychiatric: Affect appears flat, fatigued, no acute evidence of depressive or anxiety feelings but does have underlying history. Results Lab / Micro Data 12/30/24 14:04 12/30/24 14:04 Labs: Laboratory Results - last 24 hr 12/30/24 14:04: WBC 5.7, RBC 3.76 L, Hgb 12.1, Hct 37.4, MCV 99.5 H, MCH 32.2 H, MCHC 32.4, RDW Std Deviation 54.3 H, RDW Coeff of Lisa 14.9 H, Plt Count 110 L, MPV 11.9, Immature Gran % (Auto) 0.400, Neut % (Auto) 62.1, Lymph % (Auto) 27.3, Cass % (Auto) 8.8, Eos % (Auto) 0.7, Baso % (Auto) 0.7, Absolute Neuts (auto) 3.5, Absolute Lymphs (auto) 1.55, Nucleated RBC % 0, Sodium 143, Potassium 3.8, Chloride 110 H, Carbon Dioxide 21.4, Anion Gap 12, BUN 16, Creatinine 0.92, Est GFR (MDRD) Non-Af 65, BUN/Creatinine Ratio 17.5, Glucose 123 H, Calcium 9.0, Total Bilirubin 0.82, AST 26, ALT 37 H, Alkaline Phosphatase 214 H, Troponin T High Sens 31 H D, [place] [address] H, Total Protein 5.8 L, Albumin 4.0, Globulin 1.9 L, Albumin/Globulin Ratio 2.1, Lipase 13 12/30/24 15:10: Lactic Acid 1.3 12/30/24 16:36: Troponin T Hi Sens 2 Hr 28 H 12/30/24 17:13: Urine Color Yellow, Urine Clarity Sl. Cloudy, Urine pH 5.0, Ur Specific [place] 1.020, Urine Protein 100 H, Urine Glucose (UA) Normal, Urine Ketones Negative, Urine Occult Blood 10 H, Urine Nitrite Negative, Urine Bilirubin 1 H, Urine Urobilinogen 1 H, Ur Leukocyte Esterase 25 H, Urine RBC 5-10 SEEN, Urine WBC 10-25 SEEN, Ur Squamous Epith Cells 10-25 SEEN, Urine Bacteria 1+, Urine Mucus 3+ Imaging Radiology Impression Abdomen/Pelvis CT 12/30/24 14:49 IMPRESSION: No definite acute or active inflammatory intra-abdominal pathology. Generalized fluid overload/third-spacing with small-moderate bilateral pleural effusions, small volume abdominal ascites, and diffuse subcutaneous edema. Cardiomegaly. Reading Location: [facility] Chest X-Ray 12/30/24 15:58 IMPRESSION: Extensive pulmonary edema. Mild bibasilar pleural effusions. No focal consolidation. No pneumothorax. Reading Location: [facility] Assessment & Plan Assessment/Plan (1) Acute exacerbation of chronic heart failure: (2) Atrial fibrillation with RVR: PLAN: Plan The patient is a 74 y/o F w/ PMHx: YOSI, Anxiety and Depression, Former tobacco use, HFpEF, HTN, HLD, Chronic thrombocytopenia, Hypothyroidism, Former tobacco use, PAF, OA, Gout, Chronic normocytic anemia/Fe deficiency, CKD stage II per GFR trending, Obesity who presents to the [facility] ED on 12/30/2024 with history of increased weight gain, lower extremity significant edema extending up to the abdomen as well as notable tachycardia in addition to nausea without emesis and significant distention/bloating sensation of her abdomen with no recent fevers or chills nor any marked urinary type symptoms but given ongoing concerns for overload appearance as well as notable tachycardia prompted ED evaluation. #1. Adult FTT, multifactorial, secondary to Acute Hypoxia secondary to Acute HFpEF Exacerbation with indeterminate cardiac enzymes likely secondary to demand likely contributed to in large part secondary to #2 atrial fibrillation with RVR as well as noted remaining comorbidities: Patient administered IV lasix in the ED, will admit to PCU, maintain on cardiac telemetry, obtain cardiac enzyme series, obtain serial EKGs, continue IV lasix diuresis, monitor I/Os, maintain on intake restriction, continue medical therapy, obtain TSH and magnesium level. Most recently noted 09/27/2024 echocardiogram with LVEF 65 to 70%, normal LV systolic function, mild concentric LVH thus will defer repeat. Will place bilateral lower extremity snug maldonado wraps. PT/OT/case management consulted for discharge planning. #2. Paroxsymal atrial fibrillation w/ RVR: EKG in ED w/ atrial fibrillation w/ RVR. Patient administered Cardizem bolus in the ED. Will maintain on telemetry, obtain cardiac enzyme serial set, obtain magnesium level most recent echocardiogram as noted above 09/27/2024 thus will defer repeat, obtain TSH level. Patient with elevated NAZANIN scoring however she has not been chronically anticoagulated secondary to per previous record significant fall history. Currently rate improved thus will attempt to resume oral regimen with oral cardizem and metoprolol; however, low threshold to transition to drip if needed. #3. Questionable urinary tract infection, noted per ED with initial treatment with IV Rocephin, low suspicion for UTI given UA poor sample and not marked appearing: Urinalysis poor sample and not suggestive of urinary tract infection, urine culture is pending but again poor sample, if concerns arise certainly may repeat UA and urine culture with catheterization sample however at this time low suspicion, will defer antibiotic therapy. #4. Chronic normocytic anemia/iron deficiency anemia: Admission CBC with hemoglobin 12.1, MCV 99.5 however normally normocytic range, baseline hemoglobin primarily 10-11, stable, continue to trend, continue iron supplementation. #5. Chronic Kidney Disease Stage II per previous GFR trend: Admission BUN/Cr 16/0.92, GFR 65, baseline renal function primarily 0.8-1.0, repeat BMP in AM. #6. Chronic thrombocytopenia: Unclear etiology, admission platelets 110, baseline previously noted primarily 90-100, stable, continue to trend CBC. #7. Hypertension: Continue home regimen including oral diltiazem, oral metoprolol, continue isosorbide, IV lasix, PRN hydralazine. #8. Hyperlipidemia: Continue home statin regimen. AM FLP. #9. Hypothyroidism: Will continue patient on levothyroxine regimen. #10. Anxiety and Depression/mood disorder: Will continue patient home sertraline and BuSpar regimen. #11. GERD: Continue patient PPI. #12. Gout: Continue patient home allopurinol regimen. #13. Obesity: Weight loss and lifestyle changes encouraged, nutrition consulted given #1. #14. YOSI: Will encourage continue PAP therapy at bedtime. #15. Former tobacco use: Encourage continued tobacco cessation. #16. DVT prophylaxis: Lovenox. #17. CODE status: Patient HCPOA and living will are not in place but she notes she would want her friend Rajiv Aly or her Brother Jarad to be her medical decision maker if necessary. Facility paperwork does demonstrate a full CODE STATUS but rediscussed CODE status at length including difference between FULL code, DNR-CCA and DNR-CC status to be certain and she notes continued Full Code status at this time. Charges/Coding Visit Charges Inpatient E&M: 62049 Init Hosp L3
[2024-12-30 20:01] LABS: Magnesium 2.1 mg/dL (1.5-2.2)
[2024-12-30] MEDS: MELATONIN 3 MG TABLET PO (21:34)
[2024-12-30] MEDS: Senna/Docusate Sodium 1 Tablet PO (21:34)
[2024-12-30] MEDS: Potassium Chloride Oral Tablet 10 MEQ PO (21:34)
[2024-12-30 22:16] LABS: Troponin T High Sens 4 HR 31 ng/L (<=14)
[2024-12-31] VITALS (7 sets, daily range): BP systolic 104–140; BP diastolic 77–98; PULSE 63–114; RESP 16–18; TEMP 36.4–36.7; O2SAT 92–99; BMI 32.4
[2024-12-31] MEDS: 0.9% Saline Lock 10 ML Syringe IV ×3 (05:38→17:00)
[2024-12-31 06:01] LABS: Hematocrit 36.0 % (37-47); Hemoglobin 11.2 g/dL (12.0-15.0); Immature Granulocytes Count 0.010 X10^3/uL (0.0-0.0); Mean Corp Hgb Conc 31.1 g/dL (32-36); Mean Corpuscular Volume 100.8 fL (81-99); Mean Platelet Vol. 11.6 fl (6.2-12.0); NRBC Flagged by Analyzer 0 % (0-5); Platelet Count 102 K/mm3 (150-450); RBC Distribution Width CV 14.7 % (11.6-14.6); RBC Distribution Width SD 54.5 fl (35.1-43.9); Red Blood Count 3.57 M/mm3 (4.2-5.4); White Blood Count 5.1 K/mm3 (4.4-11.0)
[2024-12-31 06:23] LABS: AST(SGOT) 20 U/L (<=31); Alanine Aminotransfer ALT/SGPT 29 U/L (<=34); Albumin, Serum 3.5 g/dL (3.4-4.8); Alkaline Phosphatase 182 U/L (35-104); Anion Gap 11 (5-15); BUN 14 mg/dL (4-19); BUN/Creat Ratio 15.5 RATIO (10-20); Calcium,Total 8.4 mg/dL (7.6-11.0); Carbon Dioxide 21.7 mmol/L (21.0-32.0); Chloride 111 mmol/L (98-108); Cholesterol 67 mg/dL (<=200); Estimated Creatinine Clearance 65.74 ml/min (50-250); Globulin 1.8 g/dL (2.2-4.2); Glucose 89 mg/dL (70-99); Low Density Lipoprotein Calc. 14 mg/dL; Potassium 3.8 mmol/L (3.3-5.1); Triglycerides 82 mg/dL; Very Low Density Lipoprotein 16 mg/dL (5-40); cholesterol:hdl ratio screen 1.84
[2024-12-31] MEDS: Potassium Chloride Oral Tablet 10 MEQ PO ×2 (09:30→22:02)
--- NOTE | 2024-12-31 11:41 | CASEMGMT ---
Social Work SW called the brother Jarad and left a message. GIL Jackson
--- NOTE | 2024-12-31 13:17 | CASEMGMT ---
Social Work SW spoke with the brother Jarad. Jarad reported he does not know if his sister has POA. [facility] He reported he thinks the plan would be for his sister to return to [facility]. GIL Jackson
--- NOTE | 2024-12-31 13:24 | CHAPLAIN ---
Type of Pastoral Visit _x__ Initial Visit ___ Follow-up Visit ___ On-call Visit ___ General Patient Visit ___ Spiritual Assessment ___ Family Conference ___ Bereavement ___ Rapid Response ___ Code Blue ___ Other (describe below) Pastoral Care Referral From _x__ Patient ___ Family ___ Nurse ___ Physician ___ Criminal Intelligence Analyst ___ Forging Roll Operator ___ Other (describe below) Sacrament/Intervention _x__ Active listening ___ Anointing ___ Rastafarian ___ Bereavement ___ Communion _x__ Malena exploration ___ _x__ Life review _x__ Prayer ___ Reconciliation ___ Sacrament of Sick _x__ Supportive presence ___ Wedding ___ Other (describe below) Pastoral Comments patient immediately expresses her desire for her bindery machine operator to talk with; pt then is welcoming of training and development assistant and having time to speak of her worries; pt may not be fully clear minded and has to have explanation on some questions and comments; pt appears to be worried about her living situation, as in not knowing where she will live next; pt is assured that the SW team will be helpful to her (and this training and development assistant talked with SW after this visit); pt does talk about her love of baseball and the [employer] team; the Eucharistic Stripe Matcher entered room and had a prayer for her; pt acknowledges prayer and repeats the Our Father with him; pt expresses gratitude for taking time to talk with me and that was so nice;
--- NOTE | 2024-12-31 16:14 | CASEMGMT ---
Addendum entered by Jeana Weir 01/01/25 08:00: Pt is private pay and no precert needed to return. Jeana Weir DC Planning Asst. Original Note: Discharge Planning Updates sent to [facility]. Asked if pt will need a precert to return. Jeana Weir DC Planning Asst.
--- NOTE | 2024-12-31 16:24 | PN_ITS ---
Subjective Subjective Patient seen and examined with her nurse by her bedside. [facility] with a complaint of weight gain and lower extremity edema as well as nausea and tachycardia. She denies feeling short of breath today and denies any cough or chest pain, palpitations, nausea or vomiting. She does have abdominal distention which is thought to be due to the fluid overload. Review of systems otherwise negative. Objective Data Objective Data Vital Signs: Vital Signs Temp Pulse Resp BP Pulse Ox O2 Del Method O2 Flow Rate 97.8 F 82 16 104/81 H 95 Nasal Cannula 2 12/31/24 15:18 12/31/24 15:18 12/31/24 15:18 12/31/24 15:18 12/31/24 15:18 12/31/24 15:18 12/31/24 15:18 Oxygen Flow Rate (L/min) 2 Oxygen Delivery Method Nasal Cannula Weight: 213 lb 10.047 oz Body Mass Index (BMI) 32.4 Intake & Output: Intake and Output for Last 24 Hours 12/29/24 12/30/24 12/31/24 23:59 23:59 23:59 Intake Total 1050 / 1170 490 / 490 Output Total 1850 / 1850 Balance 1050 / 220 -1360 / -1360 Lab / Micro Data 12/31/24 05:35 12/31/24 05:35 Labs: Laboratory Results - last 24 hr 12/30/24 16:36: Magnesium 2.1, Troponin T Hi Sens 2 Hr 28 H 12/30/24 17:13: Urine Color Yellow, Urine Clarity Sl. Cloudy, Urine pH 5.0, Ur Specific [place] 1.020, Urine Protein 100 H, Urine Glucose (UA) Normal, Urine Ketones Negative, Urine Occult Blood 10 H, Urine Nitrite Negative, Urine Bilirubin 1 H, Urine Urobilinogen 1 H, Ur Leukocyte Esterase 25 H, Urine RBC 5- 10 SEEN, Urine WBC 10-25 SEEN, Ur Squamous Epith Cells 10-25 SEEN, Urine Bacteria 1+, Urine Mucus 3+ 12/30/24 21:15: Troponin T Hi Sens 4Hr 31 H 12/31/24 05:35: WBC 5.1, RBC 3.57 L, Hgb 11.2 L, Hct 36.0 L, MCV 100.8 H, MCH 31.4, MCHC 31.1 L, RDW Std Deviation 54.5 H, RDW Coeff of Lisa 14.7 H, Plt Count 102 L, MPV 11.6, Immature Gran % (Auto) 0.200, Neut % (Auto) 49.4, Lymph % (Auto) 37.8, [place] % (Auto) 9.6, Eos % (Auto) 2.0, Baso % (Auto) 1.0, Absolute Neuts (auto) 2.5, Absolute Lymphs (auto) 1.92, Nucleated RBC % 0, Sodium 144, Potassium 3.8, Chloride 111 H, Carbon Dioxide 21.7, Anion Gap 11, BUN 14, Creatinine 0.90, Estim Creat Clear Calc 65.74, Est GFR (MDRD) Non-Af 67, BUN/Creatinine Ratio 15.5, Glucose 89, Calcium 8.4, Total Bilirubin 0.62, AST 20, ALT 29, Alkaline Phosphatase 182 H, Total Protein 5.3 L, Albumin 3.5, G lobulin 1.8 L, Albumin/Globulin Ratio 2.0, Triglycerides 82, Cholesterol 67, LDL Cholesterol, Calc 14, VLDL Cholesterol 16, HDL Cholesterol 37 L, Cholesterol/HDL Ratio 1.84, TSH 19.500 H Radiography Diagnostic Testing: Radiology Impression Abdomen/Pelvis CT 12/30/24 14:49 IMPRESSION: No definite acute or active inflammatory intra-abdominal pathology. Generalized fluid overload/third-spacing with small-moderate bilateral pleural effusions, small volume abdominal ascites, and diffuse subcutaneous edema. Cardiomegaly. Reading Location: [facility] Chest X-Ray 12/30/24 15:58 IMPRESSION: Extensive pulmonary edema. Mild bibasilar pleural effusions. No focal consolidation. No pneumothorax. Reading Location: [facility] Physical Exam Const alert Constitutional Narrative: Frail, confused. Orientation / Consciousness: confused HEENT head/scalp atraumatic, moist oral mucous membranes and oropharynx normal Eyes EOMs intact bilaterally Neck supple and no JVD Lymph Lymphatic: no lymphedema noted Resp Resp Narrative: Moderately diminished breath sounds bibasilarly. Bilateral wheezing and few crackles. On 2L of oxygen by nasal canula Cardio regular rate, regular rhythm, S1 normal heart sound, S2 normal heart sound and no murmurs GI soft to palpation, non-tender and non-distended GI Narrative: abdominal wall edematous, nontender, no organomegaly Extremity Extremity Narrative: bilateral pitting pedal edema General Extremity: no tenderness to palpation of joints or extremities Skin General Skin Exam: no breakdown Neuro no focal motor deficits Motor Exam: general weakness Psych Psych Narrative: confused Assessment & Plan Assessment/Plan (1) Atrial fibrillation with RVR: (2) Acute exacerbation of chronic heart failure: PLAN: Plan #Hypoxia due to acute exacerbation of heart failure preserved ejection fraction * Also has abdominal wall distention due to fluid is most likely. She did have CT of the abdomen and pelvis on admission which showed generalized fluid overload and third spacing with small to moderate bilateral pleural effusions and small volume abdominal ascites as well as diffuse subcutaneous edema and cardiomegaly. * Chest x-ray showed extensive pulmonary edema and mild bibasilar pleural effusions. * Being diuresed with IV Lasix. * Troponins essentially remained flat. #A-fib with RVR: * Now rate controlled. TSH within normal limits. On Cardizem and metoprolol. Not chronically anticoagulated due to fall history. Will monitor. ##Hypothyroidism: * On Synthroid. TSH is 19.5. Was previously as high as 43.9 in August 2024. * Was 18.2 in September 2024. She is on Synthroid 125 mcg daily. * Will increase dose to 175 mcg daily. * She lives in a memory unit and so is supervised to take her meds. It is therefore safe to assume she has likely been compliant with her meds. #Thrombocytopenia: This is chronic. Platelets are 102. Will monitor closely. #Hypertension: Metoprolol and Cardizem as well as Imdur #Hyperlipidemia: On statin #Anxiety and depression: On sertraline and BuSpar #GERD: On PPI #History of gout: On allopurinol #YOSI: On CPAP nightly #DVT prophylaxis: Lovenox Charges/Coding Visit Charges Inpatient E&M: 13460 Subs Hosp L2
[2024-12-31] MEDS: MELATONIN 3 MG TABLET PO (22:02)
[2024-12-31] MEDS: Senna/Docusate Sodium 1 Tablet PO (22:02)
--- NOTE | 2025-01-01 02:37 | CPS ---
Pt was confused tonight to even ask about cpap. cpap not on.
[2025-01-01 04:38] VITALS: BP 136/95; PULSE 86; RESP 18; TEMP 36.3; O2SAT 97
[2025-01-01] MEDS: 0.9% Saline Lock 10 ML Syringe IV ×3 (04:49→21:39)
[2025-01-01 05:53] VITALS: BMI 32.1
[2025-01-01 05:59] LABS: Hematocrit 35.8 % (37-47); Hemoglobin 11.0 g/dL (12.0-15.0); Immature Granulocytes Count 0.010 X10^3/uL (0.0-0.0); Mean Corp Hgb Conc 30.7 g/dL (32-36); Mean Corpuscular Volume 102.3 fL (81-99); Mean Platelet Vol. 11.1 fl (6.2-12.0); NRBC Flagged by Analyzer 0 % (0-5); POSITIVE COUNT YES; Platelet Count 99 K/mm3 (150-450); RBC Distribution Width CV 14.6 % (11.6-14.6); RBC Distribution Width SD 54.5 fl (35.1-43.9); Red Blood Count 3.50 M/mm3 (4.2-5.4); White Blood Count 4.8 K/mm3 (4.4-11.0)
[2025-01-01 06:00] LABS: Differential Indicated SCAN CRITERIA MET
[2025-01-01 06:25] LABS: Anion Gap 12 (5-15); BUN 16 mg/dL (4-19); BUN/Creat Ratio 17.8 RATIO (10-20); Calcium,Total 8.6 mg/dL (7.6-11.0); Carbon Dioxide 22.4 mmol/L (21.0-32.0); Chloride 110 mmol/L (98-108); Estimated Creatinine Clearance 67.69 ml/min (50-250); Glucose 109 mg/dL (70-99); Potassium 3.6 mmol/L (3.3-5.1)
[2025-01-01 09:59] VITALS: BP 129/96; PULSE 97; RESP 18; TEMP 36.5; O2SAT 98
--- NOTE | 2025-01-01 10:03 | PN_ITS ---
Subjective Subjective Patient seen and examined with her nurse by her bedside. She had no active complaints. She remains quite frail. She is on 2L of oxygen but is otherwise hemodynamically stable. Review of systems is otherwise negative. Objective Data Objective Data Vital Signs: Vital Signs Temp Pulse Resp BP Pulse Ox O2 Del Method O2 Flow Rate 97.7 F L 97 18 129/96 H 98 Nasal Cannula 2 01/01/25 09:59 01/01/25 09:59 01/01/25 09:59 01/01/25 09:59 01/01/25 09:59 01/01/25 09:59 01/01/25 09:59 Oxygen Flow Rate (L/min) 2 Oxygen Delivery Method Nasal Cannula Weight: 211 lb 10.3 oz Body Mass Index (BMI) 32.1 Intake & Output: Intake and Output for Last 24 Hours 12/30/24 12/31/24 01/01/25 23:59 23:59 23:59 Intake Total 1050 / 1170 610 / 610 Output Total 2250 / 3050 1000 / 1000 Balance 1050 / 220 -1640 / -2440 -1000 / -1000 Lab / Micro Data 01/01/25 05:29 01/01/25 05:29 Labs: Laboratory Results - last 24 hr 01/01/25 05:29: WBC 4.8, RBC 3.50 L, Hgb 11.0 L, Hct 35.8 L, MCV 102.3 H, MCH 31.4, MCHC 30.7 L, RDW Std Deviation 54.5 H, RDW Coeff of Lisa 14.6, Plt Count 99 L, MPV 11.1, Immature Gran % (Auto) 0.200, Neut % (Auto) 49.6, Lymph % (Auto) 38.3, [place] % (Auto) 9.1, Eos % (Auto) 1.7, Baso % (Auto) 1.1 H, Absolute Neuts (auto) 2.4, Absolute Lymphs (auto) 1.82, Nucleated RBC % 0, Platelet Estimate SLT DEC, Sodium 144, Potassium 3.6, Chloride 110 H, Carbon Dioxide 22.4, Anion Gap 12, BUN 16, Creatinine 0.87, Estim Creat Clear Calc 67.69, Est GFR (MDRD) Non-Af 69, BUN/Creatinine Ratio 17.8, Glucose 109 H, Calcium 8.6 Micro: Microbiology 12/30/24 17:13 Urine, Catheterized Urine Culture - Preliminary Culture exhibits no growth. Physical Exam Const alert Constitutional Narrative: Frail, confused. Weak Orientation / Consciousness: confused HEENT head/scalp atraumatic, moist oral mucous membranes and oropharynx normal Eyes EOMs intact bilaterally Neck supple and no JVD Lymph Lymphatic: no lymphedema noted Resp Resp Narrative: Moderately diminished breath sounds bibasilarly. Bilateral wheezing and few crackles. Remains on 2L of oxygen by nasal canula Cardio regular rate, regular rhythm, S1 normal heart sound, S2 normal heart sound and no murmurs GI soft to palpation, non-tender and non-distended GI Narrative: abdominal wall still edematous, nontender, no organomegaly Extremity Extremity Narrative: bilateral pitting pedal edema General Extremity: no tenderness to palpation of joints or extremities Skin General Skin Exam: no breakdown Neuro no focal motor deficits Motor Exam: general weakness Psych Psych Narrative: confused Mood & Affect: flat affect Assessment & Plan Assessment/Plan (1) Atrial fibrillation with RVR: (2) Acute exacerbation of chronic heart failure: PLAN: Plan #Hypoxia due to acute exacerbation of heart failure preserved ejection fraction * Also has abdominal wall distention due to fluid is most likely. She did have CT of the abdomen and pelvis on admission which showed generalized fluid overload and third spacing with small to moderate bilateral pleural effusions and small volume abdominal ascites as well as diffuse subcutaneous edema and cardiomegaly. * Chest x-ray showed extensive pulmonary edema and mild bibasilar pleural effusions. * Being diuresed with IV Lasix. In cumulative negative balance by 1.59L * Troponins essentially remained flat. #A-fib with RVR: * Now rate controlled. TSH within normal limits. On Cardizem and metoprolol. Not chronically anticoagulated due to fall history. Will monitor. ##Hypothyroidism: * On Synthroid. TSH is 19.5. Was previously as high as 43.9 in August 2024. * Was 18.2 in September 2024. She is on Synthroid 125 mcg daily. * Will increase dose to 175 mcg daily. * She lives in a memory unit and so is supervised to take her meds. It is therefore safe to assume she has likely been compliant with her meds. #Thrombocytopenia: This is chronic. Platelets are down to 99 today, from 102 yesterday. Will monitor closely. #Hypertension: Metoprolol and Cardizem as well as Imdur #Hyperlipidemia: On statin #Anxiety and depression: On sertraline and BuSpar #GERD: On PPI #History of gout: On allopurinol #YOSI: On CPAP nightly #DVT prophylaxis: Lovenox Charges/Coding Visit Charges Inpatient E&M: 32938 Subs Hosp L2
[2025-01-01 10:18] LABS: Free T3 1.8 pg/mL (2.18-3.98)
[2025-01-01 10:20] VITALS: BP 129/96; PULSE 97
[2025-01-01] MEDS: Potassium Chloride Oral Tablet 10 MEQ PO ×2 (10:20→21:39)
--- NOTE | 2025-01-01 11:01 | CASEMGMT ---
Discharge Planning reports that pt may return to [facility] over the weekend. [facility] notified. Jeana Weir DC Planning Asst.
--- NOTE | 2025-01-01 14:01 | CASEMGMT ---
Social Work SW [facility] explained that pt was sent from [place] to [facility], as [place] did not feel they could manage pt's care needs due to her memory issues. [facility] also said that they are looking into guardianship for pt, as pt's brother has not wanted to be too involved. He states that the process has been started to get pt an expert evaluation, to then pursue guardianship. WILLIAN Hahn
--- NOTE | 2025-01-01 14:02 | CASEMGMT ---
Social Work Patient to DC to [facility]. green sheet in the chart. GIL Jackson
[2025-01-01 16:14] VITALS: BP 132/90; PULSE 88; RESP 16; TEMP 36.6; O2SAT 94
--- NOTE | 2025-01-01 21:02 | CPS ---
Patient refused PAP therapy for night time use.
[2025-01-01 21:35] VITALS: BP 140/80; PULSE 90; RESP 16; TEMP 36.6; O2SAT 95
[2025-01-01 21:39] VITALS: BP 140/80; PULSE 90
[2025-01-01] MEDS: MELATONIN 3 MG TABLET PO (21:39)
[2025-01-01] MEDS: Senna/Docusate Sodium 1 Tablet PO (21:39)
[2025-01-02] VITALS (7 sets, daily range): BP systolic 126–151; BP diastolic 88–107; PULSE 73–88; RESP 16–18; TEMP 36.4–36.8; O2SAT 94–99; BMI 31.1
--- NOTE | 2025-01-02 04:18 | PCM.HOSP.N ---
Hospitalist Note Patient with moderate agitation, anxiety. Will administer low dose seroquel x 1.
[2025-01-02 07:13] LABS: Hematocrit 37.5 % (37-47); Hemoglobin 11.7 g/dL (12.0-15.0); Immature Granulocytes Count 0.010 X10^3/uL (0.0-0.0); Mean Corp Hgb Conc 31.2 g/dL (32-36); Mean Corpuscular Volume 100.0 fL (81-99); Mean Platelet Vol. 11.1 fl (6.2-12.0); NRBC Flagged by Analyzer 0 % (0-5); Platelet Count 107 K/mm3 (150-450); RBC Distribution Width CV 14.5 % (11.6-14.6); RBC Distribution Width SD 53.1 fl (35.1-43.9); Red Blood Count 3.75 M/mm3 (4.2-5.4); White Blood Count 5.5 K/mm3 (4.4-11.0)
[2025-01-02 07:42] LABS: Anion Gap 9 (5-15); BUN 16 mg/dL (4-19); BUN/Creat Ratio 18.8 RATIO (10-20); Calcium,Total 8.6 mg/dL (7.6-11.0); Carbon Dioxide 27.3 mmol/L (21.0-32.0); Chloride 107 mmol/L (98-108); Estimated Creatinine Clearance 69.01 ml/min (50-250); Glucose 108 mg/dL (70-99); Potassium 3.5 mmol/L (3.3-5.1)
[2025-01-02] MEDS: Potassium Chloride Oral Tablet 10 MEQ PO ×2 (12:27→21:15)
--- NOTE | 2025-01-02 13:51 | PN_ITS ---
Subjective Subjective Patient seen and examined with her nurse by her bedside. Patient was quite lethargic today. She responded to her name but would not really answer questions. Per her nurse patient received a dose of Seroquel overnight and this that is likely what estimated so obtunded and lethargic. Review of systems otherwise negative. Objective Data Objective Data Vital Signs: Vital Signs Temp Pulse Resp BP Pulse Ox O2 Del Method O2 Flow Rate 98.0 F 78 18 151/107 H 94 Nasal Cannula 2 01/02/25 09:00 01/02/25 12:26 01/02/25 09:00 01/02/25 09:00 01/02/25 09:00 01/02/25 09:00 01/02/25 12:36 Oxygen Flow Rate (L/min) 2 Oxygen Delivery Method Nasal Cannula Weight: 205 lb 0.478 oz Body Mass Index (BMI) 31.1 Intake & Output: Intake and Output for Last 24 Hours 12/31/24 01/01/25 01/02/25 23:59 23:59 23:59 Intake Total 610 / 610 500 / 500 Output Total 2250 / 3050 1000 / 1600 1100 / 1100 Balance -1640 / -2440 -500 / -1100 -1100 / -1100 Lab / Micro Data 01/02/25 06:06 01/02/25 06:06 Labs: Laboratory Results - last 24 hr 01/02/25 06:06: WBC 5.5, RBC 3.75 L, Hgb 11.7 L, Hct 37.5, MCV 100.0 H, MCH 31.2, MCHC 31.2 L, RDW Std Deviation 53.1 H, RDW Coeff of Lisa 14.5, Plt Count 107 L, MPV 11.1, Immature Gran % (Auto) 0.200, Neut % (Auto) 61.3, Lymph % (Auto) 27.5, [place] % (Auto) 9.0, Eos % (Auto) 1.3, Baso % (Auto) 0.7, Absolute Neuts (auto) 3.4, Absolute Lymphs (auto) 1.50, Nucleated RBC % 0, Sodium 143, Potassium 3.5, Chloride 107, Carbon Dioxide 27.3, Anion Gap 9, BUN 16, Creatinine 0.84, Estim Creat Clear Calc 69.01, Est GFR (MDRD) Non-Af 72, BUN/Creatinine Ratio 18.8, Glucose 108 H, Calcium 8.6 Micro: Microbiology 12/30/24 17:13 Urine, Catheterized Urine Culture - Final Culture exhibits no growth. Physical Exam Const alert Constitutional Narrative: Frail, confused. Weak Orientation / Consciousness: confused HEENT normocephalic, head/scalp atraumatic, moist oral mucous membranes and oropharynx normal Eyes EOMs intact bilaterally Neck supple and no JVD Lymph Lymphatic: no lymphedema noted Resp Resp Narrative: Moderately diminished breath sounds bibasilarly. Bilateral wheezing and few crackles. Remains on 2L of oxygen by nasal canula Cardio regular rate, regular rhythm, S1 normal heart sound, S2 normal heart sound and no murmurs GI soft to palpation, non-tender and non-distended GI Narrative: abdominal wall still edematous, nontender, no organomegaly Extremity Extremity Narrative: bilateral pitting pedal edema General Extremity: no tenderness to palpation of joints or extremities Skin General Skin Exam: no breakdown Neuro no focal motor deficits Motor Exam: general weakness Psych Psych Narrative: confused, lethargic Mood & Affect: flat affect Assessment & Plan Assessment/Plan (1) Atrial fibrillation with RVR: (2) Acute exacerbation of chronic heart failure: PLAN: Plan #Hypoxia due to acute exacerbation of heart failure preserved ejection fraction * Also has abdominal wall distention due to fluid is most likely. She did have CT of the abdomen and pelvis on admission which showed generalized fluid overload and third spacing with small to moderate bilateral pleural effusions and small volume abdominal ascites as well as diffuse subcutaneous edema and cardiomegaly. * Chest x-ray showed extensive pulmonary edema and mild bibasilar pleural effusions. * Being diuresed with IV Lasix. In cumulative negative balance by 2.19L * Troponins essentially remained flat. #A-fib with RVR: * Now rate controlled. * TSH within normal limits. On Cardizem and metoprolol. * Not chronically anticoagulated due to fall history. Will monitor. ##Hypothyroidism: * On Synthroid. TSH is 19.5. Was previously as high as 43.9 in August 2024. * Was 18.2 in September 2024. She is on Synthroid 125 mcg daily. * Increased dose to 175 mcg daily. * She lives in a memory unit and so is supervised to take her meds. It is therefore safe to assume she has likely been compliant with her meds. #Thrombocytopenia: This is chronic. Platelets are up to 107 today. Will monitor closely. #Hypertension: Metoprolol and Cardizem as well as Imdur #Hyperlipidemia: On statin #Anxiety and depression: On sertraline and BuSpar #GERD: On PPI #History of gout: On allopurinol #YOSI: On CPAP nightly #DVT prophylaxis: Lovenox Charges/Coding Visit Charges Inpatient E&M: 18417 Subs Hosp L2
[2025-01-02] MEDS: MELATONIN 3 MG TABLET PO (21:15)
[2025-01-02] MEDS: Senna/Docusate Sodium 1 Tablet PO (21:16)
[2025-01-03] VITALS (8 sets, daily range): BP systolic 131–152; BP diastolic 88–102; PULSE 66–115; RESP 16–18; TEMP 36.6–37; O2SAT 91–98; BMI 30.6
[2025-01-03 06:19] LABS: Hematocrit 37.2 % (37-47); Hemoglobin 11.8 g/dL (12.0-15.0); Immature Granulocytes Count 0.020 X10^3/uL (0.0-0.0); Mean Corp Hgb Conc 31.7 g/dL (32-36); Mean Corpuscular Volume 99.2 fL (81-99); Mean Platelet Vol. 11.0 fl (6.2-12.0); NRBC Flagged by Analyzer 0 % (0-5); Platelet Count 107 K/mm3 (150-450); RBC Distribution Width CV 14.5 % (11.6-14.6); RBC Distribution Width SD 52.8 fl (35.1-43.9); Red Blood Count 3.75 M/mm3 (4.2-5.4); White Blood Count 5.8 K/mm3 (4.4-11.0)
[2025-01-03 08:04] LABS: Anion Gap 12 (5-15); BUN 13 mg/dL (4-19); BUN/Creat Ratio 16.6 RATIO (10-20); Calcium,Total 8.4 mg/dL (7.6-11.0); Carbon Dioxide 25.9 mmol/L (21.0-32.0); Chloride 103 mmol/L (98-108); Estimated Creatinine Clearance 70.92 ml/min (50-250); Glucose 119 mg/dL (70-99); Potassium 3.3 mmol/L (3.3-5.1)
[2025-01-03] MEDS: Potassium Chloride Oral Tablet 10 MEQ PO ×2 (11:03→21:34)
--- NOTE | 2025-01-03 12:46 | PN_ITS ---
Subjective Subjective Patient seen and examined. She was sitting up in her chair and looked much better today. She had no active complaints and had an uneventful night. Review of systems is otherwise negative. She remains on 2L of oxygen. Objective Data Objective Data Vital Signs: Vital Signs Temp Pulse Resp BP Pulse Ox O2 Del Method O2 Flow Rate 98.3 F 72 16 132/96 H 96 Nasal Cannula 2 01/03/25 11:00 01/03/25 11:04 01/03/25 11:00 01/03/25 11:00 01/03/25 11:00 01/03/25 11:00 01/03/25 11:00 Oxygen Flow Rate (L/min) 2 Oxygen Delivery Method Nasal Cannula Weight: 201 lb 4.513 oz Body Mass Index (BMI) 30.6 Intake & Output: Intake and Output for Last 24 Hours 01/01/25 01/02/25 01/03/25 23:59 23:59 23:59 Intake Total 500 / 500 720 / 720 60 / 60 Output Total 1000 / 1600 2570 / 2570 200 / 200 Balance -500 / -1100 -1850 / -1850 -140 / -140 Lab / Micro Data 01/03/25 05:39 01/03/25 05:39 Labs: Laboratory Results - last 24 hr 01/03/25 05:39: WBC 5.8, RBC 3.75 L, Hgb 11.8 L, Hct 37.2, MCV 99.2 H, MCH 31.5, MCHC 31.7 L, RDW Std Deviation 52.8 H, RDW Coeff of Lisa 14.5, Plt Count 107 L, MPV 11.0, Immature Gran % (Auto) 0.300, Neut % (Auto) 59.7, Lymph % (Auto) 28.0, [place] % (Auto) 9.8, Eos % (Auto) 1.5, Baso % (Auto) 0.7, Absolute Neuts (auto) 3.5, Absolute Lymphs (auto) 1.63, Nucleated RBC % 0, Sodium 141, Potassium 3.3, Chloride 103, Carbon Dioxide 25.9, Anion Gap 12, BUN 13, Creatinine 0.81, Estim Creat Clear Calc 70.92, Est GFR (MDRD) Non-Af 76, BUN/Creatinine Ratio 16.6, G lucose 119 H, Calcium 8.4 Micro: Microbiology 12/30/24 17:13 Urine, Catheterized Urine Culture - Final Culture exhibits no growth. Physical Exam Const alert and no apparent distress Constitutional Narrative: Frail, confused. Weak Orientation / Consciousness: confused HEENT normocephalic, head/scalp atraumatic, moist oral mucous membranes and oropharynx normal Eyes EOMs intact bilaterally Neck supple and no JVD Lymph Lymphatic: no lymphedema noted Resp Resp Narrative: Moderately diminished breath sounds bibasilarly. Mild wheezing. Remains on 2L of oxygen by nasal canula Cardio regular rate, regular rhythm, S1 normal heart sound, S2 normal heart sound and no murmurs GI soft to palpation, non-tender and non-distended GI Narrative: abdominal wall still edematous, though it is improving, nontender, no organomegaly Extremity Extremity Narrative: bilateral pitting pedal edema General Extremity: no tenderness to palpation of joints or extremities Skin General Skin Exam: no breakdown Neuro no focal motor deficits Motor Exam: general weakness Psych Psych Narrative: flat affect. Mood & Affect: flat affect Assessment & Plan Assessment/Plan (1) Atrial fibrillation with RVR: (2) Acute exacerbation of chronic heart failure: PLAN: Plan #Hypoxia due to acute exacerbation of heart failure preserved ejection fraction * Also has abdominal wall distention due to fluid is most likely. She did have CT of the abdomen and pelvis on admission which showed generalized fluid overload and third spacing with small to moderate bilateral pleural effusions and small volume abdominal ascites as well as diffuse subcutaneous edema and cardiomegaly. * Chest x-ray showed extensive pulmonary edema and mild bibasilar pleural effusions. * Being diuresed with IV Lasix. In cumulative negative balance by 3.080 * Troponins essentially remained flat. * will switch to PO lasix. #A-fib with RVR: * Now rate controlled. * TSH within normal limits. On Cardizem and metoprolol. * Not chronically anticoagulated due to fall history. Will monitor. ##Hypothyroidism: * On Synthroid. TSH is 19.5. Was previously as high as 43.9 in August 2024. * Was 18.2 in September 2024. She is on Synthroid 125 mcg daily. * Increased dose to 175 mcg daily. * She lives in a memory unit and so is supervised to take her meds. * It is therefore safe to assume she has likely been compliant with her meds. #Thrombocytopenia: This is chronic. Platelets are still 107 today. Will monitor closely. #Hypertension: Metoprolol and Cardizem as well as Imdur #Hyperlipidemia: On statin #Anxiety and depression: On sertraline and BuSpar #GERD: On PPI #History of gout: On allopurinol #YOSI: On CPAP nightly #DVT prophylaxis: Lovenox Charges/Coding Visit Charges Inpatient E&M: 10543 Subs Hosp L2
[2025-01-03] MEDS: Senna/Docusate Sodium 1 Tablet PO (21:34)
[2025-01-03] MEDS: MELATONIN 3 MG TABLET PO (21:37)
[2025-01-04] VITALS (9 sets, daily range): BP systolic 136–146; BP diastolic 88–109; PULSE 79–96; RESP 16–20; TEMP 36.5–37; O2SAT 90–96; BMI 30.9
[2025-01-04 04:34] LABS: Hematocrit 35.2 % (37-47); Hemoglobin 11.5 g/dL (12.0-15.0); Immature Granulocytes Count 0.020 X10^3/uL (0.0-0.0); Mean Corp Hgb Conc 32.7 g/dL (32-36); Mean Corpuscular Volume 98.6 fL (81-99); Mean Platelet Vol. 11.1 fl (6.2-12.0); NRBC Flagged by Analyzer 0 % (0-5); Platelet Count 108 K/mm3 (150-450); RBC Distribution Width CV 14.5 % (11.6-14.6); RBC Distribution Width SD 52.4 fl (35.1-43.9); Red Blood Count 3.57 M/mm3 (4.2-5.4); White Blood Count 7.4 K/mm3 (4.4-11.0)
[2025-01-04 04:55] LABS: Anion Gap 9 (5-15); BUN 14 mg/dL (4-19); BUN/Creat Ratio 18.4 RATIO (10-20); Calcium,Total 8.9 mg/dL (7.6-11.0); Carbon Dioxide 29.8 mmol/L (21.0-32.0); Chloride 102 mmol/L (98-108); Estimated Creatinine Clearance 71.81 ml/min (50-250); Glucose 115 mg/dL (70-99); Potassium 3.7 mmol/L (3.3-5.1)
[2025-01-04] MEDS: Potassium Chloride Oral Tablet 10 MEQ PO ×2 (09:16→20:22)
--- NOTE | 2025-01-04 14:34 | CASEMGMT ---
Addendum entered by Annie Hurtado 01/04/25 14:49: SW also informed the patient. Original Note: Social Work SW informed the nurse and physician that the patient is being transported at 645pm. [facility]. GIL Jackson
--- NOTE | 2025-01-04 15:31 | TREXTCAR_ITS ---
Diet Diet Order/Speech Therapy: INPATIENT Hospital Diet / Speech Therapy Order(s) 01/03/25 11:20 Diet: Cardiac - Heart Healthy Food consistency:: Soft & Bite Sized Liquid Consistency:: Regular/Thin Fluid restriction:: 1500 mL Speech Therapy Comments: 1:1 supervision. Swallow guidelines. Routine Orders/Code Status Enema Type: Fleetz Enema Frequency: Daily PRN Suppository Type: Dulcolax 10mg Suppository Frequency: Daily PRN DC O2, CPAP, BIPAP needs Home O2 Discharge instructions: No Wound(s) Left foot: Wound Type: Abrasion RIGHT TOES: Wound Type: Abrasion Therapies Weight Bearing: Weight bearing as tolerated Physical Therapy: Eval and Treat Occupational Therapy: Eval and Treat Problem/Diagnosis (1) Atrial fibrillation with RVR: Status: Acute Code(s): I48.91 - Unspecified atrial fibrillation (2) Acute exacerbation of chronic heart failure: Status: Acute Code(s): I50.9 - Heart failure, unspecified Plan #Hypoxia due to acute exacerbation of heart failure preserved ejection fraction * Also has abdominal wall distention due to fluid is most likely. She did have CT of the abdomen and pelvis on admission which showed generalized fluid overload and third spacing with small to moderate bilateral pleural effusions and small volume abdominal ascites as well as diffuse subcutaneous edema and cardiomegaly. * Chest x-ray showed extensive pulmonary edema and mild bibasilar pleural effusions. * Being diuresed with IV Lasix. In cumulative negative balance by 3.080 * Troponins essentially remained flat. * will switch to PO lasix. #A-fib with RVR: * Now rate controlled. * TSH within normal limits. On Cardizem and metoprolol. * Not chronically anticoagulated due to fall history. Will monitor. ##Hypothyroidism: * On Synthroid. TSH is 19.5. Was previously as high as 43.9 in August 2024. * Was 18.2 in September 2024. She is on Synthroid 125 mcg daily. * Increased dose to 175 mcg daily. * She lives in a memory unit and so is supervised to take her meds. * It is therefore safe to assume she has likely been compliant with her meds. #Thrombocytopenia: This is chronic. Platelets are still 107 today. Will monitor closely. #Hypertension: Metoprolol and Cardizem as well as Imdur #Hyperlipidemia: On statin #Anxiety and depression: On sertraline and BuSpar #GERD: On PPI #History of gout: On allopurinol #YOSI: On CPAP nightly #DVT prophylaxis: Lovenox Allergies/Procedures Done in Hospital Allergies No Known Allergies Allergy (Verified 10/27/24 15:11) Procedures: None Type of Care/Length of Stay Estimated LOS: Convalescent Care Less Than 30 days Type of Care Needed: Intermediate Rehab Potential: Fair Prognosis: Fair Additional Orders/Day of Discharge Day of Discharge: 01/04/25 Dietary and Speech Recommendations Dietitian Recommendations/Changes: Continue cardiac diet with 1500ml fluid restriction. PO needs to be established. Will monitor weight trends. At time of discharge recommend cardiac diet per MD fluid restriction recommendations. Discharge Plan Admission Admit Date/Time: 12/30/24 19:24 Primary Reason for Your Visit: acute HFpEF Attending Provider: Bhumika Ellington Primary Care Provider: Leslie Ahmadi Consulting Providers: Cathleen Vernon Instructions Patient Instructions: What Is Heart Failure Discharge Orders/Prescriptions Prescriptions: New levothyroxine 175 mcg Tablet 175 mcg PO DAILY@0600 Qty: 30 2RF Continued melatonin 3 mg tablet 3 mg PO QHS Senna Plus 8.6-50 mg capsule 1 tab-cap PO QHS buspirone 7.5 mg tablet 10 mg PO TID sertraline 50 mg tablet 100 mg PO DAILY isosorbide mononitrate 30 mg tablet extended release 24 hr 30 mg PO DAILY pantoprazole 40 mg tablet,delayed release (DR/EC) 40 mg PO DAILY diltiazem HCl 120 mg Capsule,Extended Release 24hr 120 mg PO Q24H atorvastatin 40 mg tablet 40 mg PO DAILY allopurinol 300 mg tablet 300 mg PO DAILY ferrous sulfate [FeroSul] 325 mg (65 mg iron) Tablet 325 mg PO 1200,1700 Qty: 0 0RF alendronate 70 mg tablet 70 mg PO .Q week Patient Comments: Take on Mondays omeprazole 40 mg capsule,delayed release(DR/EC) 40 mg PO DAILY calcium carbonate 200 mg calcium (500 mg) Tablet,Chewable 500 mg PO TIDCM Qty: 0 0RF acetaminophen 325 mg Tablet 1,000 mg PO TID metoprolol tartrate 25 mg tablet 12.5 mg PO BID furosemide 40 mg tablet 20 mg PO BID potassium chloride [Klor-Con M10] 10 mEq tablet,ER particles/crystals 10 meq PO BID Discontinued levothyroxine 125 mcg tablet 125 mcg PO DAILY Referrals / Follow Up: Leslie Ahmadi MD [Primary Care Provider, Internal Medicine] - Within 1 Week Disposition Disposition (needs filled in before D/C Order can be placed): [facility]
--- NOTE | 2025-01-04 15:34 | DS.PCM_ITS ---
Providers Date of Admission: 12/30/24 Date of Discharge: 01/04/25 Primary Care Physician: Dr. Leslie Ahmadi MD Reason For Visit: HYPOXIA, HFPEF EXAC, PAF RVR, ADULT FTT Diagnosis Discharge Diagnosis (1) Atrial fibrillation with RVR: Status: Acute Code(s): I48.91 - Unspecified atrial fibrillation (2) Acute exacerbation of chronic heart failure: Status: Acute Code(s): I50.9 - Heart failure, unspecified Plan #Hypoxia due to acute exacerbation of heart failure preserved ejection fraction * Also has abdominal wall distention due to fluid is most likely. She did have CT of the abdomen and pelvis on admission which showed generalized fluid overload and third spacing with small to moderate bilateral pleural effusions and small volume abdominal ascites as well as diffuse subcutaneous edema and cardiomegaly. * Chest x-ray showed extensive pulmonary edema and mild bibasilar pleural effusions. * Being diuresed with IV Lasix. In cumulative negative balance by 3.080 * Troponins essentially remained flat. * will switch to PO lasix. #A-fib with RVR: * Now rate controlled. * TSH within normal limits. On Cardizem and metoprolol. * Not chronically anticoagulated due to fall history. Will monitor. ##Hypothyroidism: * On Synthroid. TSH is 19.5. Was previously as high as 43.9 in August 2024. * Was 18.2 in September 2024. She is on Synthroid 125 mcg daily. * Increased dose to 175 mcg daily. * She lives in a memory unit and so is supervised to take her meds. * It is therefore safe to assume she has likely been compliant with her meds. #Thrombocytopenia: This is chronic. Platelets are still 107 today. Will monitor closely. #Hypertension: Metoprolol and Cardizem as well as Imdur #Hyperlipidemia: On statin #Anxiety and depression: On sertraline and BuSpar #GERD: On PPI #History of gout: On allopurinol #YOSI: On CPAP nightly #DVT prophylaxis: Lovenox Medications at Discharge Home Medications allopurinol 300 mg tablet 300 mg PO DAILY gout 01/27/24 atorvastatin 40 mg tablet 40 mg PO DAILY cholesterol 01/27/24 buspirone 7.5 mg tablet 10 mg PO TID mental health 02/01/24 sertraline 50 mg tablet 100 mg PO DAILY mental health 02/01/24 ferrous sulfate 325 mg (65 mg iron) tablet (FeroSul) 325 mg PO 1200,1700 #0 tabs 09/08/24 alendronate 70 mg tablet 70 mg PO .Q week osteoprosis 09/28/24 omeprazole 40 mg capsule,delayed release 40 mg PO DAILY gerd 09/28/24 calcium carbonate 500 mg (2.5 x 200 mg calcium (500 mg)) PO TIDCM #0 tabs 10/03/24 diltiazem HCl 120 mg capsule,extended release 24 hr 120 mg PO Q24H 10/07/24 isosorbide mononitrate 30 mg tablet,extended release 24 hr 30 mg PO DAILY 10/07/24 pantoprazole 40 mg tablet,delayed release 40 mg PO DAILY 10/07/24 melatonin 3 mg tablet 3 mg PO QHS Insomnia 10/27/24 sennosides 8.6 mg-docusate sodium 50 mg capsule (Senna Plus) 1 tab-cap PO QHS 10/27/24 acetaminophen 325 mg tablet 1,000 mg PO TID osteoarthritis 12/30/24 metoprolol tartrate 25 mg tablet 12.5 mg PO BID blood pressure 12/30/24 furosemide 40 mg tablet (Lasix) 40 mg PO BID #60 tabs 01/04/25 levothyroxine 175 mcg tablet 175 mcg PO DAILY@0600 #30 tabs 01/04/25 potassium chloride 20 mEq tablet,extended release(part/cryst) (Klor-Con M) 20 meq PO BID #60 tabs 01/04/25 Hospital Course Operations None Procedures None Summary of Care Provided Minutes Spent on Discharge: 45 Hospital Course: Patient is a 74-year-old female with a past medical history as outlined was admitted to the ED on 12/30/2024 with complaint of increased weight gain and lower extremity edema extending up to the abdomen. She also had notable tachycardia with nausea but no vomiting. Her weight was 224 pounds at time of review though her previous weight per records from September 2024 was 195 pounds. Labs done was significant for proBNP of 18,389. Patient was also hypoxic with oxygen saturation going down to 85% on 2 L of oxygen in the ED. CT abdomen pelvis showed fluid overload and third spacing in the abdomen with moderate bilateral pleural effusions and diffuse subcutaneous edema. She also had cardiomegaly and chest x-ray showed extensive pulmonary edema. EKG showed A-fib with RVR. She was admitted and managed for acute exacerbation of heart failure with preserved ejection fraction. She was diuresed with IV Lasix 40 mg twice daily. Her troponins essentially remained flat. A-fib with RVR resolved and she became rate controlled. Her TSH was 19.5 and had previously been as high as 43.9. Her Synthroid dose was increased to 175 mcg daily from 125 mcg daily. She was weaned down to room and did well. She was discharged back to her care home facility on 01/04/2025. Her Lasix dose was increased to p.o. Lasix 40 mg twice daily with potassium supplementation. She is follow-up with her primary care doctor within 1 to 2 weeks. Of note 2D echo was not repeated as she just had a 2D echo in August 2024 which showed EF of 65 to 70% with mild concentric left ventricular hypertrophy and severely enlarged left atrium. As stated she is follow-up with her primary care doctor within 1 to 2 weeks. Patient seen and examined prior to discharge. She had no active complaints. Review of systems otherwise negative. She was alert and communicative. Labs and vitals reviewed. Home medication reviewed and reconciled. Physical Exam Const alert and no apparent distress Constitutional Narrative: Frail, confused. Weak Orientation / Consciousness: confused HEENT normocephalic, head/scalp atraumatic, moist oral mucous membranes and oropharynx normal Mouth: oral and palatal mucosa normal Eyes EOMs intact bilaterally Neck supple and no JVD Lymph Lymphatic: no lymphedema noted Resp Resp Narrative: Moderately diminished breath sounds bibasilarly. Now on room air. Cardio regular rate, regular rhythm, S1 normal heart sound, S2 normal heart sound and no murmurs GI soft to palpation, non-tender and non-distended GI Narrative: abdominal wall still edematous, though it is improving, nontender, no organomegaly Extremity Extremity Narrative: mild bilateral pitting pedal edema; has improved General Extremity: no tenderness to palpation of joints or extremities Skin General Skin Exam: no breakdown Neuro moves all extremities and no focal motor deficits Sensorium / Orientation: awake and alert Motor Exam: general weakness Psych Psych Narrative: flat affect. Mood & Affect: flat affect Weight / BMI Weight Weight: 203 lb 4.259 oz Body Mass Index (BMI) 30.9 ABG / Lab / Microbiology Data 01/04/25 04:06 01/04/25 04:06 Laboratory: Laboratory Results - last 24 hr 01/04/25 04:06: WBC 7.4, RBC 3.57 L, Hgb 11.5 L, Hct 35.2 L, MCV 98.6, MCH 32.2 H, MCHC 32.7, RDW Std Deviation 52.4 H, RDW Coeff of Lisa 14.5, Plt Count 108 L, MPV 11.1, Immature Gran % (Auto) 0.300, Neut % (Auto) 65.1, Lymph % (Auto) 22.7, Brown % (Auto) 11.0 H, Eos % (Auto) 0.5, Baso % (Auto) 0.4, Absolute Neuts (auto) 4.8, Absolute Lymphs (auto) 1.69, Nucleated RBC % 0, Sodium 141, Potassium 3.7, Chloride 102, Carbon Dioxide 29.8, Anion Gap 9, BUN 14, Creatinine 0.74, Estim Creat Clear Calc 71.81, Est GFR (MDRD) Non-Af 84, BUN/Creatinine Ratio 18.4, G lucose 115 H, Calcium 8.9 Microbiology: Microbiology 12/30/24 17:13 Urine, Catheterized Urine Culture - Final Culture exhibits no growth. D/C Instructions Discharge Activity: Return to Normal Activity Weight Bearing Status: Weight bearing as tolerated Call your doctor if you observe: Fever of 101 or Higher, Shortness of breath, Dizziness, Swelling in the ankles, Chest pain and Increased palpitations (irregular heartbeat) DC O2, CPAP, BIPAP Needs Home O2 Discharge instructions: No DC home with Oxygen: No Meaningful Use Info Meaningful Use Meaningful Use Diagnoses (Choose all that apply): CHF CHF SUJATHA/ARB ordered at discharge?: No Reason SUJATHA/ARB not ordered?: Not indicated Documented LVEF (%): 65 Discharge Plan Admission Admit Date/Time: 12/30/24 19:24 Primary Reason for Your Visit: acute HFpEF Attending Provider: Bhumika Ellington Primary Care Provider: Leslie Ahmadi Consulting Providers: Cathleen Vernon Instructions Patient Instructions: What Is Heart Failure Discharge Orders/Prescriptions Prescriptions: New levothyroxine 175 mcg Tablet 175 mcg PO DAILY@0600 Qty: 30 2RF furosemide [Lasix] 40 mg tablet 40 mg PO BID Qty: 60 2RF potassium chloride [Klor-Con M20] 20 mEq tablet,ER particles/crystals 20 meq PO BID Qty: 60 2RF Continued melatonin 3 mg tablet 3 mg PO QHS Senna Plus 8.6-50 mg capsule 1 tab-cap PO QHS buspirone 7.5 mg tablet 10 mg PO TID sertraline 50 mg tablet 100 mg PO DAILY isosorbide mononitrate 30 mg tablet extended release 24 hr 30 mg PO DAILY pantoprazole 40 mg tablet,delayed release (DR/EC) 40 mg PO DAILY diltiazem HCl 120 mg Capsule,Extended Release 24hr 120 mg PO Q24H atorvastatin 40 mg tablet 40 mg PO DAILY allopurinol 300 mg tablet 300 mg PO DAILY ferrous sulfate [FeroSul] 325 mg (65 mg iron) Tablet 325 mg PO 1200,1700 Qty: 0 0RF alendronate 70 mg tablet 70 mg PO .Q week Patient Comments: Take on Mondays omeprazole 40 mg capsule,delayed release(DR/EC) 40 mg PO DAILY calcium carbonate 200 mg calcium (500 mg) Tablet,Chewable 500 mg PO TIDCM Qty: 0 0RF acetaminophen 325 mg Tablet 1,000 mg PO TID metoprolol tartrate 25 mg tablet 12.5 mg PO BID Discontinued levothyroxine 125 mcg tablet 125 mcg PO DAILY furosemide 40 mg tablet 20 mg PO BID potassium chloride [Klor-Con M10] 10 mEq tablet,ER particles/crystals 10 meq PO BID Referrals / Follow Up: Leslie Ahmadi MD [Primary Care Provider, Internal Medicine] - Within 1 Week Disposition Disposition (needs filled in before D/C Order can be placed): Longterm Facility Charges/Coding Visit Charges Inpatient E&M: 28609 Disch Hosp >30min
--- NOTE | 2025-01-04 15:37 | PHA.DC.MR.R ---
Pharmacy [place] Med Reconciliation Pharmacy Service has performed discharge medication reconciliation for this patient. The patient's discharge medication list was reviewed for discrepancies and discrepancies were resolved. Medications at Discharge Home Medications allopurinol 300 mg tablet 300 mg PO DAILY gout 01/27/24 atorvastatin 40 mg tablet 40 mg PO DAILY cholesterol 01/27/24 buspirone 7.5 mg tablet 10 mg PO TID mental health 02/01/24 sertraline 50 mg tablet 100 mg PO DAILY mental health 02/01/24 ferrous sulfate 325 mg (65 mg iron) tablet (FeroSul) 325 mg PO 1200,1700 #0 tabs 09/08/24 alendronate 70 mg tablet 70 mg PO .Q week osteoprosis 09/28/24 omeprazole 40 mg capsule,delayed release 40 mg PO DAILY gerd 09/28/24 calcium carbonate 500 mg (2.5 x 200 mg calcium (500 mg)) PO TIDCM #0 tabs 10/03/24 diltiazem HCl 120 mg capsule,extended release 24 hr 120 mg PO Q24H 10/07/24 isosorbide mononitrate 30 mg tablet,extended release 24 hr 30 mg PO DAILY 10/07/24 pantoprazole 40 mg tablet,delayed release 40 mg PO DAILY 10/07/24 melatonin 3 mg tablet 3 mg PO QHS Insomnia 10/27/24 sennosides 8.6 mg-docusate sodium 50 mg capsule (Senna Plus) 1 tab-cap PO QHS 10/27/24 furosemide 40 mg tablet 20 mg PO BID 10/28/24 potassium chloride 10 mEq tablet,extended release(part/cryst) (Klor-Con M) 10 meq PO BID CKD 10/28/24 acetaminophen 325 mg tablet 1,000 mg PO TID osteoarthritis 12/30/24 metoprolol tartrate 25 mg tablet 12.5 mg PO BID blood pressure 12/30/24 levothyroxine 175 mcg tablet 175 mcg PO DAILY@0600 #30 tabs 01/04/25
--- NOTE | 2025-01-04 15:48 | NURSING ---
Report called to nurse Curiel for pt to return to [facility].
--- NOTE | 2025-01-04 16:23 | CASEMGMT ---
Social Work SW called the brother Jarad and informed him that his sister is discharging back to [facility] and nursing today. GIL Mcadams
[2025-01-04] MEDS: 0.9% Saline Lock 10 ML Syringe IV (17:41)
[2025-01-04] MEDS: MELATONIN 3 MG TABLET PO (20:22)
[2025-01-04] MEDS: Senna/Docusate Sodium 1 Tablet PO (20:22)
== END 2025-01-04 20:55 | disposition skilled nursing facility (03) | DRG 291 ==
LOC: ED 19:11 → PCU 20:26
PROVIDERS: Admitting Provider Family Medicine; Emergency Provider Surgery; PCP Internal Medicine; Visit Provider Student in an Organized Health Care Education/Training Program
DX: I13.0 Hypertensive heart and chronic kidney disease with heart failure and stage 1 through stage 4 chronic kidney disease, or unspecified chronic kidney disease (principal); I50.33 Acute on chronic diastolic (congestive) heart failure; R18.8 Other ascites; D69.6 Thrombocytopenia, unspecified; E03.9 Hypothyroidism, unspecified; D50.9 Iron deficiency anemia, unspecified; F32.A Depression, unspecified; Z68.35 Body mass index [BMI] 35.0-35.9, adult; I48.0 Paroxysmal atrial fibrillation; K21.9 Gastro-esophageal reflux disease without esophagitis; G47.33 Obstructive sleep apnea (adult) (pediatric); E78.5 Hyperlipidemia, unspecified; N18.2 Chronic kidney disease, stage 2 (mild); F41.9 Anxiety disorder, unspecified; M10.9 Gout, unspecified; E66.9 Obesity, unspecified; Z79.890 Hormone replacement therapy; Z79.899 Other long term (current) drug therapy; Z87.891 Personal history of nicotine dependence
CPT/HCPCS: 36415; 71046; 74177; 80048; 80053; 80061; 81001; 83605; 83690; 83735; 83880; 84439; 84443; 84481; 84484; 85025; 87086; 92526; 92610; 93005; 94668; 97116; 97162; 97166; 97530; 97535; 99252; 99285; P9612; Q9967; A4216; G0463; J1938; J2405

== ENCOUNTER 2025-01-27 02:28 | Emergency (ER) | payer MEDICARE, SELFPAY ==
[2025-01-27 02:29] VITALS: BP 136/93; PULSE 98; RESP 18; TEMP 36.8; O2SAT 97; BMI 28.8
[2025-01-27 02:32] VITALS: BP 136/93; PULSE 98; RESP 18; TEMP 36.8; O2SAT 95
[2025-01-27 03:16] LABS: Hematocrit 38.3 % (37-47); Hemoglobin 12.2 g/dL (12.0-15.0); Immature Granulocytes Count 0.020 X10^3/uL (0.0-0.0); Mean Corp Hgb Conc 31.9 g/dL (32-36); Mean Corpuscular Volume 97.2 fL (81-99); Mean Platelet Vol. 10.6 fl (6.2-12.0); NRBC Flagged by Analyzer 0 % (0-5); Platelet Count 111 K/mm3 (150-450); RBC Distribution Width CV 15.1 % (11.6-14.6); RBC Distribution Width SD 53.9 fl (35.1-43.9); Red Blood Count 3.94 M/mm3 (4.2-5.4); White Blood Count 6.9 K/mm3 (4.4-11.0)
[2025-01-27 03:27] LABS: Mucous, Urine 0 SEEN /hpf (<or=2+); Red Blood Cells-Urine 0 SEEN /hpf (0-5); Squamous Epithelial Cells - UA 0 SEEN /hpf (5-10)
[2025-01-27 03:30] LABS: Color, Urine Yellow (Yellow); Glucose, Dipstick Normal (Normal); Ketone-Dipstick Negative (Negative); Leukocyte Esterase-Dipstick Negative /ul (Negative); Nitrite-Dipstick Negative (Negative); Occult Blood-Urine 10 /ul (Negative); Protein-Dipstick Negative (Negative); Specific Gravity, Urine 1.020 (1.002-1.030); Urine Bilirubin Dipstick Negative (Negative)
[2025-01-27 03:46] LABS: AST(SGOT) 18 U/L (<=31); Alanine Aminotransfer ALT/SGPT 19 U/L (<=34); Albumin, Serum 3.9 g/dL (3.4-4.8); Alkaline Phosphatase 202 U/L (35-104); Anion Gap 9 (5-15); BUN 11 mg/dL (4-19); BUN/Creat Ratio 13.8 RATIO (10-20); Bilirubin, Direct 0.53 mg/dL (0.00-0.30); Calcium,Total 8.9 mg/dL (7.6-11.0); Carbon Dioxide 25.3 mmol/L (21.0-32.0); Chloride 110 mmol/L (98-108); Estimated Creatinine Clearance 68.95 ml/min (50-250); Globulin 2.0 g/dL (2.2-4.2); Glucose 103 mg/dL (70-99); Potassium 3.0 mmol/L (3.3-5.1)
--- NOTE | 2025-01-27 04:07 | EX.ED.DYSGE1 ---
HPI History of Present Illness Chief Complaint: Confusion Informant: SNF Narrative Narrative: Patient is a 74-year-old female from the long-term with history of dementia hypertension and hyperlipidemia as well as hypothyroidism. According to the long-term the patient was aggressive and combative this evening and secondary to this they sent her to the ER for evaluation. Upon arrival to the ER the patient does not know why she is here. According to the long-term other than her aggressive and combative behavior she is at her baseline mental status [facility] Medical History (Updated 01/27/25 @ 04:[address] Will Ashley, DO) Dementia (HFpEF) heart failure with preserved ejection fraction Anxiety and depression CKD (chronic kidney disease), stage II Acute exacerbation of chronic heart failure Former tobacco use Hypothyroidism HLD (hyperlipidemia) Thrombocytopenia Chronic anemia CKD (chronic kidney disease) Gout Sleep apnea Atrial fibrillation Hypertension Home Medications ?Medication ?Instructions ?Recorded ?Last Taken ?Type allopurinol 300 mg tablet 300 mg PO DAILY gout 01/27/24 12/30/24 History atorvastatin 40 mg tablet 40 mg PO DAILY cholesterol 01/27/24 12/29/24 History buspirone 7.5 mg tablet 10 mg PO TID mental health 02/01/24 12/30/24 History sertraline 50 mg tablet 150 mg PO DAILY mental health 02/01/24 12/30/24 History ferrous sulfate 325 mg (65 mg 325 mg PO 1200,1700 #0 tabs 09/08/24 Unknown Rx iron) tablet (FeroSul) alendronate 70 mg tablet 70 mg PO .Q week osteoprosis 09/28/24 12/28/24 History omeprazole 40 mg capsule,delayed 40 mg PO DAILY gerd 09/28/24 12/30/24 History release diltiazem HCl 120 mg 120 mg PO Q24H 10/07/24 12/30/24 History capsule,extended release 24 hr isosorbide mononitrate 30 mg 30 mg PO DAILY 10/07/24 12/30/24 History tablet,extended release 24 hr pantoprazole 40 mg tablet,delayed 40 mg PO DAILY 10/07/24 12/30/24 History release melatonin 3 mg tablet 3 mg PO QHS Insomnia 10/27/24 12/29/24 History sennosides 8.6 mg-docusate sodium 1 tab-cap PO QHS 10/27/24 12/29/24 History 50 mg capsule (Senna Plus) acetaminophen 325 mg tablet 1,000 mg PO TID osteoarthritis 12/30/24 12/30/24 History metoprolol tartrate 25 mg tablet 12.5 mg PO BID blood pressure 12/30/24 12/30/24 History furosemide 40 mg tablet (Lasix) 40 mg PO BID #60 tabs 01/04/25 Unknown Rx potassium chloride 20 mEq 20 meq PO BID #60 tabs 01/04/25 Unknown Rx tablet,extended release(part/cryst) (Klor-Con M) calcium carbonate 200 mg PO TIDCM 01/27/25 Unknown History levothyroxine 200 mcg tablet 200 mcg PO DAILY 01/27/25 Unknown History lorazepam 0.5 mg tablet 0.5 mg PO TID 01/27/25 Unknown History lorazepam 0.5 mg tablet (Ativan) 0.5 mg PO Q6H PRN agitation 01/27/25 Unknown History rivastigmine 4.6 mg/24 hour 1 patch topical DAILY 01/27/25 Unknown History transdermal patch Allergy/AdvReac Type Severity Reaction Status Date / Time No Known Allergies Allergy Verified 10/27/24 15:11 Family History Mother Cancer Diabetes Heart disease Hypertension Father Cancer Diabetes Heart disease Hypertension Surgical History History of hip surgery History of cholecystectomy Social History (Updated 12/30/24 @ 19:[address] Cathleen Vernon MD) household members: none housing: long-term Smoking Status: Former smoker how long ago did patient quit smoking: Quit ~ 30 years prior. alcohol intake: never substance use type: does not use ROS ROS ED ROS Narrative Review of systems may be unreliable secondary to history of mention Constitutional Constitutional ED: Denies chills or fever(s) ENT ENT ED: Denies sore throat Cardiovascular Cardiovascular: Denies chest pain Respiratory/Chest Respiratory/Chest: Denies cough or dyspnea Gastrointestinal Gastrointestinal: Denies abdominal pain, diarrhea, nausea or vomiting Genitourinary Genitourinary ED: Denies dysuria Musculoskeletal Musculoskeletal: Denies myalgias Integumentary Denies rash Neurologic Neurologic: Denies headache(s) EXAM Physical Exam Const Vital Signs: 01/27/25 02:29 01/27/25 02:32 Temperature 98.2 F 98.2 F Temperature Source Oral Oral Pulse Rate 98 98 Respiratory Rate 18 18 Blood Pressure 136/93 H 136/93 H Blood Pressure Mean 107 107 Pulse Ox 97 95 Oxygen Delivery Method Room Air Room Air Positive well nourished and well developed General Appearance ED: well developed HEENT HEENT Narrative: Normocephalic atraumatic Eyes PERRL and EOMs intact bilaterally General Eye ED: Negative for scleral icterus Neck supple and no JVD Resp normal respiratory effort and clear to auscultation bilaterally Resp Narrative: Breath sounds are diminished throughout with faint rhonchi in the bilateral bases but no signs of respiratory distress Cardio regular rate and regular rhythm Rate: other Other Details: Radial and carotid pulses are equal and symmetric GI normal to inspection, nondistended, normoactive bowel sounds, non-tender, non-distended and no masses GI Narrative: No voluntary guarding or rigidity or pulsatile mass Auscultation: normoactive bowel sounds Palpation: soft Extremity Extremity Narrative: +2-3 pitting edema to the bilateral lower extremities that is equal and symmetric Negative Homans' sign bilaterally No sign of long bone injury such as bony deformity or joint effusion Neuro CN's II-XII intact bilaterally Neuro Narrative: GCS of 13 Patient is unaware of the place and year but this is baseline mental status per long-term Otherwise no sign of focal neurologic deficit Sensorium / Orientation: alert Psych Psych Narrative: Patient is at baseline mental status Skin no rashes or lesions noted Skin Narrative: No overlying soft tissue changes to suggest trauma or infection MDM MDM MDM Narrative Medical decision making narrative: Patient arrived to ER mildly hypertensive but has a past medical history of this. With nursing reporting increased combative behavior there is concern for potential infection such as urinary tract infection causing delirium on top of dementia. There is also concern for acute on chronic kidney injury or electrolyte abnormality. Patient's white count is normal at 6.9 there is no left shift as her absolute neutrophil count is normal and this correlates with the fact she is afebrile going against systemic infection. Urine sample shows no sign of infection at this point. She does not have findings of acute on chronic kidney injury. Electrolytes revealed no clinically significant findings. Her TSH is elevated at 10.4 but chart review reveals that on December 31 and it was approximately 20 and 17 and the downtrend goes against patient developing myxedema coma. Therefore this time vitals are stable overall workup is negative and I feel that patient is otherwise safe for discharge to return to the long-term. History & Record Review Additional record(s) reviewed:: Prior outpatient record Lab Data Attestation: I reviewed the patient's lab results. Labs: Laboratory Results - last 24 hr 01/27/25 01/27/25 02:58 03:20 WBC 6.9 RBC 3.94 L Hgb 12.2 Hct 38.3 MCV 97.2 MCH 31.0 MCHC 31.9 L RDW Std Deviation 53.9 H RDW Coeff of Lisa 15.1 H Plt Count 111 L MPV 10.6 Immature Gran % (Auto) 0.300 Neut % (Auto) 71.9 H Lymph % (Auto) 20.7 [place] % (Auto) 5.9 Eos % (Auto) 0.6 Baso % (Auto) 0.6 Absolute Neuts (auto) 5.0 Absolute Lymphs (auto) 1.43 Nucleated RBC % 0 Sodium 145 Potassium 3.0 L Chloride 110 H Carbon Dioxide 25.3 Anion Gap 9 BUN 11 Creatinine 0.81 Estim Creat Clear Calc 68.95 Est GFR (MDRD) Non-Af 76 BUN/Creatinine Ratio 13.8 Glucose 103 H Calcium 8.9 Total Bilirubin 1.01 Direct Bilirubin 0.53 H AST 18 ALT 19 Alkaline Phosphatase 202 H Total Protein 5.9 Albumin 3.9 Globulin 2.0 L TSH 10.400 H Urine Color Yellow Urine Clarity Clear Urine pH 5.0 Ur Specific [place] 1.020 Urine Protein Negative Urine Glucose (UA) Normal Urine Ketones Negative Urine Occult Blood 10 H Urine Nitrite Negative Urine Bilirubin Negative Urine Urobilinogen Normal Ur Leukocyte Esterase Negative Urine RBC 0 SEEN Urine WBC 0 SEEN Ur Squamous Epith Cells 0 SEEN Urine Bacteria 0 SEEN Hyaline Casts 0-5 SEEN Urine Mucus 0 SEEN Discharge Plan Triage Chief Complaint: Confusion ED Provider: Will Ashley Dx/Rx/DC Orders Clinical Impression: Dementia, Hypothyroidism, HLD (hyperlipidemia), Hypertension Instructions: Delirium and Dementia, ED Hypothyroidism Prescriptions: No Action melatonin 3 mg tablet 3 mg PO QHS Senna Plus 8.6-50 mg capsule 1 tab-cap PO QHS buspirone 7.5 mg tablet 10 mg PO TID sertraline 50 mg tablet 150 mg PO DAILY isosorbide mononitrate 30 mg tablet extended release 24 hr 30 mg PO DAILY pantoprazole 40 mg tablet,delayed release (DR/EC) 40 mg PO DAILY diltiazem HCl 120 mg Capsule,Extended Release 24hr 120 mg PO Q24H lorazepam 0.5 mg tablet 0.5 mg PO TID levothyroxine 200 mcg tablet 200 mcg PO DAILY lorazepam [Ativan] 0.5 mg tablet 0.5 mg PO Q6H PRN (Reason: agitation) rivastigmine 4.6 mg/24 hour patch 24 hour 1 patch topical DAILY calcium carbonate 200 mg calcium (500 mg) Tablet,Chewable 200 mg PO TIDCM atorvastatin 40 mg tablet 40 mg PO DAILY allopurinol 300 mg tablet 300 mg PO DAILY ferrous sulfate [FeroSul] 325 mg (65 mg iron) Tablet 325 mg PO 1200,1700 Qty: 0 0RF alendronate 70 mg tablet 70 mg PO .Q week Patient Comments: Take on Mondays omeprazole 40 mg capsule,delayed release(DR/EC) 40 mg PO DAILY acetaminophen 325 mg Tablet 1,000 mg PO TID metoprolol tartrate 25 mg tablet 12.5 mg PO BID furosemide [Lasix] 40 mg tablet 40 mg PO BID Qty: 60 2RF potassium chloride [Klor-Con M20] 20 mEq tablet,ER particles/crystals 20 meq PO BID Qty: 60 2RF Primary Care Provider: Adria Ho Referrals: Adria Ho MD [Primary Care Provider, [facility]] Activity Restrictions/Additional Instructions: The patient's workup revealed no sign of urinary tract infection or signs of kidney damage or electrolyte problems. Her TSH is elevated consistent with hypothyroidism but is improved from her previous values obtained on December 31 and of this year. Please continue to monitor the value as an outpatient but this time she does not have abnormal vitals or abnormal labs or signs of infection and therefore can return to the long-term Print Language: Kazakh Disposition Disposition: Home, Self Care Discharge Date/Time: 01/27/25 04:37
[2025-01-27 04:26] VITALS: BP 135/103; PULSE 97; RESP 16; TEMP 36.8; O2SAT 99
== END 2025-01-27 04:37 | disposition home or self-care (01) ==
PROVIDERS: Emergency Provider Emergency Medicine; PCP Family Medicine; Visit Provider Emergency Medicine
DX: R41.0 Disorientation, unspecified (principal); I13.0 Hypertensive heart and chronic kidney disease with heart failure and stage 1 through stage 4 chronic kidney disease, or unspecified chronic kidney disease; I50.30 Unspecified diastolic (congestive) heart failure; F03.90 Unspecified dementia, unspecified severity, without behavioral disturbance, psychotic disturbance, mood disturbance, and anxiety; I48.91 Unspecified atrial fibrillation; N18.2 Chronic kidney disease, stage 2 (mild); E78.5 Hyperlipidemia, unspecified; Z87.891 Personal history of nicotine dependence; E03.9 Hypothyroidism, unspecified; M10.9 Gout, unspecified; Z79.899 Other long term (current) drug therapy; F41.8 Other specified anxiety disorders; Z79.890 Hormone replacement therapy; Z90.49 Acquired absence of other specified parts of digestive tract
CPT/HCPCS: 80048; 80076; 81001; 84443; 85025; 99285; A4216